=== PATIENT | male | born 1940 | race Caucasian/White ===

== ENCOUNTER 2023-02-04 14:27 | Outpatient (AMB) | payer MEDICARE, SELFPAY ==
[2023-02-04 14:50] VITALS: BP 130/60; PULSE 66; BMI 40.8
--- NOTE | 2023-02-04 14:50 | HO.NEPHOV_ITS ---
HPI HPI Comments History of Present Illness Details I had the privilege of seeing Mr Wong in follow-up of his chronic kidney disease. He is known to have cardiomyopathy. He tries to be compliant with a low-sodium diet. He takes his medications regularly. He is taking torsemide 60 mg in the morning and 60 mg in the evening. He denies any shortness of breath on exertion, proximal nocturnal dyspnea or orthopnea. He has been having back problems and has seen a spine surgeon. He has undergone imaging studies and was planning to have some intervention. He denies any urinary complaints. His blood sugar control is reasonable. He is on Farxiga. He follows up closely with Dr Shukla, his transmission systems operator. He feels improved. [facility] Medical History (Updated 02/04/23 @ 15:30 by Norberto Cueva MD) Essential (primary) hypertension Cyst of kidney, acquired Chronic kidney disease, stage 3b Surgical History (Updated 02/04/23 @ 14:54 by Karen Griffin MA) S/P CABG x 4 S/P cholecystectomy History of appendectomy Social History (Updated 02/04/23 @ 14:54 by Karen Griffin MA) Alcohol intake: never Patient Tobacco Use Status: Never used Tobacco Vital Signs 02/04/23 14:50 Height 5 ft 5 in Weight 245 lb 6 oz BMI 40.8 BP 130/60 Blood Pressure Location Rt brachial Position Sitting Pulse 66 Pulse Source Pulse Oximeter Assessment & Plan Assessment & Plan (1) Essential (primary) hypertension: Code(s): I10 - Essential (primary) hypertension (2) Chronic kidney disease, stage 3b: Code(s): N18.32 - Chronic kidney disease, stage 3b Esperanza Anderson 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 He has history of cardiomyopathy. His volume status is maintained on torsemide. He should lose weight. He should cut back on salt. He should maintain good blood sugar control. He had not been tolerating WANG inhibitor or ARB . He is on Farxiga . He has been having some edema most likely from nifedipine. We shall follow hose his urine studies and blood work. If his edema persist I will consider cutting back on his nifedipine and start him on nitrates. I did not make any other medication changes today . He should avoid nonsteroidal anti-inflammatory medications for his back problem. All his questions were answered. Follow-up was given. Time spent for retrieval of the data, patient encounter and documentation 31 minutes. Orders: Orders Creatinine 02/04/23 I10 - Essential (primary) hypertension, N18.32 - Chronic kid polina disease, stage 3b Electrolytes 02/04/23 I10 - Essential (primary) hypertension, N18.32 - Chronic kidney disease, stage 3b Blood Urea Nitrogen 02/04/23 I10 - Essential (primary) hypertension, N18.32 - Chronic kidney disease, stage 3b Calcium 02/04/23 I10 - Essential (primary) hypertension, N18.32 - Chronic kidney disease, stage 3b Medications: New torsemide 60 mg (3 x 20 mg) PO BID 90 days 540 tabs 5RF NS Coding Level of Care Code Est Pt Level 4 (55521) Diagnoses Essential (primary) hypertension I10 Chronic kidney disease, stage 3b N18.32
== END 2023-02-04 15:35 | disposition home or self-care (01) ==
PROVIDERS: Visit Provider Internal Medicine Nephrology
DX: I12.9 Hypertensive chronic kidney disease with stage 1 through stage 4 chronic kidney disease, or unspecified chronic kidney disease (principal); N18.32 Chronic kidney disease, stage 3b
CPT/HCPCS: 99214

== ENCOUNTER → 2023-02-04 14:27 | Outpatient (BNVA) | payer MEDICARE, SELFPAY | PROVIDERS: Visit Provider Internal Medicine Nephrology | DX: E11.22 Type 2 diabetes mellitus with diabetic chronic kidney disease (principal); I12.9 Hypertensive chronic kidney disease with stage 1 through stage 4 chronic kidney disease, or unspecified chronic kidney disease; N18.32 Chronic kidney disease, stage 3b; Z79.84 Long term (current) use of oral hypoglycemic drugs | CPT/HCPCS: 99212 ==

== ENCOUNTER 2023-04-18 14:35 | Outpatient (AMB) | payer MEDICARE, SELFPAY ==
[2023-04-18 14:43] VITALS: BP 126/60; PULSE 68; O2SAT 94; BMI 40.0
--- NOTE | 2023-04-18 14:43 | HO.NEPHOV_ITS ---
HPI HPI Comments History of Present Illness Details I had the privilege of seeing Mr Wong in follow-up of his chronic kidney disease. He is known to have cardiomyopathy. He recently had a hospitalization with COVID as well as HF exacerbation. He has been put on home O2 to be worn all the time now. He has seen his armored service technician post discharge. As per the patient & , pulmonary MD feels he still has some extra swelling and HF. He tries to be compliant with a low-sodium diet. He takes his medications regularly. He is taking torsemide 60 mg in the morning and 60 mg in the evening. He denies any shortness of breath on exertion, proximal nocturnal dyspnea or orthopnea. He denies any urinary complaints. His blood sugar control is reasonable. He is on Farxiga. He follows up closely with Dr Shukla, his rolling down machine operator. He feels improved [facility] Medical History (Updated 02/04/23 @ 15:30 by Norberto Cueva MD) Essential (primary) hypertension Cyst of kidney, acquired Chronic kidney disease, stage 3b Surgical History S/P CABG x 4 S/P cholecystectomy History of appendectomy Social History Alcohol intake: never Patient Tobacco Use Status: Never used Tobacco Vital Signs 04/18/23 14:43 Height 5 ft 5 in Weight 240 lb 8 oz BMI 40.0 BP 126/60 Blood Pressure Location Rt brachial Position Sitting Pulse 68 Pulse Source Pulse Oximeter Pulse Oximetry (%) 94 Oxygen Delivery Method Nasal Cannula Physical Exam Vital Signs: Last Vital Signs Pulse 68 04/18/23 14:43 BP 126/60 04/18/23 14:43 Pulse Ox 94 04/18/23 14:43 Oxygen Delivery Method Nasal Cannula 04/18/23 14:43 BMI result Body Mass Index 40.0 Const General: comfortable and no acute distress Orientation/consciousness: patient oriented x3 HEENT Head: Yes normocephalic Mouth: Normal oral and palatal mucosa present Eyes EOM: EOMs intact bilaterally Neck Neck: Yes supple Resp Auscultation: crackles and diminished lung sounds Cardio Jugular venous distension: no JVD Rate: regular rate GI Palpation (GI): Soft to palpation Auscultation: normal bowel sounds General: Yes no CVA tenderness Back/Spine/Pelvis Back: no CVA tenderness Skin General skin exam: no rashes or lesions noted Neuro General: patient oriented x3 and moves all extremities Extrem General: Yes pedal edema Assessment & Plan Assessment & Plan (1) Chronic kidney disease, stage 3b: Code(s): N18.32 - Chronic kidney disease, stage 3b (2) Essential (primary) hypertension: Code(s): I10 - Essential (primary) hypertension Plan Justin 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 He has history of cardiomyopathy. His volume status was maintained on 60 mg torsemide but he is currently hypervolemic. I increased his torsemide to 80 mg bid and started him on Metolazone 5 mg daily for 5 days followed bu 5 mg twice a week. He was instructed to cut back on torsemide to 60 mg bid and drop metolazone down to once a week when he gets to his dry weight. He should maintain very low sodium diet . He should maintain good blood sugar control. He had not been tolerating WANG inhibitor or ARB . He is on Farxiga . He had been having some edema from nifedipine. We shall follow hose his urine studies and blood work. If his edema persist I will consider cutting back on his nifedipine and start him on nitrates. I did not make any other medication changes today . He should avoid nonsteroidal anti-inflammatory medications for his back problem. All his and his 's questions were answered. Follow-up given. Orders: Orders Blood Urea Nitrogen 04/18/23 I10 - Essential (primary) hypertension, N18.32 - Chronic kidney disease, stage 3b Creatinine 04/18/23 I10 - Essential (primary) hypertension, N18.32 - Chronic kidney disease, stage 3b Electrolytes 04/18/23 I10 - Essential (primary) hypertension, N18.32 - Chronic kidney disease, stage 3b Medications: New metolazone Take one a day for 5 days followed by twice a week on Friday & 30 tabs 0RF Coding Level of Care Code Est Pt Level 4 (25305) Diagnoses Chronic kidney disease, stage 3b N18.32 Essential (primary) hypertension I10 Results Reviewed Nephrology Results: No Data to Display
== END 2023-04-18 15:31 | disposition home or self-care (01) ==
PROVIDERS: PCP Internal Medicine; Visit Provider Internal Medicine Nephrology
DX: N18.32 Chronic kidney disease, stage 3b (principal); I10 Essential (primary) hypertension
CPT/HCPCS: 99214

== ENCOUNTER → 2023-04-18 14:35 | Outpatient (BNVA) | payer MEDICARE, SELFPAY | PROVIDERS: PCP Internal Medicine; Visit Provider Internal Medicine Nephrology | DX: I12.9 Hypertensive chronic kidney disease with stage 1 through stage 4 chronic kidney disease, or unspecified chronic kidney disease (principal); N18.32 Chronic kidney disease, stage 3b | CPT/HCPCS: 99212 ==

== ENCOUNTER 2023-05-16 14:30 | Outpatient (AMB) | payer MEDICARE, SELFPAY ==
--- NOTE | 2023-05-16 14:36 | HO.NEPHOV ---
HPI HPI Comments History of Present Illness Details I had the privilege of seeing Mr Wong in follow-up of his chronic kidney disease. He is known to have cardiomyopathy. He recently had a hospitalization with ARACELI. His feels that he has been having memory issues. He has been put on home O2 to be worn all the time now. He was given intravenous fluids after holding his diuretics during his hospitalization. His diuretics were restarted at that time. He tries to be compliant with a low-sodium diet. He takes his medications regularly. He denies any worsen shortness of breath on exertion, proximal nocturnal dyspnea or orthopnea. He denies any urinary complaints. His blood sugar control is reasonable. He follows up closely with Dr Shukla, his patient registration manager. [facility] Medical History (Updated 02/04/23 @ 15:30 by Norberto Cueva MD) Essential (primary) hypertension Cyst of kidney, acquired Chronic kidney disease, stage 3b Surgical History S/P CABG x 4 S/P cholecystectomy History of appendectomy Social History Alcohol intake: never Patient Tobacco Use Status: Never used Tobacco Vital Signs 05/16/23 14:41 Height 5 ft 5 in Weight 241 lb 8 oz BMI 40.2 BP 110/60 Blood Pressure Location Rt brachial Position Sitting Pulse 83 Pulse Source Pulse Oximeter Pulse Oximetry (%) 96 Oxygen Delivery Method Nasal Cannula Physical Exam Vital Signs: Last Vital Signs Pulse 83 05/16/23 14:41 BP 110/60 05/16/23 14:41 Pulse Ox 96 05/16/23 14:41 Oxygen Delivery Method Nasal Cannula 05/16/23 14:41 BMI result Body Mass Index 40.2 Const Other: On home O2 General: comfortable and no acute distress Orientation/consciousness: patient oriented x3 HEENT Head: Yes normocephalic Mouth: Normal oral and palatal mucosa present Eyes EOM: EOMs intact bilaterally Neck Neck: Yes supple Resp Auscultation: diminished lung sounds Cardio Jugular venous distension: no JVD Rate: regular rate GI Palpation (GI): Soft to palpation Auscultation: normal bowel sounds General: Yes no CVA tenderness Back/Spine/Pelvis Back: no CVA tenderness Skin General skin exam: no rashes or lesions noted Neuro General: patient oriented x3 and moves all extremities Extrem General: Yes no pedal edema Assessment & Plan Assessment & Plan (1) Chronic kidney disease, stage 3b: Code(s): N18.32 - Chronic kidney disease, stage 3b (2) Essential (primary) hypertension: Code(s): I10 - Essential (primary) hypertension Plan Justin 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 He has history of cardiomyopathy. He recently had ARACELI due to over-diuresis. At that time was given IV fluids after holding diuretics. His diuretics had been restarted which he can continue at the current dose. He should maintain very low sodium diet . He should maintain good blood sugar control. He had not been tolerating WANG inhibitor or ARB . He is on Farxiga . He had been having some edema from nifedipine. If his edema persist I will consider cutting back on his nifedipine and start him on nitrates. I did not make any other medication changes today . He should avoid nonsteroidal anti-inflammatory medications for his back problem. All his and his 's questions were answered. Follow-up given Orders: Orders Blood Urea Nitrogen 05/16/23 N18.32 - Chronic kidney disease, stage 3b Electrolytes 2 Weeks N18.32 - Chronic kidney disease, stage 3b Blood Urea Nitrogen 2 Weeks N18.32 - Chronic kidney disease, stage 3b Blood Urea Nitrogen 1 Month N18.32 - Chronic kidney disease, stage 3b Creatinine 1 Month N18.32 - Chronic kidney disease, stage 3b Electrolytes 05/16/23 N18.32 - Chronic kidney disease, stage 3b Creatinine 24 N18.32 - Chronic kidney disease, stage 3b Creatinine 2 Weeks N18.32 - Chronic kidney disease, stage 3b Electrolytes 1 Month N18.32 - Chronic kidney disease, stage 3b Coding Level of Care Code Est Pt Level 4 (54850) Diagnoses Chronic kidney disease, stage 3b N18.32 Essential (primary) hypertension I10 Results Reviewed Nephrology Results: No Data to Display
[2023-05-16 14:41] VITALS: BP 110/60; PULSE 83; O2SAT 96; BMI 40.2
== END 2023-05-16 15:32 | disposition home or self-care (01) ==
PROVIDERS: PCP Internal Medicine; Visit Provider Internal Medicine Nephrology
DX: N18.32 Chronic kidney disease, stage 3b (principal); I10 Essential (primary) hypertension
CPT/HCPCS: 99214

== ENCOUNTER → 2023-05-16 14:30 | Outpatient (BNVA) | payer MEDICARE, SELFPAY | PROVIDERS: PCP Internal Medicine; Visit Provider Internal Medicine Nephrology | DX: I12.9 Hypertensive chronic kidney disease with stage 1 through stage 4 chronic kidney disease, or unspecified chronic kidney disease (principal); N18.32 Chronic kidney disease, stage 3b | CPT/HCPCS: 99212 ==

== ENCOUNTER 2023-05-30 14:45 | Outpatient (REF) | payer MEDICARE, SELFPAY ==
[2023-05-30 16:05] LABS: Anion Gap 18 (12-20); Blood Urea Nitrogen 46 mg/dL (9-16); Carbon Dioxide 35 mmol/L (22-29); Chloride 95 mmol/L (96-108); Estimated Glomerular Filt Rate 31; Potassium 4.3 mmol/L (3.3-5.1); Sodium 144 mmol/L (135-145)
== END 2023-05-30 14:46 | disposition home or self-care (01) ==
LOC: HO.LAB 14:45
PROVIDERS: PCP Internal Medicine; Visit Provider Internal Medicine Nephrology
DX: N18.32 Chronic kidney disease, stage 3b (principal)
CPT/HCPCS: 36415; 80051; 82565; 84520

== ENCOUNTER 2023-06-13 10:43 | Outpatient (REF) | payer MEDICARE, SELFPAY ==
[2023-06-13 12:54] LABS: Anion Gap 17 (12-20); Blood Urea Nitrogen 63 mg/dL (9-16); Calcium 9.4 mg/dL (8.4-10.2); Carbon Dioxide 34 mmol/L (22-29); Chloride 93 mmol/L (96-108); Estimated Glomerular Filt Rate 27; Potassium 4.1 mmol/L (3.3-5.1); Sodium 140 mmol/L (135-145)
== END 2023-06-13 10:44 | disposition home or self-care (01) ==
LOC: HO.LAB 10:43
PROVIDERS: PCP Internal Medicine; Visit Provider Internal Medicine Nephrology
DX: I12.9 Hypertensive chronic kidney disease with stage 1 through stage 4 chronic kidney disease, or unspecified chronic kidney disease (principal); N18.32 Chronic kidney disease, stage 3b
CPT/HCPCS: 36415; 80051; 82310; 82565; 84520

== ENCOUNTER 2023-06-27 13:24 | Outpatient (AMB) | payer MEDICARE, SELFPAY ==
--- NOTE | 2023-06-27 13:27 | HO.NEPHOV ---
HPI HPI Comments History of Present Illness Details I had the privilege of seeing Mr Marvin in follow-up of his chronic kidney disease. He is known to have cardiomyopathy. He recently had hospitalizations follwoing firing of AICD and dizziness. Some of his medicaitons were put on hold in the hospital. He has been put on home O2 . He has seen a pulmonary team who told him and his that he has pulmonary fibrosis. He recently had his Amiodarone stopped and was initiated on Mexilitine at that time. He felt his AICD firing and dizziness was at the same time as this transition. At that time Mexilitine was discontinued and was re initiated on Amiodarone. He wants a second opinion from a different pulmonary team. He tries to be compliant with a low-sodium diet. He takes his medications regularly. He denies any worsen shortness of breath on exertion, proximal nocturnal dyspnea or orthopnea. He denies any urinary complaints. His blood sugar control is reasonable. He follows up closely with Dr Shukla, his solid waste manager. [facility] Medical History (Updated 06/27/23 @ 13:49 by Norberto Cueva MD) Essential (primary) hypertension Cyst of kidney, acquired Chronic kidney disease, stage 3b Surgical History S/P CABG x 4 S/P cholecystectomy History of appendectomy Social History Alcohol intake: never Patient Tobacco Use Status: Never used Tobacco Vital Signs 06/27/23 13:31 Height 5 ft 5 in Weight 242 lb 2 oz BMI 40.3 BP 120/70 Blood Pressure Location Rt brachial Position Sitting Pulse 67 Pulse Source Pulse Oximeter Pulse Oximetry (%) 99 Oxygen Delivery Method Room Air Physical Exam Vital Signs: Last Vital Signs Pulse 67 06/27/23 13:31 BP 120/70 06/27/23 13:31 Pulse Ox 99 06/27/23 13:31 Oxygen Delivery Method Room Air 06/27/23 13:31 BMI result Body Mass Index 40.3 Const General: comfortable and no acute distress Orientation/consciousness: patient oriented x3 HEENT Head: Yes normocephalic Mouth: Normal oral and palatal mucosa present Eyes EOM: EOMs intact bilaterally Neck Neck: Yes supple Resp Auscultation: clear to auscultation bilaterally Cardio Jugular venous distension: no JVD Rate: regular rate GI Palpation (GI): Soft to palpation Auscultation: normal bowel sounds General: Yes no CVA tenderness Back/Spine/Pelvis Back: no CVA tenderness Skin General skin exam: no rashes or lesions noted Neuro General: patient oriented x3 and moves all extremities Assessment & Plan Assessment & Plan (1) Chronic kidney disease, stage 3b: Code(s): N18.32 - Chronic kidney disease, stage 3b (2) Essential (primary) hypertension: Code(s): I10 - Essential (primary) hypertension (3) Pulmonary fibrosis: Code(s): J84.10 - Pulmonary fibrosis, unspecified Plan Justin 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 He has history of cardiomyopathy. His diuretics had been restarted which he can continue at the current dose for now. His serum creatinine has settled to baseline. He should maintain very low sodium diet . He should maintain good blood sugar control. He had not been tolerating WANG inhibitor or ARB . He is on Farxiga . He had been having some edema from nifedipine. If his edema persist I will consider cutting back on his nifedipine and start him on nitrates. I took the liberty to refer him to Dr Jacinto Cloud, pulmonary physician for a second opinion. I asked him and his Danyell to get all pulmonary records from his current pulmonary team to take it with them when they go to Dr Cloud. I did not make any other medication changes today . He should avoid nonsteroidal anti-inflammatory medications for his back problem. All his and his 's questions were answered. Follow-up given Orders: Orders Electrolytes 06/27/23 I10 - Essential (primary) hypertension, J84.10 - Pulmonary fibrosis, unspecified, N18.32 - Chronic kidney disease, stage 3b Creatinine 06/27/23 I10 - Essential (primary) hypertension, J84.10 - Pulmonary fibrosis, unspecified, N18.32 - Chronic kidney disease, stage 3b Blood Urea Nitrogen 06/27/23 I10 - Essential (primary) hypertension, J84.10 - Pulmonary fibrosis, unspecified, N18.32 - Chronic kidney disease, stage 3b Referrals Pulmonology Referral J84.10 - Pulmonary fibrosis, unspecified Medications: Refilled torsemide 60 mg (3 x 20 mg) PO BID 90 days 540 tabs 5RF NS Coding Level of Care Code Est Pt Level 4 (55479) Diagnoses Chronic kidney disease, stage 3b N18.32 Essential (primary) hypertension I10 Pulmonary fibrosis J84.10 Results Reviewed Nephrology Results: Sodium 140 mmol/L (135-145) 06/13/23 Potassium 4.1 mmol/L (3.3-5.1) 06/13/23 Chloride 93 mmol/L (96-108) L 06/13/23 Carbon Dioxide 34 mmol/L (22-29) H 06/13/23 BUN 63 mg/dL (9-16) H 06/13/23 Creatinine 2.36 mg/dL (0.5-1.4) H 06/13/23 Calcium 9.4 mg/dL (8.4-10.2) 06/13/23
[2023-06-27 13:31] VITALS: BP 120/70; PULSE 67; O2SAT 99; BMI 40.3
== END 2023-06-27 14:05 | disposition home or self-care (01) ==
PROVIDERS: PCP Internal Medicine; Visit Provider Internal Medicine Nephrology
DX: N18.32 Chronic kidney disease, stage 3b (principal); I10 Essential (primary) hypertension; J84.10 Pulmonary fibrosis, unspecified
CPT/HCPCS: 99214

== ENCOUNTER → 2023-06-27 13:24 | Outpatient (BNVA) | payer MEDICARE, SELFPAY | PROVIDERS: PCP Internal Medicine; Visit Provider Internal Medicine Nephrology | DX: I12.9 Hypertensive chronic kidney disease with stage 1 through stage 4 chronic kidney disease, or unspecified chronic kidney disease (principal); N18.32 Chronic kidney disease, stage 3b | CPT/HCPCS: 99212 ==

== ENCOUNTER 2023-07-14 14:05 | Outpatient (REF) | payer MEDICARE, SELFPAY ==
[2023-07-14 15:32] LABS: Anion Gap 16 (12-20); Blood Urea Nitrogen 58 mg/dL (9-16); Calcium 9.7 mg/dL (8.4-10.2); Carbon Dioxide 33 mmol/L (22-29); Chloride 94 mmol/L (96-108); Estimated Glomerular Filt Rate 26; Potassium 4.4 mmol/L (3.3-5.1); Sodium 139 mmol/L (135-145)
== END 2023-07-14 14:06 | disposition home or self-care (01) ==
LOC: HO.LAB 14:05
PROVIDERS: PCP Internal Medicine; Visit Provider Internal Medicine Nephrology
DX: J84.10 Pulmonary fibrosis, unspecified (principal); I12.9 Hypertensive chronic kidney disease with stage 1 through stage 4 chronic kidney disease, or unspecified chronic kidney disease; N18.32 Chronic kidney disease, stage 3b
CPT/HCPCS: 36415; 80051; 82310; 82565; 84520

== ENCOUNTER 2023-07-17 14:19 | Outpatient (AMB) | payer MEDICARE, SELFPAY ==
--- NOTE | 2023-07-17 14:44 | HO.NEPHOV ---
Vital Signs 07/17/23 14:46 Height 5 ft 5 in Weight 242 lb 4 oz BMI 40.3 BP 120/60 Blood Pressure Location Lt brachial Position Sitting Pulse 75 Pulse Source Pulse Oximeter Pulse Oximetry (%) 98 Oxygen Delivery Method Room Air Intake Visit Reasons: 1 Month/ [employer] Investment Banking Associate Required: No Accompanied by: Self / Same As Patient Allergies lisinopril Allergy (Verified 07/17/23 14:49) Unknown metoprolol Allergy (Verified 07/17/23 14:49) Unknown shellfish derived Allergy (Verified 07/17/23 14:49) Swelling oxycodone-acetaminophen Allergy (Uncoded 02/04/23 14:35) Unknown HPI Comments Details: I had the privilege of seeing Mr Wong in follow-up of his chronic kidney disease. He is known to have cardiomyopathy. He recently had hospitalizations follwoing firing of AICD and dizziness. Some of his medicaitons were put on hold in the hospital. He has been put on home O2 . He has seen a pulmonary team who told him and his that he has pulmonary fibrosis. He recently had his Amiodarone stopped and was initiated on Mexilitine at that time. He felt his AICD firing and dizziness was at the same time as this transition. At that time Mexilitine was discontinued and was re initiated on Amiodarone. He is going for a second opinion from a different pulmonary team. He tries to be compliant with a low-sodium diet. He takes his medications regularly. He denies any worsen shortness of breath on exertion, proximal nocturnal dyspnea or orthopnea. He denies any urinary complaints. His blood sugar control is reasonable. He follows up closely with Dr Shukla, his technical account representative. [facility] Medical History (Updated 06/27/23 @ 13:49 by Norberto Cueva MD) Essential (primary) hypertension Cyst of kidney, acquired Chronic kidney disease, stage 3b Surgical History S/P CABG x 4 S/P cholecystectomy History of appendectomy Social History Alcohol intake: never Patient Tobacco Use Status: Never used Tobacco Physical Exam Vital Signs: Last Vital Signs Pulse 75 07/17/23 14:46 BP 120/60 07/17/23 14:46 Pulse Ox 98 07/17/23 14:46 Oxygen Delivery Method Room Air 07/17/23 14:46 BMI result Body Mass Index 40.3 Results Reviewed Nephrology Results: Sodium 139 mmol/L (135-145) 07/14/23 Potassium 4.4 mmol/L (3.3-5.1) 07/14/23 Chloride 94 mmol/L (96-108) L 07/14/23 Carbon Dioxide 33 mmol/L (22-29) H 07/14/23 BUN 58 mg/dL (9-16) H 07/14/23 Creatinine 2.41 mg/dL (0.5-1.4) H 07/14/23 Calcium 9.7 mg/dL (8.4-10.2) 07/14/23 Assessment & Plan Assessment & Plan (1) Pulmonary fibrosis: Code(s): J84.10 - Pulmonary fibrosis, unspecified Category: Medical (2) Essential (primary) hypertension: Code(s): I10 - Essential (primary) hypertension Category: Medical (3) Chronic kidney disease, stage 3b: Code(s): N18.32 - Chronic kidney disease, stage 3b Category: Medical Plan Justin 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 He has history of cardiomyopathy. His diuretics had been restarted which he can continue at the current dose for now. His serum creatinine has settled to baseline. He should maintain very low sodium diet . He should maintain good blood sugar control. He had not been tolerating WANG inhibitor or ARB . He is on Farxiga . We may have to start him on nitrates. He has an appointment with Dr Jacinto Cloud, pulmonary physician for a second opinion. I asked him and his Danyell to get all pulmonary records from his current pulmonary team to take it with them when they go to Dr Cloud. I did not make any other medication changes today . He should avoid nonsteroidal anti-inflammatory medications for his back problem. All his and his 's questions were answered. Follow-up given Orders: Orders Complete Blood Count Auto Diff Today I10 - Essential (primary) hypertension, J84.10 - Pulmonary fibrosis, unspecified, N18.32 - Chronic kidney disease, stage 3b Creatinine Today I10 - Essential (primary) hypertension, J84.10 - Pulmonary fibrosis, unspecified, N18.32 - Chronic kidney disease, stage 3b Blood Urea Nitrogen Today I10 - Essential (primary) hypertension, J84.10 - Pulmonary fibrosis, unspecified, N18.32 - Chronic kidney disease, stage 3b Electrolytes Today I10 - Essential (primary) hypertension, J84.10 - Pulmonary fibrosis, unspecified, N18.32 - Chronic kidney disease, stage 3b
[2023-07-17 14:46] VITALS: BP 120/60; PULSE 75; O2SAT 98; BMI 40.3
== END 2023-07-17 15:16 | disposition home or self-care (01) ==
PROVIDERS: PCP Internal Medicine; Visit Provider Internal Medicine Nephrology
DX: J84.10 Pulmonary fibrosis, unspecified (principal); I10 Essential (primary) hypertension; N18.32 Chronic kidney disease, stage 3b
CPT/HCPCS: 99214

== ENCOUNTER → 2023-07-17 14:19 | Outpatient (BNVA) | payer MEDICARE, SELFPAY | PROVIDERS: PCP Internal Medicine; Visit Provider Internal Medicine Nephrology | DX: I12.9 Hypertensive chronic kidney disease with stage 1 through stage 4 chronic kidney disease, or unspecified chronic kidney disease (principal); N18.32 Chronic kidney disease, stage 3b; J84.10 Pulmonary fibrosis, unspecified | CPT/HCPCS: 99212 ==

== ENCOUNTER 2023-09-11 13:13 | Outpatient (REF) | payer MEDICARE, SELFPAY ==
[2023-09-11 13:39] LABS: MANUAL DIFF FLAG NO
[2023-09-11 14:02] LABS: Basophils Absolute Auto 0.1 X10*3/uL (0.0-0.2); Basophils Percent Auto 0.6 % (0-2); Eosinophils Absolute Auto 0.3 X10*3/uL (0.0-0.4); Eosinophils Percent Auto 2.9 % (0-4); Hematocrit 41.2 % (42.0-52.0); Hemoglobin 13.2 g/dl (14.0-18.0); Imm Gran Abs Auto 0.06 X10*3/uL (0.00-0.03); Imm Gran Pct Auto 0.6 % (0.0-0.4); Lymphocytes Absolute Auto 1.4 X10*3/uL (1.2-4.9); Lymphocytes Percent Auto 14.5 % (20-40); Mean Corpuscular Hemoglobin 28.9 pg (27.0-33.0); Mean Corpuscular Volume 90.2 fL (80.0-98.0); Mean Platelet Volume 10.4 fL (9.4-12.4); Monocytes Absolute Auto 1.1 X10*3/uL (0.1-1.2); Monocytes Percent Auto 11.4 % (2-11); Neutrophils Absolute Auto 6.6 x10*3/uL (2.0-8.3); Platelet Count 195 X10*3/uL (160-400); Red Blood Count 4.57 X10*6/uL (4.60-5.80); Red Cell Distribution Width 14.8 % (11.0-16.0); White Blood Count 9.4 X10*3/uL (4.8-10.8)
[2023-09-11 14:27] LABS: Anion Gap 15 (12-20); Blood Urea Nitrogen 51 mg/dL (9-16); Carbon Dioxide 32 mmol/L (22-29); Chloride 93 mmol/L (96-108); Estimated Glomerular Filt Rate 25; Potassium 4.3 mmol/L (3.3-5.1); Sodium 136 mmol/L (135-145)
== END 2023-09-11 13:14 | disposition home or self-care (01) ==
LOC: HO.LAB 13:13
PROVIDERS: PCP Internal Medicine; Visit Provider Internal Medicine Nephrology
DX: I12.9 Hypertensive chronic kidney disease with stage 1 through stage 4 chronic kidney disease, or unspecified chronic kidney disease (principal); N18.32 Chronic kidney disease, stage 3b; J84.10 Pulmonary fibrosis, unspecified
CPT/HCPCS: 36415; 80051; 82565; 84520; 85025

== ENCOUNTER 2023-09-16 13:26 | Outpatient (AMB) | payer MEDICARE, SELFPAY ==
--- NOTE | 2023-09-16 13:39 | HO.NEPHOV ---
Vital Signs 09/16/23 13:55 Height 5 ft 5 in Weight 232 lb 4 oz BMI 38.6 BP 128/70 Blood Pressure Location Rt brachial Position Sitting Pulse 64 Pulse Source Pulse Oximeter Pulse Oximetry (%) 97 Oxygen Delivery Method Room Air Intake Visit Reasons: CKD/ LVM Sleeve Fixer Required: No Accompanied by: Spouse Allergies lisinopril Allergy (Verified 09/16/23 14:00) Unknown metoprolol Allergy (Verified 09/16/23 14:00) Unknown shellfish derived Allergy (Verified 09/16/23 14:00) Swelling oxycodone-acetaminophen Allergy (Uncoded 02/04/23 14:35) Unknown HPI Comments Details: I had the privilege of seeing Mr Wong in follow-up of his chronic kidney disease. He is known to have cardiomyopathy. He recently had hospitalization following viral illness . He has been put on home O2 . He has seen a pulmonary team who told him and his that he has pulmonary fibrosis. He is on Amiodarone and his yard coordinator is concerned whether he has pulmonary fibrosis from it.He is going for a second opinion from a different pulmonary team. He tries to be compliant with a low-sodium diet. He takes his medications regularly. He denies any worsen shortness of breath on exertion, proximal nocturnal dyspnea or orthopnea. He denies any urinary complaints. His blood sugar control is reasonable. He follows up closely with Dr Shukla, his yard coordinator. He has been having right knee pain. [facility] Medical History (Updated 06/27/23 @ 13:49 by Norberto Cueva MD) Essential (primary) hypertension Cyst of kidney, acquired Chronic kidney disease, stage 3b Surgical History S/P CABG x 4 S/P cholecystectomy History of appendectomy Social History Alcohol intake: never Patient Tobacco Use Status: Never used Tobacco Physical Exam Vital Signs: Last Vital Signs Pulse 64 09/16/23 13:55 BP 128/70 09/16/23 13:55 Pulse Ox 97 09/16/23 13:55 Oxygen Delivery Method Room Air 09/16/23 13:55 BMI result Body Mass Index 38.6 Const General: comfortable and no acute distress Orientation/consciousness: patient oriented x3 HEENT Head: Yes normocephalic Mouth: Normal oral and palatal mucosa present Eyes EOM: EOMs intact bilaterally Neck Neck: Yes supple Resp Auscultation: clear to auscultation bilaterally Cardio Jugular venous distension: no JVD Rate: regular rate GI Palpation (GI): Soft to palpation Auscultation: normal bowel sounds General: Yes no CVA tenderness Back/Spine/Pelvis Back: no CVA tenderness Skin General skin exam: no rashes or lesions noted Neuro General: patient oriented x3 and moves all extremities Results Reviewed Nephrology Results: Hgb 13.2 g/dl (14.0-18.0) L 09/11/23 WBC 9.4 X10*3/uL (4.8-10.8) 09/11/23 Plt Count 195 X10*3/uL (160-400) 09/11/23 Sodium 136 mmol/L (135-145) 09/11/23 Potassium 4.3 mmol/L (3.3-5.1) 09/11/23 Chloride 93 mmol/L (96-108) L 09/11/23 Carbon Dioxide 32 mmol/L (22-29) H 09/11/23 BUN 51 mg/dL (9-16) H 09/11/23 Creatinine 2.46 mg/dL (0.5-1.4) H 09/11/23 Calcium 10.2 mg/dL (8.4-10.2) 09/08/23 Assessment & Plan Assessment & Plan (1) Chronic kidney disease, stage 3b: Code(s): N18.32 - Chronic kidney disease, stage 3b Category: Medical (2) Essential (primary) hypertension: Code(s): I10 - Essential (primary) hypertension Category: Medical Plan Justin 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 He has history of cardiomyopathy. His diuretics had been restarted which he can continue at the current dose for now. His serum creatinine has settled to baseline. He should maintain very low sodium diet . He should maintain good blood sugar control. He had not been tolerating WANG inhibitor or ARB . He is on Farxiga . He has an appointment with Dr Jacinto Cloud, pulmonary physician for a second opinion. I asked him and his Danyell to get all pulmonary records from his current pulmonary team to take it with them when they go to Dr Cloud. I did not make any other medication changes today . He should avoid nonsteroidal anti-inflammatory medications for his back problem. All his and his 's questions were answered. Follow-up given Orders: Orders Uric Acid Today I10 - Essential (primary) hypertension, N18.32 - Chronic kidney disease, stage 3b Creatinine Today I10 - Essential (primary) hypertension, N18.32 - Chronic kidney disease, stage 3b Blood Urea Nitrogen Today I10 - Essential (primary) hypertension, N18.32 - Chronic kidney disease, stage 3b Electrolytes Today I10 - Essential (primary) hypertension, N18.32 - Chronic kidney disease, stage 3b Coding Level of Care Code Est Pt Level 4 (64095) Diagnoses Chronic kidney disease, stage 3b N18.32 Essential (primary) hypertension I10
[2023-09-16 13:55] VITALS: BP 128/70; PULSE 64; O2SAT 97; BMI 38.6
== END 2023-09-16 14:30 | disposition home or self-care (01) ==
PROVIDERS: PCP Internal Medicine; Visit Provider Internal Medicine Nephrology
DX: N18.32 Chronic kidney disease, stage 3b (principal); I10 Essential (primary) hypertension
CPT/HCPCS: 99214

== ENCOUNTER → 2023-09-16 13:26 | Outpatient (BNVA) | payer MEDICARE, SELFPAY | PROVIDERS: PCP Internal Medicine; Visit Provider Internal Medicine Nephrology | DX: I12.9 Hypertensive chronic kidney disease with stage 1 through stage 4 chronic kidney disease, or unspecified chronic kidney disease (principal); N18.32 Chronic kidney disease, stage 3b | CPT/HCPCS: 99212 ==

== ENCOUNTER 2023-10-20 13:09 | Outpatient (AMB) | payer MEDICARE, SELFPAY ==
--- NOTE | 2023-10-20 13:16 | MHC.OFFVIS ---
Vital Signs 10/20/23 13:24 Height 5 ft 6 in Weight 231 lb BMI 37.3 BP 128/60 Blood Pressure Location Lt brachial Position Sitting Pulse 65 Pulse Source Pulse Oximeter Pulse Oximetry (%) 100 Oxygen Delivery Method Room Air Comment 3 Liters Oxygen([facility]) Intake Visit Reasons: pulmonary fibrosis Exercise Equipment Specialist Required: No Allergies lisinopril Allergy (Verified 10/20/23 13:26) Unknown metoprolol Allergy (Verified 10/20/23 13:26) Unknown shellfish derived Allergy (Verified 10/20/23 13:26) Swelling oxycodone-acetaminophen Allergy (Uncoded 10/20/23 13:26) Unknown HPI Comments Details: The patient is here for pulmonary evaluation. The patient is an 83-year-old gentleman presenting with evaluation of pulmonary fibrosis. The patient has multiple comorbidities including heart disease, chronic kidney disease and chronic respiratory failure on oxygen. [facility] He has been requiring 3 L of oxygen. All he has had a hard time with his portable oxygen tank since he is not able to carry. The patient does have difficulties ambulating. He does rely on a cane and a walker and is hard for him to carry the oxygen tanks specially even with the Trelegy in view of his unsteady gait. Back in July he had worsening respiratory symptoms and he did go to [facility] was admitted briefly to the hospital there, the patient had a CT scan of the chest which was personally by me demonstrating some interstitial changes primarily in the periphery of bilateral lungs. In addition to that also had a nodular density measuring 2 cm in size in the right lower lobe suspicious for an infectious process but can not rule out a malignant process. The patient had been positive for human metapneumovirus at that time. Also to note the patient has been on amiodarone for some time. The does report that because of the interstitial lung disease he was weaned off the amiodarone completely but then developed the serious cardiac arrhythmia and decision was to place him back on a small dose of 200 mg daily. Also, during the office visit we were able to remove the oxygen and we did do a 6 minute walk test. We were able to work on his breathing technique to make sure that he is breathing through the nose and during the ambulation the patient was placed on a portable oxygen concentrator where he tolerated 3 L pulse maintaining a pulse ox of 94%. Therefore, I do believe that he will do well on a portable oxygen concentrator specially with his multiple comorbidities and difficulty ambulating and this will improve his portability outside of the home. In addition to that he is going to continue his respiratory therapy. He will get a repeat CT scan of the chest to follow-up with the nodular density to rule out a malignant process. [facility] Medical History (Updated 10/20/23 @ 22:14 by Jacinto Cloud MD) Chronic hypoxemic respiratory failure On amiodarone therapy Pulmonary nodule 1 cm or greater in diameter ILD (interstitial lung disease) Essential (primary) hypertension Cyst of kidney, acquired Chronic kidney disease, stage 3b Surgical History S/P CABG x 4 S/P cholecystectomy History of appendectomy Social History Alcohol intake: never Patient Tobacco Use Status: Never used Tobacco Review of Systems Const Reports fatigue Eyes Reports no additional complaints ENT Reports nasal congestion Card Denies chest pain and Reports dyspnea on exertion Resp Reports cough, Reports dyspnea on exertion and Denies wheezing GI Denies abdominal pain Musc Reports abnormal gait and Reports myalgias Skin/Breast Denies rash Neuro Reports abnormal gait Endo Reports fatigue Aller/Immun Denies wheezing Physical Exam Vital Signs: Last Vital Signs Pulse 65 10/20/23 13:24 BP 128/60 10/20/23 13:24 Pulse Ox 100 10/20/23 13:24 Oxygen Delivery Method Room Air 10/20/23 13:24 BMI result Body Mass Index 37.3 Const General: comfortable HEENT Head: Yes normocephalic Neck Neck: Yes supple Chest Chest palpation & inspection: normal inspection of the chest Resp Effort & Inspection: normal respiratory effort Auscultation: rales and diminished lung sounds Cardio Heart sounds: S1 normal heart sound present and S2 normal heart sound present GI Palpation (GI): Soft to palpation Skin General skin exam: no rashes or lesions noted Extrem General: No cyanosis Office Procedures 6 Minute Walk Time:: 22:34 SPO2 % at rest: 88 Pulse at rest: 80 SPO2 % during excercise: 88 Pulse during excercise: 98 Distance in yards walked: 100 Rach Score: 4 Supplemental Oxygen: The patient placed on RA and desaturated to 88%.placed on 2l/pulse maintaining pox 94%, then ambulated on 3l/pulse maintating pox 94%. 57140 - 6 Minute Walk Assessment & Plan Assessment & Plan (1) ILD (interstitial lung disease): Comment: areas or reticular changes and GGO. No honeycombing. Code(s): J84.9 - Interstitial pulmonary disease, unspecified Category: Medical (2) Pulmonary nodule 1 cm or greater in diameter: Code(s): R91.1 - Solitary pulmonary nodule Category: Medical (3) Pulmonary fibrosis: Code(s): J84.10 - Pulmonary fibrosis, unspecified Category: Medical (4) Chronic kidney disease, stage 3b: Code(s): N18.32 - Chronic kidney disease, stage 3b Category: Medical (5) On amiodarone therapy: Code(s): Z79.899 - Other termite control representative (current) drug therapy Category: Medical (6) Chronic hypoxemic respiratory failure: Code(s): J96.11 - Chronic respiratory failure with hypoxia Category: Medical Plan The ILD appears worse on his recent CT chest, although, superimposed respiratory infection and likely pneumonia. Amiodarone is not a safe medicine from a pulmonary standpoint. If no good alternative would benefit in decreasing the dose. Has a concerning 2cm nodule, likely infection. REC: Decrease Amiodarone if able (100mg) Bloodwork repeat CT chest continue oxygen ([facility]) He did have a 6MWT and he did well on a POC 3L/pulse with activity. He needs a POC for better portability. He already uses a walker/cone and is extremely hard for him to use the oxygen tanks F/U 6 weeks Orders: Orders Angiotensin Converting Enzyme Today J84.9 - Interstitial pulmonary disease, unspecified, R91.1 - Solitary pulmonary nodule Hypersensitive Pneumonitis Prf Today J84.9 - Interstitial pulmonary disease, unspecified, R91.1 - Solitary pulmonary nodule, R91.8 - Other nonspecific abnormal finding of lung field Complete Blood Count Auto Diff Today J84.9 - Interstitial pulmonary disease, unspecified, R91.1 - Solitary pulmonary nodule Erythrocyte Sedimentation Rate Today J84.9 - Interstitial pulmonary disease, unspecified, R91.1 - Solitary pulmonary nodule CT chest wo IV con Today R91.1 - Solitary pulmonary nodule ANCA Vasculitides Today J84.9 - Interstitial pulmonary disease, unspecified T Spot TB Today J84.9 - Interstitial pulmonary disease, unspecified ZO Reflex Titer and Pattern Today J84.9 - Interstitial pulmonary disease, unspecified, R91.1 - Solitary pulmonary nodule Sjogren's Antibodies Today J84.9 - Interstitial pulmonary disease, unspecified Coding Level of Care Code New Pt Level 5 (18350) Diagnoses ILD (interstitial lung disease) J84.9 Pulmonary nodule 1 cm or greater in diameter R91.1 Pulmonary fibrosis J84.10 Chronic kidney disease, stage 3b N18.32 On amiodarone therapy Z79.899 Chronic hypoxemic respiratory failure J96.11 CPT Codes Coding ([id number]) Time Spent (min) 60
[2023-10-20 13:24] VITALS: BP 128/60; PULSE 65; O2SAT 100; BMI 37.3
[2023-10-20 22:34] VITALS: PULSE 80; O2SAT 88
== END 2023-10-20 14:05 | disposition home or self-care (01) ==
PROVIDERS: PCP Internal Medicine; Visit Provider Hospitalist
DX: J84.9 Interstitial pulmonary disease, unspecified (principal); R91.1 Solitary pulmonary nodule; J84.10 Pulmonary fibrosis, unspecified; Z79.899 Other long term (current) drug therapy; J96.11 Chronic respiratory failure with hypoxia
CPT/HCPCS: 94618; 99205

== ENCOUNTER → 2023-10-20 13:09 | Outpatient (BNVA) | payer MEDICARE, SELFPAY | PROVIDERS: PCP Internal Medicine; Visit Provider Hospitalist | DX: J84.9 Interstitial pulmonary disease, unspecified (principal); J84.10 Pulmonary fibrosis, unspecified; J96.11 Chronic respiratory failure with hypoxia; R91.1 Solitary pulmonary nodule; N18.32 Chronic kidney disease, stage 3b; Z79.899 Other long term (current) drug therapy | CPT/HCPCS: 94618; 99202 ==

== ENCOUNTER 2023-10-21 13:20 | Outpatient (REF) | payer MEDICARE, SELFPAY ==
[2023-10-21 13:49] LABS: MANUAL DIFF FLAG NO
[2023-10-21 14:21] LABS: Basophils Percent Auto 0.5 % (0-2); Eosinophils Absolute Auto 0.4 X10*3/uL (0.0-0.4); Eosinophils Percent Auto 5.1 % (0-4); Hemoglobin 12.9 g/dl (14.0-18.0); Imm Gran Abs Auto 0.04 X10*3/uL (0.00-0.03); Imm Gran Pct Auto 0.5 % (0.0-0.4); Lymphocytes Absolute Auto 1.2 X10*3/uL (1.2-4.9); Lymphocytes Percent Auto 16.3 % (20-40); Mean Corpuscular HGB Conc 32.3 g/dl (31.0-36.0); Mean Corpuscular Hemoglobin 29.4 pg (27.0-33.0); Mean Corpuscular Volume 91.1 fL (80.0-98.0); Mean Platelet Volume 10.3 fL (9.4-12.4); Monocytes Absolute Auto 0.8 X10*3/uL (0.1-1.2); Monocytes Percent Auto 11.3 % (2-11); Neutrophils Absolute Auto 4.9 x10*3/uL (2.0-8.3); Neutrophils Percent Auto 66.3 % (45-73); Platelet Count 224 X10*3/uL (160-400); Red Blood Count 4.39 X10*6/uL (4.60-5.80); Red Cell Distribution Width 16.3 % (11.0-16.0); White Blood Count 7.4 X10*3/uL (4.8-10.8)
[2023-10-21 15:05] LABS: Erythrocyte Sedimentation Rate 15 MM/HR (0-15)
[2023-10-23 14:29] LABS: Antibody to SS-A Antigen <1.0 NEG AI (<1.0 NEG); Antibody to SS-B Antigen <1.0 NEG AI (<1.0 NEG); Myeloperoxidase Antibody <1.0 AI; Proteinase 3 PR3 Antibodies <1.0 AI
[2023-10-24 05:54] LABS: TS Negative Control Passed; TS Panel A 1; TS Panel B 0; TS Positive Control Passed; TSpotTB Negative (Negative)
[2023-10-24 20:44] LABS: Angiotensin Converting Enzyme 30 U/L (9-67)
[2023-10-28 14:53] LABS: Anti Nuclear Antibody Screen POSITIVE (NEGATIVE)
[2023-10-30 15:18] LABS: Asperg fumigatus Precip Abs NEGATIVE (NEGATIVE); Micropoly faeni Abs NEGATIVE (NEGATIVE); Pigeon serum Abs NEGATIVE (NEGATIVE); Saccharo pora viridis Abs NEGATIVE (NEGATIVE); Thermo candidus Abs NEGATIVE (NEGATIVE); Thermoa vulgaris #1 NEGATIVE (NEGATIVE)
== END 2023-10-21 13:21 | disposition home or self-care (01) ==
LOC: HO.LAB 13:20
PROVIDERS: PCP Internal Medicine; Visit Provider Hospitalist
DX: R91.1 Solitary pulmonary nodule (principal); J84.9 Interstitial pulmonary disease, unspecified; R91.8 Other nonspecific abnormal finding of lung field
CPT/HCPCS: 36415; 82164; 85025; 85652; 86021; 86038; 86039; 86235; 86331; 86481; 86606; 86609

== ENCOUNTER 2023-11-14 14:02 | Outpatient (REF) | payer MEDICARE, SELFPAY ==
--- NOTE | ~2023-11-14 | CT_ITS ---
EXAMINATION: CT CHEST WITHOUT CONTRAST CLINICAL INFORMATION: Solitary pulmonary nodule. COMPARISON: No prior available. TECHNIQUE: Multidetector volumetric CT imaging of the chest was done. Axial MIP volume rendering provided. Sagittal and coronal reformatted images were obtained. This CT examination was performed using dose optimization techniques as appropriate, variously including the following: *Automated exposure control *Adjustment of mA and/or kV according to patient size (this includes techniques or standardized protocols for targeted exams where dose is matched to indication/reason for exam; i.e. extremities or head) *Use of iterative reconstruction technique DLP: 248 mGy-cm FINDINGS: MANAGER BUSINESS INFORMATION: Left chest wall 3-lead AICD device in place, leads extending into the right atrium, right ventricle, and coronary sinus. Aortic valve replacement present. Median sternotomy noted. -Elevated right hemidiaphragm. -Low lung volumes. LUNGS: -There are low lung volumes. There are moderate subpleural interstitial changes throughout both lungs, without definite gradient to the upper lower lungs. Findings suggest early interstitial lung disease/restrictive lung disease. -There is distortion of the fissures. -No pleural effusions or pleural masses. -No suspicious pulmonary nodules. There are a few scattered calcified granulomata. Degree of underlying lung disease may obscure small nodules. -Minimal bronchiectasis present in the lower lobes. Minimal small airway thickening present. -Mild peribronchovascular interstitial thickening present. -No airspace consolidation. MEDIASTINUM: -Post median sternotomy and CABG. -Aortic valve replacement. -Mild cardiomegaly. -Subendocardial fat deposition in the LV [place], likely secondary to old infarct. -Aorta is moderately to heavily calcified and nonaneurysmal. -Pulmonary artery is somewhat prominent but not enlarged by strict size criteria. Suspect increased pulmonary pressures. -No pericardial effusion. -There are small subcarinal lymph nodes, as well as mediastinal and pretracheal lymph nodes, most likely reactive given appearance. -Esophagus is unremarkable. -Thyroid gland is unremarkable. CORONARY ARTERY CALCIFICATION: Heavy coronary calcifications. CABG. AXILLA/CHEST WALL: No masses or abnormal lymph nodes. Left anterior chest wall pacemaker generator pack. UPPER ABDOMEN: -Cholecystectomy. Probable small type I hiatus hernia. Moderate pancreatic atrophy. Incompletely imaged superior left renal cyst. OSSEOUS STRUCTURES: -No suspicious lytic or blastic bone lesions. -Diffuse fused flowing disc osteophytes throughout the spine, highly suggestive of DISH or ankylosing spondylitis. -Ossification of the interspinous ligament is more suggestive of ankylosing spondylitis. CT/CT chest wo IV con IMPRESSION: 1. Low lung volumes with subpleural interstitial disease, restrictive appearance. Differential includes pulmonary fibrosis, and pulmonary fibrotic lung disease related to underlying collagen vascular disease. 2. No suspicious pulmonary nodules. There are small 2-3 mm nodules scattered in both lungs, some calcified. In a high-risk patient, one year follow-up suggested. 3. Mild bronchiectasis and small airway thickening present, possibly related to chronic bronchitis or related to the underlying pulmonary process. 4. No active lung disease identified. 5. Mild cardiac enlargement. Status post CABG. Enlargement of the main pulmonary artery suggests some degree of pulmonary arterial hypertension. 6. Osseous findings which suggest underlying ankylosing spondylitis or possibly DISH. 7. Additional ancillary findings as discussed in the body of the report. Fleischner guidelines were followed. Electronically signed by: Dieudonne Holman MD 12/12/2023 04:15 PM EDT
== END 2023-11-14 14:03 | disposition home or self-care (01) ==
LOC: HO.CT 14:02
PROVIDERS: Visit Provider Hospitalist
DX: R91.1 Solitary pulmonary nodule (principal)
CPT/HCPCS: 71250

== ENCOUNTER → 2023-11-14 14:09 | Outpatient (BNV) | payer MEDICARE, SELFPAY | PROVIDERS: Visit Provider Radiology Diagnostic Radiology | DX: R91.1 Solitary pulmonary nodule (principal) | CPT/HCPCS: 71250 ==

== ENCOUNTER 2023-12-09 10:59 | Outpatient (AMB) | payer MEDICARE, SELFPAY ==
[2023-12-09 11:09] VITALS: BP 126/70; PULSE 60; O2SAT 95; BMI 38.3
--- NOTE | 2023-12-09 11:09 | MHC.OFFVIS ---
Vital Signs 12/09/23 11:09 Height 5 ft 5 in Weight 230 lb BMI 38.3 BP 126/70 Blood Pressure Location Rt brachial Position Sitting Pulse 60 Pulse Source Pulse Oximeter Pulse Oximetry (%) 95 Oxygen Delivery Method Room Air Comment 3 Liters Oxygen([facility]) Intake Visit Reasons: Pulmonary Fibrosis Allergies lisinopril Allergy (Verified 12/09/23 11:11) Unknown metoprolol Allergy (Verified 12/09/23 11:11) Unknown shellfish derived Allergy (Verified 12/09/23 11:11) Swelling oxycodone-acetaminophen Allergy (Uncoded 12/09/23 11:11) Unknown HPI Comments Details: The patient is an 83-year-old gentleman presenting with evaluation of pulmonary fibrosis. The patient has multiple comorbidities including heart disease, chronic kidney disease and chronic respiratory failure on oxygen. Currently gets his oxygen through [facility]. He has been requiring 3 L of oxygen. All he has had a hard time with his portable oxygen tank since he is not able to carry. The patient does have difficulties ambulating. He does rely on a cane and a walker and is hard for him to carry the oxygen tanks specially even with the Trelegy in view of his unsteady gait. Back in July he had worsening respiratory symptoms and he did go to [facility] was admitted briefly to the hospital there, the patient had a CT scan of the chest which was personally by me demonstrating some interstitial changes primarily in the periphery of bilateral lungs. In addition to that also had a nodular density measuring 2 cm in size in the right lower lobe suspicious for an infectious process but can not rule out a malignant process. The patient had been positive for human metapneumovirus at that time. Also to note the patient has been on amiodarone for some time. The does report that because of the interstitial lung disease he was weaned off the amiodarone completely but then developed the serious cardiac arrhythmia and decision was to place him back on a small dose of 200 mg daily. Also, during the office visit we were able to remove the oxygen and we did do a 6 minute walk test. We were able to work on his breathing technique to make sure that he is breathing through the nose and during the ambulation the patient was placed on a portable oxygen concentrator where he tolerated 3 L pulse maintaining a pulse ox of 94%. Therefore, I do believe that he will do well on a portable oxygen concentrator specially with his multiple comorbidities and difficulty ambulating and this will improve his portability outside of the home. In addition to that he is going to continue his respiratory therapy. He will get a repeat CT scan of the chest to follow-up with the nodular density to rule out a malignant process. 12/09/2023 the patient is here for a pulmonary follow-up visit. The patient overall has been doing well. Continues use the oxygen with good effect. He did get a portable oxygen concentrator to the [employer] however, the battery life is too short. Therefore it is hard for him to use it. He is looking to getting his own device that could have a better battery life. We did have him briefly walk in the office. Although he does well on the pulse he does better on continuous flow. Therefore I did recommend he can use 2 L continuous with activity in 2-3 L pulse at rest. We did look at a CT scan of the chest. It is reassuring that he does have some peripheral based reticular changes consistent with scarring although I do not appreciate any evidence of pneumonitis. His amiodarone was also decreased to 100 mg which is reassuring. At this time the patient will benefit from pulmonary rehabilitation. Will go ahead and request pulmonary function studies and plan to have him involved in pulmonary rehabilitation to improve his respiratory capacity. He is still dealing with some back issues and he may need surgery. From a pulmonary standpoint the patient is high risk for perioperative pulmonary complications. Although he is medically optimized and be able to proceed with anesthesia and surgery if warranted. Although I did emphasize to him that exploding alternative of nonsurgical approaches is to his benefit. [facility] Medical History (Updated 10/20/23 @ 22:14 by Jacinto Cloud MD) Chronic hypoxemic respiratory failure On amiodarone therapy Pulmonary nodule 1 cm or greater in diameter ILD (interstitial lung disease) Essential (primary) hypertension Cyst of kidney, acquired Chronic kidney disease, stage 3b Surgical History S/P CABG x 4 S/P cholecystectomy History of appendectomy Social History Alcohol intake: never Patient Tobacco Use Status: Never used Tobacco Review of Systems Const Reports fatigue Eyes Reports no additional complaints ENT Reports nasal congestion Card Denies chest pain and Reports dyspnea on exertion Resp Reports cough, Reports dyspnea on exertion and Denies wheezing GI Denies abdominal pain Musc Reports abnormal gait and Reports myalgias Skin/Breast Denies rash Neuro Reports abnormal gait Endo Reports fatigue Aller/Immun Denies wheezing Physical Exam Vital Signs: Last Vital Signs Pulse 60 12/09/23 11:09 BP 126/70 12/09/23 11:09 Pulse Ox 95 12/09/23 11:09 Oxygen Delivery Method Room Air 12/09/23 11:09 BMI result Body Mass Index 38.3 Const General: comfortable HEENT Head: Yes normocephalic Neck Neck: Yes supple Chest Chest palpation & inspection: normal inspection of the chest Resp Effort & Inspection: normal respiratory effort Auscultation: rales and diminished lung sounds Cardio Heart sounds: S1 normal heart sound present and S2 normal heart sound present GI Palpation (GI): Soft to palpation Skin General skin exam: no rashes or lesions noted Extrem General: No cyanosis Assessment & Plan Assessment & Plan (1) ILD (interstitial lung disease): Comment: areas or reticular changes and GGO. No honeycombing. Code(s): J84.9 - Interstitial pulmonary disease, unspecified Category: Medical (2) Pulmonary nodule 1 cm or greater in diameter: Code(s): R91.1 - Solitary pulmonary nodule Category: Medical (3) Pulmonary fibrosis: Code(s): J84.10 - Pulmonary fibrosis, unspecified Category: Medical (4) Chronic kidney disease, stage 3b: Code(s): N18.32 - Chronic kidney disease, stage 3b Category: Medical (5) On amiodarone therapy: Code(s): Z79.899 - Other chcf (current) drug therapy Category: Medical (6) Chronic hypoxemic respiratory failure: Code(s): J96.11 - Chronic respiratory failure with hypoxia Category: Medical Plan continue oxygen ([facility]) POC 3L/pulse with activity. Now has a POC for better portability. looking to getting a different POC, recommended one that would allow CF 2l/min diuresis as tolerated PFTs Start pulmonary rehab (prefers [facility]) F/U 4-6 months Orders: Orders PFT pulmonary function test Today J84.10 - Pulmonary fibrosis, unspecified Pulmonary Rehab Today J84.10 - Pulmonary fibrosis, unspecified Coding Level of Care Code Est Pt Level 4 (66209) Complex EM visit Add On G2211 Diagnoses ILD (interstitial lung disease) J84.9 Pulmonary nodule 1 cm or greater in diameter R91.1 Pulmonary fibrosis J84.10 Chronic kidney disease, stage 3b N18.32 On amiodarone therapy Z79.899 Chronic hypoxemic respiratory failure J96.11 Time Spent (min) 20
== END 2023-12-09 11:40 | disposition home or self-care (01) ==
PROVIDERS: PCP Internal Medicine; Visit Provider Hospitalist
DX: J84.9 Interstitial pulmonary disease, unspecified (principal); R91.1 Solitary pulmonary nodule; J84.10 Pulmonary fibrosis, unspecified; N18.32 Chronic kidney disease, stage 3b; Z79.899 Other long term (current) drug therapy; J96.11 Chronic respiratory failure with hypoxia
CPT/HCPCS: 99214; G2211

== ENCOUNTER → 2023-12-09 10:59 | Outpatient (BNVA) | payer MEDICARE, SELFPAY | PROVIDERS: PCP Internal Medicine; Visit Provider Hospitalist | DX: J84.10 Pulmonary fibrosis, unspecified (principal); J84.9 Interstitial pulmonary disease, unspecified; R91.1 Solitary pulmonary nodule; J96.11 Chronic respiratory failure with hypoxia; Z99.81 Dependence on supplemental oxygen; Z79.899 Other long term (current) drug therapy | CPT/HCPCS: 99212 ==

== ENCOUNTER 2023-12-10 11:44 | Outpatient (REF) | payer MEDICARE, SELFPAY ==
[2023-12-10 13:01] LABS: Anion Gap 19 (12-20); Blood Urea Nitrogen 48 mg/dL (9-16); Carbon Dioxide 29 mmol/L (22-29); Chloride 96 mmol/L (96-108); Estimated Glomerular Filt Rate 23; Potassium 4.1 mmol/L (3.3-5.1); Sodium 140 mmol/L (135-145); Uric Acid 11.2 mg/dL (3.4-7.0)
== END 2023-12-10 11:45 | disposition home or self-care (01) ==
LOC: HO.LAB 11:44
PROVIDERS: PCP Internal Medicine; Visit Provider Internal Medicine Nephrology
DX: I10 Essential (primary) hypertension (principal); N18.32 Chronic kidney disease, stage 3b; J84.10 Pulmonary fibrosis, unspecified
CPT/HCPCS: 36415; 80051; 82565; 84520; 84550

== ENCOUNTER 2023-12-11 14:53 | Outpatient (AMB) | payer MEDICARE, SELFPAY ==
--- NOTE | 2023-12-11 14:56 | HO.NEPHOV_ITS ---
Vital Signs 12/11/23 14:57 Height 5 ft 5 in Weight 242 lb BMI 40.3 BP 124/50 L Blood Pressure Location Rt brachial Position Sitting Pulse 63 Pulse Source Pulse Oximeter Pulse Oximetry (%) 95 Oxygen Delivery Method Room Air Intake Visit Reasons: 3mon follow up- Conf Bad Cloth Checker Required: No Accompanied by: Spouse Allergies lisinopril Allergy (Verified 12/11/23 14:59) Unknown metoprolol Allergy (Verified 12/11/23 14:59) Unknown shellfish derived Allergy (Verified 12/11/23 14:59) Swelling oxycodone-acetaminophen Allergy (Uncoded 12/09/23 11:11) Unknown HPI Comments Details: I had the privilege of seeing Mr Wong in follow-up of his chronic kidney disease. He is known to have cardiomyopathy. He has been put on home O2 . He has seen a pulmonary team who told him and his that he has pulmonary fibrosis. He is on Amiodarone and his senior publications specialist is concerned whether he has pulmonary fibrosis from it.He has seen Jacinto Cloud MD for a second opinion from a different pulmonary team. He tries to be compliant with a low- sodium diet. He takes his medications regularly. He denies any worsen shortness of breath on exertion, proximal nocturnal dyspnea or orthopnea. He denies any urinary complaints. His blood sugar control is reasonable. He follows up closely with Dr Shukla, his senior publications specialist. [facility] Medical History (Updated 12/11/23 @ 15:22 by Norberto Cueva MD) Chronic hypoxemic respiratory failure On amiodarone therapy Pulmonary nodule 1 cm or greater in diameter ILD (interstitial lung disease) Essential (primary) hypertension Cyst of kidney, acquired Chronic kidney disease, stage 3b Surgical History S/P CABG x 4 S/P cholecystectomy History of appendectomy Social History Alcohol intake: never Patient Tobacco Use Status: Never used Tobacco Review of Systems Const All systems reviewed & are unremarkable except as noted in HPI and below Physical Exam Const General: comfortable and no acute distress Orientation/consciousness: patient oriented x3 HEENT Head: Yes normocephalic Mouth: Normal oral and palatal mucosa present Eyes EOM: EOMs intact bilaterally Neck Neck: Yes supple Resp Auscultation: clear to auscultation bilaterally Cardio Jugular venous distension: no JVD Rate: regular rate GI Palpation (GI): Soft to palpation Auscultation: normal bowel sounds General: Yes no CVA tenderness Back/Spine/Pelvis Back: no CVA tenderness Skin General skin exam: no rashes or lesions noted Neuro General: patient oriented x3 and moves all extremities Results Reviewed Nephrology Results: Hgb 12.9 g/dl (14.0-18.0) L 10/21/23 WBC 7.4 X10*3/uL (4.8-10.8) 10/21/23 Plt Count 224 X10*3/uL (160-400) 10/21/23 Sodium 140 mmol/L (135-145) 12/10/23 Potassium 4.1 mmol/L (3.3-5.1) 12/10/23 Chloride 96 mmol/L (96-108) 12/10/23 Carbon Dioxide 29 mmol/L (22-29) 12/10/23 BUN 48 mg/dL (9-16) H 12/10/23 Creatinine 2.67 mg/dL (0.5-1.4) H 12/10/23 Calcium 10.2 mg/dL (8.4-10.2) 09/08/23 Assessment & Plan Assessment & Plan (1) Chronic kidney disease, stage 3b: Code(s): N18.32 - Chronic kidney disease, stage 3b Category: Medical (2) Essential (primary) hypertension: Code(s): I10 - Essential (primary) hypertension Category: Medical (3) Hyperuricemia: Code(s): E79.0 - Hyperuricemia without signs of inflammatory arthritis and tophaceous disease Category: Medical Plan Justin 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 He has history of cardiomyopathy. His diuretics can be continued at the current dose for now. His serum creatinine is close to baseline. He should maintain very low sodium diet . He should maintain good blood sugar control. He had not been tolerating WANG inhibitor or ARB . He is on Farxiga . I started her on Allopurinol 100 mg daily. I also referred him to Dr Hassan for his back issues. I did not make any other medication changes today . He should avoid nonsteroidal anti-inflammatory medications . All questions were answered. Follow-up given Orders: Orders Creatinine 3 Months E79.0 - Hyperuricemia without signs of inflammatory arthritis and tophaceous disease, N18.32 - Chronic kidney disease, stage 3b Blood Urea Nitrogen 3 Months E79.0 - Hyperuricemia without signs of inflammatory arthritis and tophaceous disease, N18.32 - Chronic kidney disease, stage 3b Electrolytes 3 Months E79.0 - Hyperuricemia without signs of inflammatory a rthritis and tophaceous disease, N18.32 - Chronic kidney disease, stage 3b Uric Acid 3 Months E79.0 - Hyperuricemia without signs of inflammatory arthritis and tophaceous disease, N18.32 - Chronic kidney disease, stage 3b Medications: New allopurinol 100 mg PO DAILY 90 tabs 3RF Coding Level of Care Code Est Pt Level 4 (83145) Diagnoses Chronic kidney disease, stage 3b N18.32 Essential (primary) hypertension I10 Hyperuricemia E79.0
[2023-12-11 14:57] VITALS: BP 124/50; PULSE 63; O2SAT 95; BMI 40.3
== END 2023-12-11 15:33 | disposition home or self-care (01) ==
PROVIDERS: PCP Internal Medicine; Visit Provider Internal Medicine Nephrology
DX: N18.32 Chronic kidney disease, stage 3b (principal); I10 Essential (primary) hypertension; E79.0 Hyperuricemia without signs of inflammatory arthritis and tophaceous disease
CPT/HCPCS: 99214

== ENCOUNTER → 2023-12-11 14:53 | Outpatient (BNVA) | payer MEDICARE, SELFPAY | PROVIDERS: PCP Internal Medicine; Visit Provider Internal Medicine Nephrology | DX: I12.9 Hypertensive chronic kidney disease with stage 1 through stage 4 chronic kidney disease, or unspecified chronic kidney disease (principal); N18.32 Chronic kidney disease, stage 3b; E79.0 Hyperuricemia without signs of inflammatory arthritis and tophaceous disease | CPT/HCPCS: 99212 ==

== ENCOUNTER 2024-01-09 13:42 | Outpatient (AMB) | payer MEDICARE, SELFPAY ==
--- NOTE | 2024-01-09 14:06 | A.SPINEOV_ITS ---
Intake Visit Reasons: spinal stenosis Intake Note: Mr. Wong is here today c/o back pain, would like a second opinion. Integration Engineer Required: No Allergies lisinopril Allergy (Verified 01/09/24 14:19) Unknown metoprolol Allergy (Verified 01/09/24 14:19) Unknown shellfish derived Allergy (Verified 01/09/24 14:19) Swelling oxycodone-acetaminophen Allergy (Uncoded 12/09/23 11:11) Unknown Assessment & Plan Assessment & Plan (1) Lumbar stenosis with neurogenic claudication: Code(s): M48.062 - Spinal stenosis, lumbar region with neurogenic claudication Category: Medical Plan Dear colleague Thank you for referring Marvin Anderson for 2nd opinion to the office today with a chief complaint of back pain radiating down both legs. HPI: This 83-year-old male is suffering from back pain that radiates down both legs. The symptoms started approximately 5 years ago and have since then progressed. He states that the symptoms are debilitating and that his quality of life is so poor that he would rather not be here anymore if nothing can be done. The pain radiates from his back down to his leg into his calves. He denies weakness. He does have numbness of the feet. The following conservative treatment options such as physical therapy and cortisone injections were done without success. PMH: Diabetes, congestive heart failure, lung disease(3 L O2), kidney disease. He had a bypass surgery in 2020, pacemaker, cholecystectomy. Medications: Medications are dictated in [employer] Allergies: Percocet, lisinopril and shellfish Social history: . Retired Physical Exam: Pleasant obese male. No shortness of breath while sitting on 3 L O2. He is able to reproduce the neurogenic claudication symptoms after short walk. No dyspnea after walking. Radiological Studies: [facility] shows [id number]-iqcmytvi stenosis L3-4 and mlllrcly-td-[id number] stenosis at L4-5. Impression/Plan: This 83-year-old male suffering from intractable neurogenic claudication having a significant effect on his quality of life. I offered him a L4-5 decompression with the understanding that we need clearance from the electrical cad designer and filling and stapling machine operator. I am sure he is a high-risk surgical patient but we are both willing to take the risk as his quality of life is poor and the surgery itself can be done relatively quickly in day surgery. The patient will return to my clinic if clearance was obtained. Thank you for allowing me to participate in your patients care. total time spent was 50 minutes in counseling ,coordination of plan, personal review of imaging, surgical decision making and subsequent plan Rolando Hassan MD, PhD Spine Fellowship Trained Neurosurgeon Director, [facility] Coding Level of Care Code New Pt Level 4 (70481) Diagnoses Lumbar stenosis with neurogenic claudication M48.062
== END 2024-01-09 15:26 | disposition home or self-care (01) ==
PROVIDERS: PCP Internal Medicine; Referring Provider Internal Medicine Nephrology; Visit Provider Neurological Surgery
DX: M48.062 Spinal stenosis, lumbar region with neurogenic claudication (principal)
CPT/HCPCS: 99204

== ENCOUNTER → 2024-01-09 13:42 | Outpatient (BNVA) | payer MEDICARE, SELFPAY | PROVIDERS: PCP Internal Medicine; Visit Provider Neurological Surgery | DX: M48.062 Spinal stenosis, lumbar region with neurogenic claudication (principal) | CPT/HCPCS: 99202 ==

== ENCOUNTER 2024-03-09 13:30 | Outpatient (RCR) | payer MEDICARE, SELFPAY | END 2024-03-12 07:20 | disposition home or self-care (01) | LOC: HO.PR 13:30 | PROVIDERS: PCP Internal Medicine; Visit Provider Hospitalist | DX: J84.10 Pulmonary fibrosis, unspecified (principal) | CPT/HCPCS: 94618; 99212; G0237; G0239 ==

== ENCOUNTER 2024-03-11 14:45 | Outpatient (AMB) | payer MEDICARE, SELFPAY ==
[2024-03-11 14:48] VITALS: BP 130/64; PULSE 71; O2SAT 94; BMI 40.7
--- NOTE | 2024-03-11 14:48 | MHC.OFFVIS ---
Vital Signs 03/11/24 14:48 Height 5 ft 5 in Weight 244 lb 11.41 oz BMI 40.7 BP 130/64 Blood Pressure Location Rt brachial Position Sitting Pulse 71 Pulse Source Pulse Oximeter Pulse Oximetry (%) 94 Oxygen Delivery Method Nasal Cannula Oxygen Flow Rate 3 Intake Visit Reasons: Clearance/Back Surgery Allergies lisinopril Allergy (Verified 03/11/24 14:53) Unknown metoprolol Allergy (Verified 03/11/24 14:53) Unknown shellfish derived Allergy (Verified 03/11/24 14:53) Swelling oxycodone-acetaminophen Allergy (Uncoded 03/11/24 14:53) Unknown HPI Comments Details: The patient is an 83-year-old gentleman presenting with evaluation of pulmonary fibrosis. The patient has multiple comorbidities including heart disease, chronic kidney disease and chronic respiratory failure on oxygen. Currently gets his oxygen through [facility]. He has been requiring 3 L of oxygen. All he has had a hard time with his portable oxygen tank since he is not able to carry. The patient does have difficulties ambulating. He does rely on a cane and a walker and is hard for him to carry the oxygen tanks specially even with the Trelegy in view of his unsteady gait. Back in July he had worsening respiratory symptoms and he did go to [facility] was admitted briefly to the hospital there, the patient had a CT scan of the chest which was personally by me demonstrating some interstitial changes primarily in the periphery of bilateral lungs. In addition to that also had a nodular density measuring 2 cm in size in the right lower lobe suspicious for an infectious process but can not rule out a malignant process. The patient had been positive for human metapneumovirus at that time. Also to note the patient has been on amiodarone for some time. The does report that because of the interstitial lung disease he was weaned off the amiodarone completely but then developed the serious cardiac arrhythmia and decision was to place him back on a small dose of 200 mg daily. Also, during the office visit we were able to remove the oxygen and we did do a 6 minute walk test. We were able to work on his breathing technique to make sure that he is breathing through the nose and during the ambulation the patient was placed on a portable oxygen concentrator where he tolerated 3 L pulse maintaining a pulse ox of 94%. Therefore, I do believe that he will do well on a portable oxygen concentrator specially with his multiple comorbidities and difficulty ambulating and this will improve his portability outside of the home. In addition to that he is going to continue his respiratory therapy. He will get a repeat CT scan of the chest to follow-up with the nodular density to rule out a malignant process. 12/09/2023 the patient is here for a pulmonary follow-up visit. The patient overall has been doing well. Continues use the oxygen with good effect. He did get a portable oxygen concentrator to the [employer] however, the battery life is too short. Therefore it is hard for him to use it. He is looking to getting his own device that could have a better battery life. We did have him briefly walk in the office. Although he does well on the pulse he does better on continuous flow. Therefore I did recommend he can use 2 L continuous with activity in 2-3 L pulse at rest. We did look at a CT scan of the chest. It is reassuring that he does have some peripheral based reticular changes consistent with scarring although I do not appreciate any evidence of pneumonitis. His amiodarone was also decreased to 100 mg which is reassuring. At this time the patient will benefit from pulmonary rehabilitation. Will go ahead and request pulmonary function studies and plan to have him involved in pulmonary rehabilitation to improve his respiratory capacity. He is still dealing with some back issues and he may need surgery. From a pulmonary standpoint the patient is high risk for perioperative pulmonary complications. Although he is medically optimized and be able to proceed with anesthesia and surgery if warranted. Although I did emphasize to him that exploding alternative of nonsurgical approaches is to his benefit. 03/11/2024 the patient is here for pulmonary follow-up visit. Overall the patient is doing well. He is having issues with the his back at now looking to have a minimally invasive back surgery. He did meet with the iron surgeon and also get clearance from Cardiology. From a pulmonary standpoint the patient is doing very well. He continues to participate in pulmonary rehabilitation. He has been exercising regularly. The last session he exercise were total of 24 minutes which is very reassuring. In addition to that we did turn off the oxygen and his oxygen pulse ox on room air sitting was about 96%. Therefore, already demonstrating significant improvement of his overall respiratory capacity. Unfortunately, his amiodarone had to be increased to 200 mg because of cardiac stability issues. Seems to be doing well on that dose. Will continue to monitoring closely. From a pulmonary aspect the patient does have some increased risk for perioperative pulmonary complications which include atelectasis, hypoxia, pneumonia and prolonged mechanical ventilation. Although from a respiratory studies he is medically optimized and he is actually doing better and also made great strides in pulmonary rehabilitation. Therefore he may able to proceed with surgery at this time. The patient will return in 6 months and will plan to do PFTs and a chest x-ray done. If he has any issues prior to that he will call for an earlier assessment. [facility] Medical History (Updated 03/11/24 @ 16:24 by Jacinto Cloud MD) Chronic hypoxemic respiratory failure On amiodarone therapy Pulmonary nodule 1 cm or greater in diameter ILD (interstitial lung disease) Essential (primary) hypertension Cyst of kidney, acquired Chronic kidney disease, stage 3b Surgical History S/P CABG x 4 S/P cholecystectomy History of appendectomy Social History Alcohol intake: never Patient Tobacco Use Status: Never used Tobacco Review of Systems Const Denies fever(s) and Reports weight loss Eyes Reports no additional complaints ENT Reports nasal congestion Card Denies chest pain and Reports dyspnea on exertion Resp Reports cough, Reports dyspnea on exertion and Denies wheezing GI Denies abdominal pain Musc Reports abnormal gait and Reports myalgias Skin/Breast Denies rash Neuro Reports abnormal gait Aller/Immun Denies wheezing Physical Exam Vital Signs: Last Vital Signs Pulse 71 03/11/24 14:48 BP 130/64 03/11/24 14:48 Pulse Ox 94 03/11/24 14:48 Oxygen Delivery Method Nasal Cannula 03/11/24 14:48 Oxygen Flow Rate 3 03/11/24 14:48 BMI result Body Mass Index 40.7 Const General: comfortable HEENT Head: Yes normocephalic Neck Neck: Yes supple Chest Chest palpation & inspection: normal inspection of the chest Resp Effort & Inspection: normal respiratory effort Auscultation: diminished lung sounds Cardio Heart sounds: S1 normal heart sound present and S2 normal heart sound present GI Palpation (GI): Soft to palpation Skin General skin exam: no rashes or lesions noted Extrem General: No cyanosis Assessment & Plan Assessment & Plan (1) ILD (interstitial lung disease): Comment: areas or reticular changes and GGO. No honeycombing. Code(s): J84.9 - Interstitial pulmonary disease, unspecified Category: Medical (2) Pulmonary fibrosis: Code(s): J84.10 - Pulmonary fibrosis, unspecified Category: Medical (3) Chronic kidney disease, stage 3b: Code(s): N18.32 - Chronic kidney disease, stage 3b Category: Medical (4) On amiodarone therapy: Code(s): Z79.899 - Other terminal makeup operator (current) drug therapy Category: Medical (5) Chronic hypoxemic respiratory failure: Code(s): J96.11 - Chronic respiratory failure with hypoxia Category: Medical (6) Pre-op chest exam: Code(s): Z01.811 - Encounter for preprocedural respiratory examination Category: Medical Plan The patient is doing well from a respiratory status. Pulmonary rehabilitation has been helpful. The patient would like to move forward with his spine surgery. He does have increased risk for perioperative pulmonary complications which includes hypoxia, atelectasis, pneumonia and prolonged mechanical ventilation. At this point the patient is medically optimized from a pulmonary standpoint and is actually showing improvement. Therefore may be able to proceed with anesthesia and surgery at this time. continue oxygen ([facility]) POC 2-3L/pulse with activity and 2L/min with sleep. RA while resting. diuresis as tolerated PFTs/CXR in 6 months F/U 6 months Orders: Orders PFT pulmonary function test 5 Months J84.9 - Interstitial pulmonary disease, unspecified XR chest 2V 5 Months J84.9 - Interstitial pulmonary disease, unspecified Coding Level of Care Code Est Pt Level 4 (18647) Complex EM visit Add On G2211 Diagnoses ILD (interstitial lung disease) J84.9 Pulmonary fibrosis J84.10 Chronic kidney disease, stage 3b N18.32 On amiodarone therapy Z79.899 Chronic hypoxemic respiratory failure J96.11 Pre-op chest exam Z01.811 Time Spent (min) 17
== END 2024-03-11 15:06 | disposition home or self-care (01) ==
PROVIDERS: PCP Internal Medicine; Visit Provider Hospitalist
DX: J84.9 Interstitial pulmonary disease, unspecified (principal); J84.10 Pulmonary fibrosis, unspecified; N18.32 Chronic kidney disease, stage 3b; Z79.899 Other long term (current) drug therapy; J96.11 Chronic respiratory failure with hypoxia; Z01.811 Encounter for preprocedural respiratory examination
CPT/HCPCS: 99214; G2211

== ENCOUNTER → 2024-03-11 14:45 | Outpatient (BNVA) | payer MEDICARE, SELFPAY | PROVIDERS: PCP Internal Medicine; Visit Provider Hospitalist | DX: Z01.811 Encounter for preprocedural respiratory examination (principal); J84.9 Interstitial pulmonary disease, unspecified; J84.10 Pulmonary fibrosis, unspecified; J96.11 Chronic respiratory failure with hypoxia; N18.32 Chronic kidney disease, stage 3b; Z79.899 Other long term (current) drug therapy | CPT/HCPCS: 99212 ==

== ENCOUNTER 2024-03-16 14:21 | Outpatient (AMB) | payer MEDICARE, SELFPAY ==
--- NOTE | 2024-03-16 14:31 | HO.NEPHOV ---
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 He is known to have cardiomyopathy. He has been put on home O2 . He has seen a pulmonary team who told him and his that he has pulmonary fibrosis. 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 He tries to be compliant with a low-sodium diet. He takes his medications regularly. He denies any worsen shortness of breath on exertion, proximal nocturnal dyspnea or orthopnea. He denies any urinary complaints. His blood sugar control is reasonable. He follows up closely with Dr Shukla, his fish processing supervisor. FOR[facility]LY [facility] Medical History (Updated 03/11/24 @ 16:24 by Jacinto Cloud MD) Chronic hypoxemic respiratory failure On amiodarone therapy Pulmonary nodule 1 cm or greater in diameter ILD (interstitial lung disease) Essential (primary) hypertension Cyst of kidney, acquired Chronic kidney disease, stage 3b Surgical History S/P CABG x 4 S/P cholecystectomy History of appendectomy Social History Alcohol intake: never Patient Tobacco Use Status: Never used Tobacco Review of Systems Const All systems reviewed & are unremarkable except as noted in HPI and below Physical Exam Const General: comfortable and no acute distress Orientation/consciousness: patient oriented x3 HEENT Head: Yes normocephalic Mouth: Normal oral and palatal mucosa present Eyes EOM: EOMs intact bilaterally Neck Neck: Yes supple Resp Auscultation: clear to auscultation bilaterally Cardio Jugular venous distension: no JVD Rate: regular rate GI Palpation (GI): Soft to palpation Auscultation: normal bowel sounds General: Yes no CVA tenderness Back/Spine/Pelvis Back: no CVA tenderness Skin General skin exam: no rashes or lesions noted Neuro General: patient oriented x3 and moves all extremities Extrem General: Yes no pedal edema Results Reviewed Nephrology Results: Sodium 140 mmol/L (135-145) 12/10/23 Potassium 4.1 mmol/L (3.3-5.1) 12/10/23 Chloride 96 mmol/L (96-108) 12/10/23 Carbon Dioxide 29 mmol/L (22-29) 12/10/23 BUN 48 mg/dL (9-16) H 12/10/23 Creatinine 2.67 mg/dL (0.5-1.4) H 12/10/23 Assessment & Plan Assessment & Plan (1) Chronic kidney disease, stage 3b: Code(s): N18.32 - Chronic kidney disease, stage 3b Category: Medical (2) Essential (primary) hypertension: Code(s): I10 - Essential (primary) hypertension Category: Medical (3) Hyperuricemia: Code(s): E79.0 - Hyperuricemia without signs of inflammatory arthritis and tophaceous disease Category: Medical Plan Justin 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 He has history of cardiomyopathy. His diuretics can be continued at the current dose for now. His serum creatinine had been close to baseline. He should maintain very low sodium diet . He should maintain good blood sugar control. He had not been tolerating WANG inhibitor or ARB . He is on Farxiga . He can continue Allopurinol 100 mg daily. I did not make any other medication changes today . He should avoid nonsteroidal anti-inflammatory medications . All questions were answered. Follow-up given Orders: Orders Blood Urea Nitrogen Today E79.0 - Hyperuricemia without signs of inflammatory arthritis and tophaceous disease, I10 - Essential (primary) hypertension, N18.32 - Chronic kidney disease, stage 3b Calcium Today E79.0 - Hyperuricemia without signs of inflammatory arthritis and tophaceous disease, I10 - Essential (primary) hypertension, N18.32 - Chronic kidney disease, stage 3b Creatinine 3 Months E79.0 - Hyperuricemia without signs of inflammatory arthritis and tophaceous disease, I10 - Essential (primary) hypertension, N18.32 - Chronic kidney disease, stage 3b Blood Urea Nitrogen 3 Months E79.0 - Hyperuricemia without signs of inflammatory arthritis and tophaceous disease, I10 - Essential (primary) hypertension, N18.32 - Chronic kidney disease, stage 3b Creatinine Today E79.0 - Hyperuricemia without signs of inflammatory arthritis and tophaceous disease, I10 - Essential (primary) hypertension, N18.32 - Chronic kidney disease, stage 3b Electrolytes Today E79.0 - Hyperuricemia without signs of inflammatory arthritis and tophaceous disease, I10 - Essential (primary) hypertension, N18.32 - Chronic kidney disease, stage 3b Uric Acid 3 Months E79.0 - Hyperuricemia without signs of inflammatory arthritis and tophaceous disease, I10 - Essential (primary) hypertension, N18.32 - Chronic kidney disease, stage 3b Electrolytes 3 Months E79.0 - Hyperuricemia without signs of inflammatory arthritis and tophaceous disease, I10 - Essential (primary) hypertension, N18.32 - Chronic kidney disease, stage 3b Coding Level of Care Code Est Pt Level 4 (20086) Diagnoses Chronic kidney disease, stage 3b N18.32 Essential (primary) hypertension I10 Hyperuricemia E79.0
[2024-03-16 14:34] VITALS: BP 110/60; PULSE 73; O2SAT 94; BMI 40.7
== END 2024-03-16 15:09 | disposition home or self-care (01) ==
PROVIDERS: PCP Internal Medicine; Visit Provider Internal Medicine Nephrology
DX: N18.32 Chronic kidney disease, stage 3b (principal); I10 Essential (primary) hypertension; E79.0 Hyperuricemia without signs of inflammatory arthritis and tophaceous disease
CPT/HCPCS: 99214

== ENCOUNTER → 2024-03-16 14:21 | Outpatient (BNVA) | payer MEDICARE, SELFPAY | PROVIDERS: PCP Internal Medicine; Visit Provider Internal Medicine Nephrology | DX: I12.9 Hypertensive chronic kidney disease with stage 1 through stage 4 chronic kidney disease, or unspecified chronic kidney disease (principal); N18.32 Chronic kidney disease, stage 3b; E79.0 Hyperuricemia without signs of inflammatory arthritis and tophaceous disease | CPT/HCPCS: 99212 ==

== ENCOUNTER 2024-03-17 14:25 | Outpatient (REF) | payer MEDICARE, SELFPAY ==
[2024-03-17 15:13] LABS: Anion Gap 16 (12-20); Blood Urea Nitrogen 48 mg/dL (9-16); Calcium 9.8 mg/dL (8.4-10.2); Carbon Dioxide 34 mmol/L (22-29); Chloride 95 mmol/L (96-108); Estimated Glomerular Filt Rate 22; Potassium 4.8 mmol/L (3.3-5.1); Sodium 140 mmol/L (135-145); Uric Acid 7.8 mg/dL (3.4-7.0)
== END 2024-03-17 14:26 | disposition home or self-care (01) ==
LOC: HO.LAB 14:25
PROVIDERS: PCP Internal Medicine; Visit Provider Internal Medicine Nephrology
DX: E79.0 Hyperuricemia without signs of inflammatory arthritis and tophaceous disease (principal); N18.32 Chronic kidney disease, stage 3b; J84.10 Pulmonary fibrosis, unspecified; I10 Essential (primary) hypertension
CPT/HCPCS: 36415; 80051; 82310; 82565; 84520; 84550

== ENCOUNTER 2024-04-09 14:22 | Outpatient (AMB) | payer MEDICARE, SELFPAY ==
--- NOTE | 2024-04-09 15:17 | HO.SPINEOV ---
Intake Visit Reasons: discuss sx after clearances obtained Intake Note: Mr. Wong is here today to Discuss surgery. 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 We discussed the procedure expected postoperative outcome. We spent 15 minutes in his consult. Rolando Hassan MD, PhD Spine Fellowship Trained Neurosurgeon Director, [facility] Coding Level of Care Code Est Pt Level 2 (52296) Diagnoses Lumbar stenosis with neurogenic claudication M48.062
== END 2024-04-09 16:11 | disposition home or self-care (01) ==
PROVIDERS: PCP Internal Medicine; Visit Provider Neurological Surgery
DX: M48.062 Spinal stenosis, lumbar region with neurogenic claudication (principal)
CPT/HCPCS: 99212

== ENCOUNTER → 2024-04-09 14:22 | Outpatient (BNVA) | payer MEDICARE, SELFPAY | PROVIDERS: PCP Internal Medicine; Visit Provider Neurological Surgery | DX: M48.062 Spinal stenosis, lumbar region with neurogenic claudication (principal) | CPT/HCPCS: 99212 ==

== ENCOUNTER → 2024-05-12 13:59 | Outpatient (BNV) | payer MEDICARE, SELFPAY | PROVIDERS: PCP Internal Medicine; Visit Provider Internal Medicine Cardiovascular Disease | DX: I49.8 Other specified cardiac arrhythmias (principal) | CPT/HCPCS: 93010 ==

== ENCOUNTER 2024-05-27 11:48 | Day surgery (SDC) | payer MEDICARE, SELFPAY ==
--- NOTE | 2024-05-12 | ECG_ITS ---
Test Reason : preop Blood Pressure : */* mmHG Vent. Rate : 59 BPM Atrial Rate : 59 BPM P-R Int : 230 ms QRS Dur : 150 ms QT Int : 480 ms P-R-T Axes : 40 -84 4 degrees QTcB Int : 475 ms Atrial-sensed ventricular-paced rhythm with prolonged AV conduction with occasional atrial-paced complexes and with occasional Premature ventricular complexes Abnormal ECG No previous ECGs available Referred By: Lynda Angel Electronically Signed By: TERESO PERSON MD
[2024-05-12 13:02] VITALS: BMI 40.4
[2024-05-12 13:07] VITALS: BP 118/58; PULSE 52; RESP 20; O2SAT 97
--- NOTE | 2024-05-12 13:19 | HO.ANESPROP2 ---
Documented by User: Lynda Angel NP 05/26/24 10:16 HPI - Anesthesia Eval Consult details Narrative: 84yo M for L4-5 Lumbar Decompression, 05/27/24 Cardiac cleared. Follows Cardiology for ischemic heart disease (first DE at age 35)... s/p CABG x 4 and AVR in 2020; ischemic CMP with EF 30-35% s/p ICD implanted 2008, hx VT with defib, CARON, htn/hld. Last office visit 11/2023 and at [facility], pt reports no cardiovascular changes since visit Pulmo optimized. Follows [facility] pulmo ILD, pulmo fibrosis, chronic hypoxic resp failure. Eval'd 02/2024. From a pulmonary standpoint the patient is doing very well. He continues to participate in pulmonary rehabilitation. He has been exercising regularly. The last session he exercise were total of 24 minutes which is very reassuring. In addition to that we did turn off the oxygen and his oxygen pulse ox on room air sitting was about 96%. Therefore, already demonstrating significant improvement of his overall respiratory capacity. Follows [facility] Renal for CKD St 3 from diabetic htn renal disease. ? Dental extractions - pt to have done after surgery No recent illness No CP. Breathing at baseline requiring continuous O2 @ 2L. Activity very limited to comorbids DM: A1C improved from 9.1 to 8.4 Pt on plavix/asa - per cardiology letter, ok to hold plavix but minimize asa hold time. Per surgical team workload, ok to continue asa 81mg Case reviewed with Dr Shaw. Anesthesia Pre-Procedure Meds Is the patient on any of the following meds?: SGLT2 Inhib PMFSH Active Problems Active Problems: All Active Problems Pre-op chest exam (Acute) Lumbar stenosis with neurogenic claudication (Acute) Back pain (Acute) Spinal stenosis (Acute) Hyperuricemia (Acute) Pulmonary fibrosis (Acute) Chronic hypoxemic respiratory failure (Acute) On amiodarone therapy (Acute) Pulmonary nodule 1 cm or greater in diameter (Acute) ILD (interstitial lung disease) (Acute) Essential (primary) hypertension (Acute) Chronic kidney disease, stage 3b (Acute) Past Medical History Medical History Arthritis Type 2 diabetes mellitus CARON (obstructive sleep apnea) Elevated cholesterol HTN (hypertension) Ventricular tachycardia Ischemic cardiomyopathy Ischemic heart disease Chronic hypoxemic respiratory failure On amiodarone therapy Pulmonary nodule 1 cm or greater in diameter ILD (interstitial lung disease) Essential (primary) hypertension Cyst of kidney, acquired Chronic kidney disease, stage 3b Family History Family history of problems with anesthesia: No Surgical History Surgical History Hx of cardiac catheterization H/O colonoscopy History of automatic internal cardiac defibrillator (AICD) Hx of aortic valve replacement S/P CABG x 4 S/P cholecystectomy History of appendectomy History of Problems with Anesthesia: No Social History Social History Are you a primary career resource specialist to a significant other at home: No Do you presently have visiting nurse or other home services: No Alcohol intake: never Patient Tobacco Use Status: Never used Tobacco Use of substances other than those prescribed or required for medical reasons: No Have you been hit, kicked, punched, or otherwise hurt by someone within the past year? If so, by whom?: No Spiritual Healthcare Practices: none Yazdanism Healthcare Practices: Czech Sikhism Cultural Healthcare Practices: none Are you DNR?: No Advance Directives: No (states is primary contact) Advance Directives Information Provided: Yes (as above noted) Advance Directives on File: No Recently lost weight without trying: No Eating poorly because of decreased appetite: No Nutrition Risks: Surgical patient >75years Poor oral hygiene: No (has 4 broken teeth) Meds Allergies Allergy/AdvReac Type Severity Reaction Status Date / Time adhesive tape Allergy Intermediate blisters Verified 05/27/24 12:41 lisinopril Allergy Intermediate Angioedema Verified 05/27/24 12:41 oxycodone Allergy Intermediate syncope Verified 05/27/24 12:41 shellfish derived Allergy Intermediate Swelling Verified 05/27/24 12:41 Home Medications ?Medication ?Instructions ?Recorded ?Confirmed ?Last Taken ?Type aspirin 81 mg tablet,delayed 81 mg PO QAM 02/04/23 05/27/24 05/19/24 History release atorvastatin 20 mg tablet 20 mg PO BEDTIME 02/04/23 05/27/24 Unknown History carvedilol 3.125 mg tablet 6.25 mg PO BID 02/04/23 05/27/24 05/27/24 10:00 History clopidogrel 75 mg tablet 75 mg PO QAM 02/04/23 05/27/24 05/19/24 History dapagliflozin propanediol 10 mg 10 mg PO QAM 02/04/23 05/27/24 05/23/24 History tablet (Farxiga) insulin glargine 100 unit/mL (3 80 unit subcut BEDTIME 02/04/23 05/27/24 Unknown History mL) subcutaneous pen (Lantus Solostar U-100 Insulin) levothyroxine 100 mcg tablet 100 mcg PO QAM 02/04/23 05/27/24 05/27/24 10:00 History nitroglycerin 0.4 mg sublingual 0.4 mg sublingual Q5M PRN Chest 02/04/23 05/27/24 Unknown History tablet Pain pantoprazole 40 mg tablet,delayed 40 mg PO QAM 02/04/23 05/27/24 05/27/24 10:00 History release sennosides 8.6 mg tablet (senna) 8.6 mg PO QAM 02/04/23 05/27/24 Unknown History tramadol 50 mg tablet 50 mg PO Q8H PRN Pain 02/04/23 05/27/24 Unknown History tamsulosin 0.4 mg capsule 0.4 mg PO BEDTIME 05/16/23 05/27/24 Unknown History isosorbide mononitrate 30 mg 30 mg PO QAM 06/27/23 05/27/24 Unknown History tablet,extended release 24 hr cholecalciferol (vitamin D3) 50 50 mcg PO QPM 09/16/23 05/27/24 Unknown History mcg (2,000 unit) capsule Oxygen Home Use 10/20/23 05/27/24 Unknown History amiodarone 200 mg tablet 200 mg PO QAM 03/16/24 05/27/24 05/27/24 10:00 History allopurinol 100 mg tablet 100 mg PO QAM 05/12/24 05/27/24 05/27/24 10:00 History insulin aspart U-100 100 unit/mL 2.5 unit subcut TID 05/12/24 05/27/24 Unknown History (3 mL) subcutaneous pen (Novolog FlexPen U-100 Insulin aspart) pregabalin 100 mg capsule 100 mg PO BID 05/12/24 05/27/24 05/27/24 10:00 History torsemide 20 mg tablet 40 mg PO BID 05/12/24 05/27/24 05/27/24 10:00 History Exam Height,Weight and Vital Signs: Height 5 ft 5 in Weight 110.223 kg Last Vital Signs Pulse 52 05/12/24 13:07 Resp 20 05/12/24 13:07 BP 118/58 L 05/12/24 13:07 Pulse Ox 97 05/12/24 13:07 O2 Del Method Nasal Cannula 05/12/24 13:07 O2 Flow Rate 2 05/12/24 13:07 Pertinent Lab Results Pertinent Lab Results: Lab Results 05/12/24 Range/Units 13:59 WBC 7.4 (4.8-10.8) X10*3/uL RBC 5.07 (4.60-5.80) X10*6/uL Hgb 14.4 (14.0-18.0) g/dl Hct 44.6 (42.0-52.0) % MCV 88.0 (80.0-98.0) fL MCH 28.4 (27.0-33.0) pg MCHC 32.3 (31.0-36.0) g/dl RDW 16.3 H (11.0-16.0) % Plt Count 171 (160-400) X10*3/uL MPV 10.6 (9.4-12.4) fL Absolute Nucleated RBC 0.000 (0.0-0.012) X10*3/uL Nucleated RBC % (auto) 0.0 (0.0-0.2) /100WBC Sodium 142 (135-145) mmol/L Potassium 4.3 (3.3-5.1) mmol/L Chloride 103 (96-108) mmol/L Carbon Dioxide 31 H (22-29) mmol/L Anion Gap 12 (12-20) BUN 65 H (9-16) mg/dL Creatinine 2.56 H (0.5-1.4) mg/dL Estim Creat Clear Calc 25.4 Estimated GFR 24 Random Glucose 125 H (60-115) mg/dL Estimat Average Glucose 194 mg/dL Hemoglobin A1c % 8.4 H (<6.0) % Calcium 9.4 (8.4-10.2) mg/dL B-Natriuretic Peptide 332 H (<100) pg/mL Narrative Narrative: EKG 05/2023 Vent. Rate : 59 BPM Atrial Rate : 59 BPM P-R Int : 230 ms QRS Dur : 150 ms QT Int : 480 ms P-R-T Axes : 40 -84 4 degrees QTcB Int : 475 ms Atrial-sensed ventricular-paced rhythm with prolonged AV conduction with occasional atrial-paced complexes and with occasional Premature ventricular complexes Abnormal ECG No previous ECGs available ICD Interrogation 05/04/2024 NSVT x 1, 0 episodes/shocks AP 13% [employer] 39% ECHO 2023 Summary The left ventricle appears moderately dilated. It is poorly visualized. Systolic function, ejection fraction and wall motion could not be accurately evaluated. Diastolic function could not be determined. The left atrium is poorly visualized. The right ventricle is poorly visualized. The right atrium is poorly visualized. Airway Mallampati Class: II TM Dist: >3cm Neck ROM: Full Loose/Missing/Broken Teeth: Yes (Missing throughout, broken throughout, none loose per patient report) Heart: RRR Lungs: fine crackles in bases Assessment and Plan Assessment Anesthesia Assessment: Anesthesia Plan Discussed and PAT Visit Final Anesthetic Review Family History of Problems with Anesthesia: No History of Problems with Anesthesia: No Documented by User: Cande Harvey MD 05/27/24 15:23 HPI - Anesthesia Eval Anesthesia Pre-Procedure Meds Is the patient on any of the following meds?: SGLT2 Inhib (Last dose if dapagliflozin 05/23/24) If yes to any meds - educate patient: Pt education - increased risk of aspiration and/or euvolemic DKA PMFSH Active Problems Active Problems: All Active Problems Pre-op chest exam (Acute) Lumbar stenosis with neurogenic claudication (Acute) Back pain (Acute) Spinal stenosis (Acute) Hyperuricemia (Acute) Pulmonary fibrosis (Acute) Chronic hypoxemic respiratory failure (Acute) On amiodarone therapy (Acute) Pulmonary nodule 1 cm or greater in diameter (Acute) ILD (interstitial lung disease) (Acute) Essential (primary) hypertension (Acute) Chronic kidney disease, stage 3b (Acute) Ischemic heart disease. First DE aged 37. Angioplasty x3 over last 50 years befire CABG x 4 wuth AVR 2020. EF 30-35%. Pacer/AICD 2008 CARON. On 2L O2 24hrs Last dose plavix 05/19/24 Pacer/ Defibrillator 100% paced Past Medical History Medical History Arthritis Type 2 diabetes mellitus CARON (obstructive sleep apnea) Elevated cholesterol HTN (hypertension) Ventricular tachycardia Ischemic cardiomyopathy Ischemic heart disease Chronic hypoxemic respiratory failure On amiodarone therapy Pulmonary nodule 1 cm or greater in diameter ILD (interstitial lung disease) Essential (primary) hypertension Cyst of kidney, acquired Chronic kidney disease, stage 3b Family History Family history of problems with anesthesia: No Surgical History Surgical History Hx of cardiac catheterization H/O colonoscopy History of automatic internal cardiac defibrillator (AICD) Hx of aortic valve replacement S/P CABG x 4 S/P cholecystectomy History of appendectomy History of Problems with Anesthesia: No Social History Social History Are you a primary career resource specialist to a significant other at home: No Do you presently have visiting nurse or other home services: No Alcohol intake: never Patient Tobacco Use Status: Never used Tobacco Use of substances other than those prescribed or required for medical reasons: No Have you been hit, kicked, punched, or otherwise hurt by someone within the past year? If so, by whom?: No Spiritual Healthcare Practices: none Yazdanism Healthcare Practices: Czech Sikhism Cultural Healthcare Practices: none Are you DNR?: No Advance Directives: No (states is primary contact) Advance Directives Information Provided: Yes (as above noted) Advance Directives on File: No Recently lost weight without trying: No Eating poorly because of decreased appetite: No Nutrition Risks: Surgical patient >75years Poor oral hygiene: No (has 4 broken teeth) Meds Allergies Allergy/AdvReac Type Severity Reaction Status Date / Time adhesive tape Allergy Intermediate blisters Verified 05/27/24 12:41 lisinopril Allergy Intermediate Angioedema Verified 05/27/24 12:41 oxycodone Allergy Intermediate syncope Verified 05/27/24 12:41 shellfish derived Allergy Intermediate Swelling Verified 05/27/24 12:41 Home Medications ?Medication ?Instructions ?Recorded ?Confirmed ?Last Taken ?Type aspirin 81 mg tablet,delayed 81 mg PO QAM 02/04/23 05/27/24 05/19/24 History release atorvastatin 20 mg tablet 20 mg PO BEDTIME 02/04/23 05/27/24 Unknown History carvedilol 3.125 mg tablet 6.25 mg PO BID 02/04/23 05/27/24 05/27/24 10:00 History clopidogrel 75 mg tablet 75 mg PO QAM 02/04/23 05/27/24 05/19/24 History dapagliflozin propanediol 10 mg 10 mg PO QAM 02/04/23 05/27/24 05/23/24 History tablet (Farxiga) insulin glargine 100 unit/mL (3 80 unit subcut BEDTIME 02/04/23 05/27/24 Unknown History mL) subcutaneous pen (Lantus Solostar U-100 Insulin) levothyroxine 100 mcg tablet 100 mcg PO QAM 02/04/23 05/27/24 05/27/24 10:00 History nitroglycerin 0.4 mg sublingual 0.4 mg sublingual Q5M PRN Chest 02/04/23 05/27/24 Unknown History tablet Pain pantoprazole 40 mg tablet,delayed 40 mg PO QAM 02/04/23 05/27/24 05/27/24 10:00 History release sennosides 8.6 mg tablet (senna) 8.6 mg PO QAM 02/04/23 05/27/24 Unknown History tramadol 50 mg tablet 50 mg PO Q8H PRN Pain 02/04/23 05/27/24 Unknown History tamsulosin 0.4 mg capsule 0.4 mg PO BEDTIME 05/16/23 05/27/24 Unknown History isosorbide mononitrate 30 mg 30 mg PO QAM 06/27/23 05/27/24 Unknown History tablet,extended release 24 hr cholecalciferol (vitamin D3) 50 50 mcg PO QPM 09/16/23 05/27/24 Unknown History mcg (2,000 unit) capsule Oxygen Home Use 10/20/23 05/27/24 Unknown History amiodarone 200 mg tablet 200 mg PO QAM 03/16/24 05/27/24 05/27/24 10:00 History allopurinol 100 mg tablet 100 mg PO QAM 05/12/24 05/27/24 05/27/24 10:00 History insulin aspart U-100 100 unit/mL 2.5 unit subcut TID 05/12/24 05/27/24 Unknown History (3 mL) subcutaneous pen (Novolog FlexPen U-100 Insulin aspart) pregabalin 100 mg capsule 100 mg PO BID 05/12/24 05/27/24 05/27/24 10:00 History torsemide 20 mg tablet 40 mg PO BID 05/12/24 05/27/24 05/27/24 10:00 History Exam Airway Mallampati Class: III TM Dist: >3cm Neck ROM: Limited Partial: Lower Loose/Missing/Broken Teeth: Yes (Many missing, many broken. Denies loose teeth) Heart: RRR+ murmur Lungs: CTAB. Diminished Assessment and Plan Assessment Anesthesia Assessment: Anesthesia Plan Discussed, PAT Visit and Chart Reviewed Final Anesthetic Review Family History of Problems with Anesthesia: No History of Problems with Anesthesia: No NPO: Yes ASA Class: IV Final Preanesthetic Review: No Changes in Pt Med Stat, Meds/Allgs Chart Reviewed, Consent Obtained/Reviewed and Anes Risks/Benef Reviewed Patient Risk: High Procedure Risk: Low Assessment/Block/Sedation in SS: Assess/Block/Sedation-SS Anesthetic Plan Anesthetic Plan: GA Disposition: Standard PACU
[2024-05-12 14:20] LABS: Hematocrit 44.6 % (42.0-52.0); Hemoglobin 14.4 g/dl (14.0-18.0); Mean Corpuscular HGB Conc 32.3 g/dl (31.0-36.0); Mean Corpuscular Hemoglobin 28.4 pg (27.0-33.0); Mean Platelet Volume 10.6 fL (9.4-12.4); Platelet Count 171 X10*3/uL (160-400); Red Blood Count 5.07 X10*6/uL (4.60-5.80); Red Cell Distribution Width 16.3 % (11.0-16.0); White Blood Count 7.4 X10*3/uL (4.8-10.8)
[2024-05-12 14:37] LABS: Estimated Average Glucose 194 mg/dL; Hemoglobin A1C 256.5534 umol/L; Hemoglobin A1c % 8.4 % (<6.0); Total Hemoglobin (HGBA1C) 3734.0017 umol/L
[2024-05-12 14:53] LABS: B Type Natriuretic Peptide 332 pg/mL (<100)
[2024-05-12 15:00] LABS: Anion Gap 12 (12-20); Blood Urea Nitrogen 65 mg/dL (9-16); Calcium 9.4 mg/dL (8.4-10.2); Carbon Dioxide 31 mmol/L (22-29); Chloride 103 mmol/L (96-108); Creatinine Clr Calc Pharmacy 25.4; Estimated Glomerular Filt Rate 24; Glucose Random 125 mg/dL (60-115); Potassium 4.3 mmol/L (3.3-5.1); Sodium 142 mmol/L (135-145)
[2024-05-27] VITALS (9 sets, daily range): BP systolic 132–155; BP diastolic 36–86; PULSE 51–58; RESP 16–18; TEMP 36.1–36.2; O2SAT 94–100
--- NOTE | ~2024-05-27 | FL_ITS ---
EXAMINATION: FL GUIDANCE ONLY HISTORY: L4-5 DECOMPRESSION COMPARISON: None available. TECHNIQUE: Fluoroscopy time: 4.1 seconds. Cumulative Dose: 2.2197 mGy. DAP: 0.9655 mGym2 Images: 1. FINDINGS: A single fluoroscopic spot film of lumbar spine in the lateral projection demonstrates a probe directed toward the L4 vertebral body from a posterior approach. FL/FL guidance in OR IMPRESSION: Fluoroscopy during procedure. Please see procedure report for additional information. Electronically signed by: Luis Ralph MD 05/27/2024 03:25 PM TAI
--- NOTE | 2024-05-27 13:20 | P.HPSUR_ITS ---
Pre-Procedural Eval Section A - 24 Hr Update-Section A only Date of Service: 05/27/24 Section B - Complete if H&P > 30 days Chief Complaint: Spinal stenosis, lumbar region with neurogenic cla Allergies: Allergies Allergy/AdvReac Type Severity Reaction Status Date / Time adhesive tape Allergy Intermediate blisters Verified 05/27/24 12:41 lisinopril Allergy Intermediate Angioedema Verified 05/27/24 12:41 oxycodone Allergy Intermediate syncope Verified 05/27/24 12:41 shellfish derived Allergy Intermediate Swelling Verified 05/27/24 12:41 Review of Systems Sugical H&P ROS: Negative: Constitution, Cardiovascular, Respiratory, Neurological, Psychiatric, Hem-Onc, Allergic/Immunologic, Gastrointestinal, Genitourinary, Musculoskeletal, Integumentary, Endocrine and Eyes/Ears /Nose/Throat Exam Surgical H&P Exam: Not Evaluated: HEENT, Not Evaluated: Heart, Not Evaluated: Lungs, Not Evaluated: Extremities, Not Evaluated: Abdomen, Not Evaluated: Skin and Not Evaluated: Neurological Exam Comment: Patient is awake, alert, in no acute distress. Proposed surgical incision site is clean, dry, intact. Plan Diagnosis/Plan: Unchanged I have reviewed the history and physical and performed a pertinent physical examination on my patient. No changes have occurred unless specified. plan remains unchanged. L4-5 Lumbar decompression. Time Spent With Patient Time: Total time managing care of this patient today __7__ minutes.
[2024-05-27 13:50] LABS: Glucose, Whole Blood 227 mg/dL (60-115)
[2024-05-27] MEDS: methocarbamoL 750 MG TABLET PO (13:53)
[2024-05-27] MEDS: Gabapentin 300 MG CAPSULE PO (13:54)
[2024-05-27] MEDS: Lactated Ringers 1,000 ML 50 ML IVCONT (13:56)
[2024-05-27] MEDS: ceFAZolin Sodium/Dextrose,Iso 2 GM/50 ML PIGGYBACK IV (14:36)
[2024-05-27] MEDS: Acetaminophen 1,000 MG/100 ML PIGGYBACK 400 MG IV (14:49)
--- NOTE | 2024-05-27 16:08 | P.OP_ITS ---
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 I have explained the nature, purpose and benefits of the operation. I have discussed the risks and benefit of the operation including possible complications or adverse events with patient/family. Alternative(s) were discussed with the patient with their relative benefits and risks as well as the consequences of not accepting the operation were included in obtaining consent. Surgeon: KODY RUFF MD, PHD Procedure Assisted By: Vicente Oneil Description of Procedure This 84-year-old male suffering from back pain and neurogenic claudication symptoms. CT scan shows L4-5 [id number] spinal stenosis. He was offered a decompression to treat his neurogenic symptoms. He is aware that the back pain may not respond to a decompression.. The patient was offered a decompression. The procedure complications were explained. The patient was consented. The patient was brought to the operating room and endotracheally intubated. The patient was turned in prone position on the Tyler frame. Prep and drape was done followed by timeout. The Physician acute care certified nursing assistant provided access. A mid lumbar incision was made followed by release of the paravertebral muscle on the left side to expose the L4-5 lamina and facet joints. An intraoperative x-ray was obtained to confirm the correct level. The microscope was brought in. I took over the procedure. The high-speed drill was used to do a left L4-5 laminotomy until flavum ligament was reached. A #2 Kerrison was used to expand the laminotomy near flush to the pedicles and to include a partial facetectomy. The flavum ligament was opened and resected with a #3 Kerrison to decompress the underlying thecal sac. The flavum ligament was removed to decompress the lateral recess and the exiting L5 nerve root. The spinous processes was accordingly under cuts and the patient was turned contralaterally. This severe was able to resect more flavum ligament and decompress the contralateral lateral recess and nerve root. A long nerve hook could be easily passed along the medial side of the pedicles as a sign of adequate decompression. The microscope was removed. Hemostasis was done. The physician acute care certified nursing assistant close the Incision in 2 layers. Steri-Strips were used to approximate incision. An OpSite with Tegaderm was used to cover the incision. All sponge needle counts were correct. Patient was extubated and transported in stable is to recovery room. Anesthesia: General Estimated Blood Loss (ml): 30 mL Complications: None Duration of Surgery: 1 hour and 10 minutes Minutes Postoperative Plan: Discharge to home
--- NOTE | 2024-05-27 16:08 | PM.DS ---
DS: Providers Provider Date of Service: 05/27/24 Date of discharge: 05/27/24 Primary care physician: Nicolás Jeffries III, MD DS: Summary Time Attestation Discharge Coordination Time (in mins): 12 Quality: Safe Use of Opioids Does Pt have an Active Cancer Diagnosis on the Problem List?: No Quality: Stroke Does the patient have a stroke diagnosis?: No Physical Exam Vital Signs: Vital Signs: Last Vital Signs Temp 97.0 F 05/27/24 13:57 Pulse 51 05/27/24 13:57 Resp 16 05/27/24 13:57 BP 137/55 L 05/27/24 13:57 Pulse Ox 100 05/27/24 13:57 O2 Del Method Nasal Cannula 05/27/24 13:57 O2 Flow Rate 2 05/27/24 13:57 BMI result Body Mass Index 40.4 DS: Data Data Completed and Pending Labs on day of discharge: Laboratory Results - last 24 hr 05/27/24 13:46 POC Glucose 227 H Discharge Plan Discharge Patient Disposition: Home, Self-Care Referrals: Nicolás Jeffries III, MD [Primary Care Provider] - 1 Week Discharge Medications: New oxycodone 5 mg tablet 5 mg PO Q8H PRN (Reason: severe pain (scale score 7-10)) Qty: 21 0RF Rx Instructions: Partial Fill upon patient request. Continued insulin aspart U-100 [Novolog FlexPen U-100 Insulin] 100 unit/mL (3 mL) Insulin Pen 2.5 unit SUBCUT TID pregabalin 100 mg Capsule 100 mg PO BID torsemide 20 mg tablet 40 mg PO BID allopurinol 100 mg tablet 100 mg PO QAM atorvastatin 20 mg tablet 20 mg PO BEDTIME carvedilol 3.125 mg tablet 6.25 mg PO BID Rx Instructions: must administer with a meal/food insulin glargine [Lantus Solostar U-100 Insulin] 100 unit/mL (3 mL) insulin pen 80 unit subcut BEDTIME levothyroxine 100 mcg tablet 100 mcg PO QAM nitroglycerin 0.4 mg tablet, sublingual 0.4 mg sublingual Q5M PRN (Reason: Chest Pain) Rx Instructions: do not exceed 3 doses per episode sennosides [senna] 8.6 mg tablet 8.6 mg PO QAM Farxiga 10 mg tablet 10 mg PO QAM pantoprazole 40 mg tablet,delayed release (DR/EC) 40 mg PO QAM amiodarone 200 mg tablet 200 mg PO QAM tamsulosin 0.4 mg capsule 0.4 mg PO BEDTIME isosorbide mononitrate 30 mg tablet extended release 24 hr 30 mg PO QAM (DME) Oxygen Home Use Kit See Rx Instructions .ROUTE Rx Instructions: As directed cholecalciferol (vitamin D3) 50 mcg (2,000 unit) capsule 50 mcg PO QPM Held aspirin 81 mg tablet,delayed release (DR/EC) 81 mg PO QAM Hold Instructions: Resume on 05/31/24. clopidogrel 75 mg tablet 75 mg PO QAM Hold Instructions: Resume on 06/03/24. tramadol 50 mg tablet 50 mg PO Q8H PRN (Reason: Pain) Hold Instructions: Resume on 06/03/24. When postoperative Rx is finished Discharge Orders: Discharge Order (Routine); Ordered 05/27/24 Ordered By: Vicente Cooper Diet: Advance to usual diet Activity on Discharge: As tolerated Activity Restrictions/Additional Instructions: After your spinal surgery we ask you to observe the following restrictions/guidelines: Activity: It is normal to feel some discomfort as you increase your activity, but that will improve with time. We ask you avoid heavy lifting or acitivities that cause pain. As a general rule, 8lbs is a safe limit for lifting right after surgery. Walk as much as you feel comfortable but not to exhaustion. You will feel extra tired the first few days after surgery. Stay well hydrated. It is OK to walk up and down stairs You may return to driving when you are off narcotics (such as vicodin, oxycodone, dilaudid, etc), and you are back to normal functional capacity. If you have any concerns please check with office before driving. Return to work is specific to each patient and each surgery, so please speak with your doctor/PA at first follow up. Please bring paperwork such as FMLA at that time if you need it filled out. Medications: Please hold your Plavix until 06/03/24 as discussed before surgery, unless the prescribing provider has recommended to restart it sooner. Please hold your Aspirin for 3 days after surgery We recommend you take 1,000mg Tylenol every 8 hours for the first few weeks after surgery, if you do not have any liver issues and can tolerate this medication. Do not exceed 4,000mg daily. We will give you a short supply of narcotics after surgery (usually one weeks worth). If you need more please call the office but do not use more than prescribed. You will need to give our office 48 hours notice if you need narcotics refilled and we do not fill narcotics on weekends or evenings. If you are on a narcotic, it is a good idea to take a stool softener such as colace or senna to avoid constipation If you take blood thinner such as aspirin, Plavix, Coumadin, Effient, Eliquis etc for conditions such as Afib, DVT, Pulmonary embolus, coronary disease, stents etc please speak with your surgeon about specific details as to when you can resume these medications. You can resume NSAIDs on post op day 1 (eg: Motrin, Naproxen, etc). Follow up: Please call the office, , after surgery to arrange a 3 week follow up for wound check. Wound Care: You may remove your dressing on the first day after surgery. ?You may ?leave open to air. Please do not remove the steri strips underneath. they will fall off on their own in one week. IT IS NORMAL FOR THE WOUND TO OOZE OR BE BLOODY FOR A FEW DAYS AFTER SURGERY. ?IF THIS HAPPENS JUST PLACE NEW DRESSING OVER IT TO AVOID STAINING CLOTHES. You may shower on post op day # 1 We ask that you do not let the water soak the wound. If it does get wet, just towel dry lightly. Please do not scrub your incision or place any type of chemical/ointment on the wound. No tub baths, pools or jacuzzis for one month. If you have any leaking or redness from your wound, or fevers, please call the office. Print Language: Other
[2024-05-27] MEDS: ondansetron HCL 4 MG/2 ML VIAL IVPUSH (17:22)
== END 2024-05-27 17:56 | disposition home or self-care (01) ==
PROVIDERS: Nurse Practitioner; PCP Internal Medicine; Visit Provider Neurological Surgery
PROC: (CPT 63047; principal; 2024-05-27 13:00)
DX: M48.062 Spinal stenosis, lumbar region with neurogenic claudication (principal); E11.22 Type 2 diabetes mellitus with diabetic chronic kidney disease; I12.9 Hypertensive chronic kidney disease with stage 1 through stage 4 chronic kidney disease, or unspecified chronic kidney disease; N18.32 Chronic kidney disease, stage 3b; J96.11 Chronic respiratory failure with hypoxia; I25.5 Ischemic cardiomyopathy; G47.33 Obstructive sleep apnea (adult) (pediatric); Z79.4 Long term (current) use of insulin; Z79.82 Long term (current) use of aspirin; Z99.81 Dependence on supplemental oxygen; Z79.899 Other long term (current) drug therapy; Z88.5 Allergy status to narcotic agent; Z88.8 Allergy status to other drugs, medicaments and biological substances; L23.1 Allergic contact dermatitis due to adhesives
CPT/HCPCS: 63047; 36415; 80048; 82947; 83036; 83880; 85027; 93005; C1763; J0131; J0690; J1100; J2003; J2405; J2704; J3010

== ENCOUNTER → 2024-05-27 11:48 | Outpatient (BNV) | payer MEDICARE, SELFPAY | PROVIDERS: PCP Internal Medicine; Visit Provider Neurological Surgery | DX: M48.062 Spinal stenosis, lumbar region with neurogenic claudication (principal) | CPT/HCPCS: 63047; 99499 ==

== ENCOUNTER 2024-06-10 12:09 | Outpatient (REF) | payer MEDICARE, SELFPAY ==
[2024-06-10 13:19] LABS: Anion Gap 15 (12-20); Blood Urea Nitrogen 51 mg/dL (9-16); Carbon Dioxide 33 mmol/L (22-29); Chloride 100 mmol/L (96-108); Estimated Glomerular Filt Rate 25; Potassium 4.8 mmol/L (3.3-5.1); Sodium 143 mmol/L (135-145); Uric Acid 7.4 mg/dL (3.4-7.0)
--- OUTSIDE RECORDS SUMMARY | 2024-06-10 15:36 | XMS_ITS | Encounter Summary ---
Author Organization [facility] Address [address] [place] [address] Care Team Providers Care Shot Blaster Name Role Phone Nicolás Jeffries MD Primary Care Provider [phone] Reason for Visit * Reason Comments Blood Sugar Problem Encounter Details Date Type Department Care Team (Latest Contact Info) Description 05/10/2024 3:45 PM EST Office Visit Endocrinology - [facility] [address] [place] [address] Aung Pinto MD [address] [place] [phone] DM (diabetes mellitus), type 2 with neurological complications (CMS/HCC) (Primary Dx) Social History Tobacco Use Types Packs/Day Years Used Date Smoking Tobacco: Never Smokeless Tobacco: Never Tobacco Cessation:Counseling Given: Not Answered Alcohol Use Standard Drinks/Week Comments No 0 (1 standard drink = 0.6 oz pur e alcohol) Sex and Gender Information Value Date Recorded Sex Assigned at Not on file Legal Sex Male 3:35 AM EST Gender Identity Not on file Sexual Orientation Not on file documented as of this encounter Last Filed Vital Signs Vital Sign Reading Time Taken Comments Blood Pressure 133/57 05/10/2024 3:57 PM EST Pulse 70 05/10/2024 3:57 PM EST Temperature 36 ??C (96.8 ??F) 05/10/2024 3:57 PM EST Respiratory Rate - - Oxygen Saturation 95% 05/10/2024 3:57 PM EST Inhaled Oxygen Concentration - - Weight 109 kg (240 lb) 05/10/2024 3:57 PM EST Height 165.1 cm (5' 5 ) 05/10/2024 3:57 PM EST Body Mass Index 39.94 05/10/2024 3:57 PM EST documented in this encounter Progress Notes * Aung Pinto MD - 05/10/2024 3:45 PM EST Stick to one dose of insulin Lantus Take pre meal insulin BEFORE meals. * Aung Pinto MD - 05/10/2024 3:45 PM EST CHIEF COMPLAINT: Blood Sugar Problem IDENTIFIER: Justin Wong is a 84 y.o. old male. HPI: 83 years old M, following for DM type 2. Diagnosed since around 10-12 years. he had covid and PNA, was admitted to hospital and then to rehab now back to home. Currently on Lantus 68-75 units daily, seems he is changing doses. On CGM, He was started on insulin lispro pre meal, Taking upto 25 units AC. Many times takes pre meal insulin after meals. CGM data shows [address], In range 8 % high 43% very high 29%. These numbers are better then before He is on oxygen. ROS: As noted in HPI PAST MEDICAL HISTORY: Patient Active Problem List Diagnosis Date Noted Chronic systolic congestive heart failure ([facility] 09/15/2023 Hypoxemia 04/17/2023 Acute kidney injury superimposed on chronic kidney disease ([facility]) 10/18/2021 Chest pain 10/18/2021 Left upper arm pain 10/18/2021 Coronary artery disease involving red lake coronary artery of red lake heart without angina pectoris 08/17/2021 CHF (congestive heart failure) ([facility]) 06/10/2021 Dyspnea on exertion 05/14/2021 Coronary atherosclerosis of artery bypass graft 01/17/2021 Nocturnal hypoxemia 07/19/2020 Obstructive sleep apnea 07/19/2020 Acute sialoadenitis 11/29/2019 Cholecystitis 11/01/2019 Anxiety 05/22/2017 Aortic stenosis 04/22/2016 Peripheral neuropathy 03/20/2016 PVD (peripheral vascular disease) ([facility]) 03/20/2016 Onychomycosis 03/16/2015 DM (diabetes mellitus), type 2 with peripheral vascular complications ([facility]) 09/08/2014 Ischemic cardiomyopathy 12/16/2013 DM (diabetes mellitus), type 2 with neurological complications ([facility]) 06/10/2012 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) 06/10/2012 Benign prostatic hyperplasia 01/28/2012 DM (diabetes mellitus), type 2 with renal complications ([facility]) 12/23/2011 Stage 3 chronic kidney disease ([facility]) 12/03/2011 VT (ventricular tachycardia) ([facility]) 11/14/2011 Obesity (BMI 30.0-34.9) 02/06/2011 Vitiligo 02/06/2011 Back pain 06/26/2010 Hypothyroid 06/26/2010 Carotid disease, bilateral ([facility]) 05/25/2010 Proteinuria 09/08/2008 Essential hypertension 06/01/2008 GERD (gastroesophageal reflux disease) 06/01/2008 Hypercholesteremia 06/01/2008 Past Surgical History: Procedure Laterality Date APPENDECTOMY PROCEDURE: TN APPENDECTOMY CHOLECYSTECTOMY 12/09/2019 PROCEDURE: LAPAROSCOPIC CHOLECYSTECT COLONOSCOPY August, Slitzky PROCEDURE: HISTORICAL COLONOSCOPY; COMMENT: hemorrhoids ESOPHAGOGASTRODUODENOSCOPY 06/26/2009 PROCEDURE: TN EGD TRANSORAL BIOPSY SINGLE/MULTIPLE; COMMENT: Esophagus normal, antral gastritis-biopsy:reactive gastropathy with mild chronic inflammation and vascular congestion (HPylori-), normal esophagus HERNIA REPAIR PROCEDURE: REPAIR UMBILICAL HERNIA OTHER SURGICAL HISTORY PROCEDURE: TN UNLISTED PROCEDURE CARDIAC SURGERY; COMMENT: ICD placement SOCIAL HISTORY: Social History Tobacco Use Smoking status: Never Smokeless tobacco: Never Substance Use Topics Alcohol use: No FAMILY HISTORY: Family History Problem Relation Name Age of Onset Other (Other: good health) Mother during her lifetime Other (Other: good health) Father during his lifetime Family Status Relation Name Status Mother ?? Father lung disease Brother Alive No partnership data on file MEDICATIONS DISCONTINUED/REORDERED: There are no discontinued medications. ACTIVE MEDICATIONS: Outpatient Medications Marked as Taking for the 05/10/24 encounter (Office Visit) with Aung Pinto MD Medication Sig Dispense Refill acetaminophen (TYLENOL ORAL) Take 1,000 mg by mouth as needed. allopurinoL (ZYLOPRIM) 100 mg tablet Take 1 Tablet by mouth daily. amiodarone (PACERONE) 200 mg tablet Take 1 tablet (200 mg total) by mouth 1 (one) time each day. aspirin 81 mg EC tablet Take 1 tablet by mouth daily. atorvastatin (LIPITOR) 20 mg tablet Take 1 Tablet by mouth daily. blood-glucose meter,continuous (FreeStyle Quintin 3 [place]) misc 1 Device by Does not apply route SeeAdmin Instructions. blood-glucose sensor (FREESTYLE QUINTIN 3 SENSOR MISC) 1 Applicator by Does not apply route every 14 days. carvediloL (COREG) 6.25 mg tablet TAKE 1 TABLET BY MOUTH TWICE DAILY WITH MEALS 180 tablet 2 cholecalciferol (VITAMIN D-3) 50 mcg (2,000 unit) tablet Take by mouth. clopidogreL (PLAVIX) 75 mg tablet Take 1 tablet by mouth once daily 90 tablet 0 clotrimazole (LOTRIMIN) 1 % cream Apply daily once to affected areas for 2 weeks- both feet and between the toes dapagliflozin propanediol (Farxiga) 10 mg tablet Take 10 mg by mouth daily. diclofenac (VOLTAREN) 1 % topical gel Apply 1 g topically 4 times daily as needed (pain). guaiFENesin (MUCINEX) 600 mg 12 hr tablet Take 2 Tablets by mouth 2 times daily. hydrocortisone 2.5 % ointment Use as directed insulin aspart (NovoLOG Flexpen U-100 Insulin) 100 unit/mL (3 mL) injection pen Take as directed bysliding scale three times a day before meals up to 90 units a day 75 mL 3 insulin glargine (Lantus Solostar U-100 Insulin) 100 unit/mL (3 mL) injection pen Inject 80 Units into the skin daily. Dispense 15 devices with 1 refillInject 80 Units into the skin daily. Dispense 15 devices with 1 refill 75 mL 1 isosorbide mononitrate (IMDUR) 30 mg 24 hr tablet Take 1 Tablet by mouth daily. levothyroxine (SYNTHROID, LEVOTHROID) 100 mcg tablet Take 1 Tablet by mouth daily. and 2 tablets onS and Friday's mupirocin (BACTROBAN) 2 % ointment Apply to affected area TID UpCounselTouch Ultra Test test strip USE 1 STRIP TO CHECK GLUCOSE THREE TIMES DAILY pantoprazole (PROTONIX) 40 mg EC tablet Take 1 tablet by mouth once daily 90 tablet 0 pen needle, diabetic 32 gauge x 5/32 needle USE 1 PEN NEEDLE ONCE DAILY polyethylene glycol (MIRALAX) 17 gram packet Take 17 g by mouth daily. predniSONE (DELTASONE) 50 mg tablet Take 1 Tablet by mouth daily. pregabalin (LYRICA) 100 mg capsule Take 1 Capsule by mouth 2 times daily. sennosides 8.6 mg capsule Take 1 capsule by mouth daily. silver sulfADIAZINE (SSD) 1 % cream APPLY CREAM TO THE PERIANAL SKIN A THIN FILM TWICE DAILY tamsulosin (FLOMAX) 0.4 mg 24 hr capsule Take 1 Capsule by mouth daily for 360 days. Take 30 mins after same meal every day. torsemide (DEMADEX) 20 mg tablet 40 mg in the AM, 20 mg in the afternoon traMADoL (ULTRAM) 50 mg tablet Take 1 Tablet by mouth every 8 hours as needed for Pain. ALLERGIES: Allergies Allergen Reactions Lisinopril angioedema Meclizine Nausea And Vomiting Oxycodone-Acetaminophen Weakness Passes out Shellfish Derived PHYSICAL EXAM: Visit Vitals BP 133/57 Pulse 70 Temp 36 ??C (96.8 ??F) (Temporal) Ht 1.651 m (65 ) Wt 109 kg (240 lb) SpO2 95% BMI 39.94 kg/m?? Smoking Status Never BSA 2.14 m?? APPEARANCE: Alert and in no acute distress EYES: EOMI. No resp distress NEURO: Awake, alert LABS: Lab Results Component Value Date HGBA1C 9.1 (H) 04/26/2024 CHOL 152 12/12/2023 LDL 54 12/12/2023 HDL 49 12/12/2023 TRIG 248 (A) 12/12/2023 IMPRESSION: 1. DM (diabetes mellitus), type 2 with neurological complications ([facility]) PLAN: Have discussed in detail, On CGM, there is variation with numbers, after last visit plan was to start on GLP1A, however cost an issues and he never started. asked not to take pre meal insulin after meals. Can go to 30 units before meals depedning on the size of meals. Stick to one dose of insulin Lantus. Plan to follow closely and adjust All questions answered. Medication and lab orders: No orders of the defined types were placed in this encounter. Other orders: None Aung Pinto MD on 05/10/2024 at 4:19 PM EST documented in this encounter Plan of Treatment Upcoming Encounters Date Type Department Care Team (Late st Contact Info) Description 07/02/2024 4:00 PM EDT Office Visit Adult Medicine South - [place] [address] [place] [address] Nicolás Jeffries MD [address] [place] [phone] 10/12/2024 4:30 PM EDT Ancillary Procedure [facility] - [facility] [address] [facility] [address] [place] [address] 01/10/2025 2:15 PM EDT Office Visit Endocrinology - [address] [phone] Aung Pinto MD [address] [place] [address] documented as of this encounter Visit Diagnoses Diagnosis DM (diabetes mellitus), type 2 with neurological complications (CMS/HCC)- Primary Type II or unspecified type diabetes mellitus with neurological manifestations, not stated as uncontrolled Encounter for adjustment or management of cardiac device documented in this encounter Discontinued Medications Medication Sig Discontinue Reason Start Date End Da te semaglutide (Ozempic) 0.25 mg or 0.5 mg (2 mg/3 mL) injection penIndications:DM (diabetes mellitus), type 2 with neurological complications (CMS/HCC) Inject 0.25 mg under the skin every 7 (seven) days. 04/29/2024 05/10/2024 documented as of this encounter Care Teams Shot Blaster Relationship Specialty Start Date End Date Nicolás Jeffries MD [address] [place] [phone] PCP - General Internal Medicine 02/11/24 documented as of this encounter
--- OUTSIDE RECORDS SUMMARY | 2024-06-10 15:36 | XMS_ITS | Encounter Summary ---
Author Organization [facility] Address [address] [place] [address] Care Team Providers Care Sign Hanger Name Role Phone Nicolás Jeffries MD Primary Care Provider [phone] Encounter Details Date Type Department Care Team (Late st Contact Info) Description 06/04/2024 Telephone [facility] - [facility] [address] [facility] [address] [place] [phone] Rikki Ley MD [address] [place] [address] Social History Tobacco Use Types Packs/Day Years Used Date Smoking Tobacco: Never Smokeless Tobacco: Never Alcohol Use Standard Drinks/Week Comments No 0 (1 standard drink = 0.6 oz pur e alcohol) Sex and Gender Information Value Date Recorded Sex Assigned at Not on file Legal Sex Male 3:35 AM EST Gender Identity Not on file Sexual Orientation Not on file documented as of this encounter Progress Notes * Ivis Yo RN - 06/04/2024 2:33 PM EST I spoke to Danyell and informed her of the below message from [facility]. She voiced understanding. * Mat Brown NP - 06/04/2024 2:30 PM EST 60mg bid for three days then reduce back to 40mg bid * Ivis Yo RN - 06/04/2024 1:19 PM EST I spoke to Justin. He underwent back surgery on 05/27/24. A few days ago, he had BLE edema that has since resolved. Pt denies shortness of breath and weight gain. His baseline weight is 235-236 lbs and his weight today measured 232 lbs. Since his back surgery, he feels fatigued on exertion. He denies recent illness. Regarding his diet, he does not add salt to anything and eats oven roasted chicken, veggies, and salad. Pt ate lasagna the other day. Pt takes Torsemide 40 mg BID - increased by his Optical [employer] Silverer about a month ago per pt. He is pending a follow up visit with Nephrology in a couple weeks. He mentioned he is urinating frequently. His Danyell questioned if he should increase his Torsemide dose? * Nallely Candelaria - 06/04/2024 11:48 AM EST Patient is returning your call. Is aware of a call back. * Ivis Yo RN - 06/04/2024 11:19 AM EST I left a message on machine for call back. * Ciara Almonte MA - 06/04/2024 11:05 AM EST Heart failure diagnostics available in this device are suggestive of volume overload. Please phone patient to assess for symptoms of heart failure exacerbation: Weight gain, orthopnea, PND, increasedexertional dyspnea, recent clinical events, dietary indiscretion. Please convey this information to the primary cardiology team or go to as appropriate. Thank you documented in this encounter Plan of Treatment Upcoming Encounters Date Type Department Care Team (Late st Contact Info) Description 07/02/2024 4:00 PM EDT Office Visit Adult Medicine South - [address] [phone] Nicolás Jeffries MD [address] [place] [address] 10/12/2024 4:30 PM EDT Ancillary Procedure [facility] - [facility] [address] [facility] [address] [place] [address] 01/10/2025 2:15 PM EDT Office Visit Endocrinology - [address] [phone] Aung Pinto MD [address] [place] [phone] documented as of this encounter Visit Diagnoses Not on filedocumented in this encounter Care Teams Sign Hanger Relationship Specialty Start Date End Date Nicolás Jeffries MD [address] [place] [address] PCP - General Internal Medicine 02/11/24 documented as of this encounter
--- OUTSIDE RECORDS SUMMARY | 2024-06-10 15:36 | XMS_ITS | Encounter Summary ---
Author Organization [facility] Address [address] [place] [address] Care Team Providers Care Grand Scribe Name Role Phone Nicolás Jeffries MD Primary Care Provider [phone] Reason for Referral * Imaging (Routine) - Closed Specialty Diagnoses / Procedures Referred By Contac t Referred To Contact Radiology Diagnoses Nipple pain Procedures MG Mammo Digital Diagnostic w Spencer bilDanita Pritchett NP [address] [place] [address] Phone: tel: fax: [address] Phone: tel: Referral ID Status Reason Start Date Expiration Date Visits Re quested Visits Authorized [id number] Closed 04/26/2024 04/26/2025 1 1 Reason for Visit * Imaging (Routine) - Closed Specialty Diagnoses / Procedures Referred By Contac t Referred To Contact Radiology Diagnoses Nipple pain Procedures MG Mammo Digital Diagnostic w Spencer Danita Ogden NP [address] [place] [address] Phone: tel: fax: [address] Phone: tel: Referral ID Status Reason Start Date Expiration Date Visits Re quested Visits Authorized [id number] Closed 04/26/2024 04/26/2025 1 1 Encounter Details Date Type Department Care Team (Latest Contact Info) Description 05/18/2024 1:04 PM EST - 05/18/2024 11:59 PM EST Hospital Encounter Radiology Department - [address] [phone] Nipple pain Discharge Disposition: Home or Self Care Social History Tobacco Use Types Packs/Day Years [...] on file documented as of this encounter Medications at Time of Discharge acetaminophen (TYLENOL ORAL) Take 1,000 mg by mouth as needed. allopurinoL (ZYLOPRIM) 100 mg tablet Take 1 Tablet by mouth daily. amiodarone (PACERONE) 200 mg tablet Take 1 tablet (200 mg total) by mouth 1 (one) time each day. 03/02/2024 aspirin 81 mg EC tablet Take 1 tablet by mouth daily. 02/26/2021 atorvastatin (LIPITOR) 20 mg tablet Take 1 Tablet by mouth daily. 12/31/2023 blood-glucose meter,continuous (FreeStyle Quintin 3 [place]) [facility] Device by Does not apply route See Admin Instructions. 09/29/2023 blood-glucose sensor (FREESTYLE QUINTIN 3 SENSOR MISC) 1 Applicator by Does not apply route every 14 days. 09/29/2023 carvediloL (COREG) 6.25 mg tablet TAKE 1 TABLET BY MOUTH TWICE DAILY WITH MEALS 180 tablet 2 03/09/2024 cholecalciferol (VITAMIN D-3) 50 mcg (2,000 unit) tablet Take by mouth. clopidogreL (PLAVIX) 75 mg tablet Take 1 tablet by mouth once daily 90 tablet 03/31/2024 clotrimazole (LOTRIMIN) 1 % cream Apply daily once to affected areas for 2 weeks- both feet and between the toes 09/12/2023 dapagliflozin propanediol (Farxiga) 10 mg tablet Take 10 mg by mouth daily. 10/08/2023 diclofenac (VOLTAREN) 1 % topical gel Apply 1 g topically 4 times daily as needed (pain). 10/21/2023 guaiFENesin (MUCINEX) 600 mg 12 hr tablet Take 2 Tablets by mouth 2 times daily. hydrocortisone 2.5 % ointment Use as directed 11/28/2023 insulin aspart (NovoLOG Flexpen U-100 Insulin) 100 unit/mL (3 mL) injection penIndications:DM (diabetes mellitus), type 2 with neurological complications (CMS/HCC) Take as directed by sliding scale three times a day before meals up to 90 units a day 75 mL 3 04/19/2024 insulin glargine (Lantus Solostar U-100 Insulin) 100 unit/mL (3 mL) injection penIndications:DM (diabetes mellitus), type 2 with neurological complications (CMS/HCC) Inject 80 Units into the skin daily. Dispense 15 devices with 1 refillInject 80 Units into the skin daily. Dispense 15 devices with 1 refill 75 mL 1 04/19/2024 isosorbide mononitrate (IMDUR) 30 mg 24 hr tablet Take 1 Tablet by mouth daily. 07/24/2023 levothyroxine (SYNTHROID, LEVOTHROID) 100 mcg tablet Take 1 Tablet by mouth daily. and 2 tablets on Friday and Friday's 12/12/2023 mupirocin (BACTROBAN) 2 % ointment Apply to affected area TID 06/26/2022 OneTouch Ultra Test test strip USE 1 STRIP TO CHECK GLUCOSE THREE TIMES DAILY 10/23/2023 pantoprazole (PROTONIX) 40 mg EC tablet Take 1 tablet by mouth once daily 90 tablet 03/31/2024 pen needle, diabetic 32 gauge x /32 needle USE 1 PEN NEEDLE ONCE DAILY 12/15/2023 polyethylene glycol (MIRALAX) 17 gram packet Take 17 g by mouth daily. predniSONE (DELTASONE) 50 mg tablet Take 1 Tablet by mouth daily. pregabalin (LYRICA) 100 mg capsule Take 1 Capsule by mouth 2 times daily. 01/08/2024 sennosides 8.6 mg capsule Take 1 capsule by mouth daily. silver sulfADIAZINE (SSD) 1 % cream APPLY CREAM TO THE PERIANAL SKIN A THIN FILM TWICE DAILY 02/21/2023 tamsulosin (FLOMAX) 0.4 mg 24 hr capsule Take 1 Capsule by mouth daily for 360 days. Take 30 mins after same meal every day. 09/12/2023 09/07/19 25 torsemide (DEMADEX) 20 mg tablet 40 mg in the AM, 20 mg in the afternoon 05/30/2023 traMADoL (ULTRAM) 50 mg tablet Take 1 Tablet by mouth every 8 hours as needed for Pain. 05/26/2023 documented as of this encounter Discharge Disposition Disposition Code Departure Means Destination Home or Self Care documented in this encounter Plan of Treatment Upcoming Encounters Date Type Department Care Team (Late st Contact Info) Description 07/02/2024 4:00 PM EDT Office Visit Adult Medicine [address] [phone] Nicolás Jeffries MD [address] [place] [address] 10/12/2024 4:30 PM EDT Ancillary Procedure [facility] - [facility] [address] [phone] 01/10/2025 2:15 PM EDT Office Visit Endocrinology [address] [phone] Aung Pinto MD [address] [place] [phone] documented as of this encounter Procedures Procedure Name Priority Date/Time Associated Diagnosis Comments MG MAMMO DIGITAL DIAGNOSTIC W SPENCER BILAT Routine 05/18/2024 1:40 PM EST Nipple pain documented in this encounter Results * MG Mammo Digital Diagnostic w Spencer bilat (05/18/2024 1:40 PM EST) Anatomical Region Laterality Modality Breast Bilateral Mammography 05/18/2024 2:02 PM EST Impressions 05/18/2024 2:13 PM EST No mammographic or sonographic abnormality to explain nipple symptoms. ??Further management of symptoms should be clinically based. BREAST DENSITY: A - The breasts are almost entirely fatty. BI-RADS CATEGORY: 1 - NEGATIVE RECOMMENDATION: Clinical management of bilateral breasts is recommended. MAMMO LOCATION: [facility], [address] [place] [address], [phone], . -------- FINAL REPORT -------- Dictated By: Jojo Alfaro Dictated Date: 05/18/2024 14:02 ET Assigned Physician: Jojo Alfaro Reviewed and Electronically Signed By: Jojo Alfaro Signed Date: 05/18/2024 14:13 ET Workstation ID: [id number] Transcribed By: Self Edit Transcribed Date: 05/18/2024 14:02 ET Narrative 05/18/2024 2:13 PM EST EXAM: MG MAMMO DIGITAL DIAGNOSTIC W SPENCER BILAT, US BREAST LIMITED BILAT HISTORY: Bilateral painful, firm, and red nipples. COMPARISON: NONE TECHNIQUE: Bilateral mediolateral oblique and craniocaudal views ??were obtained digitally with 3-D mammogram (digital breast tomosynthesis). Computer-aided detection was utilized in evaluation of this exam (CAD). FINDINGS: Normal appearance of the male breasts on mammography. ??No suspicious mass. Sonography performed in the bilateral retroareolar regions. ??No solid or cystic lesion. ??No findings of gynecomastia. Procedure Note Jojo Alfaro MD - 05/18/2024 EXAM: MG MAMMO DIGITAL DIAGNOSTIC W SPENCER BILAT, US BREAST LIMITED BILAT HISTORY: Bilateral painful, firm, and red nipples. COMPARISON: NONE TECHNIQUE: Bilateral mediolateral oblique and craniocaudal views wereobtained digitally with 3-D mammogram (digital breast tomosynthesis).Computer-aided detection was utilized in evaluation of this exam (CAD). FINDINGS: Normal appearance of the male breasts on mammography. No suspiciousmass. Sonography performed in the bilateral retroareolar regions. No solid orcystic lesion. No findings of gynecomastia. IMPRESSION: No mammographic or sonographic abnormality to explain nipple symptoms.Further management of symptoms should be clinically based. BREAST DENSITY: A - The breasts are almost entirely fatty. BI-RADS CATEGORY: 1 - NEGATIVE RECOMMENDATION: Clinical management of bilateral breasts is recommended. MAMMO LOCATION: [facility], [address] [place] [address], [phone], . -------- FINAL REPORT -------- Dictated By: Jojo Alfaro Dictated Date: 05/18/2024 14:02 ET Assigned Physician: Jojo Alfaro Reviewed and Electronically Signed By: Jojo Alfaro Signed Date: 05/18/2024 14:13 ET Workstation ID: [id number] Transcribed By: Self Edit Transcribed Date: 05/18/2024 14:02 ET us Danita Velásquez WORK CHECKER IMG BI PROCEDURES Final Resu lt documented in this encounter Visit Diagnoses Diagnosis Nipple pain Other sign and symptom in breast Encounter for adjustment or management of cardiac device documented in this encounter Care Teams Grand Scribe Relationship Specialty Start Date End Date Nicolás Jeffries MD [address] [place] [phone] PCP - General Internal Medicine 02/11/24 documented as of this encounter
--- OUTSIDE RECORDS SUMMARY | 2024-06-10 15:36 | XMS_ITS | Encounter Summary ---
Author Organization [facility] Address [address] [place] [address] Care Team Providers Care Weight Guesser Name Role Phone Nicolás Jeffries MD Primary Care Provider Reason for Visit * Reason Onset Date Comments Pre-operative Clearance 05/12/2024 Encounter Details Date Type Department Care Team (Late st Contact Info) Description 05/12/2024 Telephone [facility] [address] [phone] Rikki Shukla MD [address] [place] [address],[address] [address] Pre-operative Clearance Social History Tobacco Use Types Packs/Day Years [...] as of this encounter Progress Notes * Karen Zambrano MA - 05/24/2024 2:24 PM EST Updated note faxed to Dr. Hassan. Confirmation Received . * Mat Brown NP - 05/24/2024 1:13 PM EST Note updated * Bharati Cerrato - 05/12/2024 2:17 PM EST Cassia from Dr. Hassan states they received the clearance letter form Yelena Garza in March. They are now looking to see if patient can stop his Aspirin [address] Hassan. The surgery I 05/27/24. Please fax letter to [phone] documented in this encounter Plan of Treatment Upcoming Encounters Date Type Department Care Team (Late st Contact Info) Description 07/02/2024 4:00 PM EDT Office Visit Adult Medicine [address] [phone] Nicolás Jeffries MD [address] [place] [address] 10/12/2024 4:30 PM EDT Ancillary Procedure [facility] - [facility] [address] [facility] [address] [place] [phone] 01/10/2025 2:15 PM EDT Office Visit Endocrinology [address] [phone] Aung Pinto MD [address] [place] [phone] documented as of this encounter Visit Diagnoses Not on filedocumented in this encounter Care Teams Weight Guesser Relationship Specialty Start Date End Date Nicolás Jeffries MD [address] [place] [phone] PCP - General Internal Medicine 02/11/24 documented as of this encounter
--- OUTSIDE RECORDS SUMMARY | 2024-06-10 15:36 | XMS_ITS | Patient Health Record ---
Author Organization [facility] Address [address] [facility] [address] [place] [address] Care Team Providers Care Case Advocate Name Role Phone Sugey Stratton Primary Care Provider KARI Merino Unavailable [phone] Allergies Allergen (clinical drug ingredient) Drug/Non Drug Allergy documented on EMR Reaction Allergy Type Onset Date Status metoprolol Lopressor Unknown Drug Allergy Active acetaminophen / oxycodone Percocet Unknown Drug Allergy Active Reason For Referral No Information Medications Medication SIG (Take, Route, Frequency, Duration) Notes Start Date End Date Status Coreg 6.25 MG 1 tablet with food Orally Twice a day Active GlycoLax 17 GM/SCOOP as directed Orally Active Metoprolol Succinate ER 100 MG 1 tablet Orally Once a day Not-Taking traMADol HCl 50 MG 1 tablet as needed Orally Once a day PRN Active Lisinopril 2.5 MG 1 tablet Orally Once a day Not-Taking Tylenol 1,000MG PRN Active Ciclopirox 0.77 % 1 application Externally apply topically 2 grams to each foot bid as directed Not-Taking Torsemide 20 MG as directed Orally Active Metoprolol Succinate ER 50 MG 1 tablet Orally Once a day Not-Taking Nitroglycerin 0.4 MG as directed Sublingual Active Simethicone 180 MG 1 capsule after meals and at bedtime as needed Orally 3 times daily Not-Taking glipiZIDE 10 MG 1 tablet 30 minutes before breakfast Orally twice a day Active Magnesium Oxide 400 MG 1 tablet as needed Orally bid Not-Taking Lyrica 100 MG 1 capsule Orally Twice a day Active Clotrimazole-Betameth asone 1-0.05 % 1 application Externally Twice a day Not-Taking Protonix 40 MG 1 tablet Orally Once a day Active Fluorouracil 5 % 1 application Externally Twice a day Not-Taking Colace 100 MG 1 capsule as needed Orally twice a day Active Plavix 75 MG 1 tablet Orally Once a day Active Furosemide 40 MG 1 tablet Orally prn take 1.5 tablets by mouth daily. total of 60mg Not-Taking Flonase Allergy Relief 50 MCG/ACT 2 sprays in each nostril Nasally Once a day prn Not-Taking Tamsulosin HCl 0.4 MG 1 capsule Orally Once a day Active NIFEdipine ER 90 MG 1 tablet on an empty stomach Orally Once a day Active Mupirocin 2 % 1 application Externally Twice a day Active Levothyroxine Sodium 100 MCG 1 tablet in the morning on an empty stomach Orally Once a day Active Aspirin 81 MG 1 tablet Orally Once a day Active hydrALAZINE HCl 50 MG 1 tablet with food Orally Three times a day Active Amiodarone HCl 200 MG 1 tablet Orally Once a day Active Senna 8.6 MG 1 capsule Orally Once a day Active Ipratropium [place] 0.03 % 2 sprays in each nostril Nasally Twice a day Active Ketoconazole 2 % 1 application Externally Once a day Not-Taking Albuterol Sulfate HFA 108 (90 Base) MCG/ACT 1 puff as needed Inhalation every 4 hrs Active Lantus SoloStar 100 UNIT/ML as directed Subcutaneous 80 units daily Active Nystatin 229445 UNIT/GM 1 application Externally Twice a day Active Lipitor 20 MG 1 tablet Orally Once a day Active Lidocaine-Prilocaine 2.5-2.5 % as directed Externally apply 2 grams to each foot once daily at night prn pain for 90 days Active Vitamin D 50 MCG (2000 UT) 1 tablet Orally Once a day Active Loratadine 10 MG 1 tablet Orally Once a day Not-Taking Lidocaine-Prilocaine 2.5-2.5 % 1 gm to each foot Externally once a day nightly PRN pain for 90 days 12/21/2020 Not-Taking Ferrous Sulfate 325 (65 Fe) MG 1 tablet Orally Once a day Active ZyrTEC Allergy 10 MG 1 tablet Orally Once a day Not-Taking Xanax 0.25 MG 1 tablet Orally Twice a day prn for anxiety Not-Taking Ciclopirox Olamine 0.77 % 1 application (1 gm to each foot) Externally Twice a day for 90 days Active Farxiga 10 MG 1 tablet Orally Once a day Active Calcium Carbonate-Vitamin D 500-400 MG-UNIT 1 tablet Orally daily Not-Taking Problems Problem Type SNOMED Code ICD Code Onset Dates Problem Status W/U Status Risk Notes Problem 24619275 Type 2 diabetes mellitus with diabetic polyneuropathy (E11.42) Active confirmed Problem 27102022 Type 2 diabetes mellitus with other circulatory complications (E11.59) Active confirmed Problem 244786071 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) Active confirmed Problem 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) Active confirmed Vital Signs Heart Rate 71 /min 03/10/2024 Temperature 96.1 degrees Fahrenheit 03/10/2024 Respiratory Rate 20 /min 03/10/2024 Blood pressure diastolic 60 mm Hg 11/05/2023 Height 5ft 6in in 03/10/2024 Blood pressure systolic 122 mm Hg 11/05/2023 Weight 244.6 lbs 03/10/2024 BMI 39.48 kg/m2 03/10/2024 Procedures Procedure Date Ordered Date Performed Result Body Sit e DRAIN/INJECT, INTERMEDIATE JOINT/BURSA 12/31/2023 N/A Encounters Encounter Location Date Provider Diagnosis [facility] [address] [phone] 06/11/2023 KARI RYAN Type 2 diabetes mellitus with other circulatory complications E11.59 ; Type 2 diabetes mellitus with diabetic polyneuropathy E11.42 ; Pain in left toe(s) M79.675 ; Onychomycosis B35.1 ; Xerosis of skin L85.3 and Pain in right toe(s) M79.674 [facility] [address] [address] 11/05/2023 KARI RYAN Type 2 diabetes mellitus with other circulatory complications E11.59 ; Type 2 diabetes mellitus with diabetic polyneuropathy E11.42 ; Pain in left toe(s) M79.675 ; Onychomycosis B35.1 ; Xerosis of skin L85.3 and Pain in right toe(s) M79.674 [facility] [address] [address] 12/31/2023 KARI RYAN Type 2 diabetes mellitus with other circulatory complications E11.59 ; 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 M10.372 and Left foot pain M79.672 [facility] [address] [address] 03/10/2024 KARI RYAN Type 2 diabetes mellitus with other circulatory complications E11.59 ; Type 2 diabetes mellitus with diabetic polyneuropathy E11.42 ; Pain in left toe(s) M79.675 ; Onychomycosis B35.1 ; Xerosis of skin L85.3 and Pain in right toe(s) M79.674 [facility] [address] [address] 09/10/2023 KARI RYAN [facility] [address] 11/27/2023 KARI RYAN [facility] [address] [address] 12/31/2023 KARI RYAN Assessments Encounter Date Diagnosis (ICD Code) Assessment Notes Treatment Notes Treatment Clinical Notes Section Notes 06/11/2023 Type 2 diabetes mellitus with other circulatory complications (ICD-10 - E11.59) 11/05/2023 Type 2 diabetes mellitus with other circulatory complications (ICD-10 - E11.59) 12/31/2023 Type 2 diabetes mellitus with other circulatory complications (ICD-10 - E11.59) 03/10/2024 Type 2 diabetes mellitus with other circulatory complications (ICD-10 - E11.59) 11/05/2023 Type 2 diabetes mellitus with diabetic polyneuropathy (ICD-10 - E11.42) Discussed with patient regarding proper glucose control, exercise, and diet. Explained to patient proper shoe gear, and importance of daily foot checks.I reviewed neuropathy and why it occurs in diabetics. I educated the patient on proper blood sugar control and the importance of an HgBA1c of less than 7.0%. I reviewed the signs and symptoms of neuropathy with the patient. I explained the sharp pain of the right foot is a nerve related pain, he has no evidence of a musculoskeletal issue on examination. No changes on his neurological exam this visit. Continue EMLA cream to apply 1 gm to each foot nightly PRN pain x 90 days. He is waiting to receive his new diabetic shoes and inserts. 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 It usually affects one joint at a time (often the big toe joint). There are times when symptoms get worse, known as flares, and times when there are no symptoms, known as remission. Repeated bouts of gout can lead to gouty arthritis, a worsening form of arthritis. There is no cure for gout, but can effectively treat and manage the condition with medication and self-management strategies. Gout flares start suddenly and can last days or weeks. These flares are followed by long periods of remission without symptoms before another flare begins. Gout usually occurs in only one joint at a time. It is often found in the big toe. Along with the big toe, joints that are commonly affected are the lesser toe joints, the ankle, and the knee. Symptoms in the affected joint may include: Pain, usually intense; Swelling, Redness, Heat. Gout is caused by a condition known as hyperuricemia, where there is too much uric acid in the body. The body makes uric acid when it breaks down purines, which are found in your body and the foods you eat. When there is too much uric acid in the body, uric acid crystals can build up in joints, fluids, and tissues within the body. Hyperuricemia is a relatively common finding in people treated with a loop or thiazide diuretic and may, over a period of time, contribute to new-onset gout or, more promptly, recurrence of established gout. Diuretics reduce urate excretion by both directly and indirectly increasing urate reabsorption and decreasing urate secretion; the effect is dose dependent. If diuretic-induced gout occurs, it is usually treated with a urate-lowering drug such as allopurinol. We discussed treatment options for acute gout. This is his first gout attack, and does not require a terminal makeup operator medication yet. We discussed if the flare ups continue to happen, he may need to be placed on terminal makeup operator medication. We discussed that due to his kidney disease I would not recommend colchicine or NSAIDs. He is also a diabetic and a prednisone taper will increase his blood sugar. We discussed a steroid injection into the joints. I explained this will also increase the blood sugar, but temporarily for about 4 days. Consent was reviewed and signed by the patient for a steroid injection into the left foot subtalar joint. Pt agreed. 3cc total steroid injection was given into the left foot. Pt tolerated well. Post-Injection instructions were given to the patient. Pt instructed to ice/elevate the foot tonight. 03/10/2024 Type 2 diabetes mellitus with diabetic polyneuropathy (ICD-10 - E11.42) Discussed with patient regarding proper glucose control, exercise, and diet. Explained to patient proper shoe gear, and importance of daily foot checks.I reviewed neuropathy and why it occurs in diabetics. I educated the patient on proper blood sugar control and the importance of an HgBA1c of less than 7.0%. I reviewed the signs and symptoms of neuropathy with the patient. I explained the sharp pain of the right foot is a nerve related pain, he has no evidence of a musculoskeletal issue on examination. No changes on his neurological exam this visit. Continue EMLA cream to apply 1 gm to each foot nightly PRN pain x 90 days. He is waiting to receive his new diabetic shoes and inserts. 06/11/2023 Type 2 diabetes mellitus with diabetic polyneuropathy (ICD-10 - E11.42) Discussed with patient regarding proper glucose control, exercise, and diet. Explained to patient proper shoe gear, and importance of daily foot checks.I reviewed neuropathy and why it occurs in diabetics. I educated the patient on proper blood sugar control and the importance of an HgBA1c of less than 7.0%. I reviewed the signs and symptoms of neuropathy with the patient. I explained the sharp pain of the right foot is a nerve related pain, he has no evidence of a musculoskeletal issue on examination. No changes on his neurological exam this visit. Continue EMLA cream to apply 1 gm to each foot nightly PRN pain x 90 days. He is waiting to receive his new diabetic shoes and inserts. 06/11/2023 Pain in left toe(s) (ICD-10 - M79.675) No new acute gout attack since his last visit. 11/05/2023 Pain in left toe(s) (ICD-10 - M79.675) No new acute gout attack since his last visit. 03/10/2024 Pain in left toe(s) (ICD-10 - M79.675) No new acute gout attack since his last visit. 03/10/2024 Onychomycosis (ICD-10 - B35.1) I reviewed with the patient various treatment methods for toenail fungus including topical, oral, laser, and removal of the infected toenails. Continue Ciclopirox to apply to each affected toenail daily. Aseptic trimming of toenails x 10 with nail feeder, pt tolerated well. All bleeding controlled with pressure and silver nitrate. Bacitracin and a band-aid applied to the right hallux. He can remove tomorrow. Discussed with the patient that routine nail care services are only covered by insurance every 60 days. Pt understands that if they would like to return prior to this time frame, they may have to pay out of pocket. 11/05/2023 Onychomycosis (ICD-10 - B35.1) I reviewed with the patient various treatment methods for toenail fungus including topical, oral, laser, and removal of the infected toenails. Continue Ciclopirox to apply to each affected toenail daily. Aseptic trimming of toenails x 10 with nail feeder, pt tolerated well. All bleeding controlled with pressure and silver nitrate. Bacitracin and a band-aid applied to the right hallux. He can remove tomorrow. Discussed with the patient that routine nail care services are only covered by insurance every 60 days. Pt understands that if they would like to return prior to this time frame, they may have to pay out of pocket. 06/11/2023 Onychomycosis (ICD-10 - B35.1) I reviewed with the patient various treatment methods for toenail fungus including topical, oral, laser, and removal of the infected toenails. Continue Ciclopirox to apply to each affected toenail daily. Aseptic trimming of toenails x 10 with nail feeder, pt tolerated well. All bleeding controlled with pressure and silver nitrate. Bacitracin and a band-aid applied to the right hallux. He can remove tomorrow. Discussed with the patient that routine nail care services are only covered by insurance every 60 days. Pt understands that if they would like to return prior to this time frame, they may have to pay out of pocket. 06/11/2023 Xerosis of skin (ICD-10 - L85.3) He applies cream to his feet every day. 11/05/2023 Xerosis of skin (ICD-10 - L85.3) He applies cream to his feet every day. 03/10/2024 Xerosis of skin (ICD-10 - L85.3) He applies cream to his feet every day. 03/10/2024 Pain in right toe(s) (ICD-10 - M79.674) 11/05/2023 Pain in right toe(s) (ICD-10 - M79.674) 06/11/2023 Pain in right toe(s) (ICD-10 - M79.674) Plan Of Treatment Pending Test Test Name Order Date X ray : Foot, left 3v 04/20/2021 DRAIN/INJECT, SMALL JOINT/BURSA 04/20/19 22 DRAIN/INJECT, INTERMEDIATE JOINT/BURSA 1 Trim dystrophic toenails any number 05/2020 Next Appt Details Provider Name:KARI RYAN, 06/16/2024 11:30:00 AM, [address], [address], Insurance Providers Payer Name Payer Address Payer Phone Subscriber Number Group Number Insured Name Patient Relationship to Insured Coverage Start Date Coverage End Date Medicare of [place] [address] [place] [phone] [id number] Richard Wong Self - patient is the insured [employer] [facility] [address] [place] [address] [phone] [id number] 1 Richard Wnog Self - patient is the insured Medications Administered Medication Instructions Date of Administration Dosage Notes Dexamethasone 04/20/2021 0.5 mL dexAMETHasone Sod Phosphate PF 12/31/2023 0.5 m L Kenalog 04/20/2021 0.5 mL Kenalog 12/31/2023 0.5 mL Medical (General) History Medical History History ICD Code aortic stenosis carotid disease diabetes mellitus 2 with peripheral vasc ular disease hypertension ischemic cardiomyopathy non-sustained ventricular tachycardia old [place] PVD diabetes mellitus 2 with peripheral neur opathy diabetes mellitus 2 with renal manifesta tions hypercholesterolemia hypothyroid obesity cholecystitis GERD CKD stage III BPH onychomycosis back pain vitiligo COVID vaccinated X 4 (Pfizer) + COVID 05/2023 Surgical History Surgery Date(Month/Year) pacemaker EGD biopsy cardiac cath colonoscopy appendectomy umbilical hernia repair Hospitalization History Reason Date(Month/Year) COVID pneumonia 05/2023 SOB 05/2023 open heart surgery 01/12/2021
--- OUTSIDE RECORDS SUMMARY | 2024-06-10 15:36 | XMS_ITS ---
Author Organization [facility] Address [address] [address] Care Team Providers Care Overnight Stocker Name Role Phone Sugey Stratton Primary Care Provider Dahlia DAHLIA Dick Unavailable [phone] REASON FOR VISIT 3 month f/u Encounters Encounter Location Date Provider Diagnosis [facility] [address] [address] 06/09/2024 DAHLIA RYAN Plan Of Treatment Next Appt Details Provider Name:DAHLIA RYAN, 06/16/2024 11:30:00 AM, [address] [address], [place], [address], Progress Notes * Richard WONGDOB:1940 (84 yo M)Acc No.[id number]:06/09/2024 Progress Note Patient:?Richard WONG Provider:?Dahlia Ryan DPM :1940???Age:84 Y???Sex:Male Ned e:06/09/2024 Address:[address] [place], [place] [id number] Pcp:Sugey Stratton Subjective: * Chief Complaints: * ???1. 3 month f/u. * Medical History:? Objective: * Vitals:? Assessment: Plan: * Treatment: * Billing Information: * Visit Code:? * Procedure Codes:? * Electronic signature of ILIA RYAN D.P.M on 06/10/2024 at 03:36 PM EDT Sign off status: Pending * Provider:?Dahlia Ryan DPM Date:? 06/09/2024 Generated for Osvaldo boone/Davian/Mireille on:?06/10/2024 03:36 PM EDT
--- OUTSIDE RECORDS SUMMARY | 2024-06-10 15:36 | XMS_ITS | Encounter Summary ---
Author Organization [facility] Address [address] [place] [address] Care Team Providers Care Security Tester Name Role Phone Nicolás Jeffries MD Primary Care Provider [phone] Reason for Visit * Reason Onset Date Comments Medical Records 05/11/2024 Encounter Details Date Type Department Care Team (Late st Contact Info) Description 05/11/2024 Telephone [facility] Cardiology [facility] [address] [facility] [address] [place] [address] Nicolás Jeffries MD [address] [place] [address] Medical Records Social History Tobacco Use Types Packs/Day Years [...] as of this encounter Progress Notes * Babita Cleveland - 05/31/2024 3:52 PM EST Faxed 01/27/2024 Office Note, 12/15/2023 Office Note, 05/05/2024 Remote Device Check, 04/07/2024 Device Check, 02/2025 Device Check, 10/13/2023 Device Check, E[facility] and [facility] [phone] on 05/11/2024. documented in this encounter Plan of Treatment Upcoming Encounters Date Type Department Care Team (Late st Contact Info) Description 07/02/2024 4:00 PM EDT Office Visit [facility] [place] - [address] [phone] Nicolás Jeffries MD [address] [place] [address] 10/12/2024 4:30 PM EDT Ancillary Procedure [facility] [address] [facility] [address] [place] [phone] 01/10/2025 2:15 PM EDT Office Visit [address] [phone] Aung Pinto MD [address] [place] [phone] documented as of this encounter Visit Diagnoses Not on filedocumented in this encounter Care Teams Security Tester Relationship Specialty Start Date End Date Nicolás Jeffries MD [address] [place] [address] PCP - General Internal Medicine 02/11/24 documented as of this encounter
--- OUTSIDE RECORDS SUMMARY | 2024-06-10 15:36 | XMS_ITS | Encounter Summary ---
Author Organization [facility] Address [address] [place] [address] Care Team Providers Care Food Production Supervisor Name Role Phone Nicolás Jeffries MD Primary Care Provider [phone] Reason for Visit * Reason Onset Date Comments Hospital Follow-up 06/02/2024 Encounter Details Date Type Department Care Team (Late st Contact Info) Description 06/02/2024 Telephone Adult Medicine [facility] [address] [place] [address] [phone] [facility] Peral[facility] Follow-up Social History Tobacco Use Types Packs/Day Years [...] as of this encounter Progress Notes * Cintia Salguero RN - 06/04/2024 9:07 AM EST Called Danyell and informed her Dr. Jeffries agreed with changing pt's appointment on 07/02/24 at 4:00 pm to a hospital follow up. * Nicolás Jeffries MD - 06/03/2024 5:39 PM EST Yes please change the appointment scheduled for 07/02/2024 to a hospital follow up * Cintia Salguero RN - 06/02/2024 12:26 PM EST Pt has a follow up appointment with the surgeon in 3 weeks. Pt has an appointment in the office on 07/02/24 at 4:00 pm. They would like to keep that as a hospital follow up appointment. She was advised to call the office if pt develops any new or worsening symptoms prior to appointment. * Saida Peralta MA - 06/02/2024 11:49 AM EST Hospital/ER follow up appointment needed Hospital patient was treated at: [facility] Was this only an ER visit or was the patient admitted to the hospital? Admitted to the hospital/kept overnight Date of visit if ER visit only: If patient was admitted what was the date of discharge? 05/27/24 Reason/diagnosis for visit or stay: back surgery When was the patient told to follow up? Within 1 week Was visit or stay related to an injury? If yes, what was the date of injury (DOI)? No If yes, was the injury due to: Not 3rd republican related documented in this encounter Plan of Treatment Upcoming Encounters Date Type Department Care Team (Late st Contact Info) Description 07/02/2024 4:00 PM EDT Office Visit Adult Medicine [address] [phone] Nicolás Jeffries MD [address] [place] [phone] 10/12/2024 4:30 PM EDT Ancillary Procedure [facility] [address] [facility] [address] [place] [address] 01/10/2025 2:15 PM EDT Office Visit Endocrinology [address] [phone] Aung Pnito MD [address] [place] [phone] documented as of this encounter Visit Diagnoses Not on filedocumented in this encounter Care Teams Food Production Supervisor Relationship Specialty Start Date End Date Nicolás Jeffries MD [address] [place] [phone] PCP - General Internal Medicine 02/11/24 documented as of this encounter
--- OUTSIDE RECORDS SUMMARY | 2024-06-10 15:36 | XMS_ITS | Clinical Summary ---
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 Sanket Setting PAV Delay 225 CV DEVICE CHECK Sanket Setting NICOLE Delay 200 CV DEVICE CHECK Therapy Statistic Recent Shocks Delivered 0 CV DEVICE CHECK Therapy Statistic Recent Shocks Aborted 0 CV DEVICE CHECK Therapy Statistic Recent ATP Delivered 0 CV DEVICE CHECK Shock Measured Impedance 62 CV DEVICE CHECK Zone Setting Type Category VT CV DEVICE CHECK Rate 135 CV DEVICE CHECK Zone Setting Status On CV DEVICE CHECK Zone ID 1 CV DEVICE CHECK Zone Setting Type Category VT CV DEVICE CHECK Rate 145 CV DEVICE CHECK Therapies 3 x Burst+Scan,36.0J, 40.0J,40.0J x 2 CV DEVICE CHECK Zone Setting Status On CV DEVICE CHECK Zone ID 2 CV DEVICE CHECK Zone Setting Type Category VF CV DEVICE CHECK Rate 200 CV DEVICE CHECK Therapies 36.0J,40.0J,40.0J x 4 CV DEVICE CHECK Zone Setting Status On CV DEVICE CHECK Zone ID 3 CV DEVICE CHECK Date of Service 2024-07-23 CV DEVICE CHECK Anatomical Region Laterality Modality Device Interroga tion 06/04/2024 2:00 AM EST Impressions 06/08/2024 11:51 AM EDT Normal Remote: No Events * Normal Device Function * Alerts or events: None * Battery: Battery is at 69%, 6.17 yrs * Sensing, impedance and thresholds reviewed * Programmed parameters reviewed * Presenting rhythm reviewed * Heart Rate Histograms reviewed * No significant changes noted Heart Failure Diagnostic: Elevated Sent to Triage * Heart failure diagnostics assessed through the device * Status: Elevated Narrative Procedure Note Ines Lopez PA - 06/08/2024 IMPRESSION: Normal Remote: No Events * Normal Device Function * Alerts or events: None * Battery: Battery is at 69%, 6.17 yrs * Sensing, impedance and thresholds reviewed * Programmed parameters reviewed * Presenting rhythm reviewed * Heart Rate Histograms reviewed * No significant changes noted Heart Failure Diagnostic: Elevated Sent to Triage * Heart failure diagnostics assessed through the device * Status: Elevated us Ines SANTO CV IMPLANTABLE CARDIAC DEVICE DE OCEDURES Final Result * US Breast Limited bilat (05/18/2024 1:50 PM EST) Anatomical Region Laterality Modality Breast Bilateral Ultrasound 05/18/2024 2:02 PM EST Impressions 05/18/2024 2:13 PM EST No mammographic or sonographic abnormality to explain nipple symptoms. ??Further management of symptoms should be clinically based. BREAST DENSITY: A - The breasts are almost entirely fatty. BI-RADS CATEGORY: 1 - NEGATIVE RECOMMENDATION: Clinical management of bilateral breasts is recommended. MAMMO LOCATION: [facility], [address] [place] [address], [id number], . -------- FINAL REPORT -------- Dictated By: Jojo Alfaro Dictated Date: 05/18/2024 14:02 ET Assigned Physician: Jojo Alfaro Reviewed and Electronically Signed By: Jojo Alfaro Signed Date: 05/18/2024 14:13 ET Workstation ID: [id number] Transcribed By: Self Edit Transcribed Date: 05/18/2024 [...] of bilateral breasts is recommended. MAMMO LOCATION: [facility], [address] [place] [address], [id number], . -------- FINAL REPORT -------- Dictated By: Jojo Alfaro Dictated Date: 05/18/2024 14:02 ET Assigned Physician: Jojo Alfaro Reviewed and Electronically Signed By: Jojo Alfaro Signed Date: 05/18/2024 14:13 ET Workstation ID: [id number] Transcribed By: Self Edit Transcribed Date: 05/18/2024 14:02 ET us Danita Velásquez PLATE SHOP HELPER IMG US PROCEDURES Final Resu lt * MG Mammo Digital Diagnostic w Spencer [...] of bilateral breasts is recommended. MAMMO LOCATION: [facility], [address] [place] [address], [id number], . -------- FINAL REPORT -------- Dictated By: Jojo Alfaro Dictated Date: 05/18/2024 14:02 ET Assigned Physician: Jojo Alfaro Reviewed and Electronically Signed By: Jojo Alfaro Signed Date: 05/18/2024 14:13 ET Workstation ID: [id number] Transcribed By: Self Edit Transcribed Date: 05/18/2024 [...] of bilateral breasts is recommended. MAMMO LOCATION: [facility], [address] [place] [address], [address], . -------- FINAL REPORT -------- Dictated By: Jojo Alfaro Dictated Date: 05/18/2024 14:02 ET Assigned Physician: Jojo Alfaro Reviewed and Electronically Signed By: Jojo Alfaro Signed Date: 05/18/2024 14:13 ET Workstation ID: [id number] Transcribed By: Self Edit Transcribed Date: 05/18/2024 14:02 ET us Danita Velásquez NP IMG BI PROCEDURES Final Resu lt * (ABNORMAL) Hemoglobin A1c (04/26/2024 1:59 PM EST) Hemoglobin A1C 9.1(H) <6.5 % LAB CHEMISTRY METHOD 04/26/2024 9:17 PM EST [facility] Mean Bld Glu Estim. 214 mg/dL LAB CHEMISTRY METHOD 04/26/2024 9:17 PM EST [facility] Blood Venous blood specimen / Unknown Venipuncture / Unknown 04/26/2024 1:59 PM EST 04/26/2024 1:59 PM EST us Danita Velásquez NP LAB BLOOD ORDERABLES Final R esult [facility] [address] [place] [address], [place] [phone] * Vitamin B12 (04/26/2024 1:59 PM EST) [facility] Vitamin B-12 466 250 - 900 pcg/mL LAB CHEMISTRY METHOD 04/26/2024 5:40 PM [facility] Blood Venous blood specimen / Unknown Venipuncture / Unknown 04/26/2024 1:59 PM EST 04/26/2024 1:59 PM EST us Danita Velásquez PLATE SHOP HELPER LAB BLOOD ORDERABLES Final R esult [facility] [address] [place] [address], [place] [phone] * (ABNORMAL) Basic metabolic panel (04/26/2024 1:59 PM EST) [facility] Sodium 137 133 - 145 mmol/L LAB CHEMISTRY METHOD 04/26/2024 5:11 PM [facility] Potassium 4.5 3.5 - 5.5 mmol/L LAB CHEMISTRY METHOD 04/26/2024 5:11 PM [facility] Chloride 96 96 - 110 mmol/L LAB CHEMISTRY METHOD 04/26/2024 5:11 PM [facility] CO2 32 21 - 32 mmol/L LAB CHEMISTRY METHOD 04/26/2024 5:11 PM [facility] Anion Gap 9 3 - 11 LAB CHEMISTRY METHOD 04/26/2024 5:11 PM [facility] Glucose 292(H) 70 - 100 mg/dL LAB CHEMISTRY METHOD 04/26/2024 5:11 PM [facility] BUN 53(H) 5 - 25 mg/dL LAB CHEMISTRY METHOD 04/26/2024 5:11 PM [facility] Creatinine 2.70(H) 0.70 - 1.30 mg/dL LAB CHEMISTRY METHOD 04/26/2024 5:11 PM EST [facility] eGFR 23(L) >=60 mL/min/1. 73m2 LAB CHEMISTRY METHOD 04/26/2024 5:11 PM EST [facility] Comment:Calculation based on the??Chronic Kidney Disease Epidemiology Collaboration (CKD-EPI) equation refit??without adjustment for race. BUN/Creatinine Ratio 19.6 LAB CHEMISTRY METHOD 04/26/2024 5:11 PM EST [facility] Calcium 9.6 8.5 - 10.5 mg/dL LAB CHEMISTRY METHOD 04/26/2024 5:11 PM EST [facility] Blood Venous blood specimen / Unknown Venipuncture / Unknown 04/26/2024 1:59 PM EST 04/26/2024 1:59 PM EST Danita Velásquez NP LAB BLOOD ORDERABLES Final R esult [facility] [address] [place] [address], [place] [phone] * External clinical lab (03/17/2024) Provider Onbase LAB BLOOD ORDERABLES Final Re sult * Depression Screening (12/12/2023) [facility] Depression Screening abstracted Historical Provider HEALTH MAINTENANCE Final Result * (ABNORMAL) Lipid panel (12/12/2023) [facility] LDL/HDL Ratio 3 0 - 4 Triglycerides 248(A) 0 - 150 mg/dL Cholesterol 152 0 - 200 mg/dL HDL 49 >=40 mg/dL LDL Cholesterol 54 0 - 100 mg/dL Blood Venous blood specimen / Unknown Historical Provider LAB BLOOD ORDERABLES Maya l Result * Diabetes Foot Exam (11/05/2023) [facility] Diabetes: Annual Foot Exam abstracted Historical Provider HEALTH MAINTENANCE Final Result * Diabetes Eye Exam (10/31/2023) Diabetes: Annual Retina Eye Exam abstracted Result [facility] Provider HEALTH MAINTENANCE Final Result * Falls Risk Assessment (10/21/2023) Falls Risk Assessment abstracted Result [facility] Provider HEALTH MAINTENANCE Final Result * Urine Albumin Creatinine Ratio (04/07/2023) Urine Albumin Creatinine Ratio abstracted Result [facility] Provider HEALTH MAINTENANCE Final Result from Last 3 Months or Most Recently Relevant to Health Maintenance Insurance MEDICARE [facility] Care Teams Chef'S Assistant Relationship Specialty Start Date End Date Nicolás Jeffries MD [address] [place] [address] PCP - General Internal Medicine 02/11/24
--- OUTSIDE RECORDS SUMMARY | 2024-06-10 15:37 | XMS_ITS | Encounter Summary ---
Author Organization [facility] Address [address] [place] [address] Care Team Providers Care Inspector Missile Name Role Phone Nicolás Jeffries MD Primary Care Provider [phone] Reason for Visit * Reason Onset Date Comments advice on medications 05/21/2024 Encounter Details Date Type Department Care Team (Late Contact Info) Description 05/21/2024 Telephone [facility] [place] [address] [place] [address] Aung Pinto MD [address] [place] [address] advice on medications Social History Tobacco Use Types Packs/Day Years [...] as of this encounter Progress Notes * Carrie Barrera - 05/21/2024 10:49 AM EST Patient is having back surgery this , and was told to ask all his doctors if he is to stop any of his medications. Patient is asking Dr Pinto to advise on his meds please. documented in this encounter Plan of Treatment Upcoming Encounters Date Type Department Care Team (Late st Contact Info) Description 07/02/2024 4:00 PM EDT Office Visit [facility] [place] [address] [place] [address] Nicolás Jeffries MD [address] [place] [address] 10/12/2024 4:30 PM EDT Ancillary Procedure [facility] - [facility] [address] [facility] [address] [place] [address] 01/10/2025 2:15 PM EDT Office Visit Endocrinology - [address] [phone] Aung Pinto MD [address] [place] [phone] documented as of this encounter Visit Diagnoses Not on filedocumented in this encounter Care Teams Inspector Missile Relationship Specialty Start Date End Date Nicolás Jeffries MD [address] [place] [address] PCP - General Internal Medicine 02/11/24 documented as of this encounter
--- OUTSIDE RECORDS SUMMARY | 2024-06-10 15:37 | XMS_ITS ---
Author Organization [facility] Address [address] [address] Care Team Providers Care Jar Filler Name Role Phone Sugey Stratton Primary Care Provider Dahlia DAHLIA Dick Unavailable [phone] REASON FOR VISIT 3 month f/u Encounters Encounter Location Date Provider Diagnosis [facility] [address] [address] 02/25/2024 DAHLIA RYAN Plan Of Treatment Next Appt Details Provider Name:DAHLIA RYAN, 06/16/2024 11:30:00 AM, [address] [address], [place], [address], Progress Notes * Richard WONGDOB:1940 (84 yo M)Acc No.[id number]:02/25/2024 Progress Note Patient:?Richard WONG Provider:?Dahlia Ryan DPM :1940???Age:83 Y???Sex:Male Ned e:02/25/2024 Address:[address] [place], [place] [id number] Pcp:Sugey Stratton Subjective: * Chief Complaints: * ???1. 3 month f/u. * Medical History:? Objective: * Vitals:? Assessment: Plan: * Treatment: * Billing Information: * Visit Code:? * Procedure Codes:? * Electronic signature of ILIA RYAN D.P.M on 06/10/2024 at 03:37 PM EDT Sign off status: Pending * Provider:?Dahlia Ryan DPM Date:? 02/25/2024 Generated for Osvaldo boone/Davian/Mireille on:?06/10/2024 03:37 PM EDT
--- OUTSIDE RECORDS SUMMARY | 2024-06-10 15:37 | XMS_ITS | Encounter Summary ---
Author Organization [facility] Address [address] [place] [address] Care Team Providers Care Coal Chute Worker Name Role Phone Nicolás Jeffries MD Primary Care Provider [phone] Encounter Details Date Type Department Care Team (Late Contact Info) Description 06/08/2024 11:55 AM EDT Ancillary Procedure [facility] - [facility] [address] [facility] [address] [place] [phone] Arrived Social History Tobacco Use Types Packs/Day Years [...] on file documented as of this encounter Plan of Treatment Upcoming Encounters Date Type Department Care Team (Late Contact Info) Description 07/02/2024 4:00 PM EDT Office Visit Adult Medicine [address] [phone] Nicolás Jeffries MD [address] [place] [address] 10/12/2024 4:30 PM EDT Ancillary Procedure [facility] - [facility] [address] [facility] [address] [place] [phone] 01/10/2025 2:15 PM EDT Office Visit Endocrinology - [place] [address] [place] [address] Aung Pinto MD [address] [place] [address] documented as of this encounter Procedures Procedure Name Priority Date/Time Associated Diagnosis Comments CARDIAC DEVICE CHECK- REMOTE- MURJ Routine 06/08/2024 11:53 AM EDT documented in this encounter Results * Cardiac device check - Remote- MURJ (06/08/2024 11:53 AM EDT) Date Time Interrogation Session [id number] CV DEVICE CHECK Type Interrogation Session Remote Scheduled CV DEVICE CHECK Implantable Pulse Generator Director Client [facility] CV DEVICE CHECK Implantable Pulse Generator Type ICD CV DEVICE CHECK Implantable Pulse Generator Model [id number] John(JAILENE) CV DEVICE CHECK Implantable Pulse Generator Serial Number [id number] CV DEVICE CHECK Implantable Pulse Generator Implant Date [id number] CV DEVICE CHECK Battery Remaining Percentage 69.00 CV DEVICE CHECK Battery Remaining Longevity 74.0 CV DEVICE CHECK Battery Voltage 2.980 CV D EVICE CHECK Battery MASTER FISHER Trigger 2.620 CV DEVICE CHECK Battery Status Middle of Service CV DEVICE CHECK Capacitor Charge Time 8.800 CV DEVICE CHECK Sanket Statistic RA Percent Paced 13.00 CV DEVICE CHECK Sanket Statistic RV Percent Paced 44.00 CV DEVICE CHECK Atrial Tachy Statistic AT/AF [place] Percent 0.00 CV DEVICE CHECK Lead Channel [...] us Ines SANTO CV IMPLANTABLE CARDIAC DEVICE TX OCEDURES Final Result documented in this encounter Visit Diagnoses Not on filedocumented in this encounter Care Teams Coal Chute Worker Relationship Specialty Start Date End Date Nicolás Jeffries MD [address] [place] [address] PCP - General Internal Medicine 02/11/24 documented as of this encounter
--- OUTSIDE RECORDS SUMMARY | 2024-06-10 15:37 | XMS_ITS | Clinical Summary ---
Author Organization [facility] Address [address] [place] [address] [place] [address] Phone Care Team Providers Care Sheltered Workshop Executive Director Name Role Phone Nicolás Jeffries MD Primary Care Provider [phone] Allergies Active Allergy Reactions Criticality Noted Date Comments Lisinopril 08/21/2020 Metoprolol Other (see comments) 07/12/2020 Oxycodone-Acetaminophen Other (see comments) Shellfish-Derived Products Shrimp Extract Swelling 08/15/2021 Medications atorvastatin (LIPITOR) 20 MG tablet Take 20 mg by mouth 1 (one) time each day Active glipiZIDE (GLUCOTROL) 10 MG tablet Take 1 tablet by mouth in the morning and 1 tablet in the evening. Active NIFEdipine CC (ADALAT CC) 90 MG 24 hr tablet Take 1 tablet by mouth 1 (one) time each day Active clopidogrel (PLAVIX) 75 MG tablet Take 75 mg by mouth 1 (one) time each day Active aspirin (ST BENY) 81 MG EC tablet Take 81 mg by mouth 1 (one) time each day Active pregabalin (LYRICA) 100 MG capsule Take 100 mg by mouth in the morning and 100 mg in the evening. 05/13/2021 Active levothyroxine (SYNTHROID, LEVOTHROID) 100 MCG tablet Take 100 mcg by mouth 1 (one) time each day Active hydrALAZINE 50 MG tablet Take 50 mg by mouth in the morning and 50 mg in the evening and 50 mg before bedtime. Active Dapagliflozin Propanediol (Farxiga) 10 MG tablet Take 1 tablet by mouth 1 (one) time each day Active ipratropium (ATROVENT) 0.03 % nasal spray 12/06/2021 Activ e Lantus SoloStar 100 UNIT/ML injection INJECT 80 UNITS UNDER THE SKIN DAILY 11/27/2021 Active amiodarone (PACERONE) 200 MG tablet Take 200 mg by mouth 1 (one) time each day 03/29/2022 Active albuterol HFA (PROVENTIL HFA;VENTOLIN HFA) 108 (90 Base) MCG/ACT inhaler 03/12/2022 Active senna (SENOKOT) 8.6 MG tablet Take 1 tablet by mouth 1 (one) time each day Active nitroglycerin (NITROSTAT) 0.[address] 0.4 mg under the tongue every 5 (five) minutes if needed for chest pain Active carvedilol (COREG) 3.125 MG tablet Take 3.125 mg by mouth in the morning and 3.125 mg in the evening. Take with meals. Active torsemide (Demadex) 20 MG tablet Take 6 tablets (120 mg total) by mouth 1 (one) time each day Take 3 tablets AM and 2 tablets PM 450 tablet 5 10/24/2022 Active Active Problems Problem Noted Date Diagnosed Date Stage 3b chronic kidney disease 09/25/2022 Proteinuria 07/24/2021 Chronic kidney disease 07/11/2021 Hypertension 03/07/2021 Benign hypertensive renal disease 07/12/2020 Stage 3a chronic kidney disease 07/12/2020 Cyst of kidney 07/12/2020 Resolved Problems Problem Noted Date Diagnosed Date Resolved Date Nonspecific (abnormal) findi ngs on radiological and other examination of skull and head 07/25/2021 10/26/2021 Overview (12/30/2023): Replacing diagnoses that were inactivated after the 12/30/23 Regulatory Import Anterior epistaxis 07/24/2021 Aortic valve stenosis 07/24/20212021 Congestive heart failure 07/24/2021 Gastroesophageal reflux disease 07/24/2021 10/26/2021 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 10/26/2021 Posterior rhinorrhea 07/24/2021 022 Vitiligo 07/24/2021 10/26/2021 Hypothyroidism 07/11/2021 10/26/2021 Obstructive sleep apnea syndrome 07/11/2021 10/26/2021 Type 2 diabetes mellitus 07/11/2021 Appendectomy 05/16/2021 07/11/2021 Obese class II 05/16/2021 07/11/2021 History of angioplasty 05/16/202107/11 Coronary arteriosclerosis 05/16/2021 Immunizations Name Administration Dates Next Due Influenza Whole 01/25/2008 Pneumococcal Polysaccharide 05/01/2012 Family History Relation Status Comments Father Mother Social History Tobacco Use Types Packs/Day Years Used Date Smoking Tobacco: Never Smokeless Tobacco: Never Tobacco Cessation:Counseling Given: Not Answered Alcohol Use Standard Drinks/Week Comments No 0 (1 standard drink = 0.6 oz pur e alcohol) Sex and Gender Information Value Date Recorded Sex Assigned at Not on file Legal Sex Male 5:08 PM EST Gender Identity Not on file Sexual Orientation Not on file Last Filed Vital Signs Vital Sign Reading Time Taken Comments Blood Pressure 126/70 10/24/2022 2:01 PM EDT Pulse 62 10/24/2022 2:01 PM EDT Temperature - - Respiratory Rate - - Oxygen Saturation 95% 06/05/2022 3:13 PM EST Inhaled Oxygen Concentration - - Weight 111 kg (243 lb 12.8 oz) 10/24/2022 2:01 P M EDT Height 167.6 cm (5' 6 ) 06/05/2022 3:13 PM EST Body Mass Index 39.35 06/05/2022 3:13 PM EST Plan of Treatment Health Maintenance Due Date Last Done Comments Influenza Vaccine (#1) 2023 2, 01/06/2021, 12/28/2020, Additional history exists Diabetes: Ophthalmology Exam 04/28/2024 Diabetes: Pedal Pulse Checked 04/28/2024 Diabetes: Sensory Foot Exam 04/28/2024 Diabetes: Visual Foot Exam 04/28/2024 Diabetes: Hemoglobin A1C 07/25/2024 04/26/2024 Pneumococcal Vaccine: 65+ Years Completed 04/02/2016, 05/01/2012, 03/03/2009 Hepatitis B Vaccine Aged Out No longe r eligible based on patient's age to complete this topic Insurance [facility] MEDICARE MEDICARE [facility] Care Teams Sheltered Workshop Executive Director Relationship Specialty Start Date End Date Nicolás Jeffries MD PCP - General Internal Medicine 05/16/21
--- OUTSIDE RECORDS SUMMARY | 2024-06-10 15:37 | XMS_ITS | Encounter Summary ---
Author Organization [facility] Address [address] [place] [address] Care Team Providers Care End Polisher Name Role Phone Nicolás Jeffries MD Primary Care Provider [phone] Reason for Visit * Reason Onset Date Comments OV NOTES 05/28/2024 Encounter Details Date Type Department Care Team (Late st Contact Info) Description 05/28/2024 Telephone Endocrinology - [place] [address] [place], [place] [phone] Aung Pinto MD [address] [place] [address] OV NOTES Social History Tobacco Use Types Packs/Day Years [...] as of this encounter Progress Notes * Desiree Cadena RN - 05/28/2024 1:29 PM EST Notes faxed today * Mohini Longoria - 05/28/2024 11:39 AM EST Joyce from Dr. Warner office, [facility], is asking if we would be able to sendpatients last OV notes from appointment with Dr. Pinto in May, to [phone]. Patient followsDr. Warner for diabetic foot exams documented in this encounter Plan of Treatment Upcoming Encounters Date Type Department Care Team (Late st Contact Info) Description 07/02/2024 4:00 PM EDT Office Visit [facility] - [address] [phone] Nicolás Jeffries MD [address] [place] [address] 10/12/2024 4:30 PM EDT Ancillary Procedure [facility] - [facility] [address] [facility] [address] [place] [address] 01/10/2025 2:15 PM EDT Office Visit Endocrinology - [address] [phone] Aung Pinto MD [address] [place] [address] documented as of this encounter Visit Diagnoses Not on filedocumented in this encounter Care Teams End Polisher Relationship Specialty Start Date End Date Nicolás Jeffries MD [address] [place] [address] PCP - General Internal Medicine 02/11/24 documented as of this encounter
--- OUTSIDE RECORDS SUMMARY | 2024-06-10 15:37 | XMS_ITS | Encounter Summary ---
Author Organization [facility] Address [address] [place] [address] Care Team Providers Care Recenterer Name Role Phone Nicolás Jeffries MD Primary Care Provider [phone] Reason for Visit * Reason Comments Diabetes Mellitus 6 week f/u Encounter Details Date Type Department Care Team (Latest Contact Info) Description 06/07/2024 2:15 PM EDT Office Visit Endocrinology - [address] [place] [address] Aung Pinto MD [address] [place] [address] DM (diabetes mellitus), type 2 with neurological [...] ??F) 06/07/2024 2:02 PM EDT Respiratory Rate - - Oxygen Saturation - - Inhaled Oxygen Concentration - - Weight 110 kg (243 lb 6.4 oz) 06/07/2024 2:02 PM EDT Height 165.1 cm (5' 5 ) 06/07/2024 2:02 PM EDT Body Mass Index 40.5 06/07/2024 2:02 PM EDT documented in this encounter Progress Notes * Aung Pinto MD - 06/07/2024 2:15 PM EDT Continue to take short acting insulin before meals. * Aung Pinto MD - 06/07/2024 2:15 PM EDT CHIEF COMPLAINT: Diabetes Mellitus (6 week f/u) IDENTIFIER: Justin Wong is a 84 y.o. old male. HPI: 84 years old M, following for DM type 2. Diagnosed since around 10-12 years. he had covid and PNA, was admitted to hospital and then to rehab now back to home. Currently on Lantus 65-80 units daily, seems he is changing doses. On CGM, He was started on insulin lispro pre meal, Taking upto 25 units AC. Many times takes pre meal insulin after meals but now getting much better. CGM data shows [address], In range 41 % high 39 % very high 20 %. These numbers are better then before, in the last week [address]. He states that he is getting better with remembering to take pre meal insulin before meals. He is on oxygen. ROS: As noted in HPI PAST MEDICAL HISTORY: Patient Active Problem List Diagnosis Date Noted Chronic systolic congestive heart failure ([facility]) 09/15/2023 Hypoxemia 04/17/2023 Acute kidney injury superimposed on chronic kidney disease ([facility]) 10/18/2021 Chest pain 10/18/2021 Left upper arm pain 10/18/2021 Coronary artery disease involving robinson coronary artery of robinson heart without angina pectoris 08/17/2021 CHF (congestive heart failure) (CMS/HCC) 06/10/2021 Dyspnea on exertion 05/14/2021 Coronary atherosclerosis of artery bypass graft 01/17/2021 Nocturnal hypoxemia 07/19/2020 Obstructive sleep apnea 07/19/2020 Acute sialoadenitis 11/29/2019 Cholecystitis 11/01/2019 Anxiety 05/22/2017 Aortic stenosis 04/22/2016 Peripheral neuropathy 03/20/2016 PVD (peripheral vascular disease) ([facility]) 03/20/2016 Onychomycosis 03/16/2015 DM (diabetes mellitus), type 2 with peripheral vascular complications ([facility]) 09/08/2014 Ischemic cardiomyopathy 12/16/2013 DM (diabetes mellitus), type 2 with neurological complications ([facility]) 06/10/2012 Old HI (myocardial infarction) 06/10/2012 Benign prostatic hyperplasia 01/28/2012 DM (diabetes mellitus), type 2 with renal complications ([facility]) 12/23/2011 Stage 3 chronic kidney disease ([facility]) 12/03/2011 VT (ventricular tachycardia) ([facility]) 11/14/2011 Obesity (BMI 30.0-34.9) 02/06/2011 Vitiligo 02/06/2011 Back pain 06/26/2010 Hypothyroid 06/26/2010 Carotid disease, bilateral ([facility]) 05/25/2010 Proteinuria 09/08/2008 Essential hypertension 06/01/2008 GERD (gastroesophageal reflux disease) 06/01/2008 Hypercholesteremia 06/01/2008 Past Surgical History: Procedure Laterality Date APPENDECTOMY PROCEDURE: TX APPENDECTOMY CHOLECYSTECTOMY 12/09/2019 PROCEDURE: LAPAROSCOPIC CHOLECYSTECT COLONOSCOPY August, [place] PROCEDURE: HISTORICAL COLONOSCOPY; COMMENT: hemorrhoids ESOPHAGOGASTRODUODENOSCOPY 06/26/2009 PROCEDURE: TX EGD TRANSORAL BIOPSY SINGLE/MULTIPLE; COMMENT: Esophagus normal, antral gastritis-biopsy:reactive gastropathy with mild chronic inflammation and vascular congestion (HPylori-), normal esophagus HERNIA REPAIR PROCEDURE: REPAIR UMBILICAL HERNIA OTHER SURGICAL HISTORY PROCEDURE: TX UNLISTED PROCEDURE CARDIAC SURGERY; COMMENT: ICD placement [...] Outpatient Medications Marked as Taking for the 06/07/24 encounter (Office Visit) with Aung Pinto MD Medication Sig Dispense Refill acetaminophen (TYLENOL ORAL) Take 1,000 mg by mouth as needed. blood-glucose meter,continuous (FreeStyle Quintin 3 [place]) misc 1 Device by Does not apply route SeeAdmin Instructions. blood-glucose sensor (FREESTYLE QUINTIN 3 SENSOR MISC) 1 Applicator by Does not apply route every 14 days. insulin aspart (NovoLOG Flexpen U-100 Insulin) 100 [...] devices with 1 refill 75 mL 1 levothyroxine (SYNTHROID, LEVOTHROID) 100 mcg tablet Take 1 Tablet by mouth daily. and 2 tablets onS and Friday's ALLERGIES: Allergies Allergen Reactions Lisinopril angioedema Meclizine Nausea And Vomiting Oxycodone-Acetaminophen Weakness Passes out Shellfish Derived PHYSICAL EXAM: Visit Vitals BP 111/51 (BP Location: Left arm, Patient Position: Sitting, BP Cuff Size: Large adult) Pulse 67 Temp 36.1 ??C (97 ??F) (Temporal) Ht 1.651 m (65 ) Wt 110 kg (243 lb 6.4 oz) BMI 40.50 kg/m?? Smoking Status Never BSA 2.15 m?? APPEARANCE: Alert and in no acute distress EYES: EOMI. No resp distress NEURO: Awake, alert LABS: Lab Results Component Value Date HGBA1C 9.1 (H) 04/26/2024 CHOL 152 12/12/2023 LDL 54 12/12/2023 HDL 49 12/12/2023 TRIG 248 (A) 12/12/2023 IMPRESSION: 1. DM (diabetes mellitus), type 2 with neurological complications ([facility]) PLAN: Have discussed in detail, On CGM, there is variation with numbers, we did attempt to start on GLP1A, however cost an issues and he never started. Getting better then before as he remembers taking premeal insulin before meals. Variation related to miss match. Asked again to Stick to one dose of insulin Lantus. All questions answered. Medication and lab orders: No orders of the defined types were placed in this encounter. Other orders: None Aung Pinto MD on 06/07/2024 at 2:22 PM EDT documented in this encounter Plan of Treatment Upcoming Encounters Date Type Department Care Team (Late st Contact Info) Description 07/02/2024 4:00 PM EDT Office Visit Adult Medicine [place] - [place] [address] [place] [address] Nicolás Jeffries MD [address] [place] [address] 10/12/2024 4:30 PM EDT Ancillary Procedure [facility] [address] [facility] [address] [place] [address] 01/10/2025 2:15 PM EDT Office Visit Endocrinology - [address] [phone] Aung Pinto MD [address] [place] [phone] documented as of this encounter Visit Diagnoses Diagnosis DM (diabetes mellitus), type 2 with neurological complications (CMS/HCC)- Primary Type II or unspecified type diabetes mellitus with neurological manifestations, not stated as uncontrolled Encounter for adjustment or management of cardiac device documented in this encounter Care Teams Recenterer Relationship Specialty Start Date End Date Nicolás Jeffries MD [address] [place] [phone] PCP - General Internal Medicine 02/11/24 documented as of this encounter
--- OUTSIDE RECORDS SUMMARY | 2024-06-10 15:37 | XMS_ITS | Encounter Summary ---
Author Organization [facility] Address [address] [place] [address] Care Team Providers Care Document Review Attorney Name Role Phone Nicolás Jeffries MD Primary Care Provider [phone] Reason for Referral * Imaging (Routine) - Closed Specialty Diagnoses / Procedures Referred By Contac t Referred To Contact Radiology Diagnoses Nipple pain Procedures US Breast Limited bilat US Breast Complete bilat Screening Danita Velásquez NP [address] [place] [address] Phone: tel: fax: [address] Phone: tel: Referral ID Status Reason Start Date Expiration Date Visits Re quested Visits Authorized [id number] Closed 04/26/2024 04/26/2025 1 1 Reason for Visit * Imaging (Routine) - Closed Specialty Diagnoses / Procedures Referred By Contac t Referred To Contact Radiology Diagnoses Nipple pain Procedures US Breast Limited bilat US Breast Complete bilat Screening Danita Velásquez NP [address] [place] [address] Phone: tel: fax: [address] Phone: tel: Referral ID Status Reason Start Date Expiration Date Visits Re quested Visits Authorized [id number] Closed 04/26/2024 04/26/2025 1 1 Encounter Details Date Type Department Care Team (Latest Contact Info) Description 05/18/2024 1:04 PM EST - 05/18/2024 11:59 PM EST Hospital Encounter Radiology Department - [address] [address] Nipple pain Discharge Disposition: Home or Self [...] daily. 12/31/2023 blood-glucose meter,continuous (FreeStyle Quintin 3 [place]) misc 1 Device by Does not apply [...] ointment Apply to affected area TID 06/26/2022 Farmoluch Ultra Test test strip USE 1 STRIP TO CHECK GLUCOSE THREE TIMES DAILY 10/23/2023 pantoprazole (PROTONIX) 40 mg EC tablet Take 1 tablet by mouth once daily 90 tablet 03/31/2024 pen needle, diabetic 32 gauge x 5/32 [...] after same meal every day. 09/12/2023 09/07/19 torsemide (DEMADEX) 20 mg tablet 40 mg [...] 4:00 PM EDT Office Visit Adult Medicine [address] [phone] Nicolás Jeffries MD [address] [place] [address] 10/12/2024 4:30 PM EDT Ancillary Procedure [facility] - [facility] [address] [address] 01/10/2025 2:15 PM EDT Office Visit Endocrinology [address] [phone] Aung Pinto MD [address] [place] [phone] documented as of this encounter Procedures Procedure Name Priority Date/Time Associated Diagnosis Comments US BREAST LIMITED BILAT Routine 05/18/2024 1:50 PM EST Nipple pain documented in this encounter Results * US Breast Limited bilat (05/18/2024 1:50 [...] of bilateral breasts is recommended. MAMMO LOCATION: [facility], [address] [place] [address], [address], . -------- FINAL REPORT -------- Dictated By: Jojo Alfaro Dictated Date: 05/18/2024 14:02 ET Assigned Physician: Jojo Alfaro Reviewed and Electronically Signed By: Jojo Alfaro Signed Date: 05/18/2024 14:13 ET Workstation ID: [id number] Transcribed By: Self Edit Transcribed Date: 05/18/2024 14:02 ET Narrative 05/18/2024 2:13 PM EST EXAM: MG MAMMO DIGITAL DIAGNOSTIC W JESSICA BILAT, US BREAST LIMITED BILAT HISTORY: Bilateral [...] 05/18/2024 EXAM: MG MAMMO DIGITAL DIAGNOSTIC W JESSICA BILAT, US BREAST LIMITED BILAT HISTORY: Bilateral [...] of bilateral breasts is recommended. MAMMO LOCATION: [facility], [address] [place] [address], [phone], . -------- FINAL REPORT -------- Dictated By: Jojo Alfaro Dictated Date: 05/18/2024 14:02 ET Assigned Physician: Jojo Alfaro Reviewed and Electronically Signed By: Jojo Alfaro Signed Date: 05/18/2024 14:13 ET Workstation ID: [id number] Transcribed By: Self Edit Transcribed Date: 05/18/2024 14:02 ET us Danita Velásquez SALAD BAR CLERK IMG US PROCEDURES Final Resu lt documented in this encounter Visit Diagnoses Diagnosis Nipple pain Other sign and symptom in breast Encounter for adjustment or management of cardiac device documented in this encounter Care Teams Document Review Attorney Relationship Specialty Start Date End Date Nicolás Jeffries MD [address] [place] [address] PCP - General Internal Medicine 02/11/24 documented as of this encounter
--- OUTSIDE RECORDS SUMMARY | 2024-06-10 15:37 | XMS_ITS | Encounter Summary ---
Author Organization [facility] Address [address] [place] [address] Care Team Providers Care Strain Technician Name Role Phone Nicolás Jeffries MD Primary Care Provider [phone] Reason for Visit * Reason Onset Date Comments Results 05/18/2024 US of breast Encounter Details Date Type Department Care Team (Late st Contact Info) Description 05/18/2024 Telephone Adult Medicine [facility] [address] [place], [place] [phone] Danita Velásquez NP [address] [place], [place] Results (US of breast ) Social History Tobacco Use Types Packs/Day Years [...] as of this encounter Progress Notes * Danita Velásquez NP - 05/18/2024 6:41 PM EST Discussed results with patient. Patient reports that he is no longer having any pain in the nipplesor redness. He did report the nipple discomfort is intermittent. Patient has an appointment to follow-up with care team in 2 months He also has appointment to follow-up with endocrinology in next month. Patient may discuss with endocrinology as this may be hormone related. documented in this encounter Plan of Treatment Upcoming Encounters Date Type Department Care Team (Late st Contact Info) Description 07/02/2024 4:00 PM EDT Office Visit Adult Medicine South - [address] [phone] Nicolás Jeffries MD [address] [place] [address] 10/12/2024 4:30 PM EDT Ancillary Procedure [facility] - [facility] [address] [facility] [address] [place] [phone] 01/10/2025 2:15 PM EDT Office Visit Endocrinology - [address] [phone] Aung Pinto MD [address] [place] [phone] documented as of this encounter Visit Diagnoses Not on filedocumented in this encounter Care Teams Strain Technician Relationship Specialty Start Date End Date Nicolás Jeffries MD [address] [place] [address] PCP - General Internal Medicine 02/11/24 documented as of this encounter
== END 2024-06-10 12:10 | disposition home or self-care (01) ==
LOC: HO.LAB 12:09
PROVIDERS: PCP Internal Medicine; Visit Provider Internal Medicine Nephrology
DX: I12.9 Hypertensive chronic kidney disease with stage 1 through stage 4 chronic kidney disease, or unspecified chronic kidney disease (principal); N18.32 Chronic kidney disease, stage 3b; E79.0 Hyperuricemia without signs of inflammatory arthritis and tophaceous disease
CPT/HCPCS: 36415; 80051; 82565; 84520; 84550

== ENCOUNTER 2024-06-15 14:26 | Outpatient (AMB) | payer MEDICARE, SELFPAY ==
--- NOTE | 2024-06-15 14:38 | HO.NEPHOV ---
Vital Signs 06/15/24 14:42 Weight 233 lb BP 140/62 H Blood Pressure Location Rt brachial Position Sitting Pulse 65 Pulse Source Pulse Oximeter Pulse Oximetry (%) 96 Oxygen Delivery Method Room Air Intake Visit Reasons: 3 mo follow up-[employer] Software Manager Required: No Allergies adhesive tape Allergy (Intermediate, Verified 06/15/24 14:41) blisters lisinopril Allergy (Intermediate, Verified 06/15/24 14:41) Angioedema oxycodone Allergy (Intermediate, Verified 06/15/24 14:41) syncope shellfish derived Allergy (Intermediate, Verified 06/15/24 14:41) Swelling Do you need a note to return to daycare/school/sports/work: No HPI Comments Details: I had the privilege of seeing Mr Wong in follow-up of his chronic kidney disease. He is known to have cardiomyopathy. He has been put on home O2 . He has seen a pulmonary team who told him and his that he has pulmonary fibrosis. He is on Amiodarone and his property disposal officer is concerned whether he has pulmonary fibrosis from it.He has seen Jacinto Cloud MD for a second opinion. He tries to be compliant with a low-sodium diet. He takes his medications regularly. He denies any worsen shortness of breath on exertion, proximal nocturnal dyspnea or orthopnea. He denies any urinary complaints. His blood sugar control is reasonable. He follows up closely with Dr Shukla, his property disposal officer. [facility] Medical History Arthritis Type 2 diabetes mellitus CARON (obstructive sleep apnea) Elevated cholesterol HTN (hypertension) Ventricular tachycardia Ischemic cardiomyopathy Ischemic heart disease Chronic hypoxemic respiratory failure On amiodarone therapy Pulmonary nodule 1 cm or greater in diameter ILD (interstitial lung disease) Essential (primary) hypertension Cyst of kidney, acquired Chronic kidney disease, stage 3b Surgical History Hx of cardiac catheterization H/O colonoscopy History of automatic internal cardiac defibrillator (AICD) Hx of aortic valve replacement S/P CABG x 4 S/P cholecystectomy History of appendectomy Social History Are you a primary manager managed care to a significant other at home: No Do you presently have visiting nurse or other home services: No Alcohol intake: never Patient Tobacco Use Status: Never used Tobacco Review of Systems Const All systems reviewed & are unremarkable except as noted in HPI and below Physical Exam Vital Signs: Last Vital Signs Pulse 65 06/15/24 14:42 BP 140/62 H 06/15/24 14:42 Pulse Ox 96 06/15/24 14:42 Oxygen Delivery Method Room Air 06/15/24 14:42 Const General: comfortable and no acute distress Orientation/consciousness: patient oriented x3 HEENT Head: Yes normocephalic Mouth: Normal oral and palatal mucosa present Eyes EOM: EOMs intact bilaterally Neck Neck: Yes supple Resp Auscultation: clear to auscultation bilaterally Cardio Jugular venous distension: no JVD Rate: regular rate GI Palpation (GI): Soft to palpation Auscultation: normal bowel sounds General: Yes no CVA tenderness Back/Spine/Pelvis Back: no CVA tenderness Skin General skin exam: no rashes or lesions noted Neuro General: patient oriented x3 and moves all extremities Extrem General: Yes no pedal edema Results Reviewed Nephrology Results: Hgb 14.4 g/dl (14.0-18.0) 05/12/24 WBC 7.4 X10*3/uL (4.8-10.8) 05/12/24 Plt Count 171 X10*3/uL (160-400) 05/12/24 Sodium 143 mmol/L (135-145) 06/10/24 Potassium 4.8 mmol/L (3.3-5.1) 06/10/24 Chloride 100 mmol/L (96-108) 06/10/24 Carbon Dioxide 33 mmol/L (22-29) H 06/10/24 BUN 51 mg/dL (9-16) H 06/10/24 Creatinine 2.50 mg/dL (0.5-1.4) H 06/10/24 Calcium 9.4 mg/dL (8.4-10.2) 05/12/24 Assessment & Plan Assessment & Plan (1) Hyperuricemia: Code(s): E79.0 - Hyperuricemia without signs of inflammatory arthritis and tophaceous disease Category: Medical (2) Essential (primary) hypertension: Code(s): I10 - Essential (primary) hypertension Category: Medical (3) Chronic kidney disease, stage 3b: Code(s): N18.32 - Chronic kidney disease, stage 3b Category: Medical Plan Justin 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 He has history of cardiomyopathy. His diuretics can be continued at the current dose for now. His serum creatinine had been close to baseline. He should maintain very low sodium diet . He should maintain good blood sugar control. He had not been tolerating WANG inhibitor or ARB . He is on Farxiga . He can continue Allopurinol 100 mg daily. I did not make any other medication changes today . He should avoid nonsteroidal anti-inflammatory medications . All questions were answered. Follow-up given Orders: Orders Creatinine 3 Months E79.0 - Hyperuricemia without signs of inflammatory arthritis and tophaceous disease, I10 - Essential (primary) hypertension, N18.32 - Chronic kidney disease, stage 3b Electrolytes 3 Months E79.0 - Hyperuricemia without signs of inflammatory arthritis and tophaceous disease, I10 - Essential (primary) hypertension, N18.32 - Chronic kidney disease, stage 3b Vitamin D 25-OH Total 3 Months E79.0 - Hyperuricemia without signs of inflammatory arthritis and tophaceous disease, I10 - Essential (primary) hypertension, N18.32 - Chronic kidney disease, stage 3b Blood Urea Nitrogen 3 Months E79.0 - Hyperuricemia without signs of inflammatory arthritis and tophaceous disease, I10 - Essential (primary) hypertension, N18.32 - Chronic kidney disease, stage 3b Uric Acid 3 Months E79.0 - Hyperuricemia without signs of inflammatory arthritis and tophaceous disease, I10 - Essential (primary) hypertension, N18.32 - Chronic kidney disease, stage 3b Complete Blood Count Auto Diff 3 Months E79.0 - Hyperuricemia without signs of inflammatory arthritis and tophaceous disease, I10 - Essential (primary) hypertension, N18.32 - Chronic kidney disease, stage 3b Ferritin 3 Months E79.0 - Hyperuricemia without signs of inflammatory arthritis and tophaceous disease, I10 - Essential (primary) hypertension, N18.32 - Chronic kidney disease, stage 3b IRON PROFILE 3 Months E79.0 - Hyperuricemia without signs of inflammatory arthritis and tophaceous disease, I10 - Essential (primary) hypertension, N18.32 - Chronic kidney disease, stage 3b Parathyroid Hormone Intact 3 Months E79.0 - Hyperuricemia without signs of inflammatory arthritis and tophaceous disease, I10 - Essential (primary) hypertension, N18.32 - Chronic kidney disease, stage 3b Coding Level of Care Code Est Pt Level 4 (47195) Diagnoses Hyperuricemia E79.0 Essential (primary) hypertension I10 Chronic kidney disease, stage 3b N18.32
[2024-06-15 14:42] VITALS: BP 140/62; PULSE 65; O2SAT 96
--- OUTSIDE RECORDS SUMMARY | 2024-06-15 17:12 | XMS_ITS | Encounter Summary ---
Author Organization [facility] Address [address] [place] [address] Care Team Providers Care Family Nurse Name Role Phone Nicolás Jeffries MD Primary Care Provider [phone] Reason for Visit * Reason Onset Date Comments Hospital Follow-up 06/02/2024 Encounter Details Date Type Department Care Team (Late st Contact Info) Description 06/02/2024 Telephone Adult Medicine [facility] [place] [place] [address] [place] [phone] [address] [place] Hospital Follow-up Social History Tobacco Use Types [...] appointment needed Hospital patient was treated at: [facility] Was this only an ER visit or [...] was the injury due to: Not 3rd democrat related documented in this encounter Plan of Treatment Upcoming Encounters Date Type Department Care Team (Late st Contact Info) Description 07/02/2024 4:00 PM EDT Office Visit Adult Medicine [address] [phone] Nicolás Jeffries MD [address] [place] [address] 08/09/2024 2:00 PM EDT Office Visit [facility]iology [facility] 2 [facility] [address] [place] [address] Rikki Shukla MD [address] [place] [address],[address] [place] [address] 10/12/2024 4:30 PM EDT Ancillary Procedure [facility] - [facility] [address] [facility] [address] [place] [phone] 01/10/2025 2:15 PM EDT Office Visit Endocrinology - [address] [address] Aung Pinto MD [address] [place] [phone] documented as of this encounter Visit Diagnoses Not on filedocumented in this encounter Care Teams Family Nurse Relationship Specialty Start Date End Date Nicolás Jeffries MD [address] [place] [address] PCP - General Internal Medicine 02/11/24 documented as of this encounter
--- OUTSIDE RECORDS SUMMARY | 2024-06-15 17:12 | XMS_ITS ---
Author Organization [facility] Address [address] [address] Care Team Providers Care Director Loan Name Role Phone Sugey Stratton Primary Care Provider Dahlia DAHLIA Dick Unavailable [phone] REASON FOR VISIT 3 month f/u Encounters Encounter Location Date Provider Diagnosis [facility] [address] [address] 06/09/2024 DAHLIA RYAN Plan Of Treatment Next Appt Details Provider Name:DAHLIA RYAN, 06/16/2024 11:30:00 AM, [address] [address], [place], [address], Progress Notes * Richadr WONGDOB:1940 (84 yo M)Acc No.[id number]:06/09/2024 Progress Note Patient:?Richard WONG Provider:?Dahlia Ryan DPM :1940???Age:84 Y???Sex:Male Ned e:06/09/2024 Address:[address] [place], [place] [phone] Pcp:Sugey Stratton Subjective: * Chief Complaints: * ???1. 3 month f/u. * Medical History:? Objective: * Vitals:? Assessment: Plan: * Treatment: * Billing Information: * Visit Code:? * Procedure Codes:? * Electronic signature of ILIA RYAN D.P.M on 06/15/2024 at 05:12 PM EDT Sign off status: Pending * Provider:?Dahlia Ryan DPM Date:? 06/09/2024 Generated for Osvaldo boone/Davian/Mireille on:?06/15/2024 05:12 PM EDT
--- OUTSIDE RECORDS SUMMARY | 2024-06-15 17:12 | XMS_ITS | Encounter Summary ---
Author Organization [facility] Address [address] [place] [address] Care Team Providers Care Manager Rehab Name Role Phone Nicolás Jeffries MD Primary Care Provider [phone] Reason for Visit * Reason Onset Date Comments Pre-operative Clearance 05/12/2024 Encounter Details Date Type Department Care Team (Late st Contact Info) Description 05/12/2024 Telephone [facility] Cardiology [address] [phone] Rikki Shukla MD [address] [place] [address],[address] [address] Pre-operative Clearance Social History Tobacco Use Types [...] surgery I 05/27/24. Please fax letter to [phone] documented in this encounter Plan of Treatment Upcoming Encounters Date Type Department Care Team (Late st Contact Info) Description 07/02/2024 4:00 PM EDT Office Visit Adult Medicine [address] [phone] Nicolás Jeffries MD [address] [place] [address] 08/09/2024 2:00 PM EDT Office Visit [facility] Cardiology [address] [place] [address] Rikki Shukla MD [address] [place] [address],[facility] [address] [place] [address] 10/12/2024 4:30 PM EDT Ancillary Procedure [facility] Cardiology [facility] [address] [facility] [address] [place] [address] 01/10/2025 2:15 PM EDT Office Visit Endocrinology [address] [phone] Aung Pinto MD 5 [place] [address] documented as of this encounter Visit Diagnoses Not on filedocumented in this encounter Care Teams Manager Rehab Relationship Specialty Start Date End Date Nicolás Jeffries MD 4 [place] [address] PCP - General Internal Medicine 02/11/24 documented as of this encounter
--- OUTSIDE RECORDS SUMMARY | 2024-06-15 17:12 | XMS_ITS | Encounter Summary ---
Author Organization [facility] Address [address] [place] [address] Care Team Providers Care Traveling Construction Superintendent Name Role Phone Nicolás Jeffries MD Primary Care Provider [phone] Encounter Details Date Type Department Care Team (Late st Contact Info) Description 06/04/2024 Telephone [facility] - [facility] [address] [facility] [address] [place] [phone] Rikki Ley MD [address] [place] [address] Social History Tobacco Use Types Packs/Day Years [...] informed her of the below message from [facility]. She voiced understanding. * Mat Brown NP [...] 40 mg BID - increased by his Finisher Card Tender about a month ago per pt. He [...] EDT Office Visit [facility] [place] [address] [place] [address] Nicolás Jeffries MD 4 [place], [place] 08/09/2024 2:00 PM EDT Office Visit [facility] - [address] [place] [address] Rikki Shukla MD [address] [place] [address],[facility] [address] [place] [address] 10/12/2024 4:30 PM EDT Ancillary Procedure [facility] [address] [place] [address] 01/10/2025 2:15 PM EDT Office Visit Endocrinology - [address] [phone] Aung Pinto MD [address] [place] [phone] documented as of this encounter Visit Diagnoses Not on filedocumented in this encounter Care Teams Traveling Construction Superintendent Relationship Specialty Start Date End Date Nicolás Jeffries MD [address] [place] [address] PCP - General Internal Medicine 02/11/24 documented as of this encounter
--- OUTSIDE RECORDS SUMMARY | 2024-06-15 17:12 | XMS_ITS | Encounter Summary ---
Author Organization [facility] Address [address] [place] [address] Care Team Providers Care Marketing Traffic Coordinator Name Role Phone Nicolás Jeffries MD Primary Care Provider Reason for Referral * Imaging (Routine) - Closed Specialty Diagnoses / Procedures Referred By Contac t Referred To Contact Radiology Diagnoses Nipple pain Procedures MG Mammo Digital Diagnostic w Spencer bilDanita Pritchett NP [address] [place] [address] Phone: tel: fax: [address] Phone: tel: Referral ID Status Reason Start Date Expiration Date Visits Re quested Visits Authorized [id number] Closed 04/26/2024 04/26/2025 1 1 Reason for Visit * Imaging (Routine) - Closed Specialty Diagnoses / Procedures Referred By Contac t Referred To Contact Radiology Diagnoses Nipple pain Procedures MG Mammo Digital Diagnostic w Spencer Danita Ogden NP [address] [place] [address] Phone: tel: fax: [address] Phone: tel: Referral ID Status Reason Start Date Expiration Date Visits Re quested Visits Authorized [id number] Closed 04/26/2024 04/26/2025 1 1 Encounter Details Date Type Department Care Team (Latest Contact Info) Description 05/18/2024 1:04 PM EST - 05/18/2024 11:59 PM EST Hospital Encounter Radiology Department - [address] [address] Nipple pain Discharge Disposition: Home or Self [...] daily. 12/31/2023 blood-glucose meter,continuous (FreeStyle Quintin 3 [place]) [facility] Device by Does not apply [...] 4:00 PM EDT Office Visit Adult Medicine [address] [phone] Nicolás Jeffries MD [address] [place] [address] 08/09/2024 2:00 PM EDT Office Visit [facility] Cardiology [address] [place] [address] Rikki Shukla MD [address] [place] [address],[facility] [address] [place] [address] 10/12/2024 4:30 PM EDT Ancillary Procedure [facility] Cardiology [facility] [address] [facility] [address] [place] [address] 01/10/2025 2:15 PM EDT Office Visit Endocrinology [address] [phone] Aung Pinto MD [address] [place] [phone] documented as of this encounter Procedures Procedure [...] of bilateral breasts is recommended. MAMMO LOCATION: [facility], [address] [place] [address], [address], . -------- FINAL REPORT -------- Dictated By: Jojo Alfaro Dictated Date: 05/18/2024 14:02 ET Assigned Physician: Jojo Alfaro Reviewed and Electronically Signed By: Jojo Alfaro Signed Date: 05/18/2024 14:13 ET Workstation ID: [id number] Transcribed By: Self Edit Transcribed Date: 05/18/2024 [...] of bilateral breasts is recommended. MAMMO LOCATION: [facility], [address] [place] [address], [address], . -------- FINAL REPORT -------- Dictated By: Jojo Alfaro Dictated Date: 05/18/2024 14:02 ET Assigned Physician: Jojo Alfaro Reviewed and Electronically Signed By: Jojo Alfaro Signed Date: 05/18/2024 14:13 ET Workstation ID: [id number] Transcribed By: Self Edit Transcribed Date: 05/18/2024 14:02 ET us Danita Velásquez CLAM DIGGER IMG BI PROCEDURES Final Resu lt documented in this encounter Visit Diagnoses Diagnosis Nipple pain Other sign and symptom in breast Encounter for adjustment or management of cardiac device documented in this encounter Care Teams Marketing Traffic Coordinator Relationship Specialty Start Date End Date Nicolás Jeffries MD [address] [place] [address] PCP - General Internal Medicine 02/11/24 documented as of this encounter
--- OUTSIDE RECORDS SUMMARY | 2024-06-15 17:12 | XMS_ITS | Encounter Summary ---
Author Organization [facility] Address [address] [place] [address] Care Team Providers Care International Sales Manager Name Role Phone Nicolás Jeffries MD Primary Care Provider [phone] Reason for Visit * Reason Onset Date Comments Medical Records 05/11/2024 Encounter Details Date Type Department Care Team (Late st Contact Info) Description 05/11/2024 Telephone [facility] Cardiology [facility] [address] [facility] [address] [place] [address] Nicolás Jeffries MD [address] [place] [address] Medical Records Social History Tobacco Use Types [...] Check[facility] at [phone] on 05/11/2024. documented in this encounter Plan of Treatment Upcoming Encounters Date Type Department Care Team (Late st Contact Info) Description 07/02/2024 4:00 PM EDT Office Visit Adult [facility] South [address] [address] Nicolás Jeffries MD [address] [place] [address] 08/09/2024 2:00 PM EDT Office Visit [facility] Cardiology [facility] - [address] [place] [address] Rikki Shukla MD [address] [place] [address] DRIVE,[address] [place] [address] 10/12/2024 4:30 PM EDT Ancillary Procedure [facility] Cardiology [facility] [address] [place] [address] 01/10/2025 2:15 PM EDT Office Visit [address] [phone] Aung Pinto MD [address] [place] [address] documented as of this encounter Visit Diagnoses Not on filedocumented in this encounter Care Teams International Sales Manager Relationship Specialty Start Date End Date Nicolás Jeffries MD [address] [place] [address] PCP - General Internal Medicine 02/11/24 documented as of this encounter
--- OUTSIDE RECORDS SUMMARY | 2024-06-15 17:13 | XMS_ITS | Encounter Summary ---
Author Organization [facility] Address [address] [place] [address] Care Team Providers Care Coagulating Operator Name Role Phone Nicolás Jeffries MD Primary Care Provider [phone] Reason for Visit * Reason Onset Date Comments Results 05/18/2024 US of breast Encounter Details Date Type Department Care Team (Late st Contact Info) Description 05/18/2024 Telephone Adult Medicine [facility] [address] [place], [place] [phone] Danita Velásquez NP [address] [place], [place] Results (US of breast ) Social [...] PM EDT Office Visit [facility] South [address] [address] Nicolás Jeffries MD [address] [place] [address] 08/09/2024 2:00 PM EDT Office Visit [facility] Cardiology [facility] - [address] [place] [address] Rikki Shukla MD [address] [facility] [address] [place] [address] 10/12/2024 4:30 PM EDT Ancillary Procedure [facility] Cardiology [facility] [address] [place] [address] 01/10/2025 2:15 PM EDT Office Visit Endocrinology [address] [phone] Aung Pinto MD [address] [place] [address] documented as of this encounter Visit Diagnoses Not on filedocumented in this encounter Care Teams Coagulating Operator Relationship Specialty Start Date End Date Nicolás Jeffries MD [address] [place] [address] PCP - General Internal Medicine 02/11/24 documented as of this encounter
--- OUTSIDE RECORDS SUMMARY | 2024-06-15 17:13 | XMS_ITS ---
Author Organization [facility] Address [address] [address] Care Team Providers Care Wood Processing Worker Name Role Phone Sugey Stratton Primary Care Provider Dahlia DAHLIA Dick Unavailable [phone] REASON FOR VISIT 3 month f/u Encounters Encounter Location Date Provider Diagnosis [facility] [address] [address] 02/25/2024 DAHLIA RYAN Plan Of Treatment Next Appt Details Provider Name:DAHLIA RYAN, 06/16/2024 11:30:00 AM, [address] [address], [place], [address], Progress Notes * Richard WONGDOB:1940 (84 yo M)Acc No.[id number]:02/25/2024 Progress Note Patient:?Richard WONG Provider:?Dahlia Ryan DPM :1940???Age:83 Y???Sex:Male Ned e:02/25/2024 Address:[address] [place], [place] [address] Pcp:Sugey Stratton Subjective: * Chief Complaints: * ???1. 3 month f/u. * Medical History:? Objective: * Vitals:? Assessment: Plan: * Treatment: * Billing Information: * Visit Code:? * Procedure Codes:? * Electronic signature of ILIA RYAN D.P.M on 06/15/2024 at 05:12 PM EDT Sign off status: Pending * Provider:?Dahlia Ryan DPM Date:? 02/25/2024 Generated for Osvaldo boone/Davian/Mireille on:?06/15/2024 05:12 PM EDT
--- OUTSIDE RECORDS SUMMARY | 2024-06-15 17:13 | XMS_ITS | Patient Health Record ---
Author Organization [facility] Address [address] [facility] [address] [place] [address] Care Team Providers Care Support Technician Name Role Phone Sugey Stratton Primary Care Provider KARI Merino Unavailable [phone] Allergies Allergen (clinical drug ingredient) Drug/Non Drug [...] capsule Orally Once a day Active Ipratropium [place] 0.03 % 2 sprays in each nostril Nasally Twice a day Active Ketoconazole 2 % 1 application Externally Once a day Not-Taking Albuterol Sulfate HFA 108 (90 Base) MCG/ACT 1 puff as needed Inhalation every 4 hrs Active Lantus SoloStar 100 UNIT/ML as directed Subcutaneous 80 units daily Active Nystatin 924156 UNIT/GM 1 application Externally Twice a day [...] Problem Status W/U Status Risk Notes Problem [id number] Type 2 diabetes mellitus with diabetic polyneuropathy (E11.42) Active confirmed Problem 56716426 Type 2 diabetes mellitus with other circulatory complications (E11.59) Active confirmed Problem [id number] long 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 care 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 of insulin (Z79.4) Active confirmed Problem 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 to renal impairment involving [...] N/A Encounters Encounter Location Date Provider Diagnosis [facility] [address] [address] 11/05/2023 KARI RYAN Type 2 diabetes mellitus with other circulatory complications E11.59 ; Type 2 diabetes mellitus with diabetic polyneuropathy E11.42 ; Pain in left toe(s) M79.675 ; Onychomycosis B35.1 ; Xerosis of skin L85.3 and Pain in right toe(s) M79.674 [facility] [address] [address] 12/31/2023 KARI RYAN Type 2 diabetes mellitus with other circulatory complications E11.59 ; 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 M10.372 and Left foot pain M79.672 [facility] [address] [address] 03/10/2024 KARI RYAN Type 2 diabetes mellitus with other circulatory complications E11.59 ; Type 2 diabetes mellitus with diabetic polyneuropathy E11.42 ; Pain in left toe(s) M79.675 ; Onychomycosis B35.1 ; Xerosis of skin L85.3 and Pain in right toe(s) M79.674 [facility] [address] 09/10/2023 KARIARIAN RYAN [facility] [address] [address] 11/27/2023 KARI RYAN [facility] [address] 12/31/2023 KARI RYAN Assessments Encounter Date Diagnosis (ICD Code) Assessment Notes Treatment Notes Treatment Clinical Notes Section Notes 11/05/2023 Type 2 diabetes mellitus with other [...] gout attack, and does not require a retirement medication yet. We discussed if the flare ups continue to happen, he may need to be placed on retirement medication. We discussed that due to his [...] receive his new diabetic shoes and inserts. 11/05/2023 Pain in left toe(s) (ICD-10 - [...] Aseptic trimming of toenails x 10 with clearance cutter, pt tolerated well. All bleeding controlled with [...] Aseptic trimming of toenails x 10 with clearance cutter, pt tolerated well. All bleeding controlled with [...] have to pay out of pocket. 11/05/2023 Xerosis of skin (ICD-10 - L85.3) [...] Name:KARI RYAN, 06/16/2024 11:30:00 AM, [address], [address], Insurance Providers Payer Name Payer Address Payer Phone Subscriber Number Group Number Insured Name Patient Relationship to Insured Coverage Start Date Coverage End Date [employer] of [place] [address] [place] [phone] [id number] Richard Wong Self - patient is the insured [employer] [facility] [address] [place] [phone] [id number] 1 Richard Wong Self - patient is the insured Medications Administered Medication Instructions Date of Administration Dosage Notes Dexamethasone 04/20/2021 0.5 mL dexAMETHasone Sod Phosphate PF 12/31/2023 0.5 m L Kenalog 04/20/2021 0.5 mL Kenalog 12/31/2023 0.5 mL Medical (General) History Medical History History ICD Code aortic stenosis carotid disease diabetes mellitus 2 with peripheral vasc ular disease hypertension ischemic cardiomyopathy non-sustained ventricular tachycardia old OR PVD diabetes mellitus 2 with peripheral neur [...]
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
--- OUTSIDE RECORDS SUMMARY | 2024-06-15 17:13 | XMS_ITS | Encounter Summary ---
Author Organization [facility] Address [address] [place] [address] Care Team Providers Care Pile Trimmer Name Role Phone Nicolás Jeffries MD Primary Care Provider [phone] Reason for Visit * Reason Onset Date Comments advice on medications 05/21/2024 Encounter Details Date Type Department Care Team (Late Contact Info) Description 05/21/2024 Telephone [facility] [place] [address] [place] [address] Aung Pinto MD [address] [place] [address] advice on medications Social History [...] EDT Office Visit Adult Medicine South - [address] [phone] Nicolás Jeffries MD [address] [place] [address] 08/09/2024 2:00 PM EDT Office Visit [facility] Cardiology [facility] - [address] [place] [address] Rikki Shukla MD [address] [place] [address] [address] [place] [address] 10/12/2024 4:30 PM EDT Ancillary Procedure [facility] - [address] [place] [address] 01/10/2025 2:15 PM EDT Office Visit Endocrinology - [address] [address] Aung Pinto MD [address] [place] [phone] documented as of this encounter Visit Diagnoses Not on filedocumented in this encounter Care Teams Pile Trimmer Relationship Specialty Start Date End Date Nicolás Jeffries MD [address] [place] [address] PCP - General Internal Medicine 02/11/24 documented as of this encounter
--- OUTSIDE RECORDS SUMMARY | 2024-06-15 17:13 | XMS_ITS | Encounter Summary ---
Author Organization [facility] Address [address] [place] [address] Care Team Providers Care System Safety Manager Name Role Phone Nicolás Jeffries MD Primary Care Provider [phone] Encounter Details Date Type Department Care Team (Late st Contact Info) Description 06/08/2024 11:55 AM EDT Ancillary Procedure [facility] Cardiology [facility] - [facility] [address] [facility] [address] [place] [address] Social History Tobacco Use Types Packs/Day Years [...] 4:00 PM EDT Office Visit Adult Medicine [address] [phone] Nicolás Jeffries MD [address] [place] [address] 08/09/2024 2:00 PM EDT Office Visit [facility] Cardiology [address] [place] [phone] Rikki Shukla MD [address] [place] [address],[address] [address] 10/12/2024 4:30 PM EDT Ancillary Procedure [facility] - [address] [place] [address] 01/10/2025 2:15 PM EDT Office Visit Endocrinology - [place] [address] [place] [address] Aung Pinto MD [address] [place] [address] documented as of this encounter Procedures Procedure Name Priority Date/Time Associated Diagnosis Comments CARDIAC DEVICE CHECK- REMOTE- MURJ Routine 06/08/2024 11:53 AM EDT documented in this encounter Results * Cardiac device check - Remote- MURJ (06/08/2024 11:53 AM EDT) Date Time Interrogation Session [id number] CV DEVICE CHECK Type Interrogation Session Remote Scheduled CV DEVICE CHECK Implantable Pulse Generator Engraver Rubber [employer].[place]aud CV DEVICE CHECK Implantable Pulse Generator Type ICD CV DEVICE CHECK Implantable Pulse Generator Model [id number] John(JAILENE) CV DEVICE CHECK Implantable Pulse Generator Serial Number [id number] CV DEVICE CHECK Implantable Pulse Generator Implant Date 20210720 CV DEVICE CHECK Battery Remaining Percentage 69.00 CV DEVICE CHECK Battery Remaining Longevity 74.0 CV DEVICE CHECK Battery Voltage 2.980 CV D EVICE CHECK Battery PLATINUMSMITH Trigger 2.620 CV DEVICE CHECK Battery Status Middle of Service CV DEVICE CHECK Capacitor Charge Time 8.800 CV DEVICE CHECK Sanket Statistic RA Percent Paced 13.00 CV DEVICE CHECK Sanket Statistic RV Percent Paced 44.00 CV DEVICE CHECK Atrial Tachy Statistic AT/AF [place] Percent 0.00 CV DEVICE CHECK Lead Channel [...] us Ines SANTO CV IMPLANTABLE CARDIAC DEVICE RI OCEDURES Final Result documented in this encounter Visit Diagnoses Not on filedocumented in this encounter Care Teams System Safety Manager Relationship Specialty Start Date End Date Nicolás Jeffries MD [address] [place] [address] PCP - General Internal Medicine 02/11/24 documented as of this encounter
--- OUTSIDE RECORDS SUMMARY | 2024-06-15 17:13 | XMS_ITS | Encounter Summary ---
Author Organization [facility] Address [address] [place] [address] Care Team Providers Care Rope Silica Machine Operator Name Role Phone Nicolás Jeffries MD Primary Care Provider [phone] Reason for Visit * Reason Onset Date Comments OV NOTES 05/28/2024 Encounter Details Date Type Department Care Team (Late st Contact Info) Description 05/28/2024 Telephone [facility] [place] [address] [place], [place] [phone] Aung Pinto MD [address] [place] [address] OV NOTES Social History Tobacco [...] AM EST Joyce from Dr. Warner office, [facility], is asking if we would be able to sendpatients last OV notes from appointment with Dr. Pinto in May, to [phone]. Patient followsDr. Warner for diabetic foot exams documented in this encounter Plan of Treatment Upcoming Encounters Date Type Department Care Team (Late st Contact Info) Description 07/02/2024 4:00 PM EDT Office Visit Adult Medicine South - [address] [phone] Nicolás Jeffries MD [address] [place] [address] 08/09/2024 2:00 PM EDT Office Visit [facility] - [address] [place] [address] Rikki Shukla MD [address] [place] [address],[address] [address] 10/12/2024 4:30 PM EDT Ancillary Procedure [facility] [address] [place] [address] 01/10/2025 2:15 PM EDT Office Visit Endocrinology - [address] [phone] Aung Pinto MD [address] [place] [phone] documented as of this encounter Visit Diagnoses Not on filedocumented in this encounter Care Teams Rope Silica Machine Operator Relationship Specialty Start Date End Date Nicolás Jeffries MD [address] [place] [address] PCP - General Internal Medicine 02/11/24 documented as of this encounter
--- OUTSIDE RECORDS SUMMARY | 2024-06-15 17:13 | XMS_ITS | Clinical Summary ---
Author Organization [facility] Address [address] [place] [address] Phone Care Team Providers Care Art Historian Name Role Phone Nicolás Jeffries MD Primary Care Provider [phone] Allergies Active Allergy Reactions Criticality Noted Date [...] patient's age to complete this topic Insurance [facility] MEDICARE MEDICARE [facility] Care Teams Art Historian Relationship Specialty Start Date End Date Nicolás Jeffries MD PCP - General Internal Medicine 05/16/21
--- OUTSIDE RECORDS SUMMARY | 2024-06-15 17:13 | XMS_ITS | Data Portability ---
Author Organization [place] - [facility], [facility] Address [address] [place] [address] Care Team Providers Care Wing Mailer Machine Operator Name Role Phone CATY GARCIA Primary Care Provider LAUREN PADILLA OTHER ALMA CUEVA Pattern Molder [phone] Assessment Encounter Date Assessment Date Assessment LastModified by Organization Details LastModified Time 07/01/2021 07/01/2021 81 year old male new to with a history of CAD/CABG x 4 and AVR 12/2020, vfib/cardiac arrest with ICD placement, IDDM, HTN, CHF, HLD, hypothyroid with recent hospitalization for acute on chronic CHF, discharged 06/01/21 with an increase in lasix to 40mg in the AM, 40mg in the PM per but according to discharge summary on PVIX was supposed to be 80mg in AM, 40mg PM. Since discharge has been having progressively worsening shortness of breath especially with exertion/walking around the house. Also having worsening cough while using multiple pillows for which pt attributes to a constant PND. Pt stopped taking the Zyrtec. Can feel the PND; just finished (3 days ago) prescription from dentist because he thought he had a ? sinus infection. Continues to have the PND. No headache, some irritation in throat. No chest pain or racing heart. No abd pain/N/V/D; maybe some increase in LL edema. Is weighing self daily with no 2lb in a day/5 lb week weight gain. Did follow up with Dr Padilla and Dr Cueva s/p hospitalization. Escalated to ED for evaluation due to increased exertional dyspnea, sinus tachycardia rate 107-[address] elevation; no overt signs of acute on chronic CHF; report written out and verbally given to lyn tejada Not available 07/01/2021 21:56:25 Plan of Treatment Reminders Order Date Submit Date Provider Last Modified By Organization Details Last Modified Time Details Appointments None record ed. Lab None record ed. Referral None record ed. Procedures None record ed. Surgeries None record ed. Imaging None record ed. Medication Orders None record ed. Patient TargetsNo targets recorded. Patient InstructionsNo instructions recorded. Reason for Referral None Reported. Results Created Date Observation Date Name Description Value Unit Range Abnormal Flag Note LastModifiedBy Organization Detail LastModifiedTime 07/02/19 22 elect irving diogr am No observ ation record ed. terrell Not Available 07/01 21:52:16 Result Notes None recorded. Procedures Surgical History Date Name Laterality Status Provider Name and Address Organization Details Recorded Time 022 ECG Interpretation - DH completed Ciara Ward NP [address] [place], [address], [place] [facility] 07/01/2021 21:21:29 coronary artery bypass grafts x 4 completed Ciara Ward NP [address] [place], [address], [place] [facility] 07/01/2021 20:07:31 Cholecystectomy completed Ciara Ward NP [address] [place], [address], [place] [facility] 07/01/2021 20:09:21 Appendectomy completed Ciara Ward NP [address], [place], [address], [place] [facility] 07/01/2021 20:09:34 implantation of internal cardiac defibrillator completed Ciara Ward NP [address] [place], [address], [place] [facility] 07/01/2021 20:16:48 Imaging Results Imaging Date Name Status LastModified by Organization Details LastModified Time 07/01/2021 electrocardiogram completed terrell Informa tion not available 07/01/2021 21:52:16 Procedure Notes None recorded. Medical Equipment None Reported. Allergies Allergen ID Allergen Name Allergen Category Reaction Reaction Severity Criticality Documentation Date Start Date Code Code System Note Provider Name and Address Organization Details Recorded Time 754758 acetamino phen / oxycodone medicatio n Not available Not available Not available 07/01/2021 44919 3 RxNorm Ciara Ward , FAMILY SUPPORT COORDINATOR [address], [place], [address], [place] [facility] 2 19:56:39 245211 lisinopri l medicatio n Not available Not available Not available 07/01/2021 78095 RxNorm Ciara Ward , FAMILY SUPPORT COORDINATOR [address], [place], [address], [place] [facility] 2 19:56:49 [id number] shellfish derived food,medi cation Not available Not available Not available 07/01/2021 71854 UNK Ciara Ward , FAMILY SUPPORT COORDINATOR [address], [place], [address], [place] [facility] 2 19:56:58 Medications Name Sig Start Date Stop Date Status Note LastModified by Organization Details LastModified Time amoxicillin 500 mg capsule TAKE FOUR CAPSULES BY MOUTH 30-60 MINUTES PRIOR TO DENTAL PROCEDURE S 07/01 completed Not Available Not Available Not Available furosemide 40 mg tablet TAKE 2 TABLETS BY MOUTH IN THE MORNING AND 1 IN THE AFTERNOON active Not Available Not Available No t Available atorvastati n 80 mg tablet active Not Available Not Available Not Available tizanidine 2 mg tablet 07/01 completed Not Available Not Available Not Available cetirizine 10 mg tablet TAKE 1 TABLET BY MOUTH EVERY DAY active Not Available Not Available No t Available metoprolol succinate ER 50 mg tablet,exte nded release 24 hr 07/01 completed Not Available Not Available Not Available glipizide 10 mg tablet active Not Available Not Available Not Available prednisone 20 mg tablet TAKE 2 TABLETS (40MG) BY MOUTH DAILY 07/01 completed Not Available Not Available Not Available Synthroid 100 mcg tablet active Not Available Not Available Not Available gabapentin 400 mg capsule TAKE ONE CAPSULE BY MOUTH THREE TIMES A DAY 07/01 completed Not Available Not Available Not Available nifedipine ER 30 mg tablet,exte nded release TAKE ONE TABLET BY MOUTH ONCE DAILY active Not Available Not Available No t Available clopidogrel 75 mg tablet TAKE ONE TABLET BY MOUTH DAILY. active Not Available Not Available No t Available fexofenadin e 180 mg tablet TAKE 1 TABLET BY MOUTH ONCE DAILY 07/01 completed Not Available Not Available Not Available tramadol 50 mg tablet TAKE 1 TABLET BY MOUTH EVERY 8 HOURS NEEDED FOR PAIN 07/01 completed Not Available Not Available Not Available carvedilol 3.125 mg tablet TAKE 1 TABLET BY MOUTH 2 TIMES DAILY (WITH MEALS) active Not Available Not Available No t Available lidocaine-p rilocaine 2.5 %-2.5 % topical cream active Not Available Not Available Not Available amoxicillin 875 mg tablet TAKE ONE TABLET BY MOUTH TWICE A DAY UNTIL FINISHED 07/01 completed Not Available Not Available Not Available hydromorpho ne 2 mg tablet TAKE ONE TABLET BY MOUTH EVERY 12 HOURS NEEDED FOR PAIN. 07/01 completed Not Available Not Available Not Available OneTouch Ultra Test strips USE 1 STRIP DIRECTED TO CHECK BLOOD GLUCOSE TWICE DAILY active Not Available Not Available No t Available pantoprazol e 40 mg tablet,jalyn yed release TAKE ONE TABLET BY MOUTH ONCE DAILY active Not Available Not Available No t Available clotrimazol e-betametha sone 1 %-0.05 % topical cream active Not Available Not Available Not Available Mag 64 64 mg tablet,jalyn yed release 07/01 completed Not Available Not Available Not Available losartan 25 mg tablet TAKE ONE TABLET BY MOUTH ONCE DAILY active Not Available Not Available No t Available nitroglycer in 0.4 mg sublingual tablet active Not Available Not Available Not Available gabapentin 300 mg capsule TAKE ONE CAPSULE BY MOUTH THREE TIMES A DAY 07/01 completed Not Available Not Available Not Available hydralazine 50 mg tablet TAKE ONE TABLET BY MOUTH THREE TIMES A DAY active Not Available Not Available No t Available furosemide 20 mg tablet 07/01 completed Not Available Not Available Not Available gabapentin 100 mg capsule TAKE THREE CAPSULES BY MOUTH AT BEDTIME 07/01 completed Not Available Not Available Not Available nifedipine ER 60 mg tablet,exte nded release TAKE ONE TABLET BY MOUTH ONCE DAILY active Not Available Not Available No t Available fluticasone propionate 50 mcg/actuati on nasal spray,suspe nsion INHALE 2 SPRAYS EACH NOSTRIL DAILY active Not Available Not Available No t Available ciclopirox 0.77 % topical cream APPLY 1 GRAM TO EACH FOOT TWO TIMES A DAY 07/01 completed Not Available Not Available Not Available Allergy Relief (loratadine ) 10 mg tablet TAKE ONE TABLET BY MOUTH EVERY DAY 07/01 completed Not Available Not Available Not Available pregabalin 100 mg capsule TAKE ONE CAPSULE BY MOUTH TWICE A DAY active Not Available Not Available No t Available Baby Aspirin active Not Available Not Available Not Available Lantus Solostar U-100 Insulin 100 unit/mL (3 mL) subcutaneou s pen INJECT 75 UNITS UNDER THE SKIN DAILY active Not Available Not Available No t Available Vitals Date Recorded Oxygen saturation Oxygen saturation in Arterial blood by Pulse oximetry Heart rate Respiratory rate Body temperature Systolic blood pressure Diastolic blood pressure Provider Name and Address Organization Details Last Updated DateTime 96 % 96 % 110 /min 22 /min 98.3 [degF] 140 mm[Hg] 70 mm[Hg] Not Available [facility] 20:01:45 Social History Question Answer Notes LastModified by Organizat ion Details LastModified Time Tobacco Smoking Status Never Smoker Ciara Ward NP [address] [facility] [place], [address], [place] [facility] 07/01/2021 20:06:11 Do You Have An Advance Directive? Yes [employer] Information not available 07/01/2021 What Is Your Level Of Alcohol Consumption? None [employer] Information not available 07/01/2021 What Is Your Code Status? Full Code [employer] Information not available 07/01/2021 Within The Past 12 Months, Has It Happened That The Food You Bought Just Didn't Last And You Didn't Have Money To Get More. No [employer] Information not available 07/01/2021 Within The Past 12 Months, Have You Worried That Your Food Would Run Out Before You Got Money To Buy More. No [employer] Information not available 07/01/2021 Fall Risk: Do You Feel Unsteady When Standing Or Walking? No Information not available 07/01/2021 Excessive Alcohol Or Drug Use No [employer] Information not available 07/01/2021 Does This Patient Have A PCP? Yes Information not available 07/01/2021 Has The Patient Seen Their PCP In The Past 6 Months? Yes [employer] Information not available 07/01/2021 We Know From Many Of Our Patients That Covering All Of Their Costs Can Be Difficult At Times. This Can Cause Stress And Impact Health. In The Past Year, Have You Been Unable To Get Any Of The Following When It Was Really Needed? No [facility] Information not available 07/01/2021 What Is Your Housing Situation Today? I Have Housing [facility] Information not available 07/01/2021 Do You Use Any Illicit Or Recreational Drugs? No [facility] Information not available 07/01/2021 Do You Or Have You Ever Used Any Other Forms Of Tobacco Or Nicotine? No [facility] Information not available 07/01/2021 Sex: Unknown Functional Status None recorded. Mental Status None recorded. Family History Relationship Description Onset Age of this Age Resolved Age Notes LastModified by Organization Details LastModified Time Father No current problems or disability elliwell Not available 05/2021 20:05:29 Mother No current problems or disability elliwell Not available 05/2021 20:05:30 Medical History Condition Response Diabetes Y Coronary Artery Disease Y CHF Y Parkinson's Disease N Cancer N Stroke N Dementia N Hypothyroidism Y COPD N Asthma N Depression N High Cholesterol Y Rheumatoid Arthritis N Pulmonary Embolism N Hypertension Y A-fib N Osteoporosis N Kidney Disease Y Past Encounters Encounter ID Performer Location Encounter Start Date Encounter Closed Date Diagnosis/Indication Diagnosis SNOMED-CT Code Diagnosis ICD10 Code Diagnosis Note [id number] Ciara Ward NP [facility] [address] [facility] [place] [address] 07/01/2021 19:54:42 08/01/2021 14:31:47 Health Concerns Section Related Observation LastModified by Organization Detai ls LastModified Time None Recorded Concern Status LastModified by Organization Details LastModified Time None Recorded Advance Directives Directive Y: Payers Encounter Date Sequence Insurance Name Policy Number Policy Reid Covered Member ID Reid Member ID Guarantor Name 07/01/2021 1 [place] [employer] Justin Wong [id number] Justin Wong 07/01/2021 2 [place] [id number] Justin Wong [id number] Justin Wong Notes Date Note Type Note Provider Name and Address Organization Details Recorded Time 07/01/2021 text/html 81 year old male new to with a history of CAD/CABG x 4 and AVR 12/2020, vfib/cardiac arrest with ICD placement, IDDM, HTN, CHF, HLD, hypothyroid with recent hospitalization for acute on chronic CHF, discharged 06/01/21 with an increase in lasix to 40mg in the AM, 40mg in the PM per but according to discharge summary on PVIX was supposed to be 80mg in AM, 40mg PM. Since discharge has been having progressively worsening shortness of breath especially with exertion/walking around the house. Also having worsening cough while using multiple pillows for which pt attributes to a constant PND. Pt stopped taking the Zyrtec. Can feel the PND; just finished (3 days ago) prescription from dentist because he thought he had a ? sinus infection. Continues to have the PND. No headache, some irritation in throat. No chest pain or racing heart. No abd pain/N/V/D; maybe some increase in LL edema. Is weighing self daily with no 2lb in a day/5 lb week weight gain. Did follow up with Dr Padilla and Dr Cueva s/p hospitalization. Ciara Ward NP [address] [place] [address], [address], [place] [facility] 07/01/2021 21:56:35
--- OUTSIDE RECORDS SUMMARY | 2024-06-15 17:13 | XMS_ITS | Encounter Summary ---
Author Organization [facility] Address [address] [place] [address] Care Team Providers Care Laundry Aide Name Role Phone Nicolás Jeffries MD Primary Care Provider [phone] Reason for Referral * Imaging (Routine) - Closed Specialty Diagnoses / Procedures Referred By Contac t Referred To Contact Radiology Diagnoses Nipple pain Procedures US Breast Limited bilat US Breast Complete bilat Screening Danita Velásquez NP [address] [place] [address] Phone: tel: fax: [address] Phone: tel: Referral ID Status Reason Start Date Expiration Date Visits Re quested Visits Authorized [id number] Closed 04/26/2024 04/26/2025 1 1 Reason for Visit * Imaging (Routine) - Closed Specialty Diagnoses / Procedures Referred By Contac t Referred To Contact Radiology Diagnoses Nipple pain Procedures US Breast Limited bilat US Breast Complete bilat Screening Danita Velásquez NP [address] [place] [address] Phone: tel: fax: [address] Phone: tel: Referral ID Status Reason Start Date Expiration Date Visits Re quested Visits Authorized [id number] Closed 04/26/2024 04/26/2025 1 1 Encounter Details Date Type Department Care Team (Latest Contact Info) Description 05/18/2024 1:04 PM EST - 05/18/2024 11:59 PM EST Hospital Encounter Radiology Department - [address] [address] Nipple pain Discharge Disposition: Home or Self [...] daily. 12/31/2023 blood-glucose meter,continuous (FreeStyle Quintin 3 [place]) misc 1 Device by Does not apply [...] ointment Apply to affected area TID 06/26/2022 [employer] Ultra Test test strip USE 1 STRIP [...] PM EDT Office Visit Adult Medicine [address] [address] Nicolás Jeffries MD [address] [place] [address] 08/09/2024 2:00 PM EDT Office Visit [facility] Cardiology [address] [place] [address] Rikki Shukla MD [address] [place] [address],[facility] [address] [place] [address] 10/12/2024 4:30 PM EDT Ancillary Procedure [facility] [address] [facility] [address] [place] [address] 01/10/2025 2:15 PM EDT Office Visit Endocrinology [address] [address] Aung Pinto MD [address] [place] [phone] documented as of this encounter Procedures Procedure [...] of bilateral breasts is recommended. MAMMO LOCATION: [facility], [address] [place] [address], [address], . -------- FINAL REPORT -------- Dictated By: Jojo Alfaro Dictated Date: 05/18/2024 14:02 ET Assigned Physician: Jojo Alfaro Reviewed and Electronically Signed By: Jojo Alfaro Signed Date: 05/18/2024 14:13 ET Workstation ID: [id number] Transcribed By: Self Edit Transcribed Date: 05/18/2024 [...] of bilateral breasts is recommended. MAMMO LOCATION: [facility], [address] [place] [address], [address], . -------- FINAL REPORT -------- Dictated By: Jojo Alfaro Dictated Date: 05/18/2024 14:02 ET Assigned Physician: Jojo Alfaro Reviewed and Electronically Signed By: Jojo Alfaro Signed Date: 05/18/2024 14:13 ET Workstation ID: [id number] Transcribed By: Self Edit Transcribed Date: 05/18/2024 14:02 ET us Danita Velásquez [address] WORKER IMG US PROCEDURES Final Resu lt documented in this encounter Visit Diagnoses Diagnosis Nipple pain Other sign and symptom in breast Encounter for adjustment or management of cardiac device documented in this encounter Care Teams Laundry Aide Relationship Specialty Start Date End Date Nicolás Jeffries MD [address] [place] [id number] PCP - General Internal Medicine 02/11/24 documented as of this encounter
--- OUTSIDE RECORDS SUMMARY | 2024-06-15 17:13 | XMS_ITS | Encounter Summary ---
Author Organization [facility] Address [address] [place] [address] Care Team Providers Care Emergency Response Officer Name Role Phone Nicolás Jeffries MD Primary Care Provider [phone] Reason for Visit * Reason Comments Diabetes Mellitus 6 week f/u Encounter Details Date Type Department Care Team (Latest Contact Info) Description 06/07/2024 2:15 PM EDT Office Visit Endocrinology - [place] [address] [place] [address] Aung Pinto MD [address] [place] [address] DM (diabetes mellitus), type 2 [...] Date Noted Chronic systolic congestive heart failure ([facility]) 09/15/2023 Hypoxemia 04/17/2023 Acute kidney injury superimposed on chronic kidney disease ([facility]) 10/18/2021 Chest pain 10/18/2021 Left upper arm pain 10/18/2021 Coronary artery disease involving [place] coronary artery of [place] heart without angina pectoris 08/17/2021 CHF (congestive heart failure) (CMS/HCC) 06/10/2021 Dyspnea on exertion 05/14/2021 Coronary atherosclerosis of artery bypass graft 01/17/2021 Nocturnal hypoxemia 07/19/2020 Obstructive sleep apnea 07/19/2020 Acute sialoadenitis 11/29/2019 Cholecystitis 11/01/2019 Anxiety 05/22/2017 Aortic stenosis 04/22/2016 Peripheral neuropathy 03/20/2016 PVD (peripheral vascular disease) ([facility]) 03/20/2016 Onychomycosis 03/16/2015 DM (diabetes mellitus), type 2 with peripheral vascular complications ([facility]) 09/08/2014 Ischemic cardiomyopathy 12/16/2013 DM (diabetes mellitus), type 2 with neurological complications ([facility]) 06/10/2012 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) 06/10/2012 Benign prostatic hyperplasia 01/28/2012 DM (diabetes mellitus), type 2 with renal complications ([facility]) 12/23/2011 Stage 3 chronic kidney disease ([facility]) 12/03/2011 VT (ventricular tachycardia) ([facility]) 11/14/2011 Obesity (BMI 30.0-34.9) 02/06/2011 Vitiligo 02/06/2011 Back pain 06/26/2010 Hypothyroid 06/26/2010 Carotid disease, bilateral ([facility]) 05/25/2010 Proteinuria 09/08/2008 Essential hypertension 06/01/2008 GERD (gastroesophageal reflux disease) 06/01/2008 Hypercholesteremia 06/01/2008 Past Surgical History: Procedure Laterality Date APPENDECTOMY PROCEDURE: AR APPENDECTOMY CHOLECYSTECTOMY 12/09/2019 PROCEDURE: LAPAROSCOPIC CHOLECYSTECT COLONOSCOPY August, [place] PROCEDURE: HISTORICAL COLONOSCOPY; COMMENT: hemorrhoids ESOPHAGOGASTRODUODENOSCOPY 06/26/2009 PROCEDURE: AR EGD TRANSORAL BIOPSY SINGLE/MULTIPLE; COMMENT: Esophagus normal, antral gastritis-biopsy:reactive gastropathy with mild chronic inflammation and vascular congestion (HPylori-), normal esophagus HERNIA REPAIR PROCEDURE: REPAIR UMBILICAL HERNIA OTHER SURGICAL HISTORY PROCEDURE: AR UNLISTED PROCEDURE CARDIAC SURGERY; COMMENT: ICD placement [...] as needed. blood-glucose meter,continuous (FreeStyle Quintin 3 [place]) misc 1 Device by Does not apply [...] (diabetes mellitus), type 2 with neurological complications ([facility]) PLAN: Have discussed in detail, On CGM, [...] EDT Office Visit [facility] - [address] [phone] Nicolás Jeffries MD [address] [place] [phone] 08/09/2024 2:00 PM EDT Office Visit [facility] Cardiology [facility] - [address] [place] [phone] Rikki Shukla MD [address] [place] [address],[address] [place] [address] 10/12/2024 4:30 PM EDT Ancillary Procedure [facility] Cardiology [facility] [address] [place] [address] 01/10/2025 2:15 PM EDT Office Visit Endocrinology - [address] [phone] Aung Pinto MD [address] [place] [phone] documented as of this encounter Visit Diagnoses Diagnosis DM (diabetes mellitus), type 2 with neurological complications (CMS/HCC)- Primary Type II or unspecified type diabetes mellitus with neurological manifestations, not stated as uncontrolled Encounter for adjustment or management of cardiac device documented in this encounter Care Teams Emergency Response Officer Relationship Specialty Start Date End Date Nicolás Jeffries MD [address] [place] [phone] PCP - General Internal Medicine 02/11/24 documented as of this encounter
== END 2024-06-15 15:01 | disposition home or self-care (01) ==
LOC: HO.HKAS 14:27
PROVIDERS: PCP Internal Medicine; Visit Provider Internal Medicine Nephrology
DX: E79.0 Hyperuricemia without signs of inflammatory arthritis and tophaceous disease (principal); I10 Essential (primary) hypertension; N18.32 Chronic kidney disease, stage 3b
CPT/HCPCS: 99214

== ENCOUNTER → 2024-06-15 14:26 | Outpatient (BNVA) | payer MEDICARE, SELFPAY | PROVIDERS: PCP Internal Medicine; Visit Provider Internal Medicine Nephrology | DX: I12.9 Hypertensive chronic kidney disease with stage 1 through stage 4 chronic kidney disease, or unspecified chronic kidney disease (principal); N18.32 Chronic kidney disease, stage 3b; E79.0 Hyperuricemia without signs of inflammatory arthritis and tophaceous disease | CPT/HCPCS: 99212 ==

== ENCOUNTER 2024-06-17 14:14 | Outpatient (AMB) | payer MEDICARE, SELFPAY ==
--- NOTE | 2024-06-17 14:20 | A.SPINEOV_ITS ---
Intake Visit Reasons: 1st post op Intake Note: Mr. Wong is here today for his 1st post op. Learning And Development Analyst Required: No Allergies adhesive tape Allergy (Intermediate, Verified 06/15/24 14:41) blisters lisinopril Allergy (Intermediate, Verified 06/15/24 14:41) Angioedema oxycodone Allergy (Intermediate, Verified 06/15/24 14:41) syncope shellfish derived Allergy (Intermediate, Verified 06/15/24 14:41) Swelling Assessment & Plan Assessment & Plan (1) Lumbar stenosis with neurogenic claudication: Code(s): M48.062 - Spinal stenosis, lumbar region with neurogenic claudication Category: Medical Plan Mr Wong is 3 weeks out from his L4-5 decompression. Unfortunately he has not seen any relief from the symptoms that he describes as his preoperative ?weakness? in his legs that make them feel like they want to give out from underneath him. He also has a heavy component of back pain. He does not have any shooting pains down the legs, but tells me that he did not have that before surgery. His wound is healed up beautifully. He is able to stand up on his own and walk down the hallways. He uses oxygen and carries a tank. I explained to him that the nerves may just be slow to healing and it may take some more time, or that it might be something else altogether. We would have to wait and see what reveals itself in time. I gave him a referral to PT at his request as he would like to try to do some strengthening. I will have him see Dr. Hassan for final postoperative visit in 6 weeks. Greg Hassan MD, PhD [facility] Orders: Orders PT Evaluation and Treatment Today M48.062 - Spinal stenosis, lumbar region with neurogenic claudication Coding Level of Care Code Global (30662) Diagnoses Lumbar stenosis with neurogenic claudication M48.062
--- OUTSIDE RECORDS SUMMARY | 2024-06-17 16:54 | XMS_ITS | Encounter Summary ---
Author Organization [facility] Address [address] [place] [address] Care Team Providers Care Hydroelectric Operator Name Role Phone Nicolás Jeffries MD Primary Care Provider [phone] Reason for Referral * Imaging (Routine) - Closed Specialty Diagnoses / Procedures Referred By Contac t Referred To Contact Radiology Diagnoses Nipple pain Procedures MG Mammo Digital Diagnostic w [place] bilDanita Pritchett NP [address] [place] [address] Phone: tel: fax: [address] Phone: tel: Referral ID Status Reason Start Date Expiration Date Visits Re quested Visits Authorized [id number] Closed 04/26/2024 04/26/2025 1 1 Reason for Visit * Imaging (Routine) - Closed Specialty Diagnoses / Procedures Referred By Contac t Referred To Contact Radiology Diagnoses Nipple pain Procedures MG Mammo Digital Diagnostic w [place] Danita Ogden NP [address] [place] [address] Phone: tel: fax: [address] Phone: tel: Referral ID Status Reason Start Date Expiration Date Visits Re quested Visits Authorized [id number] Closed 04/26/2024 04/26/2025 1 1 Encounter Details Date Type Department Care Team (Latest Contact Info) Description 05/18/2024 1:04 PM EST - 05/18/2024 11:59 PM EST Hospital Encounter Radiology Department - [address] [address] Nipple pain Discharge Disposition: Home or Self [...] daily. 12/31/2023 blood-glucose meter,continuous ([employer] Quintin 3 [facility]ter[facility] by Does not apply [...] 4:00 PM EDT Office Visit Adult Medicine [address] [phone] Nicolás Jeffries MD [address] [place] [address] 08/09/2024 2:00 PM EDT Office Visit [facility] Cardiology [address] [place] [address] Rikki Shukla MD [address] [place] [address],[facility] [address] [place] [address] 10/12/2024 4:30 PM EDT Ancillary Procedure [facility] Cardiology [facility] [address] [facility] [address] [place] [address] 01/10/2025 2:15 PM EDT Office Visit Endocrinology [address] [phone] Aung Pinto MD [address] [place] [phone] documented as of this encounter Procedures Procedure [...] of bilateral breasts is recommended. MAMMO LOCATION: [facility], [address] [place] [address], [id number], . -------- FINAL REPORT -------- Dictated By: Jojo Alfaro Dictated Date: 05/18/2024 14:02 ET Assigned Physician: Jojo Alfaro Reviewed and Electronically Signed By: Jojo Alfaro Signed Date: 05/18/2024 14:13 ET Workstation ID: [id number] Transcribed By: Self Edit Transcribed Date: 05/18/2024 [...] of bilateral breasts is recommended. MAMMO LOCATION: [facility], [address] [place] [address], [address], . -------- FINAL REPORT -------- Dictated By: Jojo Alfaro Dictated Date: 05/18/2024 14:02 ET Assigned Physician: Jojo Alfaro Reviewed and Electronically Signed By: Jojo Alfaro Signed Date: 05/18/2024 14:13 ET Workstation ID: [id number] Transcribed By: Self Edit Transcribed Date: 05/18/2024 14:02 ET us Danita Velásquez TRANSCRIPTION SPECIALIST IMG BI PROCEDURES Final Resu lt documented in this encounter Visit Diagnoses Diagnosis Nipple pain Other sign and symptom in breast Encounter for adjustment or management of cardiac device documented in this encounter Care Teams Hydroelectric Operator Relationship Specialty Start Date End Date Nicolás Jeffries MD [address] [place] [address] PCP - General Internal Medicine 02/11/24 documented as of this encounter
--- OUTSIDE RECORDS SUMMARY | 2024-06-17 16:54 | XMS_ITS ---
Author Organization [facility] Address [address] [address] Care Team Providers Care Binder Cutter Hand Name Role Phone Sugey Stratton Primary Care Provider Dahlia DAHLIA Dick Unavailable [phone] REASON FOR VISIT 3 month f/u Encounters Encounter Location Date Provider Diagnosis [facility] [address] [address] 06/09/2024 DAHLIA RYAN Plan Of Treatment Next Appt Details Provider Name:DAHLIA RYAN, 09/22/2024 01:30:00 PM, [address] [address], [place], [address], Progress Notes * Richard WONGDOB:1940 (84 yo M)Acc No.[id number]:06/09/2024 Progress Note Patient:?Richard WONG Provider:?Dahlia Ryan DPM :1940???Age:84 Y???Sex:Male Ned e:06/09/2024 Address:[address] [place], [place] [phone] Pcp:Sugey Stratton Subjective: * Chief Complaints: * ???1. 3 month f/u. * Medical History:? Objective: * Vitals:? Assessment: Plan: * Treatment: * Billing Information: * Visit Code:? * Procedure Codes:? * Electronic signature of ILIA RYAN D.P.M on 06/17/2024 at 04:54 PM EDT Sign off status: Pending * Provider:?Dahlia Ryan DPM Date:? 06/09/2024 Generated for Osvaldo boone/Davian/Mireille on:?06/17/2024 04:54 PM EDT
--- OUTSIDE RECORDS SUMMARY | 2024-06-17 16:54 | XMS_ITS | Encounter Summary ---
Author Organization [facility] Address [address] [place] [address] Care Team Providers Care Public Service Representative Name Role Phone Nicolás Jeffries MD Primary Care Provider [phone] Reason for Visit * Reason Onset Date Comments Medical Records 05/11/2024 Encounter Details Date Type Department Care Team (Late st Contact Info) Description 05/11/2024 Telephone [facility] Cardiology [address] [facility] [address] [facility] [address] [place] [address] Nicolás Jeffries MD [address] [place] [address] Medical Records Social History Tobacco Use Types [...] Check, [phone] on 05/11/2024. documented in this encounter Plan of Treatment Upcoming Encounters Date Type Department Care Team (Late st Contact Info) Description 07/02/2024 4:00 PM EDT Office Visit Adult Medicine [place] [address] [address] Nicolás Jeffries MD [address] [place] [address] 08/09/2024 2:00 PM EDT Office Visit [facility] Cardiology [facility] - [address] [place] [address] Rikki Shukla MD [address] [place] [address] [address] [place] [address] 10/12/2024 4:30 PM EDT Ancillary Procedure [facility] Cardiology [facility] [address] [place] [address] 01/10/2025 2:15 PM EDT Office Visit [address] [phone] Aung Pinto MD [address] [place] [address] documented as of this encounter Visit Diagnoses Not on filedocumented in this encounter Care Teams Public Service Representative Relationship Specialty Start Date End Date Nicolás Jeffries MD [address] [place] [address] PCP - General Internal Medicine 02/11/24 documented as of this encounter
--- OUTSIDE RECORDS SUMMARY | 2024-06-17 16:54 | XMS_ITS ---
Author Organization [facility] Address [address] [place] [address] Care Team Providers Care Faucets Assembler Name Role Phone Sugey Stratton Primary Care Provider DAHLIA Merino Unavailable [phone] Allergies Allergen (clinical drug ingredient) Drug/Non Drug Allergy documented on EMR Reaction Allergy Type Onset Date Status metoprolol Lopressor Unknown Drug Allergy Active acetaminophen / oxycodone Percocet Unknown Drug Allergy Active REASON FOR VISIT 3 month f/u Medications Medication SIG (Take, Route, Frequency, Duration) Notes Start Date End Date Status Lidocaine-Prilocaine 2.5-2.5 % as directed Externally apply 2 grams to each foot once daily at night prn pain for 90 days Active Loratadine 10 MG 1 tablet Orally Once a day Not-Taking Lidocaine-Prilocaine 2.5-2.5 % 1 gm to each foot Externally once a day nightly PRN pain for 90 days 12/21/2020 Not-Taking Ciclopirox Olamine 0.77 % 1 application (1 gm to each foot) Externally Twice a day for 90 days Active Calcium Carbonate-Vitamin D 500-400 MG-UNIT 1 tablet Orally daily Not-Taking Simethicone 180 MG 1 capsule after meals and at bedtime as needed Orally 3 times daily Not-Taking Magnesium Oxide 400 MG 1 tablet as needed Orally bid Not-Taking Clotrimazole-Betameth asone 1-0.05 % 1 application Externally Twice a day Not-Taking Fluorouracil 5 % 1 application Externally Twice a day Not-Taking Xanax 0.25 MG 1 tablet Orally Twice a day prn for anxiety Not-Taking Metoprolol Succinate ER 100 MG 1 tablet Orally Once a day Not-Taking Lisinopril 2.5 MG 1 tablet Orally Once a day Not-Taking Ciclopirox 0.77 % 1 application Externally apply topically 2 grams to each foot bid as directed Not-Taking Metoprolol Succinate ER 50 MG 1 tablet Orally Once a day Not-Taking Flonase Allergy Relief 50 MCG/ACT 2 sprays in each nostril Nasally Once a day prn Not-Taking Senna 8.6 MG 1 capsule Orally Once a day Active Ketoconazole 2 % 1 application Externally Once a day Not-Taking Lipitor 20 MG 1 tablet Orally Once a day Active ZyrTEC Allergy 10 MG 1 tablet Orally Once a day Not-Taking Furosemide 40 MG 1 tablet Orally prn take 1.5 tablets by mouth daily. total of 60mg Not-Taking NIFEdipine ER 90 MG 1 tablet on an empty stomach Orally Once a day Active Levothyroxine Sodium 100 MCG 1 tablet in the morning on an empty stomach Orally Once a day Active Aspirin 81 MG 1 tablet Orally Once a day Active hydrALAZINE HCl 50 MG 1 tablet with food Orally Three times a day Active Lantus SoloStar 100 UNIT/ML as directed Subcutaneous 80 units daily Active Nitroglycerin 0.4 MG as directed Sublingual Active glipiZIDE 10 MG 1 tablet 30 minutes before breakfast Orally twice a day Active Colace 100 MG 1 capsule as needed Orally twice a day Active Plavix 75 MG 1 tablet Orally Once a day Active Coreg 6.25 MG 1 tablet with food Orally Twice a day Active GlycoLax 17 GM/SCOOP as directed Orally Active traMADol HCl 50 MG 1 tablet as needed Orally Once a day PRN Active Torsemide 20 MG as directed Orally Active Lyrica 100 MG 1 capsule Orally Twice a day Active Protonix 40 MG 1 tablet Orally Once a day Active Tylenol 1,000MG PRN Active Ipratropium [place] 0.03 % 2 sprays in each nostril Nasally Twice a day Active Vitamin D 50 MCG (2000 UT) 1 tablet Orally Once a day Active Ferrous Sulfate 325 (65 Fe) MG 1 tablet Orally Once a day Active Farxiga 10 MG 1 tablet Orally Once a day Active Tamsulosin HCl 0.4 MG 1 capsule Orally Once a day Active Mupirocin 2 % 1 application Externally Twice a day Active Amiodarone HCl 200 MG 1 tablet Orally Once a day Active Albuterol Sulfate HFA 108 (90 Base) MCG/ACT 1 puff as needed Inhalation every 4 hrs Active Nystatin 985612 UNIT/GM 1 application Externally Twice a day Active Vital Signs Temperature 96.1 degrees Fahrenheit 03/10/20 Heart Rate 71 /min 03/10/2024 Respiratory Rate 20 /min 03/10/2024 Height 5ft 6in in 03/10/2024 Weight 244.6 lbs 03/10/2024 BMI 39.48 kg/m2 03/10/2024 Encounters Encounter Location Date Provider Diagnosis [facility] [address] [place] [address] 03/10/2024 DAHLIA RYAN Type 2 diabetes mellitus with other circulatory complications E11.59 ; Type 2 diabetes mellitus with diabetic polyneuropathy E11.42 ; Pain in left toe(s) M79.675 ; Onychomycosis B35.1 ; Xerosis of skin L85.3 and Pain in right toe(s) M79.674 Assessments Encounter Date Diagnosis (ICD Code) Assessment Notes Treatment Notes Treatment Clinical Notes Section Notes 03/10/2024 Type 2 diabetes mellitus with other circulatory complications (ICD-10 - E11.59) 03/10/2024 Type 2 diabetes mellitus with diabetic [...] receive his new diabetic shoes and inserts. 03/10/2024 Pain in left toe(s) (ICD-10 - M79.675) No new acute gout attack since his last visit. 03/10/2024 Onychomycosis (ICD-10 - B35.1) I reviewed with the patient various treatment methods for toenail fungus including topical, oral, laser, and removal of the infected toenails. Continue Ciclopirox to apply to each affected toenail daily. Aseptic trimming of toenails x 10 with crystal cutter, pt tolerated well. All bleeding controlled [...] may have to pay out of pocket. 03/10/2024 Xerosis of skin (ICD-10 - L85.3) He applies cream to his feet every day. 03/10/2024 Pain in right toe(s) (ICD-10 - M79.674) Plan Of Treatment Medication Medication Name Sig Start Date Stop Date Notes Lidocaine-Prilocaine 2.5-2.5 % as directed Externally apply 2 grams to each foot once daily at night prn pain for 90 days Ciclopirox Olamine 0.77 % 1 application (1 gm to each foot) Externally Twice a day for 90 days Next Appt Details Follow Up: 3 Months, Reason: Provider Name:DAHLIA RYAN, 09/22/2024 01:30:00 PM, [address] [address], [place], [address], Progress Notes * ALEXPEGRichardDOB:1940 (83 yo M)Acc No.[id number]:03/10/2024 Progress Note Patient:Richard BARAJAS Provider:?Dahlia Ryan DPM :1940???Age:83 Y???Sex:Male Ned e:03/10/2024 Address:[address] [place], [place] [phone] Pcp:Sugey Stratton Subjective: * Chief Complaints: * ???3 month f/u * HPI: ???Constitutional:? This 83 y/o male returns to my office for a follow-up to toenail fungus, dry skin, and for a diabetic foot evaluation. He is currently going through medical clearance for back surgery. He denies any gout attacks since his last visit. He does complain of thick, long, painful toenails this visit. He is asking for a refill on his prescriptions. He has no other foot complaints. His last visit with his PCP Mervin for diabetes management was 02/22/24. His last hgba1c was 7.9. Allergies and medical history reviewed. * ROS:?GENERAL: Pt denies nausea, fever, vomiting, chills, or shortness of breath. Pt in NAD. ALLERGY: patient denies any new allergy HEME/ONC: patient denies any bleeding or clotting disorders CARDIOLOGY: pt denies chest pain, palpitations LUNGS: pt denies shortness of breath ABDOMEN: patient denies any bloating, abdominal pain, or swelling MUSCULOSKELETAL: See HPI,patient has arm pain and leg pain from cardiac surgery. SKIN: see HPI, otherwise no lesions, rash or itching NEURO: No persistent headache PSYCH: patient denies any current anxiety or depression The remainder of the review of systems is noncontributory. * Medical History:? * Surgical History:?pacemaker EGD biopsy cardiac cath colonoscopy appendectomy umbilical hernia repair * Hospitalization/Major Diagno stic Procedure:?open heart surgery 01/12/2021OB OVID pneumonia 05/2023 * Family History:? no positive family history reported. * Social History:?Tobacco: never smoker Alcohol: no. * Medications:?TakingCiclopiro x Olamine 0.77 % Cream 1 application (1 gm to each foot) Externally Twice a day Lidocaine-Prilocaine 2.5-2.5 % Cream as directed Externally apply 2 grams to each foot once daily at night prn pain Tamsulosin HCl 0.4 MG Capsule 1 capsule Orally Once a day Mupirocin 2 % Ointment 1 application Externally Twice a day Albuterol Sulfate HFA 108 (90 Base) MCG/ACT Aerosol Solution 1 puff as needed Inhalation every 4 hrs Nystatin 252713 UNIT/GM Ointment 1 application Externally Twice a day Amiodarone HCl 200 MG Tablet 1 tablet Orally Once a day Ipratropium [place] 0.03 % Solution 2 sprays in each nostril Nasally Twice a day Ferrous Sulfate 325 (65 Fe) MG Tablet 1 tablet Orally Once a day Farxiga 10 MG Tablet 1 tablet Orally Once a day Vitamin D 50 MCG (2000 UT) Tablet 1 tablet Orally Once a day Tylenol , Notes to Pharmacist: 1,000MG PRNTorsemide 20 MG Tablet as directed Orally GlycoLax 17 GM/SCOOP Powder as directed Orally traMADol HCl 50 MG Tablet 1 tablet as needed Orally Once a day , Notes to Pharmacist: PRNLyrica 100 MG Capsule 1 capsule Orally Twice a day Protonix 40 MG Tablet Delayed Release 1 tablet Orally Once a day Nitroglycerin 0.4 MG Tablet Sublingual as directed Sublingual glipiZIDE 10 MG Tablet 1 tablet 30 minutes before breakfast Orally twice a day Colace 100 MG Capsule 1 capsule as needed Orally twice a day Plavix 75 MG Tablet 1 tablet Orally Once a day Coreg 6.25 MG Tablet 1 tablet with food Orally Twice a day Aspirin 81 MG Tablet Delayed Release 1 tablet Orally Once a day hydrALAZINE HCl 50 MG Tablet 1 tablet with food Orally Three times a day NIFEdipine ER 90 MG Tablet Extended Release 24 Hour 1 tablet on an empty stomach Orally Once a day Levothyroxine Sodium 100 MCG Tablet 1 tablet in the morning on an empty stomach Orally Once a day Lantus SoloStar 100 UNIT/ML Solution Pen-injector as directed Subcutaneous , Notes to Pharmacist: 80 units dailyLipitor 20 MG Tablet 1 tablet Orally Once a day Senna 8.6 MG Capsule 1 capsule Orally Once a day Taking Ciclopirox Olamine 0.77 % Cream 1 application (1 gm to each foot) Externally Twice a day Taking Lidocaine-Prilocaine 2.5-2.5 % Cream as directed Externally apply 2 grams to each foot once daily at night prn pain Taking Tamsulosin HCl 0.4 MG Capsule 1 capsule Orally Once a day Taking Mupirocin 2 % Ointment 1 application Externally Twice a day Taking Albuterol Sulfate HFA 108 (90 Base) MCG/ACT Aerosol Solution 1 puff as needed Inhalation every 4 hrs Taking Nystatin 654026 UNIT/GM Ointment 1 application Externally Twice a day Taking Amiodarone HCl 200 MG Tablet 1 tablet Orally Once a day Taking Ipratropium [place] 0.03 % Solution 2 sprays in each nostril Nasally Twice a day Taking Ferrous Sulfate 325 (65 Fe) MG Tablet 1 tablet Orally Once a day Taking Farxiga 10 MG Tablet 1 tablet Orally Once a day Taking Vitamin D 50 MCG (2000 UT) Tablet 1 tablet Orally Once a day Taking Tylenol , Notes to Pharmacist: 1,000MG PRNTaking Torsemide 20 MG Tablet as directed Orally Taking GlycoLax 17 GM/SCOOP Powder as directed Orally Taking traMADol HCl 50 MG Tablet 1 tablet as needed Orally Once a day , Notes to Pharmacist: PRNTaking Lyrica 100 MG Capsule 1 capsule Orally Twice a day Taking Protonix 40 MG Tablet Delayed Release 1 tablet Orally Once a day Taking Nitroglycerin 0.4 MG Tablet Sublingual as directed Sublingual Taking glipiZIDE 10 MG Tablet 1 tablet 30 minutes before breakfast Orally twice a day Taking Colace 100 MG Capsule 1 capsule as needed Orally twice a day Taking Plavix 75 MG Tablet 1 tablet Orally Once a day Taking Coreg 6.25 MG Tablet 1 tablet with food Orally Twice a day Taking Aspirin 81 MG Tablet Delayed Release 1 tablet Orally Once a day Taking hydrALAZINE HCl 50 MG Tablet 1 tablet with food Orally Three times a day Taking NIFEdipine ER 90 MG Tablet Extended Release 24 Hour 1 tablet on an empty stomach Orally Once a day Taking Levothyroxine Sodium 100 MCG Tablet 1 tablet in the morning on an empty stomach Orally Once a day Taking Lantus SoloStar 100 UNIT/ML Solution Pen-injector as directed Subcutaneous , Notes to Pharmacist: 80 units dailyTaking Lipitor 20 MG Tablet 1 tablet Orally Once a day Taking Senna 8.6 MG Capsule 1 capsule Orally Once a day Not- TakingKetoconazole 2 % Cream 1 application Externally Once a day ZyrTEC Allergy 10 MG Tablet 1 tablet Orally Once a day Furosemide 40 MG Tablet 1 tablet Orally prn , Notes to Pharmacist: take 1.5 tablets by mouth daily. total of 60mgFlonase Allergy Relief 50 MCG/ACT Suspension 2 sprays in each nostril Nasally Once a day prn Ciclopirox 0.77 % Gel 1 application Externally apply topically 2 grams to each foot bid as directed Metoprolol Succinate ER 50 MG Tablet Extended Release 24 Hour 1 tablet Orally Once a day Metoprolol Succinate ER 100 MG Tablet Extended Release 24 Hour 1 tablet Orally Once a day Lisinopril 2.5 MG Tablet 1 tablet Orally Once a day Clotrimazole-Betamethasone 1-0.05 % Cream 1 application Externally Twice a day Fluorouracil 5 % Cream 1 application Externally Twice a day Simethicone 180 MG Capsule 1 capsule after meals and at bedtime as needed Orally 3 times daily Magnesium Oxide 400 MG Tablet 1 tablet as needed Orally bid Xanax 0.25 MG Tablet 1 tablet Orally Twice a day prn for anxiety Calcium Carbonate-Vitamin D 500-400 MG-UNIT Tablet 1 tablet Orally daily Loratadine 10 MG Tablet 1 tablet Orally Once a day Lidocaine-Prilocaine 2.5-2.5 % Cream 1 gm to each foot Externally once a day nightly PRN pain Medication List reviewed and reconciled with the patientNot-Taking Ketoconazole 2 % Cream 1 application Externally Once a day Not-Taking ZyrTEC Allergy 10 MG Tablet 1 tablet Orally Once a day Not-Taking Furosemide 40 MG Tablet 1 tablet Orally prn , Notes to Pharmacist: take 1.5 tablets by mouth daily. total of 60mgNot-Taking Flonase Allergy Relief 50 MCG/ACT Suspension 2 sprays in each nostril Nasally Once a day prn Not-Taking Ciclopirox 0.77 % Gel 1 application Externally apply topically 2 grams to each foot bid as directed Not-Taking Metoprolol Succinate ER 50 MG Tablet Extended Release 24 Hour 1 tablet Orally Once a day Not-Taking Metoprolol Succinate ER 100 MG Tablet Extended Release 24 Hour 1 tablet Orally Once a day Not-Taking Lisinopril 2.5 MG Tablet 1 tablet Orally Once a day Not-Taking Clotrimazole-Betamethasone 1-0.05 % Cream 1 application Externally Twice a day Not-Taking Fluorouracil 5 % Cream 1 application Externally Twice a day Not- Taking Simethicone 180 MG Capsule 1 capsule after meals and at bedtime as needed Orally 3 times daily Not-Taking Magnesium Oxide 400 MG Tablet 1 tablet as needed Orally bid Not-Taking Xanax 0.25 MG Tablet 1 tablet Orally Twice a day prn for anxiety Not-Taking Calcium Carbonate-Vitamin D 500-400 MG-UNIT Tablet 1 tablet Orally daily Not-Taking Loratadine 10 MG Tablet 1 tablet Orally Once a day Not-Taking Lidocaine-Prilocaine 2.5-2.5 % Cream 1 gm to each foot Externally once a day nightly PRN pain Medication List reviewed and reconciled with the patient * Allergies:?LopressorPercocet no[Allergies Verified] Objective: * Vitals:?Wt: 244.6 lbs, Ht: 5 ft 6in, BMI: 39.48 Index, HR: 71 /min, Temp: 96.1 F, RR: 20 /min, Ht-cm: 167.64, Wt-k.95 kg. * Examination: ???General Examination: ???GENERAL: Patient appears well nourished, with NAD. ?VASCULAR: Dorsalis pedis pulses are 1/4 bilaterally and Posterior tibial pulses are 0/4 bilaterally, biphasic on doppler. Capillary filling time within normal limits the digits. No pallor on elevation or rubor on dependency. No hair growth. Varicosities of the legs with trace edema. Denies rest pain or claudication pain. Each foot temperature is within normal limits. ?NEUROLOGICAL: Sharp/dull sensation intact bilaterally, protective sensation intact 10/10 with 5.07 [place] bilaterally, vibratory sensation with tuning fork diminished to the tibial tuberosity bilaterally, position sense diminished bilaterally to the tibial tuberosity. ?ORTHOPEDIC: Good muscle strength 4+/5 of all flexors and extensors. Dorsi flexion of ankle ,0 degrees, plantar flexion WNL. No muscle atrophy. Edema, erythema, and pain on palpation and ROM of the left subtalar joint + warm to the touch. ?DERMATOLOGICAL: Diffuse dry skin plantarly. 4mm thickened yellowed elongated dystrophic toenails of all ten toes with subungual debris and tenderness on palpation. No masses, openings, or skin lesions noted. Normal skin temperature, normal skin turgor. ?BIOMECHANICS: STJ ROM limited, MTJ ROM limited, 1st MPJ ROM limited. On weight bearing, hallux limitus bilaterally, pes planus bilaterally. ?SHOES: loafers. Assessment: * Assessment: 1.?Type 2 diabetes mellitus with other circulatory complications - E11.59 (Primary)?2.?Type 2 diabetes mellitus with diabetic polyneuropathy - E11.42?3.?Pain in left toe(s) - M79.675?4.?Onychomycosis - B35.1?5.?Xerosis of skin - L85.3?6.?Pain in right toe(s) - M79.674? Plan: * Treatment: 2.?Type 2 diabetes mellitus with diabetic polyneuropathy? Clinical Notes: Discussed with patient regarding proper glucose control, [...] receive his new diabetic shoes and inserts. ?? 3.?Pain in left toe(s)? Clinical Notes: No new acute gout attack since his last visit. ?? 4.?Onychomycosis? Refill Ciclopirox Olamine Cream, 0.77 %, 1 application (1 gm to each foot), Externally, Twice a day, 90 days, 360, Refills 7.?? Clinical Notes: I reviewed with the patient various treatment methods for toenail fungus including topical, oral, laser, and removal of the infected toenails. Continue Ciclopirox to apply to each affected toenail daily. Aseptic trimming of toenails x 10 with crystal cutter, pt tolerated well. All bleeding controlled with pressure and silver nitrate. Bacitracin and a band-aid applied to the right hallux. He can remove tomorrow. Discussed with the patient that routine nail care services are only covered by insurance every 60 days. Pt understands that if they would like to return prior to this time frame, they may have to pay out of pocket.?? 5.?Xerosis of skin? Clinical Notes: He applies cream to his feet every day. ?? * Procedure Codes:?89732 DEBRI DE NAIL, 6 OR MORE, Modifiers: q9 * Follow Up:?3 Months * Billing Information: * Visit Code:? 08461 Office Visit, Est Pt., Level 3. Modifiers: 25 * Procedure Codes:? 43265 DEBRIDE NAIL, 6 OR MORE. Modifiers: q9 * Sign off status: Completed true * Provider:Gale Ryan DPM Date:? 03/10/2024 Generated for Osvaldo boone/Davian/Mireille on:?06/17/2024 04:53 PM EDT History and Physical Notes * HPI (History of Present Illness) Category Sub-Category Detail Notes Category Not es Constitutional This 83 y/o m rick returns to my office for a follow-up to toenail fungus, dry skin, and for a diabetic foot evaluation. He is currently going through medical clearance for back surgery. He denies any gout attacks since his last visit. He does complain of thick, long, painful toenails this visit. He is asking for a refill on his prescriptions. He has no other foot complaints. His last visit with his PCP Mervin for diabetes management was 02/22/24. His last hgba1c was 7.9. Allergies and medical history reviewed. Examination Category Sub-Category Detail Notes Category Not es General Examination GENERAL: Patient appears well nourished, with NAD. VASCULAR: Dorsalis pedis pulses are 1/4 bilaterally and Posterior tibial pulses are 0/4 bilaterally, biphasic on doppler. Capillary filling time within normal limits the digits. No pallor on elevation or rubor on dependency. No hair growth. Varicosities of the legs with trace edema. Denies rest pain or claudication pain. Each foot temperature is within normal limits. NEUROLOGICAL: Sharp/dull sensation intact bilaterally, protective sensation intact 10/10 with 5.07 [place] bilaterally, vibratory sensation with tuning fork diminished to the tibial tuberosity bilaterally, position sense diminished bilaterally to the tibial tuberosity. ORTHOPEDIC: Good muscle strength 4+/5 of all flexors and extensors. Dorsi flexion of ankle ,0 degrees, plantar flexion WNL. No muscle atrophy. Edema, erythema, and pain on palpation and ROM of the left subtalar joint + warm to the touch. DERMATOLOGICAL: Diffuse dry skin plantarly. 4mm thickened yellowed elongated dystrophic toenails of all ten toes with subungual debris and tenderness on palpation. No masses, openings, or skin lesions noted. Normal skin temperature, normal skin turgor. BIOMECHANICS: STJ ROM limited, MTJ ROM limited, 1st MPJ ROM limited. On weight bearing, hallux limitus bilaterally, pes planus bilaterally. SHOES: loafers
--- OUTSIDE RECORDS SUMMARY | 2024-06-17 16:54 | XMS_ITS | Encounter Summary ---
Author Organization [facility] Address [address] [place] [address] Care Team Providers Care Retail Store Clerk Name Role Phone Nicolás Jeffries MD Primary Care Provider [phone] Reason for Visit * Reason Onset Date Comments advice on medications 05/21/2024 Encounter Details Date Type Department Care Team (Late Contact Info) Description 05/21/2024 Telephone [facility] [address] [place] [address] Aung Pinto MD [address] [place] [address] advice on medications Social History [...] EDT [facility] [address] [address] Nicolás Jeffries MD [address] [place] [address] 08/09/2024 2:00 PM EDT Office Visit [facility] - [address] [place] [address] Rikki Shukla MD [address] [place] [address] [address] [place] [address] 10/12/2024 4:30 PM EDT Ancillary Procedure [facility] [address] [place] [address] 01/10/2025 2:15 PM EDT Office Visit Endocrinology - [address] [address] Aung Pinto MD [address] [place] [phone] documented as of this encounter Visit Diagnoses Not on filedocumented in this encounter Care Teams Retail Store Clerk Relationship Specialty Start Date End Date Nicolás Jeffries MD [address] [place] [address] PCP - General Internal Medicine 02/11/24 documented as of this encounter
--- OUTSIDE RECORDS SUMMARY | 2024-06-17 16:54 | XMS_ITS | Encounter Summary ---
Author Organization [facility] Address [address] [place] [address] Care Team Providers Care Roller Print Tender Name Role Phone Nicolás Jeffries MD Primary Care Provider [phone] Reason for Visit * Reason Onset Date Comments OV NOTES 05/28/2024 Encounter Details Date Type Department Care Team (Late st Contact Info) Description 05/28/2024 Telephone Endocrinology - [place] [address] [place], [place] [phone] Aung Pinto MD [address] [place] [address] OV NOTES Social History Tobacco [...] AM EST Joyce from Dr. Warner office, [facility], is asking if we would be able to sendpatients last OV notes from appointment with Dr. Pinto in May, to [phone]. Patient followsDr. Warner for diabetic foot exams documented in this encounter Plan of Treatment Upcoming Encounters Date Type Department Care Team (Late st Contact Info) Description 07/02/2024 4:00 PM EDT [facility] - [address] [phone] Nicolás Jeffries MD [address] [place] [address] 08/09/2024 2:00 PM EDT Office Visit [facility] Cardiology [facility] - [address] [place] [address] Rikki Shukla MD [address] [place] [address],[address] [address] 10/12/2024 4:30 PM EDT Ancillary Procedure [facility] Cardiology [facility] [address] [place] [address] 01/10/2025 2:15 PM EDT Office Visit Endocrinology - [address] [phone] Aung Pinto MD [address] [place] [phone] documented as of this encounter Visit Diagnoses Not on filedocumented in this encounter Care Teams Roller Print Tender Relationship Specialty Start Date End Date Nicolás Jeffries MD [address] [place] [address] PCP - General Internal Medicine 02/11/24 documented as of this encounter
--- OUTSIDE RECORDS SUMMARY | 2024-06-17 16:54 | XMS_ITS | Encounter Summary ---
Author Organization [facility] Address [address] [place] [address] Care Team Providers Care Hand Sander Name Role Phone Nicolás Jeffries MD Primary Care Provider [phone] Reason for Visit * Reason Onset Date Comments Results 05/18/2024 US of breast Encounter Details Date Type Department Care Team (Late st Contact Info) Description 05/18/2024 Telephone Adult Medicine [facility] [address] [place], [place] [phone] Danita Velásquez NP [address] [place], [place] Results (US of breast ) Social [...] PM EDT Office Visit Adult Medicine [place] [address] [phone] Nicolás Jeffries MD [address] [place] [address] 08/09/2024 2:00 PM EDT Office Visit [facility] Cardiology [facility] - [address] [place] [address] Rikki Shukla MD [address] [place] [address] 10/12/2024 4:30 PM EDT Ancillary Procedure [facility] Cardiology [facility] - [address] [place] [address] 01/10/2025 2:15 PM EDT Office Visit Endocrinology [address] [phone] Aung Pinto MD [address] [place] [address] documented as of this encounter Visit Diagnoses Not on filedocumented in this encounter Care Teams Hand Sander Relationship Specialty Start Date End Date Nicolás Jeffries MD [address] [place] [address] PCP - General Internal Medicine 02/11/24 documented as of this encounter
--- OUTSIDE RECORDS SUMMARY | 2024-06-17 16:54 | XMS_ITS | Encounter Summary ---
Author Organization [facility] Address [address] [place] [address] Care Team Providers Care Medical Library Assistant Name Role Phone Nicolás Jeffries MD Primary Care Provider Reason for Referral * Imaging (Routine) - Closed Specialty Diagnoses / Procedures Referred By Contac t Referred To Contact Radiology Diagnoses Nipple pain Procedures US Breast Limited bilat US Breast Complete bilat Screening Danita Velásquez NP [address] [place] [address] Phone: tel: fax: [address] Phone: tel: Referral ID Status Reason Start Date Expiration Date Visits Re quested Visits Authorized [id number] Closed 04/26/2024 04/26/2025 1 1 Reason for Visit * Imaging (Routine) - Closed Specialty Diagnoses / Procedures Referred By Contac t Referred To Contact Radiology Diagnoses Nipple pain Procedures US Breast Limited bilat US Breast Complete bilat Screening Danita Velásquez NP [address] [place] [address] Phone: tel: fax: [address] Phone: tel: Referral ID Status Reason Start Date Expiration Date Visits Re quested Visits Authorized [id number] Closed 04/26/2024 04/26/2025 1 1 Encounter Details Date Type Department Care Team (Latest Contact Info) Description 05/18/2024 1:04 PM EST - 05/18/2024 11:59 PM EST Hospital Encounter Radiology Department - [address] [phone] Nipple pain Discharge Disposition: Home or Self [...] daily. 12/31/2023 blood-glucose meter,continuous (FreeStyle Quintin 3 [employer]) misc 1 Device by Does not apply [...] ointment Apply to affected area TID 06/26/2022 NMRKTuch Ultra Test test strip USE 1 STRIP [...] 4:00 PM EDT Office Visit Adult Medicine [address] [phone] Nicolás Jeffries MD [address] [place] [address] 08/09/2024 2:00 PM EDT Office Visit [facility]iology [address] [place] [address] Rikki Shukla MD [address] [place] [address],[facility] [address] [place] [address] 10/12/2024 4:30 PM EDT Ancillary Procedure [facility] [address] [facility] [address] [place] [address] 01/10/2025 2:15 PM EDT Office Visit Endocrinology [address] [phone] Aung Pinto MD [address] [place] [phone] documented as of this encounter Procedures Procedure [...] of bilateral breasts is recommended. MAMMO LOCATION: [facility], [address] [place] [address], [address], . -------- FINAL REPORT -------- Dictated By: Jojo Alfaro Dictated Date: 05/18/2024 14:02 ET Assigned Physician: Jojo Alfaro Reviewed and Electronically Signed By: Jojo Alfaro Signed Date: 05/18/2024 14:13 ET Workstation ID: [id number] Transcribed By: Self Edit Transcribed Date: 05/18/2024 [...] of bilateral breasts is recommended. MAMMO LOCATION: [facility], [address] [place] [address], [address], . -------- FINAL REPORT -------- Dictated By: Jojo Alfaro Dictated Date: 05/18/2024 14:02 ET Assigned Physician: Jojo Alfaro Reviewed and Electronically Signed By: Jojo Alfaro Signed Date: 05/18/2024 14:13 ET Workstation ID: [id number] Transcribed By: Self Edit Transcribed Date: 05/18/2024 14:02 ET us Danita Velásquez BROMINATION EQUIPMENT OPERATOR IMG US PROCEDURES Final Resu lt documented in this encounter Visit Diagnoses Diagnosis Nipple pain Other sign and symptom in breast Encounter for adjustment or management of cardiac device documented in this encounter Care Teams Medical Library Assistant Relationship Specialty Start Date End Date Nicolás Jeffries MD [address] [place] [address] PCP - General Internal Medicine 02/11/24 documented as of this encounter
--- OUTSIDE RECORDS SUMMARY | 2024-06-17 16:54 | XMS_ITS | Encounter Summary ---
Author Organization [facility] Address [address] [place] [address] Care Team Providers Care Diesel Technician Mechanic Name Role Phone Nicolás Jeffries MD Primary Care Provider [phone] Reason for Visit * Reason Onset Date Comments Pre-operative Clearance 05/12/2024 Encounter Details Date Type Department Care Team (Late st Contact Info) Description 05/12/2024 Telephone [facility] [address] [phone] Rikki Shukla MD [address] [place] [address],[address] [address] Pre-operative Clearance Social History Tobacco Use Types [...] surgery I 05/27/24. Please fax letter to [phone] documented in this encounter Plan of Treatment Upcoming Encounters Date Type Department Care Team (Late st Contact Info) Description 07/02/2024 4:00 PM EDT Office Visit Adult Medicine [address] [phone] Nicolás Jeffries MD [address] [place] [address] 08/09/2024 2:00 PM EDT Office Visit [facility] [address] [place] [address] Rikki Shukla MD [address] [place] [address],[facility] [address] [place] [address] 10/12/2024 4:30 PM EDT Ancillary Procedure [facility] [address] [facility] [address] [place] [address] 01/10/2025 2:15 PM EDT Office Visit Endocrinology [address] [phone] Aung Pinto MD [address] [place] [address] documented as of this encounter Visit Diagnoses Not on filedocumented in this encounter Care Teams Diesel Technician Mechanic Relationship Specialty Start Date End Date Nicolás Jeffries MD [address] [place] [address] PCP - General Internal Medicine 02/11/24 documented as of this encounter
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
--- OUTSIDE RECORDS SUMMARY | 2024-06-17 16:54 | XMS_ITS | Encounter Summary ---
Author Organization [facility] Address [address] [place] [address] Care Team Providers Care Installment Agent Name Role Phone Nicolás Jeffries MD Primary Care Provider [phone] Encounter Details Date Type Department Care Team (Late st Contact Info) Description 06/04/2024 Telephone [facility] - [facility] [address] [facility] [address] [place] [phone] Rikki Ley MD [address] [place] [address] Social History Tobacco Use Types Packs/Day Years [...] 06/04/2024 2:33 PM EST I spoke to Daneyll and informed her of the below message [place] [facility] [place] She voiced understanding. * Mat Brown [...] 40 mg BID - increased by his Air Traffic Supervisor about a month ago per pt. He [...] EDT Office Visit [facility] [place] [address] [place] [address] Nicolás Jeffries MD [address] [place], [place] 08/09/2024 2:00 PM EDT Office Visit [facility] - [address] [place] [address] Rikki Shukla MD [address] [place] [address],[facility] [address] [place] [address] 10/12/2024 4:30 PM EDT Ancillary Procedure [facility] - [address] [place] [address] 01/10/2025 2:15 PM EDT Office Visit Endocrinology - [address] [phone] uAng Pinto MD [address] [place] [phone] documented as of this encounter Visit Diagnoses Not on filedocumented in this encounter Care Teams Installment Agent Relationship Specialty Start Date End Date Nicolás Jeffries MD [address] [place] [address] PCP - General Internal Medicine 02/11/24 documented as of this encounter
--- OUTSIDE RECORDS SUMMARY | 2024-06-17 16:54 | XMS_ITS | Encounter Summary ---
Author Organization [facility] Address [address] [place] [address] Care Team Providers Care Certified Vehicle Fire Investigator Name Role Phone Nicolás Jeffries MD Primary Care Provider [phone] Reason for Visit * Reason Onset Date Comments Hospital Follow-up 06/02/2024 Encounter Details Date Type Department Care Team (Late st Contact Info) Description 06/02/2024 Telephone Adult Medicine [facility] [address] [place] [phone] Saida Peralta [place] Hospital Follow-up Social History Tobacco Use Types [...] needed Hospital patient was treated at: [facility] Was this only an ER [...] was the injury due to: Not 3rd alliance party related documented in this encounter Plan of Treatment Upcoming Encounters Date Type Department Care Team (Late st Contact Info) Description 07/02/2024 4:00 PM EDT Office Visit Adult Medicine [address] [phone] Nicolás Jeffries MD [address] [place] [address] 08/09/2024 2:00 PM EDT Office Visit [facility] Card[facility] [address] [facility] [address] [place] [address] Rikki Shukla MD [address] [place] [address],[address] [place] [address] 10/12/2024 4:30 PM EDT Ancillary Procedure [facility] - [facility] [address] [facility] [address] [place] [phone] 01/10/2025 2:15 PM EDT Office Visit Endocrinology - [address] [address] Aung Pinto MD [address] [place] [phone] documented as of this encounter Visit Diagnoses Not on filedocumented in this encounter Care Teams Certified Vehicle Fire Investigator Relationship Specialty Start Date End Date Nicolás Jeffries MD [address] [place] [address] PCP - General Internal Medicine 02/11/24 documented as of this encounter
--- OUTSIDE RECORDS SUMMARY | 2024-06-17 16:55 | XMS_ITS | Encounter Summary ---
Author Organization [facility] Address [address] [place] [address] Care Team Providers Care Molder Apprentice Name Role Phone Nicolás Jeffries MD Primary Care Provider [phone] Encounter Details Date Type Department Care Team (Late st Contact Info) Description 06/08/2024 11:55 AM EDT Ancillary Procedure [facility] [address] [facility] [address] [place] [phone] Social History Tobacco Use Types Packs/Day Years [...] 4:00 PM EDT Office Visit Adult Medicine [address] [phone] Nicolás Jeffries MD [address] [place] [address] 08/09/2024 2:00 PM EDT Office Visit [facility] Cardiology [address] [place] [phone] Rikki Shukla MD [address] [place] [address],[address] [address] 10/12/2024 4:30 PM EDT Ancillary Procedure [facility] - [address] [place] [address] 01/10/2025 2:15 PM EDT Office Visit Endocrinology - [place] [address] [place] [address] Aung Pinto MD [address] [place] [address] documented as of this encounter Procedures Procedure Name Priority Date/Time Associated Diagnosis Comments CARDIAC DEVICE CHECK- REMOTE- MURJ Routine 06/08/2024 11:53 AM EDT documented in this encounter Results * Cardiac device check - Remote- MURJ (06/08/2024 11:53 AM EDT) Date Time Interrogation Session [id number] CV DEVICE CHECK Type Interrogation Session Remote Scheduled CV DEVICE CHECK Implantable Pulse Generator Health 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 And Treatment Teacher [employer] CV DEVICE CHECK Implantable Pulse Generator Type ICD CV DEVICE CHECK Implantable Pulse Generator Model [id number] John(JAILENE) CV DEVICE CHECK Implantable Pulse Generator Serial Number [id number] CV DEVICE CHECK Implantable Pulse Generator Implant Date 20210720 CV DEVICE CHECK Battery Remaining Percentage 69.00 CV DEVICE CHECK Battery Remaining Longevity 74.0 CV DEVICE CHECK Battery Voltage 2.980 CV D EVICE CHECK Battery SUPERVISOR FINAL Trigger 2.620 CV DEVICE CHECK Battery Status Middle of Service CV DEVICE CHECK Capacitor Charge Time 8.800 CV DEVICE CHECK Sanket Statistic RA Percent Paced 13.00 CV DEVICE CHECK Sanket Statistic RV Percent Paced 44.00 CV DEVICE CHECK Atrial Tachy Statistic AT/AF [place] Percent 0.00 CV DEVICE CHECK Lead Channel [...] us Ines SANTO CV IMPLANTABLE CARDIAC DEVICE OR OCEDURES Final Result documented in this encounter Visit Diagnoses Not on filedocumented in this encounter Care Teams Molder Apprentice Relationship Specialty Start Date End Date Nicolás Jeffries MD [address] [place] [phone] PCP - General Internal Medicine 02/11/24 documented as of this encounter
--- OUTSIDE RECORDS SUMMARY | 2024-06-17 16:55 | XMS_ITS | Encounter Summary ---
Author Organization [facility] Address [address] [place] [address] Care Team Providers Care Kiln Worker Name Role Phone Nicolás Jeffries MD Primary Care Provider [phone] Reason for Visit * Reason Comments Diabetes Mellitus 6 week f/u Encounter Details Date Type Department Care Team (Latest Contact Info) Description 06/07/2024 2:15 PM EDT Office Visit Endocrinology - [place] [address] [place] [address] Aung Pinto MD [address] [place] [address] DM (diabetes mellitus), type 2 [...] Date Noted Chronic systolic congestive heart failure ([facility]) 09/15/2023 Hypoxemia 04/17/2023 Acute kidney injury superimposed on chronic kidney disease ([facility]) 10/18/2021 Chest pain 10/18/2021 Left upper arm pain 10/18/2021 Coronary artery disease involving [place] coronary artery of [place] heart without angina pectoris 08/17/2021 CHF (congestive heart failure) (CMS/HCC) 06/10/2021 Dyspnea on exertion 05/14/2021 Coronary atherosclerosis of artery bypass graft 01/17/2021 Nocturnal hypoxemia 07/19/2020 Obstructive sleep apnea 07/19/2020 Acute sialoadenitis 11/29/2019 Cholecystitis 11/01/2019 Anxiety 05/22/2017 Aortic stenosis 04/22/2016 Peripheral neuropathy 03/20/2016 PVD (peripheral vascular disease) ([facility]) 03/20/2016 Onychomycosis 03/16/2015 DM (diabetes mellitus), type 2 with peripheral vascular complications ([facility]) 09/08/2014 Ischemic cardiomyopathy 12/16/2013 DM (diabetes mellitus), type 2 with neurological complications ([facility]) 06/10/2012 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) 06/10/2012 Benign prostatic hyperplasia 01/28/2012 DM (diabetes mellitus), type 2 with renal complications ([facility]) 12/23/2011 Stage 3 chronic kidney disease ([facility]) 12/03/2011 VT (ventricular tachycardia) ([facility]) 11/14/2011 Obesity (BMI 30.0-34.9) 02/06/2011 Vitiligo 02/06/2011 Back pain 06/26/2010 Hypothyroid 06/26/2010 Carotid disease, bilateral ([facility]) 05/25/2010 Proteinuria 09/08/2008 Essential hypertension 06/01/2008 GERD (gastroesophageal reflux disease) 06/01/2008 Hypercholesteremia 06/01/2008 Past Surgical History: Procedure Laterality Date APPENDECTOMY PROCEDURE: [place] APPENDECTOMY CHOLECYSTECTOMY 12/09/2019 PROCEDURE: LAPAROSCOPIC CHOLECYSTECT COLONOSCOPY August, [place] PROCEDURE: HISTORICAL COLONOSCOPY; COMMENT: hemorrhoids ESOPHAGOGASTRODUODENOSCOPY 06/26/2009 PROCEDURE: [facility] EGD TRANSORAL BIOPSY SINGLE/MULTIPLE; COMMENT: Esophagus normal, antral gastritis-biopsy:reactive gastropathy with mild chronic inflammation and vascular congestion (HPylori-), normal esophagus HERNIA REPAIR PROCEDURE: REPAIR UMBILICAL HERNIA OTHER SURGICAL HISTORY PROCEDURE: [place] UNLISTED PROCEDURE CARDIAC SURGERY; COMMENT: ICD placement [...] as needed. blood-glucose meter,continuous ([employer] [place] [address] [place]) misc 1 Device by Does not apply [...] (diabetes mellitus), type 2 with neurological complications ([facility]) PLAN: Have discussed in detail, On CGM, [...] EDT Office Visit [facility] - [address] [phone] Nicolás Jeffries MD [address] [place] [address] [phone] 08/09/2024 2:00 PM EDT Office Visit [facility] Cardiology [facility] - [address] [place] [phone] Rikki Shukla MD [address] [place] [address],[address] [place] [address] 10/12/2024 4:30 PM EDT Ancillary Procedure [facility] Cardiology [facility] - [address] [place] [address] 01/10/2025 2:15 PM EDT Office Visit Endocrinology - [address] [phone] Aung Pinto MD [address] [place] [phone] documented as of this encounter Visit Diagnoses Diagnosis DM (diabetes mellitus), type 2 with neurological complications (CMS/HCC)- Primary Type II or unspecified type diabetes mellitus with neurological manifestations, not stated as uncontrolled Encounter for adjustment or management of cardiac device documented in this encounter Care Teams Kiln Worker Relationship Specialty Start Date End Date Nicolás Jeffries MD [address] [place] [address] [phone] PCP - General Internal Medicine 02/11/24 documented as of this encounter
--- OUTSIDE RECORDS SUMMARY | 2024-06-17 16:55 | XMS_ITS | Clinical Summary ---
Author Organization [facility] Address [address] [address] [place] [address] Phone Care Team Providers Care Handle Lathe Operator Name Role Phone Nicolás Jeffries MD Primary Care Provider [phone] Allergies Active Allergy Reactions Criticality Noted Date [...] patient's age to complete this topic Insurance [facility] MEDICARE MEDICARE [facility] Care Teams Handle Lathe Operator Relationship Specialty Start Date End Date Nicolás Jeffries MD PCP - General Internal Medicine 05/16/21
--- OUTSIDE RECORDS SUMMARY | 2024-06-17 16:55 | XMS_ITS ---
Author Organization [facility] Address [address] [place] [address] Care Team Providers Care Professional Application Designer Name Role Phone Sugey Stratton Primary Care Provider DAHLIA Merino Unavailable [phone] Allergies Allergen (clinical drug ingredient) Drug/Non Drug Allergy documented on EMR Reaction Allergy Type Onset Date Status metoprolol Lopressor Unknown Drug Allergy Active acetaminophen / oxycodone Percocet Unknown Drug Allergy Active REASON FOR VISIT 3 month f/u Medications Medication SIG (Take, Route, Frequency, Duration) Notes Start Date End Date Status Ciclopirox 0.77 % 1 application Externally apply topically 2 grams to each foot bid as directed Not-Taking Metoprolol Succinate ER 100 MG 1 tablet Orally Once a day Not-Taking Metoprolol Succinate ER 50 MG 1 tablet Orally Once a day Not-Taking Clotrimazole-Betameth asone 1-0.05 % 1 application Externally Twice a day Not-Taking Lisinopril 2.5 MG 1 tablet Orally Once a day Not-Taking Flonase Allergy Relief 50 MCG/ACT 2 sprays in each nostril Nasally Once a day prn Not-Taking Ketoconazole 2 % 1 application Externally Once a day Not-Taking Furosemide 40 MG 1 tablet Orally prn take 1.5 tablets by mouth daily. total of 60mg Not-Taking ZyrTEC Allergy 10 MG 1 tablet Orally Once a day Not-Taking Senna 8.6 MG 1 capsule Orally Once a day Active NIFEdipine ER 90 MG 1 tablet on an empty stomach Orally Once a day Not-Taking hydrALAZINE HCl 50 MG 1 tablet with food Orally Three times a day Not-Taking Lantus SoloStar 100 UNIT/ML as directed Subcutaneous 80 units daily Active Levothyroxine Sodium 100 MCG 1 tablet in the morning on an empty stomach Orally Once a day Active Lipitor 20 MG 1 tablet Orally Once a day Active Plavix 75 MG 1 tablet Orally Once a day Active Aspirin 81 MG 1 tablet Orally Once a day Active Coreg 6.25 MG 1 tablet with food Orally Twice a day Active Colace 100 MG 1 capsule as needed Orally twice a day Not-Taking glipiZIDE 10 MG 1 tablet 30 minutes before breakfast Orally twice a day Not-Taking GlycoLax 17 GM/SCOOP as directed Orally Not-Taking Lyrica 100 MG 1 capsule Orally Twice a day Active traMADol HCl 50 MG 1 tablet as needed Orally Once a day PRN Active Nitroglycerin 0.4 MG as directed Sublingual Not-Taking Protonix 40 MG 1 tablet Orally Once a day Active Torsemide 20 MG as directed Orally 40MG in the A M and 20MG PM Active Tylenol 1,000MG PRN Active Vitamin D 50 MCG (2000 UT) 1 tablet Orally Once a day Active Farxiga 10 MG 1 tablet Orally Once a day Active Ferrous Sulfate 325 (65 Fe) MG 1 tablet Orally Once a day Not-Taking Albuterol Sulfate HFA 108 (90 Base) MCG/ACT 1 puff as needed Inhalation every 4 hrs Not-Taking Mupirocin 2 % 1 application Externally Twice a day Active Amiodarone HCl 200 MG 1 tablet Orally Once a day Active Nystatin 880135 UNIT/GM 1 application Externally Twice a day Not-Taking Ipratropium [place] 0.03 % 2 sprays in each nostril Nasally Twice a day Not-Taking Tamsulosin HCl 0.4 MG 1 capsule Orally Once a day Active Allopurinol 100 MG 1 tablet Orally Once a day Active Mucinex 600 MG 1 tablet as needed Orally every 12 hrs Active Clotrimazole 1 % 1 application Externally Twice a day Active Diclofenac Sodium 1 % as directed Externally Active Hydrocortisone 2.5 % 1 application Externally Once a day Active MiraLax 17 GM/SCOOP 1 scoop mixed with 8 ounces of fluid Orally Once a day Active predniSONE 50 MG 1 tablet with food or milk Orally Once a day Active Insulin Aspart 100 UNIT/ML as directed Subcutaneous Active Isosorbide Mononitrate ER 30 MG 1 tablet in the morning Orally Once a day Active Lidocaine-Prilocaine 2.5-2.5 % 1 gm to each foot Externally once a day nightly PRN pain for 90 days 12/21/2020 Not-Taking Loratadine 10 MG 1 tablet Orally Once a day Not-Taking Lidocaine-Prilocaine 2.5-2.5 % as directed Externally apply 2 grams to each foot once daily at night prn pain for 90 days Active Ciclopirox Olamine 0.77 % 1 application (1 gm to each foot) Externally Twice a day for 90 days Active Silver sulfADIAZINE 1 % 1 application Externally Once a day Active Magnesium Oxide 400 MG 1 tablet as needed Orally bid Not-Taking Simethicone 180 MG 1 capsule after meals and at bedtime as needed Orally 3 times daily Not-Taking Calcium Carbonate-Vitamin D 500-400 MG-UNIT 1 tablet Orally daily Not-Taking Xanax 0.25 MG 1 tablet Orally Twice a day prn for anxiety Not-Taking Fluorouracil 5 % 1 application Externally Twice a day Not-Taking Vital Signs Temperature 96.2 degrees Fahrenheit 06/17/19 Heart Rate 81 /min 06/16/2024 Respiratory Rate 20 /min 06/16/2024 Height 5ft 6in in 06/16/2024 Weight 233 lbs 06/16/2024 BMI 37.6 kg/m2 06/16/2024 Encounters Encounter Location Date Provider Diagnosis [facility] [address] [place] [address] 06/16/2024 DAHLIA RYAN Type 2 diabetes mellitus with other circulatory complications E11.59 ; Type 2 diabetes mellitus with diabetic polyneuropathy E11.42 ; Pain in left toe(s) M79.675 ; Onychomycosis B35.1 ; Xerosis of skin L85.3 and Pain in right toe(s) M79.674 Assessments Encounter Date Diagnosis (ICD Code) Assessment Notes Treatment Notes Treatment Clinical Notes Section Notes 06/16/2024 Type 2 diabetes mellitus with other circulatory complications (ICD-10 - E11.59) 06/16/2024 Type 2 diabetes mellitus with diabetic polyneuropathy [...] nightly PRN pain x 90 days. He received the diabetic shoes and inserts and states they are comfortable. 06/16/2024 Pain in left toe(s) (ICD-10 - M79.675) No new acute gout attack since his last visit. 06/16/2024 Onychomycosis (ICD-10 - B35.1) I reviewed with the patient various treatment methods for toenail fungus including topical, oral, laser, and removal of the infected toenails. Continue Ciclopirox to apply to each affected toenail daily. Aseptic debridement of toenails x 10 with woodwind reeds cutter, pt tolerated well. All bleeding controlled [...] may have to pay out of pocket. 06/16/2024 Xerosis of skin (ICD-10 - L85.3) He applies cream to his feet every day. 06/16/2024 Pain in right toe(s) (ICD-10 - M79.674) [...] Name:DAHLIA RYAN, 09/22/2024 01:30:00 PM, [address] [address], [place], [address], Progress Notes * Shirley WONG:1940 (84 yo M)Acc No.[id number]:06/16/2024 Progress Note Patient:?Richard WONG Provider:?Dahlia Ryan DPM :1940???Age:84 Y???Sex:Male Ned e:06/16/2024 Address:[address] [id number] Pcp:Sugey Stratton Subjective: * Chief Complaints: * ???3 month f/u * HPI: ???Constitutional:?This 84 y/o male returns to my office for a follow-up to toenail fungus, dry skin, and for a diabetic foot evaluation. He had back surgery about 4 weeks ago. He states the back is still painful, but he sees a little improvement. He notes stiffness in his toes. He denies any gout attacks since his last visit. He does complain of thick, long, painful toenails this visit. He received his diabetic shoes and diabetic socks about 1 month ago. He states they feel comfortable. He has no other foot complaints. His last visit with his PCP Mervin for diabetes management was 05/10/2024. His last hgba1c was 7.9. Allergies and [...] Hospitalization/Major Diagno stic Procedure:?open heart surgery 01/12/2021OB 4COVID pneumonia 05/2023 * Family History:? no positive family history reported. * Social History:?Tobacco: never smoker Alcohol: no. * Medications:?TakingSilver bergeron lfADIAZINE 1 % Cream 1 application Externally Once a day predniSONE 50 MG Tablet 1 tablet with food or milk Orally Once a day MiraLax 17 GM/SCOOP Powder 1 scoop mixed with 8 ounces of fluid Orally Once a day Isosorbide Mononitrate ER 30 MG Tablet Extended Release 24 Hour 1 tablet in the morning Orally Once a day Insulin Aspart 100 UNIT/ML Solution Pen-injector as directed Subcutaneous Hydrocortisone 2.5 % Ointment 1 application Externally Once a day Mucinex 600 MG Tablet Extended Release 12 Hour 1 tablet as needed Orally every 12 hrs Diclofenac Sodium 1 % Gel as directed Externally Clotrimazole 1 % Cream 1 application Externally Twice a day Allopurinol 100 MG Tablet 1 tablet Orally Once a day Tamsulosin HCl 0.4 MG Capsule 1 capsule [...] PRNTorsemide 20 MG Tablet as directed Orally , Notes to Pharmacist: 40MG in the AM and 20MG PMtraMADol HCl 50 MG Tablet 1 tablet as needed Orally Once a day , Notes to Pharmacist: PRNLyrica 100 MG Capsule 1 capsule Orally Twice a day Protonix 40 MG Tablet Delayed Release 1 tablet Orally Once a day Plavix 75 MG Tablet 1 tablet Orally Once a day Coreg 6.25 MG Tablet 1 tablet with food Orally Twice a day Aspirin 81 MG Tablet Delayed Release 1 tablet Orally Once a day Levothyroxine Sodium 100 MCG Tablet 1 tablet in the morning on an empty stomach Orally Once a day Lantus SoloStar 100 UNIT/ML Solution Pen-injector as directed Subcutaneous , Notes to Pharmacist: 80 units dailyLipitor 20 MG Tablet 1 tablet Orally Once a day Senna 8.6 MG Capsule 1 capsule Orally Once a day Taking Silver sulfADIAZINE 1 % Cream 1 application Externally Once a day Taking predniSONE 50 MG Tablet 1 tablet with food or milk Orally Once a day Taking MiraLax 17 GM/SCOOP Powder 1 scoop mixed with 8 ounces of fluid Orally Once a day Taking Isosorbide Mononitrate ER 30 MG Tablet Extended Release 24 Hour 1 tablet in the morning Orally Once a day Taking Insulin Aspart 100 UNIT/ML Solution Pen-injector as directed Subcutaneous Taking Hydrocortisone 2.5 % Ointment 1 application Externally Once a day Taking Mucinex 600 MG Tablet Extended Release 12 Hour 1 tablet as needed Orally every 12 hrs Taking Diclofenac Sodium 1 % Gel as directed Externally Taking Clotrimazole 1 % Cream 1 application Externally Twice a day Taking Allopurinol 100 MG Tablet 1 tablet Orally Once a day Taking Tamsulosin HCl 0.4 MG Capsule 1 [...] Torsemide 20 MG Tablet as directed Orally , Notes to Pharmacist: 40MG in the AM and 20MG PMTaking traMADol HCl 50 MG Tablet 1 tablet as needed Orally Once a day , Notes to Pharmacist: PRNTaking Lyrica 100 MG Capsule 1 capsule Orally Twice a day Taking Protonix 40 MG Tablet Delayed Release 1 tablet Orally Once a day Taking Plavix 75 MG Tablet 1 tablet Orally Once a day Taking Coreg 6.25 MG Tablet 1 tablet with food Orally Twice a day Taking Aspirin 81 MG Tablet Delayed Release 1 tablet Orally Once a day Taking Levothyroxine Sodium 100 MCG Tablet 1 tablet in the morning on an empty stomach Orally Once a day Taking Lantus SoloStar 100 UNIT/ML Solution Pen-injector as directed Subcutaneous , Notes to Pharmacist: 80 units dailyTaking Lipitor 20 MG Tablet 1 tablet Orally Once a day Taking Senna 8.6 MG Capsule 1 capsule Orally Once a day Not-TakingAlbuterol Sulfate HFA 108 (90 Base) MCG/ACT Aerosol Solution 1 puff as needed Inhalation every 4 hrs Nystatin 310585 UNIT/GM Ointment 1 application Externally Twice a day Ipratropium [place] 0.03 % Solution 2 sprays in each nostril Nasally Twice a day Ferrous Sulfate 325 (65 Fe) MG Tablet 1 tablet Orally Once a day GlycoLax 17 GM/SCOOP Powder as directed Orally Nitroglycerin 0.4 MG Tablet Sublingual as directed Sublingual glipiZIDE 10 MG Tablet 1 tablet 30 minutes before breakfast Orally twice a day Colace 100 MG Capsule 1 capsule as needed Orally twice a day hydrALAZINE HCl 50 MG Tablet 1 tablet with food Orally Three times a day NIFEdipine ER 90 MG Tablet Extended Release 24 Hour 1 tablet on an empty stomach Orally Once a day Ciclopirox Olamine 0.77 % Cream 1 application (1 gm to each foot) Externally Twice a day Lidocaine- Prilocaine 2.5-2.5 % Cream as directed Externally apply 2 grams to each foot once daily at night prn pain Ketoconazole 2 % Cream 1 application Externally [...] List reviewed and reconciled with the patientNot-Taking Albuterol Sulfate HFA 108 (90 Base) MCG/ACT Aerosol Solution 1 puff as needed Inhalation every 4 hrs Not-Taking Nystatin 115690 UNIT/GM Ointment 1 application Externally Twice a day Not-Taking Ipratropium [place] 0.03 % Solution 2 sprays in each nostril Nasally Twice a day Not-Taking Ferrous Sulfate 325 (65 Fe) MG Tablet 1 tablet Orally Once a day Not-Taking GlycoLax 17 GM/SCOOP Powder as directed Orally Not-Taking Nitroglycerin 0.4 MG Tablet Sublingual as directed Sublingual Not-Taking glipiZIDE 10 MG Tablet 1 tablet 30 minutes before breakfast Orally twice a day Not-Taking Colace 100 MG Capsule 1 capsule as needed Orally twice a day Not-Taking hydrALAZINE HCl 50 MG Tablet 1 tablet with food Orally Three times a day Not-Taking NIFEdipine ER 90 MG Tablet Extended Release 24 Hour 1 tablet on an empty stomach Orally Once a day Not-Taking Ciclopirox Olamine 0.77 % Cream 1 application (1 gm to each foot) Externally Twice a day Not-Taking Lidocaine-Prilocaine 2.5-2.5 % Cream as directed Externally apply 2 grams to each foot once daily at night prn pain Not-Taking Ketoconazole 2 % Cream 1 application Externally [...] * Allergies:?LopressorPercocet no[Allergies Verified] Objective: * Vitals:?Wt: 233 lbs, Ht: 5ft 6in, BMI: 37.6 Index, HR: 81 /min, Temp: 96.2 F, RR: 20 /min, Ht-cm: 167.64, Wt-k.69 kg. * Examination: ???General Examination: ???GENERAL: Patient appears well nourished, with NAD. VASCULAR: Dorsalis pedis pulses are 1/4 bilaterally and Posterior tibial pulses are 0/4 bilaterally, biphasic on Doppler. Capillary filling time within normal limits the digits. No pallor on elevation or rubor on dependency. No hair growth. Varicosities of the legs with trace edema. Denies rest pain or claudication pain. Each foot temperature is within normal limits. NEUROLOGICAL: Sharp/dull sensation intact bilaterally, protective sensation intact 10/10 with 5.07 Imogene Tyree bilaterally, vibratory sensation with tuning fork diminished to the tibial tuberosity bilaterally, position sense diminished bilaterally to the tibial tuberosity. ORTHOPEDIC: Good muscle strength 4+/5 of all flexors and extensors. Dorsi flexion of ankle,0 degrees, plantar flexion WNL. No muscle atrophy. Edema, erythema, and pain on palpation and ROM of the left subtalar joint + warm to the touch. DERMATOLOGICAL: Scab dorsal left foot. Diffuse dry skin plantarly. 4mm thickened yellowed elongated dystrophic toenails of all ten toes with subungual debris and tenderness on palpation. No masses, openings, or skin lesions noted. Normal skin temperature, normal skin turgor. BIOMECHANICS: STJ ROM limited, MTJ ROM limited, 1st MPJ ROM limited. On weight-bearing, hallux limitus bilaterally, pes planus bilaterally. SHOES: diabetic shoes. Assessment: * Assessment: 1.?Type 2 diabetes mellitus with other circulatory complications - E11.59 (Primary)???2.?Type 2 diabetes mellitus with diabetic polyneuropathy - E11.42???3.?Pain in left toe(s) - M79.675???4.?Onychomycosis - B35.1???5. Xerosis of skin - L85.3???6.?Pain in right toe(s) - M79.674??? Plan: * Treatment: 2.?Type 2 diabetes mellitus [...] nightly PRN pain x 90 days. He received the diabetic shoes and inserts and states they are comfortable. ?? 3.?Pain in left toe(s)? Clinical Notes: [...] apply to each affected toenail daily. Aseptic debridement of toenails x 10 with woodwind reeds cutter, pt tolerated well. All bleeding controlled [...] his feet every day. ?? * Procedure Codes:?77996 DEBRI DE NAIL, 6 OR MORE, Modifiers: q9 * Follow Up:?3 Months * Billing Information: * Visit Code:? 48380 Office Visit, Est Pt., Level 3. Modifiers: 25 * Procedure Codes:? 17717 DEBRIDE NAIL, 6 OR MORE. Modifiers: q9 * Sign off status: Completed true * Provider:?Dahlia Ryan DPM Date:? 06/16/2024 Generated for Osvaldo boone/Davian/Fernandoitting on:?06/17/2024 04:54 PM EDT History and Physical Notes * HPI (History of Present Illness) Category Sub-Category Detail Notes Category Not es Constitutional This 84 y/o m rick returns to my office for a follow-up to toenail fungus, dry skin, and for a diabetic foot evaluation. He had back surgery about 4 weeks ago. He states the back is still painful, but he sees a little improvement. He notes stiffness in his toes. He denies any gout attacks since his last visit. He does complain of thick, long, painful toenails this visit. He received his diabetic shoes and diabetic socks about 1 month ago. He states they feel comfortable. He has no other foot complaints. His last visit with his PCP Mervin for diabetes management was 05/10/2024. His last hgba1c was 7.9. Allergies and medical history reviewed. Examination Category Sub-Category Detail Notes Category Not es General Examination GENERAL: Patient appears well nourished, with NAD. VASCULAR: Dorsalis pedis pulses are 1/4 bilaterally and Posterior tibial pulses are 0/4 bilaterally, biphasic on Doppler. Capillary filling time within normal limits the digits. No pallor on elevation or rubor on dependency. No hair growth. Varicosities of the legs with trace edema. Denies rest pain or claudication pain. Each foot temperature is within normal limits. NEUROLOGICAL: Sharp/dull sensation intact bilaterally, protective sensation intact 10/10 with 5.07 Imogene Tyree bilaterally, vibratory sensation with tuning fork diminished to the tibial tuberosity bilaterally, position sense diminished bilaterally to the tibial tuberosity. ORTHOPEDIC: Good muscle strength 4+/5 of all flexors and extensors. Dorsi flexion of ankle,0 degrees, plantar flexion WNL. No muscle atrophy. Edema, erythema, and pain on palpation and ROM of the left subtalar joint + warm to the touch. DERMATOLOGICAL: Scab dorsal left foot. Diffuse dry skin plantarly. 4mm thickened yellowed elongated dystrophic toenails of all ten toes with subungual debris and tenderness on palpation. No masses, openings, or skin lesions noted. Normal skin temperature, normal skin turgor. BIOMECHANICS: STJ ROM limited, MTJ ROM limited, 1st MPJ ROM limited. On weight-bearing, hallux limitus bilaterally, pes planus bilaterally. SHOES: diabetic shoes
== END 2024-06-17 14:54 | disposition home or self-care (01) ==
LOC: HO.HNS 14:15
PROVIDERS: PCP Internal Medicine; Visit Provider Physician Assistant
DX: M48.062 Spinal stenosis, lumbar region with neurogenic claudication (principal)
CPT/HCPCS: 99024

== ENCOUNTER → 2024-06-17 14:14 | Outpatient (BNVA) | payer MEDICARE, SELFPAY | PROVIDERS: PCP Internal Medicine; Visit Provider Physician Assistant | DX: M48.062 Spinal stenosis, lumbar region with neurogenic claudication (principal) | CPT/HCPCS: 99212 ==

== ENCOUNTER 2024-08-06 15:03 | Outpatient (AMB) | payer MEDICARE, SELFPAY ==
--- NOTE | 2024-08-06 15:06 | HO.SPINEOV ---
Intake Visit Reasons: 2nd post op Intake Note: Mr. Wong is here today for his 2nd post op Institutional Research Director Required: No Allergies adhesive tape Allergy (Intermediate, Verified 08/06/24 15:07) blisters lisinopril Allergy (Intermediate, Verified 08/06/24 15:07) Angioedema oxycodone Allergy (Intermediate, Verified 08/06/24 15:07) syncope shellfish derived Allergy (Intermediate, Verified 08/06/24 15:07) Swelling Assessment & Plan Assessment & Plan (1) Lumbar stenosis with neurogenic claudication: Code(s): M48.062 - Spinal stenosis, lumbar region with neurogenic claudication Category: Medical Plan Dear colleague, On 08/06/2024 I saw for 2nd postoperative visit Richard Wong. He underwent an L4-5 lumbar decompression on 05/27/2024 for neurogenic claudication symptoms. Unfortunately, the surgery did not provide any relief despite obtaining a good decompression during surgery. He still has the bilateral hip pains and tightness of his legs. I did not recommend any further workup as the surgery did not provide any relief. Unfortunately, he did not respond to the decompression. Thank you for allowing take care of your patient. Rolando Hassan MD, PhD Spine Fellowship Trained Neurosurgeon Director, [facility] Coding Level of Care Code Global (23135) Diagnoses Lumbar stenosis with neurogenic claudication M48.062
--- OUTSIDE RECORDS SUMMARY | 2024-08-06 15:08 | XMS_ITS ---
Author Organization [facility] Address [address] [address] Care Team Providers Care Teleprinter Installer Name Role Phone Sugey Stratton Primary Care Provider Dahlia KARI Dick [phone] REASON FOR VISIT reschedule appointment Encounters Encounter Location Date Provider Diagnosis [facility] [address] [address] 08/02/2024 KARI RYAN Plan Of Treatment No Information Progress Notes * ALEXLoyd RUVALCABAaidenDOB:1940 (84 yo M)Acc No.[id number]:08/02/2024 Patient:?Richard WONG :1940???Age:84 Y???Sex:Male Address:[address] [place] [address] * true * Date:? Generated for Linoi paolo/Davian/eTransmitting on:?08/06/2024 03:08 PM EDT
--- OUTSIDE RECORDS SUMMARY | 2024-08-06 15:08 | XMS_ITS | Clinical Summary ---
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 [facility] Anion Gap 9 3 - 11 LAB CHEMISTRY METHOD 04/26/2024 5:11 PM [facility] Glucose 292(H) 70 - 100 mg/dL LAB CHEMISTRY METHOD 04/26/2024 5:11 PM EST [facility] BUN 53(H) 5 - 25 mg/dL LAB CHEMISTRY METHOD 04/26/2024 5:11 PM [facility] Creatinine 2.70(H) 0.70 - 1.30 mg/dL LAB CHEMISTRY METHOD 04/26/2024 5:11 PM [facility] eGFR 23(L) >=60 mL/min/1. 73m2 LAB CHEMISTRY METHOD 04/26/2024 5:11 PM EST [facility] Comment:Calculation based on the??Chronic Kidney Disease Epidemiology Collaboration (CKD-EPI) equation refit??without adjustment for race. BUN/Creatinine Ratio 19.6 LAB CHEMISTRY METHOD 04/26/2024 5:11 PM [facility] Calcium 9.6 8.5 - 10.5 mg/dL LAB CHEMISTRY METHOD 04/26/2024 5:11 PM [facility] Blood Venous blood specimen / Unknown Venipuncture / Unknown 04/26/2024 1:59 PM EST 04/26/2024 1:59 PM EST Danita Velásquez NP LAB BLOOD ORDERABLES Final R esult [facility] [address] [place] [address], * Depression Screening (12/12/2023) Pathologist [facility] Depression Screening abstracted Historical Provider MD HEALTH MAINTENANCE Final Result * (ABNORMAL) Lipid panel (12/12/2023) LDL/HDL Ratio 3 0 - 4 Triglycerides 248(A) 0 - 150 mg/dL Cholesterol 152 0 - 200 mg/dL HDL 49 >=40 mg/dL LDL Cholesterol 54 0 - 100 mg/dL Blood Venous blood specimen / Unknown Result [facility] Historical Provider LAB BLOOD ORDERABLES Maya l Result * Diabetes Foot Exam (11/05/2023) Pathologist [facility] Diabetes: Annual Foot Exam abstracted Result [facility] Provider HEALTH MAINTENANCE Final Result * Diabetes Eye Exam (10/31/2023) Pathologist [facility] Diabetes: Annual Retina Eye Exam abstracted Result [facility] Provider HEALTH MAINTENANCE Final Result * Falls Risk Assessment (10/21/2023) Pathologist [facility] Falls Risk Assessment abstracted [facility] Provider HEALTH MAINTENANCE Final Result * Urine Albumin Creatinine Ratio (04/07/2023) Pathologist [facility] Urine Albumin Creatinine Ratio abstracted Result [facility] Provider HEALTH MAINTENANCE Final Result from Last 3 Months or Most Recently Relevant to Health Maintenance Insurance MEDICARE [facility] Care Teams Mmi Teacher Relationship Specialty Start Date End Date Nicolás Jeffries MD [address] [place] [address] PCP - General Internal Medicine 02/11/24
--- OUTSIDE RECORDS SUMMARY | 2024-08-06 15:08 | XMS_ITS | Patient Health Record ---
Author Organization [facility] Address [address] [facility] [address] [place] [address] Care Team Providers Care Ship Yard Electrical Person Name Role Phone Sugey Stratton Primary Care Provider KARI Merino Unavailable [phone] Allergies Allergen (clinical drug ingredient) Drug/Non Drug [...] to each foot bid as directed Not-Taking Flonase Allergy Relief 50 MCG/ACT 2 sprays in each nostril Nasally Once a day prn Not-Taking Metoprolol Succinate ER 100 MG 1 tablet Orally Once a day Not-Taking Metoprolol Succinate ER 50 MG 1 tablet Orally Once a day Not-Taking Mucinex 600 MG 1 tablet as needed Orally every 12 hrs Active Ketoconazole 2 % 1 application Externally Once a day Not-Taking Hydrocortisone 2.5 % 1 application Externally Once a day Active Furosemide 40 MG 1 tablet Orally prn take 1.5 tablets by mouth daily. total of 60mg Not-Taking Diclofenac Sodium 1 % as directed Externally Active ZyrTEC Allergy 10 MG 1 tablet Orally Once a day Not-Taking MiraLax 17 GM/SCOOP 1 scoop mixed with 8 ounces of fluid Orally Once a day Active predniSONE 50 MG 1 tablet with food or milk Orally Once a day Active Insulin Aspart 100 UNIT/ML as directed Subcutaneous Active Isosorbide Mononitrate ER 30 MG 1 tablet in the morning Orally Once a day Active Silver sulfADIAZINE 1 % 1 application Externally Once a day Active Clotrimazole-Betameth asone 1-0.05 % 1 application Externally Twice a day Not-Taking Lisinopril 2.5 MG 1 tablet Orally Once a day Not-Taking Tamsulosin HCl 0.4 MG 1 capsule Orally Once a day Active Lidocaine-Prilocaine 2.5-2.5 % 1 gm to each foot Externally once a day nightly PRN pain for 90 days 12/21/2020 Not-Taking Allopurinol 100 MG 1 tablet Orally Once a day Active Loratadine 10 MG 1 tablet Orally Once a day Not-Taking Lidocaine-Prilocaine 2.5-2.5 % as directed Externally apply 2 grams to each foot once daily at night prn pain for 90 days Active Albuterol Sulfate HFA 108 (90 Base) MCG/ACT 1 puff as needed Inhalation every 4 hrs Not-Taking Ciclopirox Olamine 0.77 % 1 application (1 gm to each foot) Externally Twice a day for 90 days Active Mupirocin 2 % 1 application Externally Twice a day Active Magnesium Oxide 400 MG 1 tablet as needed Orally bid Not-Taking Simethicone 180 MG 1 capsule after meals and at bedtime as needed Orally 3 times daily Not-Taking Clotrimazole 1 % 1 application Externally Twice a day Active Calcium Carbonate-Vitamin D 500-400 MG-UNIT 1 tablet Orally daily Not-Taking Xanax 0.25 MG 1 tablet Orally Twice a day prn for anxiety Not-Taking Fluorouracil 5 % 1 application Externally Twice a day Not-Taking Farxiga 10 MG 1 tablet Orally Once a day Active Amiodarone HCl 200 MG 1 tablet Orally Once a day Active Nystatin 814813 UNIT/GM 1 application Externally Twice a day Not-Taking Ferrous Sulfate 325 (65 Fe) MG 1 tablet Orally Once a day Not-Taking Ipratropium [place] 0.03 % 2 sprays in each nostril Nasally Twice a day Not-Taking GlycoLax 17 GM/SCOOP as directed Orally Not-Taking Torsemide 20 MG as directed Orally 40MG in the A M and 20MG PM Active Lyrica 100 MG 1 capsule Orally Twice a day Active traMADol HCl 50 MG 1 tablet as needed Orally Once a day PRN Active Tylenol 1,000MG PRN Active Vitamin D 50 MCG (2000 UT) 1 tablet Orally Once a day Active Nitroglycerin 0.4 MG as directed Sublingual Not-Taking Protonix 40 MG 1 tablet Orally Once a day Active Colace 100 MG 1 capsule as needed Orally twice a day Not-Taking glipiZIDE 10 MG 1 tablet 30 minutes before breakfast Orally twice a day Not-Taking NIFEdipine ER 90 MG 1 tablet on an empty stomach Orally Once a day Not-Taking hydrALAZINE HCl 50 MG 1 tablet with food Orally Three times a day Not-Taking Lantus SoloStar 100 UNIT/ML as directed Subcutaneous 80 units daily Active Levothyroxine Sodium 100 MCG 1 tablet in the morning on an empty stomach Orally Once a day Active Plavix 75 MG 1 tablet Orally Once a day Active Aspirin 81 MG 1 tablet Orally Once a day Active Coreg 6.25 MG 1 tablet with food Orally Twice a day Active Senna 8.6 MG 1 capsule Orally Once a day Active Lipitor 20 MG 1 tablet Orally Once a day Active Problems Problem Type SNOMED Code ICD Code Onset Dates Problem Status W/U Status Risk Notes Problem 88107824 Type 2 diabetes mellitus with diabetic polyneuropathy (E11.42) Active confirmed Problem 69467675 Type 2 diabetes mellitus with other circulatory complications (E11.59) Active confirmed Problem 081147587 termite helper (curre nt) use of insulin (Z79.4) Active confirmed Problem 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) Active confirmed Vital Signs Heart Rate 81 /min 06/16/2024 Temperature 96.2 degrees Fahrenheit 06/16/2024 Respiratory Rate 20 /min 06/16/2024 Blood pressure diastolic 60 mm Hg 11/05/2023 Height 5ft 6in in 06/16/2024 Blood pressure systolic 122 mm Hg 11/05/2023 Weight 233 lbs 06/16/2024 BMI 37.6 kg/m2 06/16/2024 Procedures Procedure Date Ordered Date Performed Result Body Sit e DRAIN/INJECT, INTERMEDIATE JOINT/BURSA 12/31/2023 N/A Encounters Encounter Location Date Provider Diagnosis [facility] [address] [facility] [address] [place] [address] 11/05/2023 KARI RYAN Type 2 diabetes mellitus with other circulatory complications E11.59 ; Type 2 diabetes mellitus with diabetic polyneuropathy E11.42 ; Pain in left toe(s) M79.675 ; Onychomycosis B35.1 ; Xerosis of skin L85.3 and Pain in right toe(s) M79.674 [facility] [address] 12/31/2023 KARI RYAN Type 2 diabetes mellitus with other circulatory complications E11.59 ; 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 M10.372 and Left foot pain M79.672 [facility] [address] 03/10/2024 KARI RYAN Type 2 diabetes mellitus with other circulatory complications E11.59 ; Type 2 diabetes mellitus with diabetic polyneuropathy E11.42 ; Pain in left toe(s) M79.675 ; Onychomycosis B35.1 ; Xerosis of skin L85.3 and Pain in right toe(s) M79.674 [facility] [address] 06/16/2024 KARI RYAN Type 2 diabetes mellitus with other circulatory complications E11.59 ; Type 2 diabetes mellitus with diabetic polyneuropathy E11.42 ; Pain in left toe(s) M79.675 ; Onychomycosis B35.1 ; Xerosis of skin L85.3 and Pain in right toe(s) M79.674 [facility] [address] 09/10/2023 KARI RYAN [facility] [address] 11/27/2023 KARI RYAN [facility] [address] 12/31/2023 KARI RYAN [facility] [address] 08/02/2024 KARI RYAN Assessments Encounter Date Diagnosis (ICD Code) Assessment Notes Treatment Notes Treatment Clinical Notes Section Notes 11/05/2023 Type 2 diabetes mellitus with other circulatory complications (ICD-10 - E11.59) 12/31/2023 Type 2 diabetes mellitus with other circulatory complications (ICD-10 - E11.59) 03/10/2024 Type 2 diabetes mellitus with other circulatory complications (ICD-10 - E11.59) 06/16/2024 Type 2 diabetes mellitus with other [...] receive his new diabetic shoes and inserts. 06/16/2024 Type 2 diabetes mellitus with diabetic [...] and inserts and states they are comfortable. 12/31/2023 Left foot pain (ICD-10 - M79.672) [...] gout attack, and does not require a termite helper medication yet. We discussed if the flare ups continue to happen, he may need to be placed on fpc medication. We discussed that due to his [...] gout attack since his last visit. 06/16/2024 Pain in left toe(s) (ICD-10 - M79.675) No new acute gout attack since his last visit. 06/16/2024 Onychomycosis (ICD-10 - B35.1) I reviewed with the patient various treatment methods for toenail fungus including topical, oral, laser, and removal of the infected toenails. Continue Ciclopirox to apply to each affected toenail daily. Aseptic debridement of toenails x 10 with nailhead operator, pt tolerated well. All bleeding controlled with [...] have to pay out of pocket. 03/10/2024 Onychomycosis (ICD-10 - B35.1) I reviewed with the patient various treatment methods for toenail fungus including topical, oral, laser, and removal of the infected toenails. Continue Ciclopirox to apply to each affected toenail daily. Aseptic trimming of toenails x 10 with nailhead operator, pt tolerated well. All bleeding controlled with [...] Aseptic trimming of toenails x 10 with nailhead operator, pt tolerated well. All bleeding controlled with [...] cream to his feet every day. 06/16/2024 Xerosis of skin (ICD-10 - L85.3) He applies cream to his feet every day. 03/10/2024 Pain in right toe(s) (ICD-10 - M79.674) 06/16/2024 Pain in right toe(s) (ICD-10 - M79.674) 11/05/2023 Pain in right toe(s) (ICD-10 - M79.674) Plan Of Treatment Pending Test Test Name Order Date X ray : Foot, left 3v 04/20/2021 DRAIN/INJECT, SMALL JOINT/BURSA 04/20/19 22 DRAIN/INJECT, INTERMEDIATE JOINT/BURSA 1 Trim dystrophic toenails any number 05/2020 Insurance Providers Payer Name Payer Address Payer Phone Subscriber Number Group Number Insured Name Patient Relationship to Insured Coverage Start Date Coverage End Date Medicare of [place] [address] [place] [id number] Richard Wong Self - patient is the insured [employer] [address] [place] [address] [phone] [id number] Poulis, Richard Self - patient is the insured Medications Administered Medication Instructions Date of Administration Dosage Notes Dexamethasone 04/20/2021 0.5 mL dexAMETHasone Sod Phosphate PF 12/31/2023 0.5 m L Kenalog 04/20/2021 0.5 mL Kenalog 12/31/2023 0.5 mL Medical (General) History Medical History History ICD Code aortic stenosis carotid disease diabetes mellitus 2 with peripheral vasc ular disease hypertension ischemic cardiomyopathy non-sustained ventricular tachycardia old [place] PVD diabetes mellitus 2 with peripheral neur [...]
--- OUTSIDE RECORDS SUMMARY | 2024-08-06 15:08 | XMS_ITS ---
Author Organization [facility] Address [address] [address] Care Team Providers Care Rubber Stamp Maker Name Role Phone Sugey Stratton Primary Care Provider Dahlia DAHLIA Dick Unavailable [phone] REASON FOR VISIT 3 month f/u Encounters Encounter Location Date Provider Diagnosis [facility] [address] [address] 06/09/2024 DAHLIA RYAN Plan Of Treatment No Information Progress Notes * Richard WONGDOB:1940 (84 yo M)Acc No.[id number]:06/09/2024 Progress Note Patient:?Richard WONG Provider:?Dahlia Ryan DPM :1940???Age:84 Y???Sex:Male Ned e:06/09/2024 Address:[address] [place], [place] [phone] Pcp:Sugey Stratton Subjective: * Chief Complaints: * ???1. 3 month f/u. * Medical History:? Objective: * Vitals:? Assessment: Plan: * Treatment: * Billing Information: * Visit Code:? * Procedure Codes:? * Electronic signature of ILIA RYAN D.P.M on 08/06/2024 at 03:08 PM EDT Sign off status: Pending * Provider:?Dahlia Ryan DPM Date:? 06/09/2024 Generated for Printi ng/Faxing/eTransmitting on:?08/06/2024 03:08 PM EDT
--- OUTSIDE RECORDS SUMMARY | 2024-08-06 15:08 | XMS_ITS | Encounter Summary ---
Author Organization [facility] Address [address] [place] [address] Care Team Providers Care Reversal Print Inspector Name Role Phone Nicolás Jeffries MD Primary Care Provider [phone] Reason for Referral * Consultation (Routine) - Authorized Specialty Diagnoses / Procedures [facility]erred To Contact Physical Therapy Diagnoses Spinal stenosis of lumbar region, unspecified whether neurogenic claudication present Weakness of both lower extremities Nioclás Jeffries MD [address] [place] [address] Phone: tel: fax: Valdo Kohler, PT [address] [place] [address] Phone: tel: fax: Referral ID Status Reason Start Date Expiration Date Visits Requested Visits Authorized [id number] Authorized Specialty Services Required 07/29/2024 07/29/2025 1 1 Encounter Details Date Type Department Care Team (Late st Contact Info) Description 07/29/2024 Telephone Adult Medicine [address] [phone] Cintia Salguero, CHRIS Social History Tobacco Use Types Packs/Day Years [...] Record ed Within the last 3 months, ho w many times did you visit the emergency [...] as of this encounter Progress Notes * Nicolás Jeffries MD - 07/29/2024 6:36 PM EDT Referral placed * Cintia Salguero RN - 07/29/2024 12:17 PM EDT Per Haritha Kline; Pt is inquiring if Dr Jeffries will order outpatient therapy for him or does he need to wait til his hospital f/u? He had been going prior to his CHF exac. And is feeling well and eager to get back to it. documented in this encounter Plan of Treatment Upcoming Encounters Date Type Department Care Team (Late st Contact Info) Description 08/09/2024 2:00 PM EDT Office Visit [facility] Cardiology [facility] [address] [facility] [address] [place] [address] Rikki Shukla MD [address] [place] [address] [address] [place] [address] 08/19/2024 1:30 PM EDT Office Visit Adult Medicine [address] [phone] Nicolás Jeffries MD [address] [place] [address] 09/30/2024 2:30 PM EDT Office Visit Adult Medicine [address] [phone] Nicolás Jeffries MD [address] [place] [address] 10/12/2024 3:00 PM EDT Ancillary Procedure [facility] [address] [facility] [address] [place] [address] 01/10/2025 2:15 PM EDT Office Visit Endocrinology - [address] [phone] Aung Pinto MD [address] [place] [address] Scheduled Referrals Name Type Priority Associated Diagnoses Orde r Schedule Ambulatory referral to Physical Therapy and Athletic Training Outpatient Referral Routine Spinal stenosis of lumbar region, unspecified whether neurogenic claudication present Weakness of both lower extremities 1 Occurrences starting 07/29/2024 until 07/29/2025 documented as of this encounter Visit Diagnoses Diagnosis Spinal stenosis of lumbar region, unspecified whether neurogenic claudication present- Primary Weakness of both lower extremities Encounter for adjustment or management of cardiac device documented in this encounter Care Teams Reversal Print Inspector Relationship Specialty Start Date End Date Nicolás Jeffries MD [address] [place] [address] PCP - General Internal Medicine 02/11/24 documented as of this encounter
--- OUTSIDE RECORDS SUMMARY | 2024-08-06 15:09 | XMS_ITS ---
Author Organization [facility] [address] [place] [address] Address [address] [place] [address] Phone Care Team Providers Care Director Of Federal Sales Name Role Phone Nicolás Jeffries MD Primary Care Provider [phone] Transitional Care Management Status:Ongoing (Active) Start date:07/25/2024 Enrollment date:07/25/2024 Enrollment reason:Identified using hospital discharge data Case Team Name Relationship Phone Ju Florez LPN Care Manager(Responsible Staff) Continued Care and Services Coordination
--- OUTSIDE RECORDS SUMMARY | 2024-08-06 15:09 | XMS_ITS ---
Author Organization [facility] Address [address] [facility] [address] [place] [address] Care Team Providers Care Pizza Baker Name Role Phone Sugey Stratton Primary Care Provider DAHLIA Merino Unavailable [phone] Allergies Allergen (clinical drug ingredient) Drug/Non Drug [...] tablet Orally Once a day Active Nystatin 861143 UNIT/GM 1 application Externally Twice a day Not-Taking Ipratropium [place] 0.03 % 2 sprays in each nostril [...] 06/16/2024 Encounters Encounter Location Date Provider Diagnosis [facility] [address] [facility] [address] [place] [address] 06/16/2024 DAHLIA RYAN Type 2 diabetes mellitus [...] Aseptic debridement of toenails x 10 with box toe cutter, pt tolerated well. All bleeding controlled [...] Appt Details Follow Up: 3 Months, Reason: Progress Notes * Richard WONGDOB:1940 (84 yo M)Acc No.[id number]:06/16/2024 Progress Note Patient:Richard BARAJAS Provider:?Dahlia Ryan DPM :1940???Age:84 Y???Sex:Male Ned e:06/16/2024 Address:[address] [place] [address] [id number] Pcp:Sugey Stratton Subjective: * Chief Complaints: * [...] Once a day Vitamin D 50 MCG (1999 [place]) Tablet 1 tablet Orally Once a [...] as needed Inhalation every 4 hrs Nystatin 825896 UNIT/GM Ointment 1 application Externally Twice a day Ipratropium [place] 0.03 % Solution 2 sprays in each [...] needed Inhalation every 4 hrs Not-Taking Nystatin 917104 UNIT/GM Ointment 1 application Externally Twice a day Not-Taking Ipratropium [place] 0.03 % Solution 2 sprays in each [...] bilaterally, protective sensation intact 10/10 with 5.07 [place] bilaterally, vibratory sensation with tuning fork [...] Aseptic debridement of toenails x 10 with box toe cutter, pt tolerated well. All bleeding controlled [...] his feet every day. ?? * Procedure Codes:?28802 DEBRI DE NAIL, 6 OR MORE, Modifiers: q9 * Follow Up:?3 Months * Billing Information: * Visit Code:? 31989 Office Visit, Est Pt., Level 3. Modifiers: 25 * Procedure Codes:? 41651 DEBRIDE NAIL, 6 OR MORE. Modifiers: q9 * Sign off status: Completed true * Provider:?Dahlia Ryan DPM Date:? 06/16/2024 Generated for Osvaldo boone/Davian/eTransmitting on:?08/06/2024 03:08 PM EDT History and Physical Notes * [...] bilaterally, protective sensation intact 10/10 with 5.07 [place] bilaterally, vibratory sensation with tuning fork [...]
--- OUTSIDE RECORDS SUMMARY | 2024-08-06 15:09 | XMS_ITS | Clinical Summary ---
Author Organization [facility] Address [address] [place] [address] Phone Care Team Providers Care Truck Service Manager Name Role Phone Nicolás Jeffries MD Primary Care Provider [phone] Allergies Active Allergy Reactions Criticality Noted Date [...] of angioplasty 05/16/202107/11 Coronary arteriosclerosis 05/16/2021 Immunizations Immunization Administration Dates Next Due Influenza Whole 01/25/2008 [...] Health Maintenance Due Date Last Done Comments Diabetes: Ophthalmology Exam 04/28/2024 Diabetes: Pedal Pulse Checked 04/28/2024 Diabetes: Sensory Foot Exam 04/28/2024 Diabetes: Visual Foot Exam 04/28/2024 Diabetes: Hemoglobin A1C 07/25/2024 04/26/2024 Influenza Vaccine (Season Ended) 2024 01/19/2022, 01/06/2021, 12/28/2020, Additional history exists Pneumococcal Vaccine: 50+ Years Completed 04/02/2016, 05/01/2012, 03/03/2009 Pneumococcal Vaccine: Peds (0 to 5 Years) and At-Risk Patients (6 to 49 Years) Discontinued 04/02/2016, 05/01/2012, 03/03/2009 Hepatitis B Vaccine Aged Out No longe r eligible based on patient's age to complete this topic Insurance [facility] Medicare Medicare [facility] Care Teams Truck Service Manager Relationship Specialty Start Date End Date Nicolás Jeffries MD PCP - General Internal Medicine 05/16/21
--- OUTSIDE RECORDS SUMMARY | 2024-08-06 15:09 | XMS_ITS ---
Author Organization [facility] [address] [place] [address] [address] [place] [address] Phone Care Team Providers Care Polisher Dial Name Role Phone Nicolás Jeffries MD Primary Care Provider [phone] Chronic Care Management Status:Ongoing (Active) Start date:07/26/2024 Enrollment date:07/29/2024 Enrollment reason:Referred by Care Team Case Team Name Relationship Phone Haritha Kline RN Care Manager(Responsible S taff) Continued Care and Services Coordination
== END 2024-08-06 15:16 | disposition home or self-care (01) ==
LOC: HO.HNS 15:03
PROVIDERS: PCP Internal Medicine; Visit Provider Neurological Surgery
DX: M48.062 Spinal stenosis, lumbar region with neurogenic claudication (principal)
CPT/HCPCS: 99024

== ENCOUNTER → 2024-08-06 15:03 | Outpatient (BNVA) | payer MEDICARE, SELFPAY | PROVIDERS: PCP Internal Medicine; Visit Provider Neurological Surgery | DX: Z48.811 Encounter for surgical aftercare following surgery on the nervous system (principal); Z98.890 Other specified postprocedural states | CPT/HCPCS: 99212 ==

== ENCOUNTER 2024-08-24 15:33 | Outpatient (REF) | payer MEDICARE, SELFPAY ==
--- OUTSIDE RECORDS SUMMARY | 2024-08-24 15:35 | XMS_ITS ---
Author Organization [facility] Address [address] [address] Care Team Providers Care Assistance Coordinator Name Role Phone Sugey Stratton Primary Care Provider Dahlia KARI Dick Unavailable [phone] REASON FOR VISIT reschedule appointment Encounters Encounter Location Date Provider Diagnosis [facility] [address] [address] 08/02/2024 KARI RYAN Plan Of Treatment Next Appt Details Provider Name:KARI RYAN, 10/11/2024 01:30:00 PM, [address] [address], [place], [address], Progress Notes * Richard WONGDOB:1940 (84 yo M)Acc No.[id number]:08/02/2024 Patient:?Richard WONG :1940???Age:84 Y???Sex:Male Address:[address] [place] [address] * true * Date:? Generated for Printi paolo/Davian/eTransmitting on:?08/24/2024 03:35 PM EDT
--- NOTE | 2024-08-24 15:56 | PFT_ITS ---
Indication: ILD Spirometry [FEV1 to FVC 79%; FEV1 1.41 L; FVC 1.78 L. No significant response to bronchodilators noted.] Lung Volumes [Total lung capacity 98% predicted; residual volume 168% predicted] Diffusion Capacity [DLCO 45% predicted; DLCO VA 92% predicted] Flow Volume Loops [restrictive pattern] Comparisons [none] Interpretation [No definitive restrictive nor obstructive ventilatory defects identified. No significant response to bronchodilators noted. The flow loop is narrowed consistent with restrictive pattern although the lung volumes do not demonstrate that. Lung volumes demonstrate significant air trapping. There is also decrease in the expiratory reserve volume which may be related to an elevated BMI. The patient does have a moderate diffusion impairment but it does correct to normal when corrected for the alveolar volume. Clinical correlation warranted.] MTDD
[2024-08-24 16:37] VITALS: PULSE 68; O2SAT 96
== END 2024-08-24 15:34 | disposition home or self-care (01) ==
LOC: HO.RESP 15:33
PROVIDERS: PCP Internal Medicine; Visit Provider Hospitalist
DX: J84.9 Interstitial pulmonary disease, unspecified (principal)
CPT/HCPCS: 94010; 94640; 94727; 94729

== ENCOUNTER → 2024-08-24 15:56 | Outpatient (BNV) | payer MEDICARE, SELFPAY | PROVIDERS: PCP Internal Medicine; Visit Provider Hospitalist | DX: J84.9 Interstitial pulmonary disease, unspecified (principal) | CPT/HCPCS: 94060; 94727; 94729 ==

== ENCOUNTER 2024-09-10 14:21 | Outpatient (AMB) | payer MEDICARE, SELFPAY ==
--- OUTSIDE RECORDS SUMMARY | 2024-09-10 14:23 | XMS_ITS ---
Author Organization [facility] Care Team Providers Care Data Architect Name Role Phone Berna Jorge Unavailable Unavailable Vita Rodríguez Unavailable Unavailable Carrie Du Unavailable Unavailable Josef Jones Unavailable Unavailable Allergies and adverse reactions Code CodeSystem Substance Reaction Severity StartDate Concern Status 790328006 SNOMED CT Shell Fish Unknown Unknown active 7804 RXNORM oxyCODONE Unknown Unknown active 53703 RXNORM Lisinopril Unknown Unknown active adhesive Unknown 08/28/2023 active Care Team Name Role Address Phone Organization Dates Josef Jones PCP [address] [place] [address], [address], [facility] (Office): : [facility] 08/28/2023 - 09/11/2023 Berna Jorge [address] [place] [address], [address], [facility] (Office): : [facility] 08/28/2023 - 09/11/2023 Vita Rodríguez [address] [place] [address] [address], [place], [address], [facility] (Office): : [facility] 08/28/2023 - 09/11/2023 Carrie Du [address], [place], [address], [place] (Office): : [facility] 08/28/2023 - 09/11/2023 Immunizations Immunization Status Vaccine Details Vaccine Code CodeSystem Date Notes Influenza completed Influenza, split virus, trivalent, injectable, contains preservative 141 CVX created date: 09/03/2023 administere d date: 02/23/2023 (Shingles) Vaccine completed zoster vaccin e recombinant 187 CVX created date: 09/03/2023 administere d date: 11/06/2011 (Respiratory Syncytial Virus) Arexvy Adjuvant Vaccine completed Respiratory syncytial virus (RSV), vaccine, recombinant, protein subunit RSV prefusion F, adjuvant reconstituted, 0.5 mL, preservative free 303 CVX created date: 09/03/2023 administere d date: 02/10/2023 (COVID-19) [facility] Original Primary Dose Vaccine 2 of 2 completed SARS-COV-2 (COVID-19) vaccine, mRNA, spike protein, LNP, preservative free, 30 mcg/0.3mL dose 208 CVX created date: 09/03/2023 administere d date: 05/20/2020 (COVID-19) [facility] Original Primary Dose Vaccine 1 of 2 completed SARS-COV-2 (COVID-19) vaccine, mRNA, spike protein, LNP, preservative free, 30 mcg/0.3mL dose 208 CVX created date: 09/03/2023 administere d date: 04/29/2020 (COVID-19) [facility] Original Booster Vaccine completed SARS-COV-2 (COVID-19) vaccine, mRNA, spike protein, LNP, preservative free, 30 mcg/0.3mL dose 208 CVX created date: 09/03/2023 administere d date: 07/27/2021 (COVID-19) [facility] Original Booster Vaccine completed SARS-COV-2 (COVID-19) vaccine, mRNA, spike protein, LNP, preservative free, 30 mcg/0.3mL dose 208 CVX created date: 09/03/2023 administere d date: 12/22/2020 (COVID-19) Pfizer Bivalent Vaccine completed SARS-COV-2 (COVID-19) vaccine, mRNA, spike protein, LNP, bivalent, preservative free, 30 mcg/0.3 mL dose, ginger-sucrose formulation 300 CVX created date: 09/03/2023 administere d date: 12/31/2021 (Tetanus, Diphtheria, and Acellular Pertussis) Tdap completed tetanus toxoid, reduced diphtheria toxoid, and acellular pertussis vaccine, adsorbed 115 CVX created date: 09/03/2023 administere d date: 05/15/2021 (Pneumococcal) PCV20- Conjugate 20-valent Vaccine completed Pneumococcal conjugate vaccine 20-valent (PCV20), polysaccharide [id number] conjugate, adjuvant, preservative free 216 CVX created date: 09/03/2023 administere d date: 04/02/2016 (Pneumococcal) PPSV23- Polysaccharide 23-valent Vaccine completed pneumococcal polysaccharide vaccine, 23 valent 33 CVX created date: 09/03/2023 administere d date: 03/03/2009 Td, adsorbed, preservative free, adult use, Lf unspecified completed tetanus and diphtheria toxoids, adsorbed, preservative free, for adult use, Lf unspecified 196 CVX created date: 09/03/2023 administere d date: 12/11/2009 Mental Status Section Date Assessment Total Score Description 09/11/2023 BIMS 12 moderate cognit abdi impairment CAM 0 No delirium ind icated PHQ-9 00 09/03/2023 BIMS 12 moderate cognit abdi impairment CAM 0 No delirium ind icated PHQ-9 00 Problems Problem # Description Date of onset Resolved Date Code CodeSystem Concern Status 1 ACUTE AND CHRONIC RESPIRATORY FAILURE WITH HYPOXIA 08/28/[id number] active 2 ACUTE KIDNEY FAILURE, UNSPECIFIED 08/28/[address] active 3 ACUTE PULMONARY EDEMA 08/28/[address] active 4 ATHEROSCLEROTIC HEART DISEASE OF [place] CORONARY ARTERY WITHOUT ANGINA PECTORIS 08/28/[address] active 5 CANDIDAL STOMATITIS 08/28/[address] active 6 CHRONIC OBSTRUCTIVE PULMONARY DISEASE, UNSPECIFIED 08/28/[address] active 7 ESSENTIAL (PRIMARY) HYPERTENSION 08/28/[address] active 8 HISTORY OF FALLING 08/28/[address] active 9 ISCHEMIC CARDIOMYOPATHY 08/28/[address] active 10 MORBID (SEVERE) OBESITY DUE TO EXCESS CALORIES 08/28/[address] active 11 MUSCLE WASTING AND ATROPHY, NOT ELSEWHERE CLASSIFIED, MULTIPLE SITES 08/28/[address] active 12 OBSTRUCTIVE SLEEP APNEA (ADULT) (PEDIATRIC) 08/28/[address] active 13 PNEUMONIA, UNSPECIFIED ORGANISM 08/28/[address] active 14 SEPSIS, UNSPECIFIED ORGANISM 08/28/[address] active 15 TYPE 2 DIABETES MELLITUS WITH DIABETIC NEUROPATHY, UNSPECIFIED 08/28/[address] active 16 UNSPECIFIED PROTEIN-CALORIE MALNUTRITION 08/28/[address] active Reason for Referral No Reasons for Referral Entered Social History Social History Observation Description Start Date End Date Code Code System Current Smoking Status Tobacco smoking consumption unknown 152931861 SNOMED CT Sex Assigned At Male 1940 [address]695-8 [facility] Gender Identity Vital Signs Code Code System Vitals Name Values and Units Timing Information 2339-0 [facility] Blood Sugar Glbpz=551.0 Units=mg/dL 09/11/2023 8462-4 [facility] Blood Pressure-Diastolic Value=72 Un its=mmHg 09/11/2023 8480-6 [facility] Blood Pressure-Systolic Fmero=052 Un its=mmHg 09/11/2023 8867-4 [facility] Heart rate Value=72.0 Units=/min 33000-3 INC Weight Noijw=368.4 Units=Lbs 86754-6 [facility] Pain Level Value=4.0 09/10/2023 9279-1 [facility] Respiratory Rate Value=18.0 Units=/m in 09/10/2023 8310-5 [facility] Body Temperature Value=98.1 Units=?? F 09/10/2023 39344-1 [facility] O2 % BldC Oximetry Value=99.0 Units= % 09/10/2023 8302-2 LOINC Height Value=68.0 Units=Inches 08/28/2023 3151-8 LOINC Inhaled oxygen flow rate Value=3.0 U nits=L/Min 09/10/2023
[2024-09-10 14:27] VITALS: BP 122/74; PULSE 76; O2SAT 95; BMI 39.3
--- NOTE | 2024-09-10 14:27 | MHC.OFFVIS ---
Vital Signs 09/10/24 14:27 Height 5 ft 5 in Weight 235 lb 14.314 oz BMI 39.3 BP 122/74 Blood Pressure Location Lt brachial Position Sitting Pulse 76 Pulse Source Pulse Oximeter Pulse Oximetry (%) 95 Oxygen Delivery Method Room Air Intake Visit Reasons: Pulmonary Fibrosis Investigator Claims Required: No Allergies adhesive tape Allergy (Intermediate, Verified 09/10/24 14:29) blisters lisinopril Allergy (Intermediate, Verified 09/10/24 14:29) Angioedema oxycodone Allergy (Intermediate, Verified 09/10/24 14:29) syncope shellfish derived Allergy (Intermediate, Verified 09/10/24 14:29) Swelling HPI Comments Details: The patient is an 84-year-old gentleman presenting with evaluation of pulmonary fibrosis. The patient has multiple comorbidities including heart disease, chronic kidney disease and chronic respiratory failure on oxygen. [facility] He has been requiring 3 L of oxygen. All he has had a hard time with his portable oxygen tank since he is not able to carry. The patient does have difficulties ambulating. He does rely on a cane and a walker and is hard for him to carry the oxygen tanks specially even with the Trelegy in view of his unsteady gait. Back in July he had worsening respiratory symptoms and he did go to [facility] was admitted briefly to the hospital there, the patient had a CT scan of the chest which was personally by me demonstrating some interstitial changes primarily in the periphery of bilateral lungs. In addition to that also had a nodular density measuring 2 cm in size in the right lower lobe suspicious for an infectious process but can not rule out a malignant process. The patient had been positive for human metapneumovirus at that time. Also to note the patient has been on amiodarone for some time. The does report that because of the interstitial lung disease he was weaned off the amiodarone completely but then developed the serious cardiac arrhythmia and decision was to place him back on a small dose of 200 mg daily. Also, during the office visit we were able to remove the oxygen and we did do a 6 minute walk test. We were able to work on his breathing technique to make sure that he is breathing through the nose and during the ambulation the patient was placed on a portable oxygen concentrator where he tolerated 3 L pulse maintaining a pulse ox of 94%. Therefore, I do believe that he will do well on a portable oxygen concentrator specially with his multiple comorbidities and difficulty ambulating and this will improve his portability outside of the home. In addition to that he is going to continue his respiratory therapy. He will get a repeat CT scan of the chest to follow-up with the nodular density to rule out a malignant process. 12/09/2023 the patient is here for a pulmonary follow-up visit. The patient overall has been doing well. Continues use the oxygen with good effect. He did get a portable oxygen concentrator to the [employer] however, the battery life is too short. Therefore it is hard for him to use it. He is looking to getting his own device that could have a better battery life. We did have him briefly walk in the office. Although he does well on the pulse he does better on continuous flow. Therefore I did recommend he can use 2 L continuous with activity in 2-3 L pulse at rest. We did look at a CT scan of the chest. It is reassuring that he does have some peripheral based reticular changes consistent with scarring although I do not appreciate any evidence of pneumonitis. His amiodarone was also decreased to 100 mg which is reassuring. At this time the patient will benefit from pulmonary rehabilitation. Will go ahead and request pulmonary function studies and plan to have him involved in pulmonary rehabilitation to improve his respiratory capacity. He is still dealing with some back issues and he may need surgery. From a pulmonary standpoint the patient is high risk for perioperative pulmonary complications. Although he is medically optimized and be able to proceed with anesthesia and surgery if warranted. Although I did emphasize to him that exploding alternative of nonsurgical approaches is to his benefit. 03/11/2024 the patient is here for pulmonary follow-up visit. Overall the patient is doing well. He is having issues with the his back at now looking to have a minimally invasive back surgery. He did meet with the iron surgeon and also get clearance from Cardiology. From a pulmonary standpoint the patient is doing very well. He continues to participate in pulmonary rehabilitation. He has been exercising regularly. The last session he exercise were total of 24 minutes which is very reassuring. In addition to that we did turn off the oxygen and his oxygen pulse ox on room air sitting was about 96%. Therefore, already demonstrating significant improvement of his overall respiratory capacity. Unfortunately, his amiodarone had to be increased to 200 mg because of cardiac stability issues. Seems to be doing well on that dose. Will continue to monitoring closely. From a pulmonary aspect the patient does have some increased risk for perioperative pulmonary complications which include atelectasis, hypoxia, pneumonia and prolonged mechanical ventilation. Although from a respiratory studies he is medically optimized and he is actually doing better and also made great strides in pulmonary rehabilitation. Therefore he may able to proceed with surgery at this time. The patient will return in 6 months and will plan to do PFTs and a chest x-ray done. If he has any issues prior to that he will call for an earlier assessment. 09/10/2024 the patient is here for a pulmonary follow-up visit. Overall he is doing okay. He is upset that his back surgery did help his back pain. He does feel significantly debilitated. I did recommend pain management to see if they can provide any relief including a question of a stimulator. He was agreeable to wanting to find out if he was a candidate because he would love to have some other alternatives for the pain control. In the meantime he continues to have shortness of breath. The oxygen has been affecting beneficial. He did have pulmonary function studies which we did review. He appears to have some degree of air trapping therefore I did provide him Anoro as an inhaler. I did teach him how to use it. He will try for a month to see if this provides his shortness of breath. We also did review his last imaging study demonstrating some interstitial changes. Pulmonary nodules do not appear to be suspicious has they are granulomas. Plan to do an x-ray within 6 months and have a follow-up after that. If he has any issues prior to his next appointment he will call for an earlier evaluation. [facility] Medical History Arthritis Type 2 diabetes mellitus CARON (obstructive sleep apnea) Elevated cholesterol HTN (hypertension) Ventricular tachycardia Ischemic cardiomyopathy Ischemic heart disease Chronic hypoxemic respiratory failure On amiodarone therapy Pulmonary nodule 1 cm or greater in diameter ILD (interstitial lung disease) Essential (primary) hypertension Cyst of kidney, acquired Chronic kidney disease, stage 3b Surgical History Hx of cardiac catheterization H/O colonoscopy History of automatic internal cardiac defibrillator (AICD) Hx of aortic valve replacement S/P CABG x 4 S/P cholecystectomy History of appendectomy Social History Are you a primary career resource technician to a significant other at home: No Do you presently have visiting nurse or other home services: No Alcohol intake: never Patient Tobacco Use Status: Never used Tobacco Review of Systems Const Denies fever(s) and Reports weight loss Eyes Reports no additional complaints ENT Reports nasal congestion Card Denies chest pain and Reports dyspnea on exertion Resp Reports cough, Reports dyspnea on exertion and Denies wheezing GI Denies abdominal pain Musc Reports abnormal gait and Reports myalgias Skin/Breast Denies rash Neuro Reports abnormal gait Aller/Immun Denies wheezing Physical Exam Vital Signs: Last Vital Signs Pulse 76 09/10/24 14:27 BP 122/74 09/10/24 14:27 Pulse Ox 95 09/10/24 14:27 Oxygen Delivery Method Room Air 09/10/24 14:27 BMI result Body Mass Index 39.3 Const General: comfortable HEENT Head: Yes normocephalic Neck Neck: Yes supple Chest Chest palpation & inspection: normal inspection of the chest Resp Effort & Inspection: normal respiratory effort Auscultation: diminished lung sounds Cardio Heart sounds: S1 normal heart sound present and S2 normal heart sound present GI Palpation (GI): Soft to palpation Skin General skin exam: no rashes or lesions noted Extrem General: No cyanosis Assessment & Plan Assessment & Plan (1) ILD (interstitial lung disease): Comment: areas or reticular changes and GGO. No honeycombing. Code(s): J84.9 - Interstitial pulmonary disease, unspecified Category: Medical (2) Pulmonary fibrosis: Code(s): J84.10 - Pulmonary fibrosis, unspecified Category: Medical (3) Chronic kidney disease, stage 3b: Code(s): N18.32 - Chronic kidney disease, stage 3b Category: Medical (4) On amiodarone therapy: Code(s): Z79.899 - Other intermediate (current) drug therapy Category: Medical (5) Chronic hypoxemic respiratory failure: Comment: using O2 Code(s): J96.11 - Chronic respiratory failure with hypoxia Category: Medical (6) Back pain: Code(s): M54.9 - Dorsalgia, unspecified Category: Medical Qualifiers: Back pain location: low back pain Chronicity: chronic Back pain laterality: unspecified Sciatica presence: unspecified whether sciatica present Qualified Code(s): M54.50 - Low back pain, unspecified; G89.29 - Other chronic pain Plan continue oxygen ([facility]) POC 2-3L/pulse with activity and 2L/min with sleep. RA while resting. diuresis as tolerated referral to pain management for ?stimulator or alternative CXR F/U 6 months Orders: Orders XR chest 2V 09/10/24 J84.10 - Pulmonary fibrosis, unspecified Referrals Pain Management Referral M54.9 - Dorsalgia, unspecified Medications: New fluticasone furoate 100 mcg/actuation (Arnuity Ellipta) 1 inh inhalation DAILY 30 days 30 ea 11RF Coding Level of Care Code Est Pt Level 4 (51665) Complex EM visit Add On G2211 Diagnoses ILD (interstitial lung disease) J84.9 Pulmonary fibrosis J84.10 Chronic kidney disease, stage 3b N18.32 On amiodarone therapy Z79.899 Chronic hypoxemic respiratory failure J96.11 Chronic low back pain, unspecified back pain laterality, unspecified whether sciatica present M54.50; G89.29 Back pain location: low back pain Chronicity: chronic Back pain laterality: unspecified Sciatica presence: unspecified whether sciatica present Time Spent (min) 17
== END 2024-09-10 14:46 | disposition home or self-care (01) ==
LOC: HO.HPS 14:21
PROVIDERS: PCP Internal Medicine; Visit Provider Hospitalist
DX: J84.9 Interstitial pulmonary disease, unspecified (principal); J84.10 Pulmonary fibrosis, unspecified; N18.32 Chronic kidney disease, stage 3b; Z79.899 Other long term (current) drug therapy; J96.11 Chronic respiratory failure with hypoxia; M54.50 Low back pain, unspecified; G89.29 Other chronic pain
CPT/HCPCS: 99214; G2211

== ENCOUNTER 2024-09-10 14:21 | Outpatient (REF) | payer MEDICARE, SELFPAY ==
--- NOTE | ~2024-09-10 | XR_ITS ---
EXAMINATION: XR CHEST CLINICAL INFORMATION: J84.10 - Pulmonary fibrosis, unspecified COMPARISON: CT November 14, 2023 TECHNIQUE: 2 views of the chest were obtained. FINDINGS: Pacemaker is in place overlying the left chest wall. There are 2 cardiac leads that are unchanged in position. Mediastinal wires are again noted. Lung volumes are similar to the prior. Coarse reticular markings are diffusely noted. XR/XR chest 2V IMPRESSION: Persistent coarse reticular lung markings. Unchanged pacemaker. Electronically signed by: Elia Webster MD 09/10/2024 05:37 PM EDT
[2024-09-10 15:40] LABS: MANUAL DIFF FLAG NO
[2024-09-10 16:56] LABS: Basophils Percent Auto 0.4 % (0-2); Eosinophils Absolute Auto 0.4 X10*3/uL (0.0-0.4); Eosinophils Percent Auto 3.7 % (0-4); Hematocrit 42.6 % (42.0-52.0); Hemoglobin 13.9 g/dl (14.0-18.0); Imm Gran Abs Auto 0.04 X10*3/uL (0.00-0.03); Imm Gran Pct Auto 0.4 % (0.0-0.4); Lymphocytes Absolute Auto 1.8 X10*3/uL (1.2-4.9); Lymphocytes Percent Auto 16.7 % (20-40); Mean Corpuscular HGB Conc 32.6 g/dl (31.0-36.0); Mean Corpuscular Hemoglobin 27.7 pg (27.0-33.0); Mean Corpuscular Volume 84.9 fL (80.0-98.0); Mean Platelet Volume 11.4 fL (9.4-12.4); Monocytes Absolute Auto 1.1 X10*3/uL (0.1-1.2); Monocytes Percent Auto 9.8 % (2-11); Neutrophils Absolute Auto 7.6 x10*3/uL (2.0-8.3); Platelet Count 212 X10*3/uL (160-400); Red Blood Count 5.02 X10*6/uL (4.60-5.80); Red Cell Distribution Width 15.6 % (11.0-16.0)
[2024-09-10 17:21] LABS: Parathyroid Hormone Intact 360.3 pg/mL (8.7-77.1)
[2024-09-10 17:31] LABS: Anion Gap 17 (12-20); Blood Urea Nitrogen 57 mg/dL (9-16); Carbon Dioxide 29 mmol/L (22-29); Chloride 98 mmol/L (96-108); Estimated Glomerular Filt Rate 23; Iron 51 mcg/dL (45-160); Percent Iron Saturation 16 % (15-50); Potassium 4.1 mmol/L (3.3-5.1); Sodium 140 mmol/L (135-145); Total Iron Binding Capacity 319 mcg/dL (228-428); Unsaturated Iron Binding 268 ug/dL; Uric Acid 7.6 mg/dL (3.4-7.0)
[2024-09-10 17:41] LABS: Ferritin 93 ng/mL (20-250); Vitamin D 25-OH Total 47.5 ng/mL (>30)
== END 2024-09-10 14:22 | disposition home or self-care (01) ==
LOC: HO.XRAY 14:21
PROVIDERS: Absent Provider Internal Medicine Nephrology; PCP Internal Medicine; Visit Provider Hospitalist
DX: I10 Essential (primary) hypertension (principal); E79.0 Hyperuricemia without signs of inflammatory arthritis and tophaceous disease; N18.32 Chronic kidney disease, stage 3b; J84.10 Pulmonary fibrosis, unspecified
CPT/HCPCS: 36415; 71046; 80051; 82306; 82565; 82728; 83540; 83970; 84520; 84550; 85025; 99212

== ENCOUNTER → 2024-09-10 15:43 | Outpatient (BNV) | payer MEDICARE, SELFPAY | PROVIDERS: Absent Provider Internal Medicine Nephrology; PCP Internal Medicine; Visit Provider Radiology Diagnostic Radiology | DX: J84.10 Pulmonary fibrosis, unspecified (principal) | CPT/HCPCS: 71046 ==

== ENCOUNTER 2024-09-16 14:52 | Outpatient (AMB) | payer MEDICARE, SELFPAY ==
--- OUTSIDE RECORDS SUMMARY | 2024-06-09 10:45 | XMS_ITS ---
Author Organization [facility] Address [address] [address] Care Team Providers Care Respiratory Therapy Manager Name Role Phone Sugey Stratton Primary Care Provider Dahlia KARI Dick Unavailable [phone] REASON FOR VISIT 3 month f/u Encounters Encounter Location Date Provider Diagnosis [facility] [address] [address] 06/09/2024 KARI RYAN Plan Of Treatment Next Appt Details Provider Name:KARI RYAN, 10/11/2024 01:30:00 PM, [address] [address], [place], [address], Progress Notes * Richard WONGDOB:1940 (84 yo M)Acc No.[id number]:06/09/2024 Progress Note Patient: Richard MATT Provider: Ammy Ryan DPM :1940 A ge:84 Y S ex:Male Date:06/09/2024 Address:[address] [place], [place] [id number] Pcp:Sugey Stratton Subjective: * Chief Complaints: * 1 . 3 month f/u. * Medical History: Objective: * Vitals: Assessment: Plan: * Treatment: * Billing Information: * Visit Code: * Procedure Codes: * Electronic signature of ILIA RYAN D.P.M on 09/16/2024 at 04:10 PM EDT Sign off status: Pending * Provider: Ammy Ryan DPM Date: 0 06/09/2024 Generated for Osvaldo boone/Davian/Mireille on: 0 09/16/2024 04:10 PM EDT
--- NOTE | 2024-09-16 15:39 | HO.NEPHOV ---
Vital Signs 09/16/24 15:44 Height 5 ft 5 in Weight 234 lb 6 oz BMI 39.0 BP 122/70 Blood Pressure Location Lt brachial Position Sitting Pulse 57 Pulse Source Pulse Oximeter Pulse Oximetry (%) 96 Oxygen Delivery Method Room Air Intake Visit Reasons: 3 mnts f/u-Conf Accompanied by: Self / Same As Patient Allergies adhesive tape Allergy (Intermediate, Verified 09/16/24 15:43) blisters lisinopril Allergy (Intermediate, Verified 09/16/24 15:43) Angioedema oxycodone Allergy (Intermediate, Verified 09/16/24 15:43) syncope shellfish derived Allergy (Intermediate, Verified 09/16/24 15:43) Swelling HPI Comments Details: I had the privilege of seeing Mr Wong in follow-up of his chronic kidney disease. He is known to have cardiomyopathy. He has been put on home O2 . He has seen a pulmonary team who told him and his that he has pulmonary fibrosis. He tries to be compliant with a low-sodium diet. He takes his medications regularly. He denies any worsen shortness of breath on exertion, proximal nocturnal dyspnea or orthopnea. He denies any urinary complaints. His blood sugar control is reasonable. He follows up closely with Dr Shukla, his records officer. [facility] Medical History Arthritis Type 2 diabetes mellitus CARON (obstructive sleep apnea) Elevated cholesterol HTN (hypertension) Ventricular tachycardia Ischemic cardiomyopathy Ischemic heart disease Chronic hypoxemic respiratory failure On amiodarone therapy Pulmonary nodule 1 cm or greater in diameter ILD (interstitial lung disease) Essential (primary) hypertension Cyst of kidney, acquired Chronic kidney disease, stage 3b Surgical History Hx of cardiac catheterization H/O colonoscopy History of automatic internal cardiac defibrillator (AICD) Hx of aortic valve replacement S/P CABG x 4 S/P cholecystectomy History of appendectomy Social History Are you a primary healthcare network pricing consultant to a significant other at home: No Do you presently have visiting nurse or other home services: No Alcohol intake: never Patient Tobacco Use Status: Never used Tobacco Review of Systems Const All systems reviewed & are unremarkable except as noted in HPI and below Physical Exam Vital Signs: Last Vital Signs Pulse 57 09/16/24 15:44 BP 122/70 09/16/24 15:44 Pulse Ox 96 09/16/24 15:44 Oxygen Delivery Method Room Air 09/16/24 15:44 BMI result Body Mass Index 39.0 Const General: comfortable and no acute distress Orientation/consciousness: patient oriented x3 HEENT Head: Yes normocephalic Mouth: Normal oral and palatal mucosa present Eyes EOM: EOMs intact bilaterally Neck Neck: Yes supple Resp Auscultation: clear to auscultation bilaterally Cardio Jugular venous distension: no JVD Rate: regular rate GI Palpation (GI): Soft to palpation Auscultation: normal bowel sounds General: Yes no CVA tenderness Back/Spine/Pelvis Back: no CVA tenderness Skin General skin exam: no rashes or lesions noted Neuro General: patient oriented x3 and moves all extremities Extrem General: Yes no pedal edema Results Reviewed Nephrology Results: Hgb, (14.0-18.0) 13.9 g/dl L 09/10/24 WBC, (4.8-10.8) 11.0 X10*3/uL H 09/10/24 Plt Count, (160-400) 212 X10*3/uL 09/10/24 Sodium, (135-145) 140 mmol/L 09/10/24 Potassium, (3.3-5.1) 4.1 mmol/L 09/10/24 Chloride, (96-108) 98 mmol/L 09/10/24 Carbon Dioxide, (22-29) 29 mmol/L 09/10/24 BUN, (9-16) 57 mg/dL H 09/10/24 Creatinine, (0.5-1.4) 2.70 mg/dL H 09/10/24 PTH Intact, (8.7-77.1) 360.3 pg/mL H 09/10/24 Assessment & Plan Assessment & Plan (1) Chronic kidney disease, stage 3b: Code(s): N18.32 - Chronic kidney disease, stage 3b Category: Medical (2) Essential (primary) hypertension: Code(s): I10 - Essential (primary) hypertension Category: Medical Plan Justin 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 He has history of cardiomyopathy. His diuretics can be continued at the current dose for now. His serum creatinine had been close to baseline. He should maintain very low sodium diet . He should maintain good blood sugar control. He had not been tolerating WANG inhibitor or ARB . He is on Farxiga . He can continue Allopurinol 100 mg daily. I did not make any other medication changes today . He should avoid nonsteroidal anti-inflammatory medications . All questions were answered. Follow-up given Orders: Orders Creatinine 3 Months I10 - Essential (primary) hypertension, N18.32 - Chronic kidney disease, stage 3b Blood Urea Nitrogen 3 Months I10 - Essential (primary) hypertension, N18.32 - Chronic kidney disease, stage 3b Electrolytes 3 Months I10 - Essential (primary) hypertension, N18.32 - Chronic kidney disease, stage 3b Medications: Resumed aspirin 81 mg PO QAM clopidogrel 75 mg PO QAM Coding Level of Care Code Est Pt Level 4 (45005) Diagnoses Chronic kidney disease, stage 3b N18.32 Essential (primary) hypertension I10
[2024-09-16 15:44] VITALS: BP 122/70; PULSE 57; O2SAT 96; BMI 39.0
== END 2024-09-16 16:12 | disposition home or self-care (01) ==
PROVIDERS: PCP Internal Medicine; Visit Provider Internal Medicine Nephrology
DX: N18.32 Chronic kidney disease, stage 3b (principal); I10 Essential (primary) hypertension
CPT/HCPCS: 99214

== ENCOUNTER → 2024-09-16 14:52 | Outpatient (BNVA) | payer MEDICARE, SELFPAY | PROVIDERS: PCP Internal Medicine; Visit Provider Internal Medicine Nephrology | DX: I12.9 Hypertensive chronic kidney disease with stage 1 through stage 4 chronic kidney disease, or unspecified chronic kidney disease (principal); N18.32 Chronic kidney disease, stage 3b | CPT/HCPCS: 99212 ==

== ENCOUNTER 2024-10-04 10:53 | Outpatient (AMB) | payer MEDICARE, SELFPAY ==
--- OUTSIDE RECORDS SUMMARY | 2024-06-09 10:45 | XMS_ITS ---
Author Organization [facility] Address [address] [address] Care Team Providers Care [employer] Sales And Lending Team Member Name Role Phone Sugey Stratton Primary Care Provider Dahlia KARI Dick Unavailable [phone] REASON FOR VISIT 3 month f/u Encounters Encounter Location Date Provider Diagnosis [facility] [address] [address] 06/09/2024 KARI RYAN Plan Of Treatment Next Appt Details Provider Name:KARI RYAN, 10/11/2024 01:30:00 PM, [address] [address], [place], [address], Progress Notes * Richard WONGDOB:1940 (84 yo M)Acc No.[id number]:06/09/2024 Progress Note Patient: Richard MATT Provider: Ammy Ryan DPM :1940 A ge:84 Y S ex:Male Date:06/09/2024 Address:[address] [place], [place] [id number] Pcp:Sugey Stratton Subjective: * Chief Complaints: * 1 . 3 month f/u. * Medical History: Objective: * Vitals: Assessment: Plan: * Treatment: * Billing Information: * Visit Code: * Procedure Codes: * Electronic signature of ILIA RYAN D.P.M on 10/04/2024 at 11:51 AM EDT Sign off status: Pending * Provider: Ammy Ryan DPM Date: 0 06/09/2024 Generated for Osvaldo boone/Davian/Mireille on: 0 10/04/2024 11:51 AM EDT
--- NOTE | 2024-10-04 11:03 | MHC.OFFVIS ---
Vital Signs 10/04/24 11:05 Height 5 ft 5 in BP 116/57 L Blood Pressure Location Rt brachial Position Sitting Respiration 16 Pulse 64 Pulse Source Pulse Oximeter Pulse Oximetry (%) 90 L Oxygen Delivery Method Nasal Cannula Oxygen Flow Rate 2 Intake Visit Reasons: Dorsalgia Team Leader Surgery Required: No Allergies adhesive tape Allergy (Intermediate, Verified 10/04/24 11:07) blisters lisinopril Allergy (Intermediate, Verified 10/04/24 11:07) Angioedema oxycodone Allergy (Intermediate, Verified 10/04/24 11:07) syncope shellfish derived Allergy (Intermediate, Verified 10/04/24 11:07) Swelling Medication List - Last Reconciled 10/04/24 by Ryann Nur LPN acetaminophen 1,000 mg PO Q6H PRN allopurinol 100 mg PO QAM amiodarone 200 mg PO QAM aspirin 81 mg PO QAM atorvastatin 20 mg PO BEDTIME carvedilol 6.25 mg PO BID cholecalciferol (vitamin D3) 50 mcg PO DAILY clopidogrel 75 mg PO QAM dapagliflozin propanediol (Farxiga) 10 mg PO QAM fluticasone furoate 100 mcg/actuation (Arnuity Ellipta) 1 inh inhalation DAILY 30 days glipizide 10 mg PO BID guaifenesin ER (Mucus Relief ER) 600 mg PO Q12H insulin aspart U-100 (Novolog FlexPen U-100 Insulin aspart) 2.5 units subcut TID insulin glargine (Lantus Solostar U-100 Insulin) 80 units subcut BEDTIME isosorbide mononitrate ER 30 mg PO QAM levothyroxine 100 mcg PO QAM nitroglycerin 0.4 mg sublingual Q5M PRN Oxygen Home Use As directed pantoprazole 40 mg PO QAM polyethylene glycol 3350(bulk) (Base B, Polyethylene Glycol 3350 granules) ea miscellaneous prednisone 50 mg PO DAILY pregabalin 100 mg PO BID sennosides (senna) 8.6 mg PO QAM tamsulosin 0.4 mg PO BEDTIME torsemide 100 mg (5 x 20 mg) PO DAILY tramadol 50 mg PO Q8H PRN Held on 05/27/24. Instructions: Resume on 06/03/24. When postoperative Rx is finished HPI HPI Dorsalgia: Details: History of Present Illness The patient is an 84-year-old male presenting with chronic low back pain following spinal surgery. He underwent spinal surgery for stenosis, which did not alleviate his pain. The pain originates in his back and radiates to his leg, causing weakness rather than pain in the leg. Injections have provided minimal relief. He is on Plavix for cardiac stents and has previously held the medication for surgical procedures. There are no psychological conditions impacting his pain management. Pain Description - Onset and Timing: Chronic pain following spinal surgery. - Quality and Character: Pain originates in the back and radiates to the leg, causing weakness. - Primary Location: Low back. - Areas of Radiation: Radiates to the leg. - Exacerbating Factors: Not explicitly discussed. - Relieving Factors: Injections provided minimal relief. - Interference with Activities: Causes leg weakness, impacting mobility. Physical Exam - Appears afebrile. - Alert and oriented. - Mood and affect appropriate. - Follows and participates in conversation appropriately. - Respiratory effort is mildly labored. - Able to transition from sit to stand unassisted. - Ambulates with bilaterally normal heel strike and toe off with a cane. - Able to stand and walk on toes and heels. Results - Multilevel degenerative disease of the spine as noted on prior CT scan. Pain Management - Affect: No psychological conditions impacting pain management. - Analgesia: Injections provided minimal relief; considering spinal cord stimulation. - Adverse Effects: Not discussed. - Activities of Daily Living: Pain causes leg weakness, impacting mobility. - Aberrant Drug Related Behaviors: None reported. [facility] Medical History Arthritis Type 2 diabetes mellitus CARON (obstructive sleep apnea) Elevated cholesterol HTN (hypertension) Ventricular tachycardia Ischemic cardiomyopathy Ischemic heart disease Chronic hypoxemic respiratory failure On amiodarone therapy Pulmonary nodule 1 cm or greater in diameter ILD (interstitial lung disease) Essential (primary) hypertension Cyst of kidney, acquired Chronic kidney disease, stage 3b Surgical History Hx of cardiac catheterization H/O colonoscopy History of automatic internal cardiac defibrillator (AICD) Hx of aortic valve replacement S/P CABG x 4 S/P cholecystectomy History of appendectomy Social History Are you a primary daycare director to a significant other at home: No Do you presently have visiting nurse or other home services: No Alcohol intake: never Patient Tobacco Use Status: Never used Tobacco Physical Exam Vital Signs: Last Vital Signs Pulse 64 10/04/24 11:05 Resp 16 10/04/24 11:05 BP 116/57 L 10/04/24 11:05 Pulse Ox 90 L 10/04/24 11:05 Oxygen Delivery Method Nasal Cannula 10/04/24 11:05 Oxygen Flow Rate 2 10/04/24 11:05 Assessment & Plan Assessment & Plan (1) Postlaminectomy syndrome: Code(s): M96.1 - Postlaminectomy syndrome, not elsewhere classified Category: Medical Plan Plan - Proceed with psychological clearance for spinal cord stimulation trial. - Will plan on SE Holding DTM for axial LBP. - Hold Plavix for 10-12 days (5 days prior to the trial; 5-7 days after), coordinating with selenium plant operator for safety. - If trial is successful, plan for permanent implantation of the device. Patient was informed and verbally consented to the use of an ambient scribe for clinic note documentation during this visit. Discussion Notes I discussed with the patient the management of postlaminectomy pain syndrome, including the option of spinal cord stimulation. We reviewed the process, starting with psychological clearance, followed by a trial period with the device. I explained the need to hold Plavix for 10 days prior to the trial and the importance of coordinating with his selenium plant operator. The patient was informed that if the trial is successful, a permanent device could be implanted, which is typically covered by insurance. Patient Instructions - Expect a call for psychological clearance assessment. - Coordinate with your selenium plant operator regarding holding Plavix for the trial. - Follow up after the trial to discuss results and next steps. Coding Level of Care Code New Pt Level 4 (24527) Diagnoses Postlaminectomy syndrome M96.1
[2024-10-04 11:05] VITALS: BP 116/57; PULSE 64; RESP 16; O2SAT 90
--- OUTSIDE RECORDS SUMMARY | 2024-10-04 11:52 | XMS_ITS | Clinical Summary ---
Author Organization [facility] Address [address] [place] [address] Phone Care Team Providers Care Solid Waste Landfill Technician Name Role Phone Nicolás Jeffries MD Primary Care Provider [phone] Allergies Active Allergy Reactions Criticality Noted Date [...] Diabetes: Hemoglobin A1C 07/25/2024 04/26/2024 Influenza Vaccine (#1) 2024 2, 01/06/2021, 12/28/2020, Additional history exists Pneumococcal Vaccine: 50+ Years Completed 04/02/2016, 05/01/2012, 03/03/2009 Pneumococcal Vaccine: Peds (0 to 5 Years) and At-Risk Patients (6 to 49 Years) Discontinued 04/02/2016, 05/01/2012, 03/03/2009 Hepatitis B Vaccine Aged Out No longe r eligible based on patient's age to complete this topic Insurance [facility] Medicare Medicare [facility] Care Teams Solid Waste Landfill Technician Relationship Specialty Start Date End Date Nicolás Jeffries MD PCP - General Internal Medicine 05/16/21
--- OUTSIDE RECORDS SUMMARY | 2024-10-04 11:52 | XMS_ITS | Data Portability ---
Author Organization [place] [facility] Address [address] [place] [address] Care Team Providers Care Molecular Modeler Name Role Phone CATY GARCIA Primary Care Provider [phone] LAUREN PADILLA OTHER ALMA CUEVA Quality Assurance Engineer [phone] Assessment Encounter Date Assessment Date Assessment LastModified [...] diogr am No observ ation record ed. [email or web address] Not Available 07/01 21:52:16 Result Notes None recorded. Procedures Surgical History Date Name Laterality Status Provider Name and Address Organization Details Recorded Time 022 ECG Interpretation - DH completed Ciara Ward NP [address] [place], [address], [place] [facility] 07/01/2021 21:21:29 coronary artery bypass grafts x 4 completed Ciara Ward NP [address] [place], [address], [place] [facility] 07/01/2021 20:07:31 Cholecystectomy completed Ciara Ward NP [address] [place], [address], [place] [facility] 07/01/2021 20:09:21 Appendectomy completed Ciara Ward NP [address] [place], [address], [place] [facility] 07/01/2021 20:09:34 implantation of internal cardiac defibrillator completed Ciara Ward NP [address] [place], [address], [place] [facility] 07/01/2021 20:16:48 Imaging Results None recorded. Procedure Notes None recorded. Medical Equipment None Reported. Allergies Allergen ID Allergen Name Allergen Category Reaction Reaction Severity Criticality Documentation Date Start Date Code Code System Note Provider Name and Address Organization Details Recorded Time 279258 acetamino phen / oxycodone medicatio n Not available Not available Not available 07/01/2021 54095 3 RxNorm Ciara Ward NP [address] [place], [address], [place] [facility] 2 19:56:39 [id number] lisinopri l medicatio n Not available Not available Not available 07/01/2021 86083 RxNorm Ciara Ward , KAYLA [address], [place], [address], [place] [facility] 19:56:49 [id number] shellfish derived food,medi cation Not available Not available Not available 07/01/2021 73291 UNK Ciara Ward , KAYLA [address], [place], [address], [place] [facility] 19:56:58 [...] Heart rate Respiratory rate Body temperature Systolic And Diastolic Provider Name and Address Organization Details Last Updated DateTime 96 % 96 % 110 /min 22 /min 98.3 [degF] 140/70 mm[Hg] Not Available [facility] 20:01:45 Social History Question Answer Notes LastModified by [email or web address] Details LastModified Time Tobacco Smoking Status Never Smoker Ciara Ward NP [address] [facility] [place], [address], [place] [facility] 07/01/2021 20:06:11 Do You Have An Advance Directive? Yes [employer] Information not available 07/01/2021 What Is Your Code Status? Full Code [employer] Information not available 07/01/2021 Within The Past 12 Months, Has It Happened That The Food You Bought Just Didn't Last And You Didn't Have Money To Get More. No [employer] Information not available 07/01/2021 Within The Past 12 Months, Have You Worried That Your Food Would Run Out Before You Got Money To Buy More. No [employer] Information not available 07/01/2021 Fall Risk: Do You Feel Unsteady When Standing Or Walking? No [employer] Information not available 07/01/2021 Excessive Alcohol Or Drug Use No [employer] Information not available 07/01/2021 Does This Patient Have A PCP? Yes [employer] Information not available 07/01/2021 Has The Patient Seen Their PCP In The Past 6 Months? Yes [employer] Information not available 07/01/2021 We Know From Many Of Our Patients That Covering All Of Their Costs Can Be Difficult At Times. This Can Cause Stress And Impact Health. In The Past Year, Have You Been Unable To Get Any Of The Following When It Was Really Needed? No [employer] Information not available 07/01/2021 What Is Your Housing Situation Today? I Have Housing [employer] Information not available 07/01/2021 Sex: Unknown Functional Status Question Answer Note LastModified by Organizat ion Details LastModified Time Do you use any illicit or recreational drugs? No critical access hospital Information not available 07/01/2021 Do you or have you ever used any other forms of tobacco or nicotine? No critical access hospital Information not available 07/01/2021 What is your level of alcohol consumption? None critical [facility] hospital Information not available 07/01/2021 Mental Status None recorded. Family History Relationship Description Onset Age of this Age Resolved Age Notes LastModified by Organization Details LastModified Time Father No current problems or disability [email or web address] Not available 05/2021 20:05:29 Mother No current problems or disability [email or web address] Not available 05/2021 20:05:30 Medical History Condition Response Diabetes Y Coronary Artery Disease Y CHF Y Parkinson's Disease N Cancer N Dementia N Stroke N Hypothyroidism Y Depression N COPD N Asthma N High Cholesterol Y Rheumatoid Arthritis N Pulmonary Embolism N Hypertension Y A-fib N Osteoporosis N Kidney Disease Y Past Encounters Encounter ID Performer Location Encounter Start Date Encounter Closed Date Diagnosis/Indication Diagnosis SNOMED-CT Code Diagnosis ICD10 Code Diagnosis Note [id number] Ciara Ward NP [facility] [address] [place] [address] 07/01/2021 19:54:42 08/01/2021 14:31:47 Health Concerns Section Related Observation LastModified by Organization Detai ls LastModified Time None Recorded Concern Status LastModified by Organization Details LastModified Time None Recorded Advance Directives Directive Y: Payers Insurance Date Sequence Insurance Name Policy Number Policy Reid Covered Member ID Reid Member ID Guarantor Name 07/01/2021 1 [place] [employer] Justin Wong [id number] Justin Wong 08/01/2021 2 [place] [id number] Justin Wong [id number] Justin Wong 07/01/2021 1 *SELF PAY* Justin Wong [id number] Justin Wong Notes Date Note Type Note [...] Dr Cueva s/p hospitalization. Ciara Ward NP [address] [place] [address], [address], [place] [facility] 07/01/2021 21:56:35
== END 2024-10-04 11:45 | disposition home or self-care (01) ==
LOC: HO.PMC 10:54
PROVIDERS: PCP Internal Medicine; Referring Provider Hospitalist; Visit Provider Internal Medicine
DX: M96.1 Postlaminectomy syndrome, not elsewhere classified (principal)
CPT/HCPCS: 99204

== ENCOUNTER → 2024-10-04 10:53 | Outpatient (BNVA) | payer MEDICARE, SELFPAY | PROVIDERS: PCP Internal Medicine; Referring Provider Hospitalist; Visit Provider Internal Medicine | DX: M96.1 Postlaminectomy syndrome, not elsewhere classified (principal); Z79.82 Long term (current) use of aspirin; Z79.4 Long term (current) use of insulin; Z79.52 Long term (current) use of systemic steroids; Z79.891 Long term (current) use of opiate analgesic; Z79.899 Other long term (current) drug therapy | CPT/HCPCS: 99202 ==

== ENCOUNTER 2024-12-09 13:05 | Outpatient (REF) | payer MEDICARE, SELFPAY ==
--- OUTSIDE RECORDS SUMMARY | 2024-06-09 10:45 | XMS_ITS ---
Author Organization [facility] Address [address] [address] Care Team Providers Care Watermelon Harvesting Supervisor Name Role Phone Sugey Stratton Primary Care Provider Dahlia KARI Dick Unavailable [phone] REASON FOR VISIT 3 month f/u Encounters Encounter Location Date Provider Diagnosis [facility] [address] [address] 06/09/2024 KARI RYAN Plan Of Treatment Next Appt Details Provider Name:KARI RYAN, 01/12/2025 02:00:00 PM, [address] [address], [place], [address], Progress Notes * Richard WONGDOB:1940 (84 yo M)Acc No.[id number]:06/09/2024 Progress Note Patient: Richard MATT Provider: Ammy Ryan DPM :1940 A ge:84 Y S ex:Male Date:06/09/2024 Address:[address] [place], [place] [id number] Pcp:Sugey Stratton Subjective: * Chief Complaints: * 1 . 3 month f/u. * Medical History: Objective: * Vitals: Assessment: Plan: * Treatment: * Billing Information: * Visit Code: * Procedure Codes: * Electronic signature of ILIA RYAN D.P.M on 12/09/2024 at 05:08 PM EDT Sign off status: Pending * Provider: Ammy Ryan DPM Date: 0 06/09/2024 Generated for Osvaldo boone/Davian/Mireille on: 0 12/09/2024 05:08 PM EDT
--- OUTSIDE RECORDS SUMMARY | 2024-09-22 09:30 | XMS_ITS ---
Author Organization [facility] Address [address] [address] Care Team Providers Care Bulb Weeder Name Role Phone Sugey Stratton Primary Care Provider Dahlia KARI Dick Unavailable [phone] REASON FOR VISIT 3 month f/u Encounters Encounter Location Date Provider Diagnosis [facility] [address] [address] 09/22/2024 KARI RYAN Plan Of Treatment Next Appt Details Provider Name:KARI RYAN, 01/12/2025 02:00:00 PM, [address] [address], [place], [address], Progress Notes * Richard WONGDOB:1940 (84 yo M)Acc No.[id number]:09/22/2024 Progress Note Patient: Richard MATT Provider: Ammy Ryan DPM :1940 A ge:84 Y S ex:Male Date:09/22/2024 Address:[address] [place], [place] [id number] Pcp:Sugey Stratton Subjective: * Chief Complaints: * 1 . 3 month f/u. * Medical History: Objective: * Vitals: Assessment: Plan: * Treatment: * Billing Information: * Visit Code: * Procedure Codes: * Electronic signature of ILIA RYAN D.P.M on 12/09/2024 at 05:08 PM EDT Sign off status: Pending * Provider: Ammy Ryan DPM Date: 0 09/22/2024 Generated for Osvaldo boone/Davian/Mireille on: 0 12/09/2024 05:08 PM EDT
[2024-12-09 14:12] LABS: Anion Gap 16 (12-20); Blood Urea Nitrogen 50 mg/dL (9-16); Carbon Dioxide 31 mmol/L (22-29); Chloride 97 mmol/L (96-108); Estimated Glomerular Filt Rate 25; Potassium 4.0 mmol/L (3.3-5.1); Sodium 140 mmol/L (135-145)
--- OUTSIDE RECORDS SUMMARY | 2024-12-09 17:09 | XMS_ITS | Clinical Summary ---
Author Organization [facility] Address [address] [place] [address] Phone Care Team Providers Care Ob Tech Name Role Phone Nicolás Jeffries MD Primary Care Provider [phone] Allergies Active Allergy Reactions Criticality Noted Date [...] patient's age to complete this topic Insurance [facility] Medicare Medicare [facility] Care Teams Ob Tech Relationship Specialty Start Date End Date Nicolás Jeffries MD PCP - General Internal Medicine 05/16/21
--- OUTSIDE RECORDS SUMMARY | 2024-12-09 17:09 | XMS_ITS | Patient Health Record ---
Author Organization [facility] Address [address] [facility] [address] [place] [address] Care Team Providers Care Youth Care Professional Name Role Phone Sugey Stratton Primary Care Provider KARI Merino Unavailable [phone] Allergies Allergen (clinical drug ingredient) Drug/Non Drug Allergy documented on EMR Reaction Allergy Type Onset Date Status metoprolol Lopressor Unknown Drug Allergy Active acetaminophen / oxycodone Percocet Unknown Drug Allergy Active Reason For Referral No Information Medications Medication SIG (Take, Route, Frequency, Duration) Notes Start Date End Date Status Aspirin 81 MG 1 tablet Orally Once a day Active Lidocaine-Prilocaine 2.5-2.5 % as directed Externally apply 2 grams to each foot once daily at night prn pain; Duration: 90 days Active Lipitor 20 MG 1 tablet Orally Once a day Active Senna 8.6 MG 1 capsule Orally Once a day Active Levothyroxine Sodium 100 MCG 1 tablet in the morning on an empty stomach Orally Once a day Active Ciclopirox Olamine 0.77 % 1 application (1 gm to each foot) Externally Twice a day; Duration: 90 days Active Lantus SoloStar 100 UNIT/ML as directed Subcutaneous 80 units daily Active Ferrous Sulfate 325 (65 Fe) MG 1 tablet Orally Once a day Not-Taking Silver sulfADIAZINE 1 % 1 application Externally Once a day Active GlycoLax 17 GM/SCOOP as directed Orally Not-Taking Colace 100 MG 1 capsule as needed Orally twice a day Not-Taking hydrALAZINE HCl 50 MG 1 tablet with food Orally Three times a day Not-Taking predniSONE 50 MG 1 tablet with food or milk Orally Once a day Active Nitroglycerin 0.4 MG as directed Sublingual Not-Taking glipiZIDE 10 MG 1 tablet 30 minutes before breakfast Orally twice a day Not-Taking Albuterol Sulfate HFA 108 (90 Base) MCG/ACT 1 puff as needed Inhalation every 4 hrs Not-Taking Nystatin 441943 UNIT/GM 1 application Externally Twice a day Not-Taking Ipratropium Cromwell 0.03 % 2 sprays in each nostril Nasally Twice a day Not-Taking MiraLax 17 GM/SCOOP 1 scoop mixed with 8 ounces of fluid Orally Once a day Active Isosorbide Mononitrate ER 30 MG 1 tablet in the morning Orally Once a day Active Mucinex 600 MG 1 tablet as needed Orally every 12 hrs Active Diclofenac Sodium 1 % as directed Externally Active Insulin Aspart 100 UNIT/ML as directed Subcutaneous Active Hydrocortisone 2.5 % 1 application Externally Once a day Active Tamsulosin HCl 0.4 MG 1 capsule Orally Once a day Active Ciclopirox 0.77 % 1 application Externally apply topically 2 grams to each foot bid as directed Not-Taking Mupirocin 2 % 1 application Externally Twice a day Active Metoprolol Succinate ER 50 MG 1 tablet Orally Once a day Not-Taking Clotrimazole 1 % 1 application Externally Twice a day Active Allopurinol 100 MG 1 tablet Orally Once a day Active Flonase Allergy Relief 50 MCG/ACT 2 sprays in each nostril Nasally Once a day prn Not-Taking Clotrimazole-Betameth asone 1-0.05 % 1 application Externally Twice a day Not-Taking Fluorouracil 5 % 1 application Externally Twice a day Not-Taking Metoprolol Succinate ER 100 MG 1 tablet Orally Once a day Not-Taking Lisinopril 2.5 MG 1 tablet Orally Once a day Not-Taking ZyrTEC Allergy 10 MG 1 tablet Orally Once a day Not-Taking Furosemide 40 MG 1 tablet Orally prn take 1.5 tablets by mouth daily. total of 60mg Not-Taking NIFEdipine ER 90 MG 1 tablet on an empty stomach Orally Once a day Not-Taking Ketoconazole 2 % 1 application Externally Once a day Not-Taking Farxiga 10 MG 1 tablet Orally Once a day Active Vitamin D 50 MCG (2000 UT) 1 tablet Orally Once a day Active Amiodarone HCl 200 MG 1 tablet Orally Once a day Active traMADol HCl 50 MG 1 tablet as needed Orally Once a day PRN Active Lyrica 100 MG 1 capsule Orally Twice a day Active Tylenol 1,000MG PRN Active Torsemide 20 MG as directed Orally 40MG in the A M and 20MG PM Active Coreg 6.25 MG 1 tablet with food Orally Twice a day Active Lidocaine-Prilocaine 2.5-2.5 % 1 gm to each foot Externally once a day nightly PRN pain; Duration: 90 days 12/21/2020 Not-Taking Protonix 40 MG 1 tablet Orally Once a day Active Calcium Carbonate-Vitamin D 500-400 MG-UNIT 1 tablet Orally daily Not-Taking Plavix 75 MG 1 tablet Orally Once a day Active Loratadine 10 MG 1 tablet Orally Once a day Not-Taking Xanax 0.25 MG 1 tablet Orally Twice a day prn for anxiety Not-Taking Simethicone 180 MG 1 capsule after meals and at bedtime as needed Orally 3 times daily Not-Taking Magnesium Oxide 400 MG 1 tablet as needed Orally bid Not-Taking Problems Problem Type SNOMED Code ICD Code Onset Dates Problem Status W/U Status Risk Notes Problem Polyneuropathy due to type 2 diabetes mellitus (383236464) Type 2 diabetes mellitus with diabetic polyneuropathy (E11.42) Active confirmed Problem Peripheral circulatory disorder associated with diabetes mellitus (527744390) Type 2 diabetes mellitus with other circulatory complications (E11.59) Active confirmed Problem Long-term current use of insulin (713188954) supervisor intermediates (current) use of insulin (Z79.4) Active confirmed Problem 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) Active confirmed Vital Signs Heart Rate 73 /min 10/11/2024 Temperature 97.5 degrees Fahrenheit 10/11/2024 Respiratory Rate 20 /min 10/11/2024 Height 5ft 6in in 10/11/2024 Weight 234.1 lbs 10/11/2024 BMI 37.78 kg/m2 10/11/2024 Procedures Procedure Date Ordered Date Performed Result Body Sit e DRAIN/INJECT, INTERMEDIATE JOINT/BURSA 12/31/2023 N/A Encounters Encounter Location Date Provider Diagnosis [facility] [address] [address] 12/31/2023 KARI RYAN Type 2 diabetes mellitus with other circulatory complications E11.59 ; 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 M10.372 and Left foot pain M79.672 [facility] [address] [address] 03/10/2024 KARI RYAN Type 2 diabetes mellitus with other circulatory complications E11.59 ; Type 2 diabetes mellitus with diabetic polyneuropathy E11.42 ; Pain in left toe(s) M79.675 ; Onychomycosis B35.1 ; Xerosis of skin L85.3 and Pain in right toe(s) M79.674 [facility] [address] [address] 06/16/2024 KARI RYAN Type 2 diabetes mellitus with other circulatory complications E11.59 ; Type 2 diabetes mellitus with diabetic polyneuropathy E11.42 ; Pain in left toe(s) M79.675 ; Onychomycosis B35.1 ; Xerosis of skin L85.3 and Pain in right toe(s) M79.674 [facility] [address] [address] 10/11/2024 KARI RYAN Type 2 diabetes mellitus with other circulatory complications E11.59 ; Type 2 diabetes mellitus with diabetic polyneuropathy E11.42 ; Pain in left toe(s) M79.675 ; Onychomycosis B35.1 ; Xerosis of skin L85.3 and Pain in right toe(s) M79.674 [facility] [address] [address] 12/31/2023 KARI RYAN [facility] [address] [address] 08/02/2024 KARI RYAN Assessments Encounter Date Diagnosis (ICD Code) Assessment Notes Treatment Notes Treatment Clinical Notes Section Notes 12/31/2023 Type 2 diabetes mellitus with other circulatory complications (ICD-10 - E11.59) 03/10/2024 Type 2 diabetes mellitus with other circulatory complications (ICD-10 - E11.59) 06/16/2024 Type 2 diabetes mellitus with other circulatory complications (ICD-10 - E11.59) 10/11/2024 Type 2 diabetes mellitus with other circulatory complications (ICD-10 - E11.59) 10/11/2024 Type 2 diabetes mellitus with diabetic polyneuropathy [...] neuropathy with the patient. I explained the sensation of rocks under the feet and stiffness of the toes is due to neuropathy. We discussed the posterior heel pain may also be nerve related. Continue EMLA cream to apply 1 gm to each foot nightly PRN pain x 90 days. 06/16/2024 Type 2 diabetes mellitus with diabetic [...] attack, and does not require a terminal system operator medication yet. We discussed if the [...] acute gout attack since his last visit. 10/11/2024 Pain in left toe(s) (ICD-10 - M79.675) [...] Aseptic debridement of toenails x 10 with cutter brake lining, pt tolerated well. All bleeding controlled with pressure and silver nitrate. Bacitracin and a band-aid applied to the right hallux. He can remove tomorrow. Discussed with the patient that routine nail care services are only covered by insurance every 60 days. Pt understands that if they would like to return prior to this time frame, they may have to pay out of pocket. 10/11/2024 Onychomycosis (ICD-10 - B35.1) I reviewed with the patient various treatment methods for toenail fungus including topical, oral, laser, and removal of the infected toenails. Continue Ciclopirox to apply to each affected toenail daily. Aseptic debridement of toenails x 10 with cutter brake lining, pt tolerated well. He can remove tomorrow. Discussed with the [...] Aseptic trimming of toenails x 10 with cutter brake lining, pt tolerated well. All bleeding controlled with [...] applies cream to his feet every day. 10/11/2024 Xerosis of skin (ICD-10 - L85.3) He applies cream to his feet every day. 06/16/2024 Xerosis of skin (ICD-10 - L85.3) He applies cream to his feet every day. 10/11/2024 Pain in right toe(s) (ICD-10 - M79.674) 03/10/2024 Pain in right toe(s) (ICD-10 - M79.674) 06/16/2024 Pain in right toe(s) (ICD-10 - M79.674) Plan Of Treatment Pending Test Test Name Order Date X ray : Foot, left 3v 04/20/2021 DRAIN/INJECT, SMALL JOINT/BURSA 04/20/19 22 DRAIN/INJECT, INTERMEDIATE JOINT/BURSA 1 Trim dystrophic toenails any number 05/2020 Next Appt Details Provider Name:KARI RYAN, 01/12/2025 02:00:00 PM, [address], [address], Insurance Providers Payer Name Payer Address Payer Phone Subscriber Number Group Number Insured Name Patient Relationship to Insured Coverage Start Date Coverage End Date Medicare of [place] [address] [place]I [place]Z [phone] [id number] Richard Wong Self - patient is the insured [employer] [address] [place] [address] [phone] [id number] 1 Richard Wong Self - patient is [...] hypertension ischemic cardiomyopathy non-sustained ventricular tachycardia old [place] PVD diabetes mellitus 2 with peripheral neur [...]
== END 2024-12-09 13:06 | disposition home or self-care (01) ==
LOC: HO.LAB 13:05
PROVIDERS: PCP Internal Medicine; Visit Provider Internal Medicine Nephrology
DX: I12.9 Hypertensive chronic kidney disease with stage 1 through stage 4 chronic kidney disease, or unspecified chronic kidney disease (principal); N18.32 Chronic kidney disease, stage 3b
CPT/HCPCS: 36415; 80051; 82565; 84520

== ENCOUNTER 2024-12-16 15:53 | Outpatient (AMB) | payer MEDICARE, SELFPAY ==
--- NOTE | 2024-12-16 16:08 | HO.NEPHOV_ITS ---
Vital Signs 12/16/24 16:10 Height 5 ft 5 in Weight 227 lb 4 oz BMI 37.8 BP 146/80 H Blood Pressure Location Lt brachial Position Sitting Pulse 66 Pulse Source Pulse Oximeter Pulse Oximetry (%) 96 Oxygen Delivery Method Room Air Intake Visit Reasons: 3mon follow-up w/labs-Conf Experimental Worker Required: No Accompanied by: Self / Same As Patient Allergies adhesive tape Allergy (Intermediate, Verified 12/16/24 16:10) blisters lisinopril Allergy (Intermediate, Verified 12/16/24 16:10) Angioedema oxycodone Allergy (Intermediate, Verified 12/16/24 16:10) syncope shellfish derived Allergy (Intermediate, Verified 12/16/24 16:10) Swelling HPI Comments Details: Mr Wong was in follow-up of his chronic kidney disease. He is known to have cardiomyopathy. He has been on home O2 . He has pulmonary fibrosis. He tries to be compliant with a low-sodium diet. He takes his medications regularly. Recently he had hypervolemia and was in hospital needing IV diuresis. He also had urinary symptoms and was thought to have UTI and was treated with antibiotics. He currently has some dysuria. ( He is on Farxiga). He is due to have back surgery next week. He denies any worsen shortness of breath on exertion, proximal nocturnal dyspnea or orthopnea now. His blood sugar control is reasonable. He follows up closely with Dr Shukla, his floor sweeper. [facility] Medical History Arthritis Type 2 diabetes mellitus CARON (obstructive sleep apnea) Elevated cholesterol HTN (hypertension) Ventricular tachycardia Ischemic cardiomyopathy Ischemic heart disease Chronic hypoxemic respiratory failure On amiodarone therapy Pulmonary nodule 1 cm or greater in diameter ILD (interstitial lung disease) Essential (primary) hypertension Cyst of kidney, acquired Chronic kidney disease, stage 3b Surgical History Hx of cardiac catheterization H/O colonoscopy History of automatic internal cardiac defibrillator (AICD) Hx of aortic valve replacement S/P CABG x 4 S/P cholecystectomy History of appendectomy Social History Are you a primary healthcare facility administrator to a significant other at home: No Do you presently have visiting nurse or other home services: No Alcohol intake: never Patient Tobacco Use Status: Never used Tobacco Review of Systems Const All systems reviewed & are unremarkable except as noted in HPI and below Physical Exam Vital Signs: Last Vital Signs Pulse 66 12/16/24 16:10 BP 146/80 H 12/16/24 16:10 Pulse Ox 96 12/16/24 16:10 Oxygen Delivery Method Room Air 12/16/24 16:10 BMI result Body Mass Index 37.8 Const General: comfortable and no acute distress Orientation/consciousness: patient oriented x3 HEENT Head: Yes normocephalic Mouth: Normal oral and palatal mucosa present Eyes EOM: EOMs intact bilaterally Neck Neck: Yes supple Resp Auscultation: clear to auscultation bilaterally Cardio Jugular venous distension: no JVD Rate: regular rate GI Palpation (GI): Soft to palpation Auscultation: normal bowel sounds General: Yes no CVA tenderness Back/Spine/Pelvis Back: no CVA tenderness Skin General skin exam: no rashes or lesions noted Neuro General: patient oriented x3 and moves all extremities Extrem General: Yes no pedal edema Results Reviewed Nephrology Results: Hgb, (14.0-18.0) 13.9 g/dl L 09/10/24 WBC, (4.8-10.8) 11.0 X10*3/uL H 09/10/24 Plt Count, (160-400) 212 X10*3/uL 09/10/24 Sodium, (135-145) 140 mmol/L 12/09/24 Potassium, (3.3-5.1) 4.0 mmol/L 12/09/24 Chloride, (96-108) 97 mmol/L 12/09/24 Carbon Dioxide, (22-29) 31 mmol/L H 12/09/24 BUN, (9-16) 50 mg/dL H 12/09/24 Creatinine, (0.5-1.4) 2.51 mg/dL H 12/09/24 PTH Intact, (8.7-77.1) 360.3 pg/mL H 09/10/24 Assessment & Plan Assessment & Plan (1) Chronic kidney disease, stage 3b: Code(s): N18.32 - Chronic kidney disease, stage 3b Category: Medical (2) Dysuria: Code(s): R30.0 - Dysuria Category: Medical (3) Essential (primary) hypertension: Code(s): I10 - Essential (primary) hypertension Category: Medical (4) Hyperuricemia: Code(s): E79.0 - Hyperuricemia without signs of inflammatory arthritis and tophaceous disease Category: Medical Plan Justin 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 He has history of cardiomyopathy. His diuretics can be continued at the current dose for now. His serum creatinine had been close to baseline. He should maintain very low sodium diet . He should maintain good blood sugar control. I have ordered urine culture( is on Farxiga). He had not been tolerating WANG inhibitor or ARB .He can continue Allopurinol 100 mg daily. I did not make any other medication changes today but will need antibiotics if his urine culture is positive . He should avoid nonsteroidal anti-inflammatory medications . All questions were answered. Follow-up given Orders: Orders Urine Culture 12/16/24 R30.0 - Dysuria Vitamin D 25-OH Total 3 Months N18.32 - Chronic kidney disease, stage 3b Parathyroid Hormone Intact 3 Months N18.32 - Chronic kidney disease, stage 3b Electrolytes 3 Months N18.32 - Chronic kidney disease, stage 3b Complete Blood Count Auto Diff 3 Months N18.32 - Chronic kidney disease, stage 3b Phosphorus 3 Months N18.32 - Chronic kidney disease, stage 3b Creatinine 3 Months N18.32 - Chronic kidney disease, stage 3b Blood Urea Nitrogen 3 Months N18.32 - Chronic kidney disease, stage 3b Calcium 3 Months N18.32 - Chronic kidney disease, stage 3b Coding Level of Care Code Est Pt Level 4 (43425) Diagnoses Chronic kidney disease, stage 3b N18.32 Dysuria R30.0 Essential (primary) hypertension I10 Hyperuricemia E79.0
[2024-12-16 16:10] VITALS: BP 146/80; PULSE 66; O2SAT 96; BMI 37.8
--- OUTSIDE RECORDS SUMMARY | 2024-12-16 17:04 | XMS_ITS ---
Author Organization [address] Address [address] [place] [address] Phone Care Team Providers Care Joist Setter Name Role Phone Nicolás Jeffries MD Primary Care Provider [phone] Chronic Care Management Status:Ongoing (Active) Start date:07/26/2024 Enrollment date:07/29/2024 Enrollment reason:Referred by Care Team Case Team Name Relationship Phone Haritha Kline RN Care Manager(Responsible S taff) Continued Care and Services Coordination
--- OUTSIDE RECORDS SUMMARY | 2024-12-16 17:04 | XMS_ITS | Clinical Summary ---
Author Organization [facility] Address [address] [place] [address] Phone Care Team Providers Care Pediatric Dental Assistant Name Role Phone Nicolás Jeffries MD Primary Care Provider Allergies Active Allergy Reactions Criticality Noted Date [...] patient's age to complete this topic Insurance [facility] Medicare Medicare [facility] Care Teams Pediatric Dental Assistant Relationship Specialty Start Date End Date Nicolás Jeffries MD PCP - General Internal Medicine 05/16/21
--- OUTSIDE RECORDS SUMMARY | 2024-12-16 17:04 | XMS_ITS | Clinical Summary ---
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 08/19/2024 5:22 PM EDT [facility] LDL Calculated 58 0 - 100 mg/dL LAB CHEMISTRY METHOD 08/19/2024 5:22 PM EDT [facility] VLDL Cholesterol Gucci 37 mg/dL LAB CHEMISTRY METHOD 08/19/2024 5:22 PM EDT [facility] Non HDL Chol. (LDL+VLDL) 95 <145 mg/dL LAB CHEMISTRY METHOD 08/19/2024 5:22 PM EDT [facility] Chol/HDL Ratio 2.9 0.0 - 4.4 LAB CHEMISTRY METHOD 08/19/2024 5:22 PM EDT [facility] Blood Venous blood specimen / Unknown Venipuncture / Unknown 08/19/2024 1:59 PM EDT 08/19/2024 1:59 PM EDT us Nicolás Jeffries MD LAB BLOOD ORDERABLES Final Resu lt Performing Organization Address City/[facility]/ZIP Co de Phone Number [facility] [address] [place] [address], [place] [phone] * (ABNORMAL) Microalbumin creatinine urine ratio (08/19/2024 1:59 PM EDT) Creatinine, Urine 73.0 mg/dL LAB CHEMISTRY METHOD 08/20/2024 4:44 AM EDT [facility] Microalb, Ur 83.8(H) 0.0 - 29.0 mg/L LAB CHEMISTRY METHOD 08/20/2024 4:44 AM EDT [facility] Microalb/Crea t Ratio 115(H) <30 mg/g creat LAB CHEMISTRY METHOD 08/20/2024 4:44 AM EDT [facility] Urine Urine specimen obtained by clean catch procedure / Unknown Non-blood Collection / Unknown 08/19/2024 1:59 PM EDT 08/19/2024 1:59 PM EDT us Nicolás Jeffries MD LAB URINE ORDERABLES Final Resu lt Performing Organization Address [facility]/ZIP Co de Phone Number [facility] [address] [place] [address], [place] [phone] * (ABNORMAL) Hemoglobin A1c (08/19/2024 1:59 PM EDT) [facility] Hemoglobin A1C 7.4(H) <6.5 % LAB CHEMISTRY METHOD 08/22/2024 11:20 AM T [facility] Mean Bld Glu Estim. 166 mg/dL LAB CHEMISTRY METHOD 08/22/2024 11:20 AM [facility] Blood Venous blood specimen / Unknown Venipuncture / Unknown 08/19/2024 1:59 PM EDT 08/19/2024 1:59 PM EDT us Nicolás Jeffries MD LAB BLOOD ORDERABLES Final Resu lt [facility] [address] [place] [address], [place] [phone] * (ABNORMAL) Comprehensive metabolic panel (08/19/2024 1:59 PM EDT) [facility] Sodium 142 133 - 145 mmol/L LAB CHEMISTRY METHOD 08/19/2024 5:22 PM [facility] Potassium 4.0 3.5 - 5.5 mmol/L LAB CHEMISTRY METHOD 08/19/2024 5:22 PM [facility] Chloride 101 96 - 110 mmol/L LAB CHEMISTRY METHOD 08/19/2024 5:22 PM [facility] CO2 34(H) 21 - 32 mmol/L LAB CHEMISTRY METHOD 08/19/2024 5:22 PM [facility] Anion Gap 7 3 - 11 LAB CHEMISTRY METHOD 08/19/2024 5:22 PM [facility] Glucose 64(L) 70 - 100 mg/dL LAB CHEMISTRY METHOD 08/19/2024 5:22 PM [facility] BUN 58(H) 5 - 25 mg/dL LAB CHEMISTRY METHOD 08/19/2024 5:22 PM [facility] Creatinine 2.72(H) 0.70 - 1.30 mg/dL LAB CHEMISTRY METHOD 08/19/2024 5:22 PM [facility] eGFR 23(L) >=60 mL/min/1. 73m2 LAB CHEMISTRY METHOD 08/19/2024 5:22 PM [facility] Comment:Calculation based on the Chronic Kidney Disease Epidemiology Collaboration (CKD-EPI) equation refit without adjustment for race. BUN/Creatinine Ratio 21.3 LAB CHEMISTRY METHOD 08/19/2024 5:22 PM [facility] Calcium 9.3 8.5 - 10.5 mg/dL LAB CHEMISTRY METHOD 08/19/2024 5:22 PM [facility] AST (SGOT) 38 10 - 42 unit/L LAB CHEMISTRY METHOD 08/19/2024 5:22 PM [facility] ALT (SGPT) 37 10 - 60 unit/L LAB CHEMISTRY METHOD 08/19/2024 5:22 PM [facility] Alkaline Phosphatase 114 42 - 121 unit/L LAB CHEMISTRY METHOD 08/19/2024 5:22 PM [facility] Total Protein 7.5 6.0 - 8.0 g/dL LAB CHEMISTRY METHOD 08/19/2024 5:22 PM [facility] Albumin 4.2 3.2 - 5.0 g/dL LAB CHEMISTRY METHOD 08/19/2024 5:22 PM [facility] Total Bilirubin 1.2 0.0 - 1.4 mg/dL LAB CHEMISTRY METHOD 08/19/2024 5:22 PM [facility] Blood Venous blood specimen / Unknown Venipuncture / Unknown 08/19/2024 1:59 PM EDT 08/19/2024 1:59 PM EDT us Nicolás Jeffries MD LAB BLOOD ORDERABLES Final Resu lt [facility] [address] [place] [address], [place] [phone] * Depression Screening (12/12/2023) Depression Screening abstracted Historical Provider HEALTH MAINTENANCE Final Result * Diabetes Foot Exam (11/05/2023) Diabetes: Annual Foot Exam abstracted Historical Provider HEALTH MAINTENANCE Final Result * Diabetes Eye Exam (10/31/2023) Diabetes: Annual Retina Eye Exam abstracted Historical Provider HEALTH MAINTENANCE Final Result * Falls Risk Assessment (10/21/2023) Pathologist [facility] Falls Risk Assessment abstracted Historical Provider HEALTH MAINTENANCE Final Result from Last 3 Months or Most Recently Relevant to Health Maintenance Insurance MEDICARE [facility] Care Teams Salon Shampoo Assistant Relationship Specialty Start Date End Date Nicolás Jeffries MD [address] [place] [address] PCP - General Internal Medicine 02/11/24
== END 2024-12-16 16:38 | disposition home or self-care (01) ==
LOC: HO.HKAS 15:53
PROVIDERS: PCP Internal Medicine; Visit Provider Internal Medicine Nephrology
DX: N18.32 Chronic kidney disease, stage 3b (principal); R30.0 Dysuria; I10 Essential (primary) hypertension; E79.0 Hyperuricemia without signs of inflammatory arthritis and tophaceous disease
CPT/HCPCS: 99214

== ENCOUNTER → 2024-12-16 15:53 | Outpatient (BNVA) | payer MEDICARE, SELFPAY | PROVIDERS: PCP Internal Medicine; Visit Provider Internal Medicine Nephrology | DX: I12.9 Hypertensive chronic kidney disease with stage 1 through stage 4 chronic kidney disease, or unspecified chronic kidney disease (principal); N18.32 Chronic kidney disease, stage 3b; R30.0 Dysuria; E79.0 Hyperuricemia without signs of inflammatory arthritis and tophaceous disease | CPT/HCPCS: 99212 ==

== ENCOUNTER 2024-12-17 13:30 | Outpatient (REF) | payer MEDICARE, SELFPAY ==
--- OUTSIDE RECORDS SUMMARY | 2024-12-17 13:45 | XMS_ITS | Encounter Summary ---
Author Organization [facility] Address [address] [place] [address] Care Team Providers Care Precision Dyer Name Role Phone Nicolás Jeffries MD Primary Care Provider [phone] Reason for Visit * Reason Onset Date Comments medication refill request 12/17/2024 Encounter Details Date Type Department Care Team ([facility] st Contact Info) Description 12/17/2024 Telephone Gastroenterology - [address] [facility] [address] [place] [address] Janneth Enciso, KAYLA [address] [facility] [address] [place] [address] Social History Tobacco Use Types Packs/Day Years [...] as of this encounter Progress Notes * Josselyn Solis - 12/17/2024 7:58 AM EDT Received a refill request from patient's pharmacy for: Silver Sulfa 1% cream Qty: 50 Rx #: [id number] Apply cream to the perianal skin as thin film twice daily Not sure if on current med list [place] DELIA: 10/30/22 - Betsy NOV: 05/13/25 - Janneth documented in this encounter Plan of Treatment Upcoming Encounters Date Type Department Care Team (Late st Contact Info) Description 12/20/2024 2:00 PM EDT Office Visit Adult Medicine [address] [phone] Ann Marie García, WASHING MACHINE ASSEMBLER [address] [place], [place] 01/10/2025 2:15 PM EDT Office Visit [address] [phone] Aung Pinto MD [address] [place] [address] 01/17/2025 2:00 PM EDT Office Visit Orthopedic Surgery - [place] [address] [facility] [address] [place] [phone] Ines Orozco PA [address] [place] [phone] 01/26/2025 2:45 PM EDT Consult [facility] [place] [address] [place] [phone] Tala New MD [address] [place] [phone] 03/03/2025 3:00 PM EST Office Visit Adult Medicine [facility] [address] [place] [address] Nicolás Jeffries MD [address] [place] [address] 05/13/2025 2:00 PM EST Office Visit Gastroenterology - [place] [address] [facility] 175 [facility] [address] [place] [phone] Janneth Enciso NP 175 [facility] [address] [place] [address] 10/12/2025 3:00 PM EDT Ancillary Procedure [facility] [address] [facility] [address] [place] [phone] documented as of this encounter Visit Diagnoses Not on filedocumented in this encounter Additional Health Concerns Assessment Noted Time PHQ-9 Depression Total Score: 0 09/24/19 25 11:46 AM EDT documented as of this encounter Care Teams Precision Dyer Relationship Specialty Start Date End Date Nicolás Jeffries MD [address] [place] [address] PCP - General Internal Medicine 02/11/24 documented as of this encounter
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
--- OUTSIDE RECORDS SUMMARY | 2024-12-17 13:46 | XMS_ITS ---
Author Organization [address] Address [address] [place] [address] Phone Care Team Providers Care Validation Leader Name Role Phone Nicolás Jeffries MD Primary Care Provider Chronic Care Management Status:Closed (Closed) Start date:07/26/2024 Enrollment date:07/29/2024 Enrollment reason:Referred by Care Team End date:12/17/2024 Close reason:Completed program Case Team Name Relationship Phone Haritha Kline plasterer stucco(Responsible S taff) Continued Care and Services Coordination
--- OUTSIDE RECORDS SUMMARY | 2024-12-17 13:46 | XMS_ITS | Clinical Summary ---
Author Organization [facility] Address [address] [place] [address] Phone Care Team Providers Care Cafeteria Cashier Name Role Phone Nicolás Jeffries MD Primary Care Provider [phone] Allergies Active Allergy Reactions Criticality Noted Date [...] HOSPITAL Medicare Medicare [facility] Care Teams Cafeteria Cashier Relationship Specialty Start Date End Date Nicolás Jeffries MD PCP - General Internal Medicine 05/16/21
== END 2024-12-17 13:31 | disposition home or self-care (01) ==
LOC: HO.HKASLDS 13:30
PROVIDERS: Visit Provider Internal Medicine Nephrology
DX: R30.0 Dysuria (principal)
CPT/HCPCS: 87086

== ENCOUNTER 2024-12-30 12:46 | Outpatient (REF) | payer MEDICARE, SELFPAY ==
--- OUTSIDE RECORDS SUMMARY | 2024-06-09 10:45 | XMS_ITS ---
Author Organization [facility] Address [address] [address] Care Team Providers Care Ferry Operator Name Role Phone Sugey Stratton Primary Care Provider Dahlia KARI Dick Unavailable [phone] REASON FOR VISIT 3 month f/u Encounters Encounter Location Date Provider Diagnosis [facility] [address] [address] 06/09/2024 KARI RYAN Plan Of Treatment Next Appt Details Provider Name:KARI RYAN, 01/12/2025 02:00:00 PM, [address] [address], [place], [address], Progress Notes * Richard WONGDOB:1940 (84 yo M)Acc No.[id number]:06/09/2024 Progress Note Patient: Richard MATT Provider: Ammy Ryan DPM :1940 A ge:84 Y S ex:Male Date:06/09/2024 Address:[address] [place], [place] [id number] Pcp:Sugey Stratton Subjective: * Chief Complaints: * 1 . 3 month f/u. * Medical History: Objective: * Vitals: Assessment: Plan: * Treatment: * Billing Information: * Visit Code: * Procedure Codes: * Electronic signature of ILIA RYAN D.P.M on 12/30/2024 at 02:14 PM EDT Sign off status: Pending * Provider: Ammy Ryan DPM Date: 0 06/09/2024 Generated for Osvaldo boone/Davian/Mireille on: 1 02:14 PM EDT
--- OUTSIDE RECORDS SUMMARY | 2024-09-22 09:30 | XMS_ITS ---
Author Organization [facility] Address [address] [address] Care Team Providers Care Senior Net Web Developer Name Role Phone Sugey Stratton Primary Care Provider Dahlia KARI Dick Unavailable [phone] REASON FOR VISIT 3 month f/u Encounters Encounter Location Date Provider Diagnosis [facility] [address] [address] 09/22/2024 KARI RYAN Plan Of Treatment Next Appt Details Provider Name:KARI RYAN, 01/12/2025 02:00:00 PM, [address] [address], [place], [address], Progress Notes * Richard WONGDOB:1940 (84 yo M)Acc No.[id number]:09/22/2024 Progress Note Patient: Richard MATT Provider: Ammy Ryan DPM :1940 A ge:84 Y S ex:Male Date:09/22/2024 Address:[address] [place], [place] [id number] Pcp:Sugey Stratton Subjective: * Chief Complaints: * 1 . 3 month f/u. * Medical History: Objective: * Vitals: Assessment: Plan: * Treatment: * Billing Information: * Visit Code: * Procedure Codes: * Electronic signature of ILIA RYAN D.P.M on 12/30/2024 at 02:15 PM EDT Sign off status: Pending * Provider: Ammy Ryan DPM Date: 0 09/22/2024 Generated for Ovsaldo boone/Davian/Mireille on: 1 02:15 PM EDT
--- OUTSIDE RECORDS SUMMARY | 2024-12-28 19:30 | XMS_ITS | Encounter Summary ---
Author Organization [facility] Address [address] [place] [address] Care Team Providers Care Software Engineer Name Role Phone Nicolás Jeffries MD Primary Care Provider [phone] Encounter Details Date Type Department Care Team ([facility] st Contact Info) Description 12/28/2024 7:30 PM EDT Ancillary Procedure [facility] - [facility] [address] [facility] [address] [place] [phone] Arrived Social History Tobacco Use Types Packs/Day [...] 01/10/2025 2:15 PM EDT Office Visit Endocrinology [address] [phone] Aung Pnito MD [address] [place] [address] 01/17/2025 2:00 PM EDT Office Visit Orthopedic Surgery - [place] 175 [facility] 140 [place] [phone] Ines Orozco PA [address] [place] [phone] 01/26/2025 2:45 PM EDT Consult Breast Care Center [facility] [address] [place] [phone] Tala New MD [address] [place] [phone] 03/03/2025 3:00 PM EST Office Visit Adult Medicine [address] [phone] Nicolás Jeffries MD [address] [place] [phone] 05/13/2025 2:00 PM EST Office Visit Gastroenterology - [place] 175 [facility] [address] [facility] [address] [place] [phone] Janneth Enciso, DIRECTOR OF PLANNING 175 [facility] 200 [place] [address] 10/12/2025 3:00 PM EDT Ancillary Procedure [facility] - [address] [place] [phone] documented as of this encounter Procedures Procedure Name Priority Date/Time Associated Diagnosis Comments CARDIAC DEVICE CHECK- REMOTE- MURJ Routine 12/28/2024 7:27 PM EDT documented in this encounter Results * Cardiac device check - Remote- MURJ (12/28/2024 7:27 PM EDT) Date Time Interrogation Session [id number] CV DEVICE CHECK Type Interrogation Session Remote Scheduled CV DEVICE CHECK Implantable Pulse Generator Motion Picture Cameraman [employer] CV DEVICE CHECK Implantable Pulse Generator Type ICD CV DEVICE CHECK Implantable Pulse Generator Model [id number] John(TM) CV DEVICE CHECK Implantable Pulse Generator Serial Number [id number] CV DEVICE CHECK Implantable Pulse Generator Implant Date 20210720 CV DEVICE CHECK Battery Remaining Percentage 63.00 CV DEVICE CHECK Battery Remaining Longevity 68.0 CV DEVICE CHECK Battery Voltage 2.980 CV D EVICE CHECK Battery DATA WAREHOUSING ARCHITECT Trigger 2.620 CV DEVICE CHECK Battery Status Middle of Service CV DEVICE CHECK Capacitor Charge Time 8.800 CV DEVICE CHECK Sanket Statistic RA Percent Paced 9.50 CV DEVICE CHECK Sanket Statistic RV Percent Paced 91.00 CV DEVICE CHECK Atrial Tachy Statistic AT/AF [place] Percent 0.00 CV DEVICE CHECK Lead Channel [...] documented as of this encounter Care Teams Software Engineer Relationship Specialty Start Date End Date Nicolás Jeffries MD [address] [place] [address] PCP - General Internal Medicine 02/11/24 documented as of this encounter
--- NOTE | 2024-12-30 | EMG_ITS ---
Chief complaint:Numbness and tingling of the bilateral upper extremity Reason for referral: Evaluate for carpal tunnel syndrome, lesion of ulnar nerve and radiculopathy Referred by: GAL Rosales Procedure done: Bilateral upper extremity NCS and EMG Bilateral median and ulnar motor and sensory studies were performed bilateral radial sensory and median and lateral antecubital brachial sensory studies were performed an EMG needle examination was performed. Bilateral median mixed distal latencies were slightly prolonged with slightly slow conduction velocities. Otherwise no significant abnormality was noted. Impression: Mild bilateral median neuropathy across carpal tunnel MTDD
--- OUTSIDE RECORDS SUMMARY | 2024-12-30 14:15 | XMS_ITS | Patient Health Record ---
Author Organization [facility] Address [address] [facility] [address] [place] [address] Care Team Providers Care Insurance Risk Surveyor Name Role Phone Sugey Stratton Primary Care Provider KARI Merino Unavailable [phone] Allergies Allergen (clinical drug ingredient) Drug/Non Drug [...] needed Inhalation every 4 hrs Not-Taking Nystatin 891620 UNIT/GM 1 application Externally Twice a day Not-Taking Ipratropium [place] 0.03 % 2 sprays in each nostril [...] Polyneuropathy due to type 2 diabetes mellitus (532228486) Type 2 diabetes mellitus with diabetic polyneuropathy (E11.42) Active confirmed Problem Peripheral circulatory disorder associated with diabetes mellitus (900955059) Type 2 diabetes mellitus with other circulatory complications (E11.59) Active confirmed Problem Long-term current use of insulin (074096842) correction (current) use of insulin (Z79.4) Active confirmed 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 Vital Signs Heart Rate 73 /min 10/11/2024 Temperature 97.5 degrees Fahrenheit 10/11/2024 Respiratory Rate 20 /min 10/11/2024 Height 5ft 6in in 10/11/2024 Weight 234.1 lbs 10/11/2024 BMI 37.78 kg/m2 10/11/2024 Procedures Procedure Date Ordered Date Performed Result Body Sit e DRAIN/INJECT, INTERMEDIATE JOINT/BURSA 12/31/2023 N/A Encounters Encounter Location Date Provider Diagnosis [facility] [address] [address] 12/31/2023 KARI RYAN Type 2 diabetes mellitus with other circulatory complications E11.59 ; 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 M10.372 and Left foot pain M79.672 [facility] [address] [address] 03/10/2024 KARI RYAN Type 2 diabetes mellitus with other circulatory complications E11.59 ; Type 2 diabetes mellitus with diabetic polyneuropathy E11.42 ; Pain in left toe(s) M79.675 ; Onychomycosis B35.1 ; Xerosis of skin L85.3 and Pain in right toe(s) M79.674 [facility] [address] [address] 06/16/2024 KARI RYAN Type 2 diabetes mellitus with other circulatory complications E11.59 ; Type 2 diabetes mellitus with diabetic polyneuropathy E11.42 ; Pain in left toe(s) M79.675 ; Onychomycosis B35.1 ; Xerosis of skin L85.3 and Pain in right toe(s) M79.674 [facility] [address] [address] 10/11/2024 KARI RYAN Type 2 diabetes mellitus with other circulatory complications E11.59 ; Type 2 diabetes mellitus with diabetic polyneuropathy E11.42 ; Pain in left toe(s) M79.675 ; Onychomycosis B35.1 ; Xerosis of skin L85.3 and Pain in right toe(s) M79.674 [facility] [address] [address] 12/31/2023 KARI RYAN [facility] [address] [address] 08/02/2024 KARI RYAN Assessments Encounter Date Diagnosis [...] gout attack, and does not require a intermediate teacher medication yet. We discussed if the flare ups continue to happen, he may need to be placed on intermediate teacher medication. We discussed that due to his [...] Aseptic debridement of toenails x 10 with outside cutter, pt tolerated well. All bleeding controlled [...] Aseptic debridement of toenails x 10 with outside cutter, pt tolerated well. He can remove tomorrow. [...] Aseptic trimming of toenails x 10 with outside cutter, pt tolerated well. All bleeding controlled [...] Name:KARI RYAN, 01/12/2025 02:00:00 PM, [address], [address], Insurance Providers Payer Name Payer Address Payer Phone Subscriber Number Group Number Insured Name Patient Relationship to Insured Coverage Start Date Coverage End Date Medicare of [place] [address] [place]Z [phone] [id number] Richard Wong Self - patient is the insured [employer] [address] [place] [phone] [id number] Richard Wong Self - patient is [...] hypertension ischemic cardiomyopathy non-sustained ventricular tachycardia old [place] PVD diabetes mellitus 2 with peripheral neur [...]
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
--- OUTSIDE RECORDS SUMMARY | 2024-12-30 14:16 | XMS_ITS | Clinical Summary ---
Author Organization [facility] Address [address] [place] [address] Phone Care Team Providers Care Key Punch Operator Name Role Phone Nicolás Jeffries MD Primary Care Provider [phone] Allergies Active Allergy Reactions Criticality Noted Date [...] to complete this topic Insurance [facility] Medicare Medicare [facility] Care Teams Key Punch Operator Relationship Specialty Start Date End Date Nicolás Jeffries MD PCP - General Internal Medicine 05/16/21
== END 2024-12-30 12:47 | disposition home or self-care (01) ==
LOC: HO.NEURO 12:46
PROVIDERS: PCP Internal Medicine; Visit Provider Physician Assistant
DX: G56.22 Lesion of ulnar nerve, left upper limb (principal); G56.03 Carpal tunnel syndrome, bilateral upper limbs
CPT/HCPCS: 95886; 95913

== ENCOUNTER → 2024-12-30 13:05 | Outpatient (BNV) | payer MEDICARE, SELFPAY | PROVIDERS: PCP Internal Medicine; Visit Provider Psychiatry & Neurology Neurology | DX: G56.03 Carpal tunnel syndrome, bilateral upper limbs (principal) | CPT/HCPCS: 95886; 95913 ==

== ENCOUNTER 2024-12-31 12:23 | Outpatient (AMB) | payer MEDICARE, SELFPAY ==
--- OUTSIDE RECORDS SUMMARY | 2024-06-09 10:45 | XMS_ITS ---
Author Organization [facility] Address [address] [address] Care Team Providers Care Wind Turbine Machinist Name Role Phone Sugey Stratton Primary Care Provider Dahlia KARI Dick Unavailable [phone] REASON FOR VISIT 3 month f/u Encounters Encounter Location Date Provider Diagnosis [facility] [address] [address] 06/09/2024 KARI RYAN Plan Of Treatment Next Appt Details Provider Name:KARI RYAN, 01/12/2025 02:00:00 PM, [address] [address], [place], [address], Progress Notes * Richard WONGDOB:1940 (84 yo M)Acc No.[id number]:06/09/2024 Progress Note Patient: Richard MATT Provider: Ammy Ryan DPM :1940 A ge:84 Y S ex:Male Date:06/09/2024 Address:[address] [place], [place] [id number] Pcp:Sugey Stratton Subjective: * Chief Complaints: * 1 . 3 month f/u. * Medical History: Objective: * Vitals: Assessment: Plan: * Treatment: * Billing Information: * Visit Code: * Procedure Codes: * Electronic signature of ILIA RYAN D.P.M on 12/31/2024 at 01:06 PM EDT Sign off status: Pending * Provider: Ammy Ryan DPM Date: 0 06/09/2024 Generated for Osvaldo boone/Davian/Mireille on: 1 01:06 PM EDT
--- OUTSIDE RECORDS SUMMARY | 2024-09-22 09:30 | XMS_ITS ---
Author Organization [facility] Address [address] [address] Care Team Providers Care Fur Mixer Operator Name Role Phone Sugey Stratton Primary Care Provider Dahlia KARI Dick Unavailable [phone] REASON FOR VISIT 3 month f/u Encounters Encounter Location Date Provider Diagnosis [facility] [address] [address] 09/22/2024 KARI RYAN Plan Of Treatment Next Appt Details Provider Name:KARI RYAN, 01/12/2025 02:00:00 PM, [address] [address], [place], [address], Progress Notes * Richard WONGDOB:1940 (84 yo M)Acc No.[id number]:09/22/2024 Progress Note Patient: Richard MATT Provider: Ammy Ryan DPM :1940 A ge:84 Y S ex:Male Date:09/22/2024 Address:[address] [place], [place] [id number] Pcp:Sugey Stratton Subjective: * Chief Complaints: * 1 . 3 month f/u. * Medical History: Objective: * Vitals: Assessment: Plan: * Treatment: * Billing Information: * Visit Code: * Procedure Codes: * Electronic signature of ILIA RYAN D.P.M on 12/31/2024 at 01:07 PM EDT Sign off status: Pending * Provider: Ammy Ryan DPM Date: 0 09/22/2024 Generated for Osvaldo bonoe/Davian/Mireille on: 1 01:07 PM EDT
--- OUTSIDE RECORDS SUMMARY | 2024-12-28 19:30 | XMS_ITS | Encounter Summary ---
Author Organization [facility] Address [address] [place] [address] Care Team Providers Care Tomato Grader Name Role Phone Nicolás Jeffries MD Primary Care Provider [phone] Encounter Details Date Type Department Care Team ([facility] st Contact Info) Description 12/28/2024 7:30 PM EDT Ancillary Procedure [facility] [address] [facility] [address] [place] [phone] Arrived Social History Tobacco Use Types Packs/Day [...] Date Recorded What is your living situation? Unrecognized valu e 07/26/2024 Sex and Gender Information Value Date Recorded Sex Assigned at Not on file Legal Sex Male 3:35 AM EST Gender Identity Not on file Sexual Orientation Not on file documented as of this encounter Plan of Treatment Upcoming Encounters Date Type Department Care Team (Late st Contact Info) Description 01/10/2025 2:15 PM EDT Office Visit Endocrinology [address] [phone] Aung Pinto MD [address] [place] [address] 01/17/2025 2:00 PM EDT Office Visit Orthopedic Surgery - [place] [facility] [address] [place] [phone] Ines Orozco PA [address] [place] [phone] 01/26/2025 2:45 PM EDT Consult Breast Care Center [facility] [address] [place] [phone] Tala New MD [address] [place] [phone] 03/03/2025 3:00 PM EST Office Visit Adult Medicine [address] [phone] Nicolás Jeffries MD [address] [place] [phone] 05/13/2025 2:00 PM EST Office Visit Gastroenterology - [place] [facility] [address] [facility] [address] [place] [phone] Janneth Enciso, ROLL PANNER 175 [facility] 200 [place] [address] 10/12/2025 3:00 PM EDT Ancillary Procedure [facility] - [address] [place] [phone] documented as of this encounter Procedures Procedure Name Priority Date/Time Associated Diagnosis Comments CARDIAC DEVICE CHECK- REMOTE- MURJ Routine 12/28/2024 7:27 PM EDT documented in this encounter Results * Cardiac device check - Remote- MURJ (12/28/2024 7:27 PM EDT) Date Time Interrogation Session [id number] CV DEVICE CHECK Type Interrogation Session Remote Scheduled CV DEVICE CHECK Implantable Pulse Generator Firmware Manager [employer] CV DEVICE CHECK Implantable Pulse Generator Type ICD CV DEVICE CHECK Implantable Pulse Generator Model [id number] John(TM) CV DEVICE CHECK Implantable Pulse Generator Serial Number [id number] CV DEVICE CHECK Implantable Pulse Generator Implant Date 20210720 CV DEVICE CHECK Battery Remaining Percentage 63.00 CV DEVICE CHECK Battery Remaining Longevity 68.0 CV DEVICE CHECK Battery Voltage 2.980 CV D EVICE CHECK Battery PRODUCT SAFETY OFFICER Trigger 2.620 CV DEVICE CHECK Battery Status Middle of Service CV DEVICE CHECK Capacitor Charge Time 8.800 CV DEVICE CHECK Sanket Statistic RA Percent Paced 9.50 CV DEVICE CHECK Sanket Statistic RV Percent Paced 91.00 CV DEVICE CHECK Atrial Tachy Statistic AT/AF [place] Percent 0.00 CV DEVICE CHECK Lead Channel Sensing Intrinsic Amplitude 3.200 CV DEVICE CHECK Lead Channel Setting Sensing Sensitivity 0.30 CV DEVICE CHECK Lead Channel Impedance Value 360 CV DEVICE CHECK Lead Channel Pacing Threshold Amplitude 1.000 CV DEVICE CHECK Lead Channel Pacing Threshold Pulse Width 0.5 CV DEVICE CHECK Lead Channel RA Pacing Threshold Date 2024-12-07 CV DEVICE CHECK Lead Channel Setting Pacing Amplitude 2.500 CV DEVICE CHECK Lead Channel Setting Pacing Pulse Width 0.5 CV DEVICE CHECK Lead Channel Sensing Intrinsic Amplitude 5.100 CV DEVICE CHECK Lead Channel Setting Sensing Sensitivity 0.50 CV DEVICE CHECK Lead Channel Impedance Value 490 CV DEVICE CHECK Lead Channel Pacing Threshold Amplitude 0.500 CV DEVICE CHECK Lead Channel Pacing Threshold Pulse Width 0.5 CV DEVICE CHECK Lead Channel RV Pacing Threshold Date 2024-12-07 CV DEVICE CHECK Lead Channel Setting Pacing [...] Anatomical Region Laterality Modality Device Interroga tion 12/07/2024 2:00 AM EDT Impressions 12/28/2024 12:25 PM EDT Heart Failure Diagnostic: Stable * Heart failure diagnostics assessed through the device * Status: Stable * No overt HF present Narrative Procedure Note Rikki Ley MD - 12/28/2024 IMPRESSION: Heart Failure Diagnostic: Stable * Heart failure diagnostics assessed through the device * Status: Stable * No overt HF present Rikki Ley MD CV IMPLANTABLE CARDIAC DEVICE PROCEDURES Final Result documented in this encounter Visit Diagnoses Not on filedocumented in this encounter Additional Health Concerns Assessment Noted Time PHQ-9 Depression Total Score: 0 09/24/19 25 11:46 AM EDT documented as of this encounter Care Teams Tomato Grader Relationship Specialty Start Date End Date Nicolás Jeffries MD [address] [place] [address] PCP - General Internal Medicine 02/11/24 documented as of this encounter
--- NOTE | 2024-12-31 12:36 | A.OFFVIS_ITS ---
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 Accompanied by: Spouse Allergies adhesive tape Allergy (Intermediate, Verified 12/31/24 12:39) blisters lisinopril Allergy (Intermediate, Verified 12/31/24 12:39) Angioedema oxycodone Allergy (Intermediate, Verified 12/31/24 12:39) syncope shellfish derived Allergy (Intermediate, Verified 12/31/24 12:39) Swelling Medication List - Last Reconciled 12/31/24 by Ryann Nur LPN acetaminophen 1,000 mg PO Q6H PRN allopurinol 100 mg PO DAILY amiodarone 200 mg PO QAM aspirin 81 mg PO QAM atorvastatin 20 mg PO BEDTIME carvedilol 6.25 mg PO BID cholecalciferol (vitamin D3) 50 mcg PO DAILY clopidogrel 75 mg PO QAM dapagliflozin propanediol (Farxiga) 10 mg PO QAM insulin aspart U-100 (Novolog FlexPen U-100 Insulin aspart) 2.5 units subcut TID insulin glargine (Lantus Solostar U-100 Insulin) 80 units subcut BEDTIME isosorbide mononitrate ER 30 mg PO QAM levothyroxine 100 mcg PO QAM nitroglycerin 0.4 mg sublingual Q5M PRN Oxygen Home Use As directed pantoprazole 40 mg PO QAM pregabalin 100 mg PO BID sennosides (senna) 8.6 mg PO QAM tamsulosin 0.4 mg PO BEDTIME torsemide 100 mg (5 x 20 mg) PO DAILY HPI HPI Alternate Procedure Discussion: Details: History of Present Illness The patient is an 84-year-old male presenting with chronic low back pain and cardiac comorbidity affecting procedural options. The patient was scheduled for a spinal cord stimulation trial, which was declined by anesthesia due to cardiac comorbidity. His heart function has declined significantly, with an ejection fraction dropping from 40-50% to 30% over the past few months. This decline in cardiac function raised concerns about undergoing procedures that require anesthesia. The patient has a history of spine surgery earlier this year, which was performed without complications at that time. He experiences chronic low back pain, which is currently managed with conservative measures. Pain Description - Pain is located in the lower back and radiates to both legs. - Pain is associated with leg weakness. - Pain is chronic and persistent. Physical Exam - Appears afebrile. - Alert and oriented. - Mood and affect appropriate. - Follows and participates in conversation appropriately. Pain Management - Affect: The patient's mood is not explicitly discussed in relation to pain. - Analgesia: Chronic low back pain managed with conservative measures; temporary medial branch nerve stimulation proposed. - Adverse Effects: No adverse effects from pain management discussed. - Activities of Daily Living: Pain affects mobility, particularly in the legs. - Aberrant Drug Related Behaviors: No aberrant behaviors discussed. [facility] Medical History (Updated 01/04/25 @ 10:58 by Vladimir Hodges MD) Arthritis Type 2 diabetes mellitus CARON (obstructive sleep apnea) Elevated cholesterol HTN (hypertension) Ventricular tachycardia Ischemic cardiomyopathy Ischemic heart disease Chronic hypoxemic respiratory failure On amiodarone therapy Pulmonary nodule 1 cm or greater in diameter ILD (interstitial lung disease) Essential (primary) hypertension Cyst of kidney, acquired Chronic kidney disease, stage 3b Surgical History Hx of cardiac catheterization H/O colonoscopy History of automatic internal cardiac defibrillator (AICD) Hx of aortic valve replacement S/P CABG x 4 S/P cholecystectomy History of appendectomy Social History Are you a primary zoo caretaker to a significant other at home: No Do you presently have visiting nurse or other home services: No Alcohol intake: never Patient Tobacco Use Status: Never used Tobacco Physical Exam Vital Signs: Last Vital Signs Pulse 67 12/31/24 12:38 Resp 16 12/31/24 12:38 BP 122/58 L 12/31/24 12:38 Pulse Ox 94 12/31/24 12:38 Oxygen Delivery Method Nasal Cannula 12/31/24 12:38 Oxygen Flow Rate 2 12/31/24 12:38 BMI result Body Mass Index 38.8 Assessment & Plan Assessment & Plan (1) Postlaminectomy syndrome: Code(s): M96.1 - Postlaminectomy syndrome, not elsewhere classified Category: Medical (2) Chronic pain: Code(s): G89.29 - Other chronic pain Category: Medical Plan Plan Patient was informed and verbally consented to the use of an ambient scribe for clinic note documentation during this visit. 1. Cardiac Comorbidity - The patient's cardiac function has declined. - Anesthesia for spinal cord stimulation trial was declined due to high risk. - Follow-up with cardiology is recommended to reassess cardiac status. 2. Chronic Low Back Pain - Proposed temporary medial branch nerve stimulation of the L3 medial branches. - Procedure involves minimal anesthesia and is considered safer given the patient's cardiac status. - Insurance coverage confirmed for the procedure. Discussion Notes I discussed with the patient the decline in cardiac function and the associated risks with anesthesia for the spinal cord stimulation trial. We explored alternative pain management options, including temporary medial branch nerve stimulation, which is less invasive and covered by insurance. I advised follow- up with cardiology to reassess cardiac status and ensure safe management of his conditions. Patient Instructions - Follow up with cardiology to reassess heart function. - Proceed with temporary medial branch nerve stimulation as planned. - Avoid activities that may exacerbate back pain. Coding Level of Care Code Est Pt Level 3 (20315) Diagnoses Postlaminectomy syndrome M96.1 Chronic pain G89.29
[2024-12-31 12:38] VITALS: BP 122/58; PULSE 67; RESP 16; O2SAT 94; BMI 38.8
--- OUTSIDE RECORDS SUMMARY | 2024-12-31 13:07 | XMS_ITS | Patient Health Record ---
Author Organization [facility] Address [address] [place] [address] Care Team Providers Care Protozoologist Name Role Phone Sugey Stratton Primary Care Provider KARI Merino Unavailable [phone] Allergies Allergen (clinical drug ingredient) Drug/Non Drug [...] needed Inhalation every 4 hrs Not-Taking Nystatin 081169 UNIT/GM 1 application Externally Twice a day Not-Taking Ipratropium [place] 0.03 % 2 sprays in each nostril [...] Polyneuropathy due to type 2 diabetes mellitus (338798928) Type 2 diabetes mellitus with diabetic polyneuropathy (E11.42) Active confirmed Problem Peripheral circulatory disorder associated with diabetes mellitus (468339635) Type 2 diabetes mellitus with other circulatory complications (E11.59) Active confirmed Problem Long-term current use of insulin (050185258) prison (current) use of insulin (Z79.4) Active confirmed Problem 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) Active confirmed Vital Signs Heart Rate 73 /min 10/11/2024 Temperature 97.5 degrees Fahrenheit 10/11/2024 Respiratory Rate 20 /min 10/11/2024 Height 5ft 6in in 10/11/2024 Weight 234.1 lbs 10/11/2024 BMI 37.78 kg/m2 10/11/2024 Encounters Encounter Location Date Provider Diagnosis [facility] [address] [facility] [address] [facility] [address] [place] [address] 03/10/2024 KARI RYAN Type 2 diabetes mellitus with other circulatory complications E11.59 ; Type 2 diabetes mellitus with diabetic polyneuropathy E11.42 ; Pain in left toe(s) M79.675 ; Onychomycosis B35.1 ; Xerosis of skin L85.3 and Pain in right toe(s) M79.674 [facility] [address] [address] 06/16/2024 KARI RYAN Type 2 diabetes mellitus with other circulatory complications E11.59 ; Type 2 diabetes mellitus with diabetic polyneuropathy E11.42 ; Pain in left toe(s) M79.675 ; Onychomycosis B35.1 ; Xerosis of skin L85.3 and Pain in right toe(s) M79.674 [facility] [address] [address] 10/11/2024 KARI RYAN Type 2 diabetes mellitus with other circulatory complications E11.59 ; Type 2 diabetes mellitus with diabetic polyneuropathy E11.42 ; Pain in left toe(s) M79.675 ; Onychomycosis B35.1 ; Xerosis of skin L85.3 and Pain in right toe(s) M79.674 [facility] [address] 08/02/2024 KARI RYAN Assessments Encounter Date [...] and inserts and states they are comfortable. 03/10/2024 Type 2 diabetes mellitus with diabetic [...] Aseptic debridement of toenails x 10 with rotary cutter, pt tolerated well. All bleeding controlled [...] Aseptic debridement of toenails x 10 with rotary cutter, pt tolerated well. He can remove [...] Aseptic trimming of toenails x 10 with rotary cutter, pt tolerated well. All bleeding controlled [...] JOINT/BURSA 1 Trim dystrophic toenails any number 03/0 05/2020 Next Appt Details Provider Name:KARI RYAN, 01/12/2025 02:00:00 PM, [address] [facility] [facility] [address], [place], [address], Insurance Providers Payer Name Payer Address Payer Phone Subscriber Number Group Number Insured Name Patient Relationship to Insured Coverage Start Date Coverage End Date Medicare of [place] [address] [place] [phone] [id number] Richard Wong Self - patient is the insured [employer] [address] [place] [address] [phone] [id number] Richard Wong Self - patient is [...] hypertension ischemic cardiomyopathy non-sustained ventricular tachycardia old [place] PVD diabetes mellitus 2 with peripheral neur [...]
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
--- OUTSIDE RECORDS SUMMARY | 2024-12-31 13:08 | XMS_ITS | Clinical Summary ---
Author Organization [facility] Address [address] [place] [address] Phone Care Team Providers Care Cloth Doffer Name Role Phone Nicolás Jeffries MD Primary Care Provider [phone] Allergies Active Allergy Reactions Criticality Noted Date [...] patient's age to complete this topic Insurance [facility] Medicare Medicare [facility] Care Teams Cloth Doffer Relationship Specialty Start Date End Date Nicolás Jeffries MD PCP - General Internal Medicine 05/16/21
== END 2024-12-31 13:24 | disposition home or self-care (01) ==
LOC: HO.PMC 12:23
PROVIDERS: PCP Internal Medicine; Visit Provider Internal Medicine
DX: G89.29 Other chronic pain (principal); M96.1 Postlaminectomy syndrome, not elsewhere classified
CPT/HCPCS: 99213

== ENCOUNTER → 2024-12-31 12:23 | Outpatient (BNVA) | payer MEDICARE, SELFPAY | PROVIDERS: PCP Internal Medicine; Visit Provider Internal Medicine | DX: M96.1 Postlaminectomy syndrome, not elsewhere classified (principal); G89.29 Other chronic pain | CPT/HCPCS: 99212 ==

== ENCOUNTER 2025-03-11 15:32 | Outpatient (REF) | payer MEDICARE, SELFPAY ==
--- OUTSIDE RECORDS SUMMARY | 2024-02-11 08:30 | XMS_ITS ---
Author Organization [facility] Address [address] [address] Care Team Providers Care Black Top Paver Operator Name Role Phone Sugey Stratton Primary Care Provider Dahlia KARI Dick Unavailable [phone] REASON FOR VISIT 3 month f/u Encounters Encounter Location Date Provider Diagnosis [facility] [address] [address] 02/11/2024 KAIR RYAN Plan Of Treatment Next Appt Details Provider Name:KARI RYAN, 03/14/2025 02:45:00 PM, [address] [address], [place], [address], Progress Notes * Richard WONGDOB:1940 (84 yo M)Acc No.[id number]:02/11/2024 Progress Note Patient: Richard MATT Provider: Ammy Ryan DPM :1940 A ge:83 Y S ex:Male Date:02/11/2024 Address:[address] [place], [place] [id number] Pcp:Sugey Stratton Subjective: * Chief Complaints: * 1 . 3 month f/u. * Medical History: Objective: * Vitals: Assessment: Plan: * Treatment: * Billing Information: * Visit Code: * Procedure Codes: * Electronic signature of ILIA RYAN D.P.M on 03/11/2025 at 08:21 PM EST Sign off status: Pending * Provider: Ammy Ryan DPM Date: 04/12/2023 Generated for Osvaldo boone/Davian/Mireille on: 05/12/2024 08:21 PM EST
--- OUTSIDE RECORDS SUMMARY | 2024-02-25 06:30 | XMS_ITS ---
Author Organization [facility] Address [address] [address] Care Team Providers Care Payroll Supervisor Name Role Phone Sugey Stratton Primary Care Provider Dahlia KARI Dick Unavailable [phone] REASON FOR VISIT 3 month f/u Encounters Encounter Location Date Provider Diagnosis [facility] [address] [address] 02/25/2024 KARI RYAN Plan Of Treatment Next Appt Details Provider Name:KARI RYAN, 03/14/2025 02:45:00 PM, [address] [address], [place], [address], Progress Notes * Richard WONGDOB:1940 (84 yo M)Acc No.[id number]:02/25/2024 Progress Note Patient: Richard MATT Provider: Ammy Ryan DPM :1940 A ge:83 Y S ex:Male Date:02/25/2024 Address:[address] [place], [place] [id number] Pcp:Sugey Stratton Subjective: * Chief Complaints: * 1 . 3 month f/u. * Medical History: Objective: * Vitals: Assessment: Plan: * Treatment: * Billing Information: * Visit Code: * Procedure Codes: * Electronic signature of ILIA RYAN D.P.M on 03/11/2025 at 08:22 PM EST Sign off status: Pending * Provider: Ammy Ryan DPM Date: 04/26/2023 Generated for Osvaldo boone/Davian/Mireille on: 05/12/2024 08:22 PM EST
--- OUTSIDE RECORDS SUMMARY | 2024-06-09 09:45 | XMS_ITS ---
Author Organization [facility] Address [address] [address] Care Team Providers Care Cylinder Inspector And Tester Name Role Phone Sugey Stratton Primary Care Provider Dahlia KARI Dick Unavailable [phone] REASON FOR VISIT 3 month f/u Encounters Encounter Location Date Provider Diagnosis [facility] [address] [address] 06/09/2024 KARI RYAN Plan Of Treatment Next Appt Details Provider Name:KARI RYAN, 03/14/2025 02:45:00 PM, [address] [address], [place], [address], Progress Notes * Richard WONGDOB:1940 (84 yo M)Acc No.[id number]:06/09/2024 Progress Note Patient: Richard MATT Provider: Ammy Ryan DPM :1940 A ge:84 Y S ex:Male Date:06/09/2024 Address:[address] [place], [place] [id number] Pcp:Sugey Stratton Subjective: * Chief Complaints: * 1 . 3 month f/u. * Medical History: Objective: * Vitals: Assessment: Plan: * Treatment: * Billing Information: * Visit Code: * Procedure Codes: * Electronic signature of ILIA RYAN D.P.M on 03/11/2025 at 08:20 PM EST Sign off status: Pending * Provider: Ammy Ryan DPM Date: 0 06/09/2024 Generated for Osvaldo boone/Davian/Mireille on: 1 05/12/2024 08:20 PM EST
--- OUTSIDE RECORDS SUMMARY | 2024-09-22 08:30 | XMS_ITS ---
Author Organization [facility] Address [address] [address] Care Team Providers Care Reeling Operator Name Role Phone Sugey Stratton Primary Care Provider Dahlia KARI Dick Unavailable [phone] REASON FOR VISIT 3 month f/u Encounters Encounter Location Date Provider Diagnosis [facility] [address] [address] 09/22/2024 KARI RYAN Plan Of Treatment Next Appt Details Provider Name:KARI RYAN, 03/14/2025 02:45:00 PM, [address] [address], [place], [address], Progress Notes * Richard WONGDOB:1940 (84 yo M)Acc No.[id number]:09/22/2024 Progress Note Patient: Richard MATT Provider: Ammy Ryan DPM :1940 A ge:84 Y S ex:Male Date:09/22/2024 Address:[address] [place], [place] [id number] Pcp:Sugey Stratton Subjective: * Chief Complaints: * 1 . 3 month f/u. * Medical History: Objective: * Vitals: Assessment: Plan: * Treatment: * Billing Information: * Visit Code: * Procedure Codes: * Electronic signature of ILIA RYAN D.P.M on 03/11/2025 at 08:21 PM EST Sign off status: Pending * Provider: Ammy Ryan DPM Date: 0 09/22/2024 Generated for Osvaldo boone/Davian/Mireille on: 1 05/12/2024 08:21 PM EST
--- OUTSIDE RECORDS SUMMARY | 2025-01-12 09:00 | XMS_ITS ---
Author Organization [facility] Address [address] [address] Care Team Providers Care Figure Skater Name Role Phone Sugey Stratton Primary Care Provider Dahlia KARI Dick Unavailable [phone] REASON FOR VISIT 3 month f/u Encounters Encounter Location Date Provider Diagnosis [facility] [address] [address] 01/12/2025 KARI RYAN Plan Of Treatment Next Appt Details Provider Name:KARI RYAN, 03/14/2025 02:45:00 PM, [address] [address], [place], [address], Progress Notes * Richard WONGDOB:1940 (84 yo M)Acc No.[id number]:01/12/2025 Progress Note Patient: Richard MATT Provider: Ammy Ryan DPM :1940 A ge:84 Y S ex:Male Date:01/12/2025 Address:[address] [place], [place] [address] Pcp:Sugey Stratton Subjective: * Chief Complaints: * 1 . 3 month f/u. * Medical History: Objective: * Vitals: Assessment: Plan: * Treatment: * Billing Information: * Visit Code: * Procedure Codes: * Electronic signature of ILIA RYAN D.P.M on 03/11/2025 at 08:21 PM EST Sign off status: Pending * Provider: Ammy Ryan DPM Date: 1 Generated for Osvaldo boone/Davian/Mireille on: 1 05/12/2024 08:21 PM EST
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
--- OUTSIDE RECORDS SUMMARY | 2025-03-11 14:00 | XMS_ITS | Encounter Summary ---
Author Organization [facility] Address [address] [place] [address] Care Team Providers Care Tumor Registrar Name Role Phone Nicolás Jeffries MD Primary Care Provider [phone] Reason for Visit * Reason Comments Consult Breast pain Encounter Details Date Type Department Care Team ([facility] st Contact Info) Description 03/11/2025 2:00 PM EST Consult [facility] [address] [phone] Rupa Cummings PA [address] [place] [phone] Arrived Social History Tobacco Use Types Packs/Day [...] Sign Reading Time Taken Comments Blood Pressure 127/66 03/11/2025 1:54 PM EST Pulse 63 03/11/2025 1:54 PM EST Temperature 36 C (96.8 F) 03/11/2025 1:54 PM EST Respiratory Rate - - Oxygen Saturation - - Inhaled Oxygen Concentration - - Weight 97.1 kg (214 lb) 03/11/2025 1:54 PM EST Height - - Body Mass Index 35.61 03/07/2025 2:15 PM EST documented in this encounter Ordered Prescriptions Prescription Sig Dispense Quantity Refills Last Filled Start Date End Date diclofenac (VOLTAREN) 1 % topical gel Apply 2 g topically 4 (four) times a day. 300 g 2 03/11/2025 documented in this encounter Progress Notes * GAL Travis - 03/11/2025 2:00 PM EST Use topical Voltaren cream up to 4 times daily. Keep nipple moisturized as much as possible with Vaseline or Aquaphor ointment or cream (jar of thick ointment or thick cream) Discuss options with eyelet cutter. Can use compression garment for comfort. documented in this encounter Plan of Treatment Upcoming Encounters Date Type Department Care Team (Late st Contact Info) Description 03/30/2025 1:00 PM EST Office Visit Endocrinology [address] [phone] Taryn Umana PA 444 [place], [place] 05/13/2025 2:00 PM EST Office Visit Gastroenterology - [address] [phone] Janneth Enciso NP [address] [address] 09/12/2025 3:00 PM EDT Office Visit Adult Medicine [facility] - [address] [phone] Nicolás Jeffries MD [address] [place] [address] 10/12/2025 3:00 PM EDT Ancillary Procedure [facility] - [facility] 154 300 [facility] 154 [place] [phone] documented as of this encounter Goals Goal Patient Goal Type Associated Problems Recent Progress Patient-Stated? Author Increase activity/remain active within limits permitted by pain General Haritha Floyd, RN Note: Pt has pain in back and buttocks due to fall with fx. He has appt coming up with ortho for a patch documented as of this encounter Visit Diagnoses Not on filedocumented in this encounter Discontinued Medications Medication Sig Discontinue Reason Start Date End Da te diclofenac (VOLTAREN) 1 % topical gel Apply 1 g topically 4 times daily as needed (pain). 10/27/2024 03/11/2025 documented as of this encounter Additional Health Concerns Assessment Noted Time PHQ-9 Depression Total Score: 0 03/03/20 25 3:16 PM EST documented as of this encounter Care Teams Tumor Registrar Relationship Specialty Start Date End Date Nicolás Jeffries MD [address] [place] [address] PCP - General Internal Medicine 02/11/24 documented as of this encounter
[2025-03-11 15:53] LABS: MANUAL DIFF FLAG NO
[2025-03-11 16:17] LABS: Hematocrit 43.3 % (42.0-52.0); Hemoglobin 13.7 g/dl (14.0-18.0); Imm Gran Abs Auto 0.08 X10*3/uL (0.00-0.03); Imm Gran Pct Auto 1.0 % (0.0-0.4); Lymphocytes Absolute Auto 1.5 X10*3/uL (1.2-4.9); Mean Corpuscular HGB Conc 31.6 g/dl (31.0-36.0); Mean Corpuscular Hemoglobin 27.7 pg (27.0-33.0); Mean Corpuscular Volume 87.7 fL (80.0-98.0); NRBC Abs Auto 0.000 X10*3/uL (0.0-0.012); NRBC Pct Auto 0.0 /100WBC (0.0-0.2); Platelet Count 220 X10*3/uL (160-400); Red Blood Count 4.94 X10*6/uL (4.60-5.80); White Blood Count 8.2 X10*3/uL (4.8-10.8)
[2025-03-11 17:07] LABS: Anion Gap 15 (12-20); Blood Urea Nitrogen 51 mg/dL (9-16); Calcium 9.5 mg/dL (8.4-10.2); Carbon Dioxide 35 mmol/L (22-29); Chloride 97 mmol/L (96-108); Estimated Glomerular Filt Rate 26; Parathyroid Hormone Intact 317.4 pg/mL (8.7-77.1); Potassium 4.5 mmol/L (3.3-5.1); Sodium 142 mmol/L (135-145)
--- OUTSIDE RECORDS SUMMARY | 2025-03-11 20:21 | XMS_ITS | Encounter Summary ---
Author Organization [facility] Address [address] [place] [address] Care Team Providers Care Investigation Division Lieutenant Name Role Phone Nicolás Jeffries MD Primary Care Provider [phone] Reason for Visit * Reason Onset Date Comments [id number] Encounter Details Date Type Department Care Team (Late st Contact Info) Description 03/01/2025 Telephone Adult Medicine [address] [phone] Nicolás Jeffries MD [address] [place] [address] Social History Tobacco Use Types Packs/Day Years [...] ed Within the last 3 months, yaquelin w many times did you visit the [...] as of this encounter Progress Notes * Arielle Bowman MA - 03/10/2025 2:31 PM EST Signed scanned and e-faxed * Trudy Kim - 03/01/2025 10:59 AM EST [facility] order [id number] received please sign and fax to [phone] documented in this encounter Plan of Treatment Upcoming Encounters Date Type Department Care Team (Late st Contact Info) Description 03/30/2025 1:00 PM EST Office Visit Endocrinology - [place] [address] [place] [address] Taryn Umana PA [address] [place] [address] 05/13/2025 2:00 PM EST Office Visit Gastroenterology - [address] [place] [address] Janneth Enciso, KAYLA 299 [facility] 419 [place] [address] 09/12/2025 3:00 PM EDT Office Visit Adult [address] [phone] Nicolás Jeffries MD [address] [place] [address] 10/12/2025 3:00 PM EDT Ancillary Procedure [facility] - [facility] 154 300 [facility] 154 [place] [phone] documented as of this encounter Goals Goal [...] documented as of this encounter Care Teams Investigation Division Lieutenant Relationship Specialty Start Date End Date Nicolás Jeffries MD [address] [place] [address] PCP - General Internal Medicine 02/11/24 documented as of this encounter
--- OUTSIDE RECORDS SUMMARY | 2025-03-11 20:21 | XMS_ITS | Encounter Summary ---
Author Organization [facility] Address [address] [place] [address] Care Team Providers Care Chief Substation Operator Name Role Phone Nicolás Jeffries MD Primary Care Provider [phone] Encounter Details Date Type Department Care Team (Late st Contact Info) Description 02/25/2025 Billing Patient Not Present Adult Medicine [facility] [place] [address] [place] [address] Nicolás Jeffries MD 444 [place], [place] Social History Tobacco Use Types Packs/Day Years [...] 1:00 PM EST Office Visit Endocrinology - [address] [phone] Taryn Umana PA [address] [place] [address] 05/13/2025 2:00 PM EST Office Visit Gastroenterology - [address] [phone] Janneth Enciso NP [address] [place] [address] 09/12/2025 3:00 PM EDT Office Visit Adult Medicine [place] - [address] [phone] Nicolás Jeffries MD [address] [place] [address] 10/12/2025 3:00 PM EDT Ancillary Procedure [facility] - [facility] 154 300 [facility] 154 [place] [address] documented as of this encounter Goals Goal [...] documented as of this encounter Care Teams Chief Substation Operator Relationship Specialty Start Date End Date Nicolás Jeffries MD [address] [place] [phone] PCP - General Internal Medicine 02/11/24 documented as of this encounter
--- OUTSIDE RECORDS SUMMARY | 2025-03-11 20:21 | XMS_ITS | Encounter Summary ---
Author Organization [facility] Address [address] [place] [address] Care Team Providers Care Production Supervisor Name Role Phone Nicolás Jeffries MD Primary Care Provider [phone] Reason for Visit * Reason Onset Date Comments triage pain 03/07/2025 See message from [facility] Encounter Details Date Type Department Care Team (Late st Contact Info) Description 03/07/2025 Telephone Adult Medicine [address] [phone] Nicolás Jeffries MD [address] [place], [place] Social History Tobacco Use Types Packs/Day [...] as of this encounter Progress Notes * Brandi Jett RN - 03/08/2025 12:13 PM EST Spoke with Danyell ,pt. seen 03/03 she states the pt. Was just seen with PCP , is only having back pain which is chronic for him , no other pain noted . Taking the Tramadol for this pain. Pt. Has PCP apt. In 6 months * Cintia Salguero RN - 03/07/2025 1:37 PM EST Pt was seen in the office on 03/03/25; Pt with fall last month required rehab stay pt suffered rib fractures pt notes pain improving but still present pt with chronic back pain. Patient pain has beencontrolled with tramadol refill sent #[phone], patient will likely need a csc in the future I left pt a message to call the office at . * Julio C Childs LPN - 03/07/2025 12:37 PM EST Please see message from [facility] * Yolette Marceline - 03/07/2025 12:14 PM EST [facility] CALL Which [facility] office is calling? [facility] / Full name of caller: MICHAEL The caller is A Physical Therapist Is the caller at the patients home?: yes Reason for call: REPORTING INCREASED PAIN IN KNEE, BACK ,HIP PAIN,AT REST PAIN IS 7/10 PAIN, WALKING 9/10. DENIES DOING OUT OF THE ORDINARY AND ANY FALLS. PATIENT WOULD LIKE AN APPT TO BE CHECKED. CALL PATIENT OR HIS TO SCHEDULE THIS APPT Does caller need an urgent call back? no Was CONTACT Telephone # obtained above?: yes Fax #: documented in this encounter Plan of Treatment Upcoming Encounters Date Type Department Care Team (Late st Contact Info) Description 03/30/2025 1:00 PM EST Office Visit Endocrinology [address] [phone] Taryn Umana PA [address] [place] [address] 05/13/2025 2:00 PM EST Office Visit Gastroenterology - [address] [phone] Janneth Enciso NP [address] [address] 09/12/2025 3:00 PM EDT Office Visit Adult Medicine [address] [phone] Nicolás Jeffries MD [address] [place] [address] 10/12/2025 3:00 PM EDT Ancillary Procedure [facility] - [facility] [address] 300 [facility] 154 [place] [address] documented as of this encounter [...] documented as of this encounter Care Teams Production Supervisor Relationship Specialty Start Date End Date Nicolás Jeffries MD 4 [place] [address] PCP - General Internal Medicine 02/11/24 documented as of this encounter
--- OUTSIDE RECORDS SUMMARY | 2025-03-11 20:21 | XMS_ITS | Encounter Summary ---
Author Organization [facility] Address [address] [place] [address] Care Team Providers Care Digital Solution Architect Name Role Phone Nicolás Jeffries MD Primary Care Provider [phone] Encounter Details Date Type Department Care Team (Late st Contact Info) Description 01/27/2025 Lab Requisition [facility] - Main Lab 299 [facility] [place] [address] Oracio Elizabeth MD [address] [place] [address] Urinary tract infection, site not specified Social History Tobacco Use Types Packs/Day Years [...] 1:00 PM EST Office Visit Endocrinology - [address] [phone] Taryn Umana PA [address] [place] [address] 05/13/2025 2:00 PM EST Office Visit Gastroenterology - [address] [place] [phone] Janneth Enciso NP [address] [address] 09/12/2025 3:00 PM EDT Office Visit Adult Medicine [place] - [address] [phone] Nicolás Jeffries MD [address] [place] [address] 10/12/2025 3:00 PM EDT Ancillary Procedure [facility] - [facility] 154 300 [facility] 154 [place] [address] documented as of this encounter Procedures Procedure Name Priority Date/Time Associated Diagnosis Comments URINALYSIS WITH REFLEX MICROSCOPIC AND CULTURE Routine 01/27/2025 12:00 AM EDT Urinary tract infection, site not specified PENNY URINE CULTURE TUBE Routine 01/27/2025 12:00 AM EDT Urinary tract infection, site not specified URINALYSIS WITH REFLEX MICROSCOPIC AND CULTURE Routine 01/27/2025 12:00 AM EDT Urinary tract infection, site not specified CULTURE URINE Routine 01/27/2025 12:00 AM EDT Urinary tract infection, site not specified documented in this encounter Results * Culture urine (01/27/2025 12:00 AM EDT) Pathologist [facility] Culture, Urine 50,000-99,000 CFU/mL Mixed bacterial morphotypes present suggestive of possible contamination during collection. Suggest appropriate recollection if clinically indicated. 01/28/2025 10:16 AM EDT [facility] Urine Urine specimen obtained by clean catch procedure / Unknown Non-blood Collection / Unknown 01/27/2025 01/27/2025 10:00 AM EDT Oracio Elizabeth MD LAB MICROBIOLOGY - GENERAL [facility]ERS Final Result [facility] [address] [place] [address], * (ABNORMAL) Urinalysis with reflex microscopic and culture (01/27/2025 12:00 AM EDT) Specific [place] Urine 1.014 1.003 - 1.030 LAB URINALYSIS - AUTOMATED METHOD 01/27/2025 10:00 AM EDT [facility] pH, Urine 6.0 5.0 - 8.0 pH LAB URINALYSIS - AUTOMATED METHOD 01/27/2025 10:00 AM [facility] Leukocytes, Urine Trace(A) Negative LAB URINALYSIS - AUTOMATED METHOD 01/27/2025 10:00 AM [facility] Nitrite, Urine Negative Negative LAB URINALYSIS - AUTOMATED METHOD 01/27/2025 10:00 AM [facility] Protein, Urine Negative <=Trace mg/dL LAB URINALYSIS - AUTOMATED METHOD 01/27/2025 10:00 AM [facility] Glucose, Urine >=1000(A) Negative mg/dL LAB URINALYSIS - AUTOMATED METHOD 01/27/2025 10:00 AM [facility] Ketones, Urine Negative Negative mg/dL LAB URINALYSIS - AUTOMATED METHOD 01/27/2025 10:00 AM [facility] Urobilinogen , Urine 0.2 0.2 - 1.0 mg/dL LAB URINALYSIS - AUTOMATED METHOD 01/27/2025 10:00 AM [facility] Bilirubin, Urine Negative Negative LAB URINALYSIS - AUTOMATED METHOD 01/27/2025 10:00 AM [facility] Blood, Urine Negative Negative LAB URINALYSIS - AUTOMATED METHOD 01/27/2025 10:00 AM [facility] RBC, Urine 2.7 0 - 4 /HPF LAB URINALYSIS - AUTOMATED METHOD 01/27/2025 10:00 AM [facility] WBC, Urine 12.2(H) 0 - 4 /HPF LAB URINALYSIS - AUTOMATED METHOD 01/27/2025 10:00 AM [facility] Squamous Epithelial, Urine 18 0 - 60 /LPF LAB URINALYSIS - AUTOMATED METHOD 01/27/2025 10:00 AM [facility] Bacteria, Urine Negative Negative /HPF LAB URINALYSIS - AUTOMATED METHOD 01/27/2025 10:00 AM EDT [facility] Hyaline Casts, Urine 5.6(H) 0 - 3 /LPF LAB URINALYSIS - AUTOMATED METHOD 01/27/2025 10:00 AM EDT [facility] Urine Urine specimen obtained by clean catch procedure / Unknown Non-blood Collection / Unknown 01/27/2025 01/27/2025 9:25 AM EDT Oracio Elizabeth MD LAB URINE ORDERABLES Final Resu lt Performing Organization Address City/[facility]/ZIP Co de Phone Number [facility] [address] [place] [address], [place] [phone] * Penny urine culture tube (01/27/2025 12:00 AM EDT) Extra Tube Hold for add-ons. 01/27/2025 11:01 AM EDT [facility] Comment:Auto resulted. Urine Urine specimen obtained by clean catch procedure / Unknown Non-blood Collection / Unknown 01/27/2025 01/27/2025 9:25 AM EDT Oracio Elizabeth MD LAB URINE ORDERABLES Final Resu lt Performing Organization Address City/[facility]/ZIP Co de Phone Number [facility] [address] [place] [address], [place] [phone] documented in this encounter Visit Diagnoses Diagnosis Urinary tract infection, site not specified Encounter for adjustment or management of cardiac device documented in this encounter Additional Health Concerns Assessment Noted Time PHQ-9 Depression Total Score: 0 09/24/19 25 11:46 AM EDT documented as of this encounter Care Teams Digital Solution Architect Relationship Specialty Start Date End Date Nicolás Jeffries MD [address] [place] [phone] PCP - General Internal Medicine 02/11/24 documented as of this encounter
--- OUTSIDE RECORDS SUMMARY | 2025-03-11 20:21 | XMS_ITS | Encounter Summary ---
Author Organization [facility] Address [address] [place] [address] Care Team Providers Care Clin Tech Name Role Phone Nicolás Jeffries MD Primary Care Provider [phone] Encounter Details Date Type Department Care Team (Late st Contact Info) Description 02/14/2025 Results Follow-Up Adult Medicine [facility] [place] [address] [place] [address] Ann Marie García, DRY PRESS OPERATOR HELPER [address] [place], [place] Social History Tobacco Use Types Packs/Day [...] 1:00 PM EST Office Visit Endocrinology - [address] [phone] Taryn Umana PA [address] [place] [address] 05/13/2025 2:00 PM EST Office Visit Gastroenterology - [address] [place] [phone] Janneth Enciso NP [address] [address] 09/12/2025 3:00 PM EDT Office Visit Adult Medicine South - [address] [phone] Nicolás Jeffries MD [address] [place] [address] 10/12/2025 3:00 PM EDT Ancillary Procedure [facility] - [facility] 154 300 [facility] 154 [place] [address] documented as of this encounter Visit Diagnoses Not on filedocumented in this encounter Additional Health Concerns Assessment Noted Time PHQ-9 Depression Total Score: 0 09/24/19 25 11:46 AM EDT documented as of this encounter Care Teams Clin Tech Relationship Specialty Start Date End Date Nicolás Jeffries MD 4 [place] [address] PCP - General Internal Medicine 02/11/24 documented as of this encounter
--- OUTSIDE RECORDS SUMMARY | 2025-03-11 20:21 | XMS_ITS | Encounter Summary ---
Author Organization [facility] Address [address] [place] [address] Care Team Providers Care Field Support Technician Name Role Phone Nicolás Jeffries MD Primary Care Provider [phone] Reason for Visit * Reason Onset Date Comments faxed [facility] [id number] Encounter Details Date Type Department Care Team (Late st Contact Info) Description 03/11/2025 Telephone Adult Medicine [address] [phone] Nicolás Jeffries MD [address] [place] [address] Social History Tobacco Use Types Packs/Day Years [...] as of this encounter Progress Notes * Trudy Kim - 03/11/2025 3:35 PM EST [facility] order [id number] received please sign and fax to [phone] documented in this encounter Plan of Treatment Upcoming Encounters Date Type Department Care Team (Late st Contact Info) Description 03/30/2025 1:00 PM EST Office Visit Endocrinology - [place] [address] [place] [address] Taryn Umana PA [address] [place] [address] 05/13/2025 2:00 PM EST Office Visit Gastroenterology - [address] [phone] Janneth Enciso NP [address] [address] 09/12/2025 3:00 PM EDT Office Visit Adult Medicine [facility] [address] [place] [address] Nicolás Jeffries MD [address] [place] [address] 10/12/2025 3:00 PM EDT Ancillary Procedure [facility] - [facility] 154 300 [facility] 154 [place] [phone] documented as of this encounter Goals Goal [...] documented as of this encounter Care Teams Field Support Technician Relationship Specialty Start Date End Date Nicolás Jeffries MD [address] [place] [address] PCP - General Internal Medicine 02/11/24 documented as of this encounter
--- OUTSIDE RECORDS SUMMARY | 2025-03-11 20:21 | XMS_ITS | Encounter Summary ---
Author Organization 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, CMS/HCC V28); Hypothyroidism, unspecified Social History Tobacco Use Types Packs/Day Years [...] 03/30/2025 1:00 PM EST Office Visit Endocrinology [address] [phone] Taryn Umana PA [address] [place] [address] 05/13/2025 2:00 PM EST Office Visit Gastroenterology - [address] [address] Janneth Enciso NP [address] [address] 09/12/2025 3:00 PM EDT Office Visit Adult Medicine [address] [phone] Nicolás Jeffries MD [address] [place] [address] 10/12/2025 3:00 PM EDT Ancillary Procedure [facility] [address] 300 [facility] [address] [place] [phone] documented as of this encounter Procedures Procedure Name Priority Date/Time Associated Diagnosis Comments COMPLETE BLOOD COUNT Routine 01/26/2025 4:47 AM EDT Essential (primary) hypertension Metabolic encephalopathy 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, CMS/HCC V28) Hypothyroidism, unspecified THYROID STIMULATING HORMONE Routine 01/26/2025 4:47 AM EDT Essential (primary) hypertension Metabolic encephalopathy 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, CMS/HCC V28) Hypothyroidism, unspecified HEMOGLOBIN A1C Routine 01/26/2025 4:47 AM EDT Essential (primary) hypertension Metabolic encephalopathy 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, CMS/HCC V28) Hypothyroidism, unspecified BASIC METABOLIC PANEL Routine 01/26/2025 4:47 AM EDT Essential (primary) hypertension Metabolic encephalopathy 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, CMS/HCC V28) Hypothyroidism, unspecified documented in this encounter Results * (ABNORMAL) Thyroid stimulating hormone (01/26/2025 4:47 AM EDT) TSH 14.00(H) 0.40 - 4.00 mcIU/mL LAB CHEMISTRY METHOD 01/26/2025 2:40 PM EDT [facility] Blood Venous blood specimen / Unknown Venipuncture / Unknown 01/26/2025 4:47 AM EDT 01/26/2025 9:49 AM EDT us Oracio Elizabeth MD LAB BLOOD ORDERABLES Final Resu lt [facility] [address] [place] [address], [place] [phone] * (ABNORMAL) Hemoglobin A1c (01/26/2025 4:47 AM EDT) Pathologist [facility] Hemoglobin A1C 9.0(H) <6.5 % LAB CHEMISTRY METHOD 01/26/2025 12:22 PM EDT [facility] Mean Bld Glu Estim. 212 mg/dL LAB CHEMISTRY METHOD 01/26/2025 12:22 PM EDT [facility] Blood Venous blood specimen / Unknown Venipuncture / Unknown 01/26/2025 4:47 AM EDT 01/26/2025 9:49 AM EDT us Oracio Elizabeth MD LAB BLOOD ORDERABLES Final Resu lt [facility] [address] [place] [address], * (ABNORMAL) Basic metabolic panel (01/26/2025 4:47 AM EDT) [facility] Sodium 141 133 - 145 mmol/L LAB CHEMISTRY METHOD 01/26/2025 2:04 PM [facility] Potassium 4.6 3.5 - 5.5 mmol/L LAB CHEMISTRY METHOD 01/26/2025 2:04 PM [facility] Chloride 103 96 - 110 mmol/L LAB CHEMISTRY METHOD 01/26/2025 2:04 PM [facility] CO2 31 21 - 32 mmol/L LAB CHEMISTRY METHOD 01/26/2025 2:04 PM [facility] Anion Gap 7 3 - 11 LAB CHEMISTRY METHOD 01/26/2025 2:04 PM [facility] Glucose 142(H) 70 - 100 mg/dL LAB CHEMISTRY METHOD 01/26/2025 2:04 PM [facility] BUN 44(H) 5 - 25 mg/dL LAB CHEMISTRY METHOD 01/26/2025 2:04 PM EDT [facility] Creatinine 2.39(H) 0.70 - 1.30 mg/dL LAB CHEMISTRY METHOD 01/26/2025 2:04 PM EDT [facility] eGFR 26(L) >=60 mL/min/1. 73m2 LAB CHEMISTRY METHOD 01/26/2025 2:04 PM EDT [facility] Comment:Calculation based on the Chronic Kidney Disease Epidemiology Collaboration (CKD-EPI) equation refit without adjustment for race. BUN/Creatinine Ratio 18.4 LAB CHEMISTRY METHOD 01/26/2025 2:04 PM EDT [facility] Calcium 9.0 8.5 - 10.5 mg/dL LAB CHEMISTRY METHOD 01/26/2025 2:04 PM T [facility] Blood Venous blood specimen / Unknown Venipuncture / Unknown 01/26/2025 4:47 AM EDT 01/26/2025 9:49 AM EDT us Oracio Elizabeth MD LAB BLOOD ORDERABLES Final Resu lt [facility] [address] [place] [address], * (ABNORMAL) Complete blood count (01/26/2025 4:47 AM EDT) WBC 9.0 4.8 - 10.8 K/mcL LAB HEMETOLOGY METHOD 01/26/2025 11:01 AM EDT [facility] RBC 4.90 4.50 - 5.50 M/mcL LAB HEMETOLOGY METHOD 01/26/2025 11:01 AM EDT [facility] Hemoglobin 13.2(L) 13.5 - 17.5 g/dL LAB HEMETOLOGY METHOD 01/26/2025 11:01 AM EDT [facility] Hematocrit 43.2 42.0 - 54.0 % LAB HEMETOLOGY METHOD 01/26/2025 11:01 AM [facility] MCV 87.6 79.0 - 98.0 FL LAB HEMETOLOGY METHOD 01/26/2025 11:01 AM [facility] MCH 26.8(L) 27.0 - 32.0 pcg LAB HEMETOLOGY METHOD 01/26/2025 11:01 AM [facility] MCHC 30.6(L) 32.0 - 37.0 g/dL LAB HEMETOLOGY METHOD 01/26/2025 11:01 AM [facility] RDW 17.9(H) 11.0 - 15.0 % LAB HEMETOLOGY METHOD 01/26/2025 11:01 AM [facility] Platelets 263 130 - 400 K/mcL LAB HEMETOLOGY METHOD 01/26/2025 11:01 AM [facility] MPV 10.1 7.0 - 11.0 FL LAB HEMETOLOGY METHOD 01/26/2025 11:01 AM [facility] NRBC 0.0 <1.0 % LAB HEMETOLOGY METHOD 01/26/2025 11:01 AM [facility] NRBC Absolute 0.00 <0.10 K/mcL LAB HEMETOLOGY METHOD 01/26/2025 11:01 AM [facility] Blood Venous blood specimen / Unknown Venipuncture / Unknown 01/26/2025 4:47 AM EDT 01/26/2025 9:49 AM EDT us Oracio Elizabeth MD LAB BLOOD ORDERABLES Final Resu lt [facility] [address] [place] [address], documented in this encounter Visit Diagnoses Diagnosis Essential (primary) hypertension Unspecified essential hypertension Metabolic encephalopathy Type 2 diabetes mellitus with diabetic chronic kidney disease (CMS/[facility] V24, [facility] V28) Hypothyroidism, unspecified Encounter for adjustment or management of cardiac device documented in this encounter Additional Health Concerns Assessment Noted Time PHQ-9 Depression Total Score: 0 09/24/19 25 11:46 AM EDT documented as of this encounter Care Teams Doubler Operator Relationship Specialty Start Date End Date Nicolás Jeffries MD [address] [place] [address] PCP - General Internal Medicine 02/11/24 documented as of this encounter
--- OUTSIDE RECORDS SUMMARY | 2025-03-11 20:21 | XMS_ITS | Encounter Summary ---
Author Organization [facility] Address [address] [place] [address] Care Team Providers Care Muffler Installer Name Role Phone Nicolás Jeffries MD Primary Care Provider [phone] Reason for Visit * Reason Onset Date Comments VNA 03/07/2025 Encounter Details Date Type Department Care Team (Late st Contact Info) Description 03/07/2025 Telephone Adult Medicine [place] [address] [place], [place] [phone] Nicolás Jeffries MD [address] [place], [place] Social History Tobacco Use Types Packs/Day [...] as of this encounter Progress Notes * Julio C Childs LPN - 03/08/2025 10:01 AM EST Vo given to Samra * Nicolás Jeffries MD - 03/07/2025 6:00 PM EST Please give the vo * Julio C Childs LPN - 03/07/2025 5:01 PM EST VO for 2 more OT visits Please send response to nurse triage [facility] * Joan Cloud - 03/07/2025 4:40 PM EST VNA CALL Which VNA office is calling? [employer] / Full name of caller: Samra Crow - [phone] The caller is An Occupational Therapist Is the caller at the patients home?: no Reason for call: verbal order for OT, need two more visits Does caller need an urgent call back? yes Was CONTACT Telephone # obtained above?: yes Fax #: N/A documented in this encounter Plan of Treatment Upcoming Encounters Date Type Department Care Team ([facility] st Contact Info) Description 03/30/2025 1:00 PM EST Office Visit Endocrinology - [address] [phone] Taryn Umana PA [address] [place] [address] 05/13/2025 2:00 PM EST Office Visit Gastroenterology - [address] [place] [phone] Janneth Enciso NP [address] [address] 09/12/2025 3:00 PM EDT Office Visit Adult Medicine [address] [phone] Nicolás Jeffries MD [address] [place] [address] 10/12/2025 3:00 PM EDT Ancillary Procedure [facility] [address] [phone] documented as of this encounter Goals Goal [...] documented as of this encounter Care Teams Muffler Installer Relationship Specialty Start Date End Date Nicolás Jeffries MD [address] [place] [phone] PCP - General Internal Medicine 02/11/24 documented as of this encounter
--- OUTSIDE RECORDS SUMMARY | 2025-03-11 20:21 | XMS_ITS | Encounter Summary ---
Author Organization [facility] Address [address] [place] [address] Care Team Providers Care Top Precipitator Operator Name Role Phone Nicolás Jeffries MD Primary Care Provider [phone] Encounter Details Date Type Department Care Team (Late st Contact Info) Description 02/02/2025 Lab Requisition [facility] - Main Lab 299 [facility] [place] [address] Oracio Elizabeth MD [address] [place] [address] Hypothyroidism, unspecified Social History Tobacco Use Types [...] 1:00 PM EST Office Visit Endocrinology - [address] [phone] Taryn Umana PA [address] [place] [address] 05/13/2025 2:00 PM EST Office Visit Gastroenterology - [address] [phone] Janneth Enciso NP [address] [place] [address] 09/12/2025 3:00 PM EDT Office Visit Adult Medicine South - [address] [phone] Nicolás Jeffries MD [address] [place] [address] 10/12/2025 3:00 PM EDT Ancillary Procedure [facility] 154 300 [facility] [address] [place] [address] documented as of this encounter Procedures Procedure Name Priority Date/Time Associated Diagnosis Comments THYROID STIMULATING HORMONE Routine 02/03/2025 4:40 AM EST Hypothyroidism, unspecified documented in this encounter Results * (ABNORMAL) Thyroid stimulating hormone (02/03/2025 4:40 AM EST) TSH 6.88(H) 0.40 - 4.00 mcIU/mL LAB CHEMISTRY METHOD 02/03/2025 9:20 AM EST [facility] Blood Venous blood specimen / Unknown Venipuncture / Unknown 02/03/2025 4:40 AM EST 02/03/2025 8:25 AM EST us Oracio Elizabeth MD LAB BLOOD ORDERABLES Final Resu lt [facility] [address] [place] [address], documented in this encounter Visit Diagnoses Diagnosis Hypothyroidism, unspecified Encounter for adjustment or management of cardiac device documented in this encounter Additional Health Concerns Assessment Noted Time PHQ-9 Depression Total Score: 0 09/24/19 25 11:46 AM EDT documented as of this encounter Care Teams Top Precipitator Operator Relationship Specialty Start Date End Date Nicolás Jeffries MD [address] [place] [address] PCP - General Internal Medicine 02/11/24 documented as of this encounter
--- OUTSIDE RECORDS SUMMARY | 2025-03-11 20:22 | XMS_ITS | Data Portability ---
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 Procedure Notes None recorded. Medical Equipment None Reported. Allergies Allergen ID Allergen Name Allergen Category Reaction Reaction Severity Criticality Documentation Date Start Date Code Code System Note Provider Name and Address Organization Details Recorded Time 348487 acetamino phen / oxycodone medicatio n Not available Not available Not available 07/01/2021 74147 3 RxNorm Ciara Ward NP [address] [place], [address], [place] [facility] 19:56:39 [id number] lisinopri l medicatio n Not available Not available Not available 07/01/2021 01269 RxNorm Ciara Ward NP [address], [place], [address], [place] [facility] 2 19:56:49 082178 shellfish derived food,medi cation Not available Not available Not available 07/01/2021 Ciara Ward NP [address], [place], [address], [place] [facility] 2 19:56:58 [...] t Available Vitals Date Recorded Oxygen saturation Heart rate Respiratory rate Body temperature Systolic And Diastolic Provider Name and Address Organization Details Last Updated DateTime 96 % 110 /min 22 /min 98.3 [degF] 140/70 mm[Hg] Not Available [facility] 20:01:45 Social History Question Answer Notes LastModified by [employer] Details LastModified Time Tobacco Smoking Status Never Smoker Ciara Ward, KAYLA [address] [facility], [place], [address], [place] [facility] 07/01/2021 20:06:11 Do You Have An Advance Directive? Yes [facility] Information not available 07/01/2021 What Is Your Code Status? Full Code [email or web address] Information not available 07/01/2021 Within The Past 12 Months, Has It Happened That The Food You Bought Just Didn't Last And You Didn't Have Money To Get More. No [facility] Information not available 07/01/2021 Within The Past 12 Months, Have You Worried That Your Food Would Run Out Before You Got Money To Buy More. No [facility] Information not available 07/01/2021 Fall Risk: Do You Feel Unsteady When Standing Or Walking? No [facility] Information not available 07/01/2021 Excessive Alcohol Or Drug Use No [facility] Information not available 07/01/2021 Does This Patient Have A PCP? Yes [facility] Information not available 07/01/2021 Has The Patient Seen Their PCP In The Past 6 Months? Yes [facility] Information not available 07/01/2021 We Know From Many Of Our Patients That Covering All Of Their Costs Can Be Difficult At Times. This Can Cause Stress And Impact Health. In The Past Year, Have You Been Unable To Get Any Of The Following When It Was Really Needed? No [facility] Information not available 07/01/2021 What Is Your Housing Situation Today? I Have Housing [facility] Information not available 07/01/2021 Sex: Unknown Functional Status Question Answer Note LastModified by [employer] Details LastModified Time Do you use any illicit or recreational drugs? No jhelliwell Information not available 07/01/2021 Do you or have you ever used any other forms of tobacco or nicotine? No [facility] Information not available 07/01/2021 What is your level of alcohol consumption? None [facility] Information not available 07/01/2021 Mental Status None recorded. Family History Relationship Description Onset Age of this Age Resolved Age Notes LastModified by Organization Details LastModified Time Father No current problems or disability [facility] Not available 05/2021 20:05:29 Mother No current problems or disability elliwell Not available 05/2021 20:05:30 Medical History Condition Response Coronary Artery Disease Y Parkinson's Disease N Depression N COPD N Hypothyroidism Y A-fib N Diabetes Y CHF Y Cancer N Dementia N Stroke N Asthma N High Cholesterol Y Rheumatoid Arthritis N Pulmonary Embolism N Hypertension Y Osteoporosis N Kidney Disease Y Past Encounters Encounter ID Performer Location Encounter Start Date Encounter Closed Date Diagnosis/Indication Diagnosis SNOMED-CT Code Diagnosis ICD10 Code Diagnosis IMO Codes Diagnosis Note [id number] Ciara Ward NP [facility] [address] [place] [address] 07/01/2021 19:54:42 08/01/2021 14:31:47 Health Concerns Section Related Observation LastModified by Organization Detai ls LastModified Time None Recorded Concern Status LastModified by Organization Details LastModified Time None Recorded Advance Directives Directive Y: Payers Insurance Date Sequence Insurance Name Policy Number Policy Reid Covered Member ID Reid Member ID Guarantor Name 07/01/2021 1 [place] [employer] [employer] Justin Wong [id number] Justin Wong 08/01/2021 2 [facility] ([place] [id number] Justin Wong [id number] Justin Wong 07/01/2021 1 *SELF PAY* Justin Wong [id number] Justin Wong Notes Date Note Type Note [...] Dr Cueva s/p hospitalization. Ciara Ward NP [address] [place], [address], [place] [facility] 07/01/2021 21:56:35
--- OUTSIDE RECORDS SUMMARY | 2025-03-11 20:22 | XMS_ITS | Clinical Summary ---
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 [facility] [address] [place] [address], [place] [phone] * LA ARTHROCENTESIS/ASPIRATION/INJECTION MAJOR JOINT/BURSA W/O U/S GUIDANCE (02/14/2025 3:00 PM EST) Narrative Alke Armijo PA - 02/14/2025 3:00 PM GAL Cornejo 02/14/2025 3:57 PM L Inj/Asp: bilateral knee Indications: pain Details: 22 G needle, anterolateral approach Medications (Right): 40 mg methylPREDNISolone acetate 40 mg/mL; 4 mL lidocaine 1 % Medications (Left): 40 mg methylPREDNISolone acetate 40 mg/mL; 4 mL lidocaine 1 % Outcome: tolerated well, no immediate complications Informed Consent: Site: Knee Laterality: Bilateral Relevant images/test results available and reviewed: yes Health status cleared: Yes Procedure/treatment, purpose, treatment alternatives, risks/potential complications and benefits explained: yes Risk/complications/benefits details: Risks include but are not limited to: The treatment may not accomplish the desired results. Additionally bleeding, infection, damage to tendon, nerve, cartilage, muscle; thinning or lightening of the skin in the area of injection; flushing or redness of the face, elevated blood pressure or blood sugar, allergic reaction, rash, increased pain Benefits include relief of inflammation and pain Patient questions answered: yes Patient agrees, verbalizes understanding, and wants to proceed: yes Consent given by: Patient Informed consent discussion completed by Physician/KENNA with patient: Verbal Pre-procedure timeout performed: yes Alek SANTO IN CLINIC/BEDSIDE ORDERABLES Fin al Result * (ABNORMAL) Urinalysis with reflex microscopic (02/11/2025 12:01 PM EST) Specific [place] Urine 1.013 1.003 - 1.030 LAB URINALYSIS - AUTOMATED METHOD 02/11/2025 3:33 PM [facility] pH, Urine 5.0 5.0 - 8.0 pH LAB URINALYSIS - AUTOMATED METHOD 02/11/2025 3:33 PM [facility] Leukocytes, Urine Trace(A) Negative LAB URINALYSIS - AUTOMATED METHOD 02/11/2025 3:33 PM [facility] Nitrite, Urine Negative Negative LAB URINALYSIS - AUTOMATED METHOD 02/11/2025 3:33 PM [facility] Protein, Urine Negative <=Trace mg/dL LAB URINALYSIS - AUTOMATED METHOD 02/11/2025 3:33 PM [facility] Glucose, Urine 500(A) Negative mg/dL LAB URINALYSIS - AUTOMATED METHOD 02/11/2025 3:33 PM [facility] Ketones, Urine Negative Negative mg/dL LAB URINALYSIS - AUTOMATED METHOD 02/11/2025 3:33 PM [facility] Urobilinogen, Urine 0.2 0.2 - 1.0 mg/dL LAB URINALYSIS - AUTOMATED METHOD 02/11/2025 3:33 PM [facility] Bilirubin, Urine Negative Negative LAB URINALYSIS - AUTOMATED METHOD 02/11/2025 3:33 PM [facility] Blood, Urine Negative Negative LAB URINALYSIS - AUTOMATED METHOD 02/11/2025 3:33 PM [facility] RBC, Urine 0 0 - 4 /HPF LAB URINALYSIS - AUTOMATED METHOD 02/11/2025 3:33 PM [facility] WBC, Urine 8(H) 0 - 4 /HPF LAB URINALYSIS - AUTOMATED METHOD 02/11/2025 3:33 PM [facility] Squamous Epithelial, Urine 10 0 - 60 /LPF LAB URINALYSIS - AUTOMATED METHOD 02/11/2025 3:33 PM [facility] Bacteria, Urine Negative Negative /HPF LAB URINALYSIS - AUTOMATED METHOD 02/11/2025 3:33 PM [facility] Hyaline Casts, Urine 10(H) 0 - 3 /LPF LAB URINALYSIS - AUTOMATED METHOD 02/11/2025 3:33 PM [facility] Urine Urine specimen obtained by clean catch procedure / Unknown Non-blood Collection / Unknown 02/11/2025 12:01 PM EST 02/11/2025 12:01 PM EST us Nicolás Jeffries MD LAB URINE ORDERABLES Final Resu lt [facility] [address] [place] [address], [place] [phone] * Culture urine (02/11/2025 12:01 PM EST) Only the most recent of2 resultswithin the time period is included. [facility] Culture, Urine <10,000 cfu/mL Mixed bacterial fernanda 02/12/2025 11:37 AM EST [facility] Urine Urine specimen obtained by clean catch procedure / Unknown Non-blood Collection / Unknown 02/11/2025 12:01 PM EST 02/11/2025 12:01 PM EST Nicolás Jeffries MD LAB MICROBIOLOGY - GENERAL WILLARD SANDERS Final Result Performing Organization Address [facility]/ZIP Co de Phone Number [facility] [address] [place] [address], * (ABNORMAL) Hemoglobin A1c (02/11/2025 12:01 PM EST) Only the most recent of2 resultswithin the time period is included. [facility] Hemoglobin A1C 9.2(H) <6.5 % LAB CHEMISTRY METHOD 02/11/2025 8:31 PM EST [facility] Mean Bld Glu Estim. 217 mg/dL LAB CHEMISTRY METHOD 02/11/2025 8:31 PM EST [facility] Blood Venous blood specimen / Unknown Venipuncture / Unknown 02/11/2025 12:01 PM EST 02/11/2025 12:01 PM EST Ann Marie García NP LAB BLOOD ORDERABLES Final Re sult [facility] [address] [place] [address], * (ABNORMAL) Thyroid stimulating hormone (02/03/2025 4:40 AM EST) Only the most recent of2 resultswithin the time period is included. [facility] TSH 6.88(H) 0.40 - 4.00 mcIU/mL LAB CHEMISTRY METHOD 02/03/2025 9:20 AM EST [facility] Blood Venous blood specimen / Unknown Venipuncture / Unknown 02/03/2025 4:40 AM EST 02/03/2025 8:25 AM EST us Oracio Elizabeth MD LAB BLOOD ORDERABLES Final Resu lt [facility] [address] [place] [address], [place] [phone] * (ABNORMAL) Urinalysis with reflex microscopic and culture (01/27/2025 12:00 AM EDT) Specific [place] Urine 1.014 1.003 - 1.030 LAB URINALYSIS - AUTOMATED METHOD 01/27/2025 10:00 AM [facility] pH, Urine 6.0 5.0 - 8.0 pH LAB URINALYSIS - AUTOMATED METHOD 01/27/2025 10:00 AM [facility] Leukocytes, Urine Trace(A) Negative LAB URINALYSIS - AUTOMATED METHOD 01/27/2025 10:00 AM [facility] Nitrite, Urine Negative Negative LAB URINALYSIS - AUTOMATED METHOD 01/27/2025 10:00 AM [facility] Protein, Urine Negative <=Trace mg/dL LAB URINALYSIS - AUTOMATED METHOD 01/27/2025 10:00 AM [facility] Glucose, Urine >=1000(A) Negative mg/dL LAB URINALYSIS - AUTOMATED METHOD 01/27/2025 10:00 AM [facility] Ketones, Urine Negative Negative mg/dL LAB URINALYSIS - AUTOMATED METHOD 01/27/2025 10:00 AM [facility] Urobilinogen , Urine 0.2 0.2 - 1.0 mg/dL LAB URINALYSIS - AUTOMATED METHOD 01/27/2025 10:00 AM [facility] Bilirubin, Urine Negative Negative LAB URINALYSIS - AUTOMATED METHOD 01/27/2025 10:00 AM [facility] Blood, Urine Negative Negative LAB URINALYSIS - AUTOMATED METHOD 01/27/2025 10:00 AM [facility] RBC, Urine 2.7 0 - 4 /HPF LAB URINALYSIS - AUTOMATED METHOD 01/27/2025 10:00 AM [facility] WBC, Urine 12.2(H) 0 - 4 /HPF LAB URINALYSIS - AUTOMATED METHOD 01/27/2025 10:00 AM [facility] Squamous Epithelial, Urine 18 0 - 60 /LPF LAB URINALYSIS - AUTOMATED METHOD 01/27/2025 10:00 AM [facility] Bacteria, Urine Negative Negative /HPF LAB URINALYSIS - AUTOMATED METHOD 01/27/2025 10:00 AM [facility] Hyaline Casts, Urine 5.6(H) 0 - 3 /LPF LAB URINALYSIS - AUTOMATED METHOD 01/27/2025 10:00 AM [facility] Urine Urine specimen obtained by clean catch procedure / Unknown Non-blood Collection / Unknown 01/27/2025 01/27/2025 9:25 AM EDT us Oracio Elizabeth MD LAB URINE ORDERABLES Final Resu lt [facility] [address] [place] [address], * Penny urine culture tube (01/27/2025 12:00 AM EDT) Extra Tube Hold for add-ons. 01/27/2025 11:01 AM [facility] Comment:Auto resulted. Urine Urine specimen obtained by clean catch procedure / Unknown Non-blood Collection / Unknown 01/27/2025 01/27/2025 9:25 AM EDT us Oracio Elizabeth MD LAB URINE ORDERABLES Final Resu lt [facility] [address] [place] [address], [place] [phone] * (ABNORMAL) Complete blood count (01/26/2025 4:47 AM EDT) WBC 9.0 4.8 - 10.8 K/mcL LAB HEMETOLOGY METHOD 01/26/2025 11:01 AM EDT [facility] RBC 4.90 4.50 - 5.50 M/mcL LAB HEMETOLOGY METHOD 01/26/2025 11:01 AM [facility] Hemoglobin 13.2(L) 13.5 - 17.5 g/dL LAB HEMETOLOGY METHOD 01/26/2025 11:01 AM [facility] Hematocrit 43.2 42.0 - 54.0 % LAB HEMETOLOGY METHOD 01/26/2025 11:01 AM [facility] MCV 87.6 79.0 - 98.0 FL LAB HEMETOLOGY METHOD 01/26/2025 11:01 AM [facility] MCH 26.8(L) 27.0 - 32.0 pcg LAB HEMETOLOGY METHOD 01/26/2025 11:01 AM [facility] MCHC 30.6(L) 32.0 - 37.0 g/dL LAB HEMETOLOGY METHOD 01/26/2025 11:01 AM [facility] RDW 17.9(H) 11.0 - 15.0 % LAB HEMETOLOGY METHOD 01/26/2025 11:01 AM [facility] Platelets 263 130 - 400 K/mcL LAB HEMETOLOGY METHOD 01/26/2025 11:01 AM EDT [facility] MPV 10.1 7.0 - 11.0 FL LAB HEMETOLOGY METHOD 01/26/2025 11:01 AM EDT [facility] NRBC 0.0 <1.0 % LAB HEMETOLOGY METHOD 01/26/2025 11:01 AM EDT [facility] NRBC Absolute 0.00 <0.10 K/mcL LAB HEMETOLOGY METHOD 01/26/2025 11:01 AM EDT [facility] Blood Venous blood specimen / Unknown Venipuncture / Unknown 01/26/2025 4:47 AM EDT 01/26/2025 9:49 AM EDT us Oracio Elizabeth MD LAB BLOOD ORDERABLES Final Resu lt [facility] [address] [place] [address], * (ABNORMAL) Basic metabolic panel (01/26/2025 4:47 AM EDT) Sodium 141 133 - 145 mmol/L LAB CHEMISTRY METHOD 01/26/2025 2:04 PM [facility] Potassium 4.6 3.5 - 5.5 mmol/L LAB CHEMISTRY METHOD 01/26/2025 2:04 PM [facility] Chloride 103 96 - 110 mmol/L LAB CHEMISTRY METHOD 01/26/2025 2:04 PM [facility] CO2 31 21 - 32 mmol/L LAB CHEMISTRY METHOD 01/26/2025 2:04 PM [facility] Anion Gap 7 3 - 11 LAB CHEMISTRY METHOD 01/26/2025 2:04 PM [facility] Glucose 142(H) 70 - 100 mg/dL LAB CHEMISTRY METHOD 01/26/2025 2:04 PM [facility] BUN 44(H) 5 - 25 mg/dL LAB CHEMISTRY METHOD 01/26/2025 2:04 PM EDT [facility] Creatinine 2.39(H) 0.70 - 1.30 mg/dL LAB CHEMISTRY METHOD 01/26/2025 2:04 PM EDT [facility] eGFR 26(L) >=60 mL/min/1. 73m2 LAB CHEMISTRY METHOD 01/26/2025 2:04 PM EDT [facility] Comment:Calculation based on the Chronic Kidney Disease Epidemiology Collaboration (CKD-EPI) equation refit without adjustment for race. BUN/Creatinine Ratio 18.4 LAB CHEMISTRY METHOD 01/26/2025 2:04 PM EDT [facility] Calcium 9.0 8.5 - 10.5 mg/dL LAB CHEMISTRY METHOD 01/26/2025 2:04 PM EDT [facility] Blood Venous blood specimen / Unknown Venipuncture / Unknown 01/26/2025 4:47 AM EDT 01/26/2025 9:49 AM EDT us Oracio Elizabeth MD LAB BLOOD ORDERABLES Final Resu lt [facility] [address] [place] [address], * Cardiac device check - Remote- MURJ (01/20/2025 9:21 AM EDT) Only the most recent of2 resultswithin the time period is included. Date Time Interrogation Session [id number] CV DEVICE CHECK Type Interrogation Session Remote Scheduled CV DEVICE CHECK Implantable Pulse Generator Sr. Media Manager [place] CV DEVICE CHECK Implantable Pulse Generator Type ICD CV DEVICE CHECK Implantable Pulse Generator Model [id number] John BELL (TM) CV DEVICE CHECK Implantable Pulse Generator Serial Number [id number] CV DEVICE CHECK Implantable Pulse Generator Implant Date [id number] CV DEVICE CHECK Battery Remaining Percentage 63.00 CV DEVICE CHECK Battery Remaining Longevity 68.0 CV DEVICE CHECK Battery Voltage 2.980 CV D EVICE CHECK Battery SCRUB TECHNICIAN Trigger 2.620 CV DEVICE CHECK Battery Status Middle of Service CV DEVICE CHECK Capacitor Charge Time 8.800 CV DEVICE CHECK Sanket Statistic RA Percent Paced 9.00 CV DEVICE CHECK Sanket Statistic RV Percent Paced 90.00 CV DEVICE CHECK Atrial Tachy Statistic AT/AF [place] Percent 0.00 CV DEVICE CHECK Lead Channel Sensing Intrinsic Amplitude 2.700 CV DEVICE CHECK Lead Channel Setting Sensing Sensitivity 0.30 CV DEVICE CHECK Lead Channel Impedance Value 350 CV DEVICE CHECK Lead Channel Pacing Threshold Amplitude 1.125 CV DEVICE CHECK Lead Channel Pacing Threshold Pulse Width 0.5 CV DEVICE CHECK Lead Channel RA Pacing Threshold Date 2025-01-07 CV DEVICE CHECK Lead Channel Setting Pacing Amplitude 2.500 CV DEVICE CHECK Lead Channel Setting Pacing Pulse Width 0.5 CV DEVICE CHECK Lead Channel Sensing Intrinsic Amplitude 4.700 CV DEVICE CHECK Lead Channel Setting Sensing Sensitivity 0.50 CV DEVICE CHECK Lead Channel Impedance Value 490 CV DEVICE CHECK Lead Channel Pacing Threshold Amplitude 0.500 CV DEVICE CHECK Lead Channel Pacing Threshold Pulse Width 0.5 CV DEVICE CHECK Lead Channel RV Pacing Threshold Date 2025-01-07 CV DEVICE CHECK Lead Channel Setting Pacing [...] 0 CV DEVICE CHECK Shock Measured Impedance 68 CV DEVICE CHECK Zone Setting Type Category [...] Anatomical Region Laterality Modality Device Interroga tion 01/07/2025 2:01 AM EDT Impressions 01/20/2025 7:47 AM EDT Heart Failure Diagnostic: Stable * Heart failure diagnostics assessed through the device * Status: Resolving * No overt HF present Narrative Procedure Note Lauren Ley MD - 01/20/2025 IMPRESSION: Heart Failure Diagnostic: Stable * Heart failure diagnostics assessed through the device * Status: Resolving * No overt HF present Lauren Ley MD CV IMPLANTABLE CARDIAC DEVICE PROCEDURES Final Result * (ABNORMAL) Microalbumin creatinine urine ratio (08/19/2024 1:59 PM EDT) [facility] Creatinine, Urine 73.0 mg/dL LAB CHEMISTRY METHOD 08/20/2024 4:44 AM EDT [facility] Microalb, Ur 83.8(H) 0.0 - 29.0 mg/L LAB CHEMISTRY METHOD 08/20/2024 4:44 AM EDT [facility] Microalb/Crea t Ratio 115(H) <30 mg/g creat LAB CHEMISTRY METHOD 08/20/2024 4:44 AM EDT [facility] Urine Urine specimen obtained by clean catch procedure / Unknown Non-blood Collection / Unknown 08/19/2024 1:59 PM EDT 08/19/2024 1:59 PM EDT Nicolás Jeffries MD LAB URINE ORDERABLES Final Resu lt [facility] [address] [place] [address], [place] [phone] * Depression Screening (12/12/2023) Pathologist [facility] Depression Screening abstracted Mukesh Turcios MD HEALTH MAINTENANCE Final Result * Diabetes Foot Exam (11/05/2023) Pathologist [facility] Diabetes: Annual Foot Exam abstracted Historical Provider HEALTH MAINTENANCE Final Result * Diabetes Eye Exam (10/31/2023) Diabetes: Annual Retina Eye Exam abstracted Historical Provider HEALTH MAINTENANCE Final Result * Falls Risk Assessment (10/21/2023) Falls Risk Assessment abstracted Historical Provider HEALTH MAINTENANCE Final Result from Last 3 Months or Most Recently Relevant to Health Maintenance Insurance MEDICARE [facility] Care Teams Coremaker Apprentice Relationship Specialty Start Date End Date Nicolás Jeffries MD [address] [place] [address] PCP - General Internal Medicine 02/11/24
--- OUTSIDE RECORDS SUMMARY | 2025-03-11 20:22 | XMS_ITS | Patient Health Record ---
Author Organization [facility] Address [address] [facility] [address] [place] [address] Care Team Providers Care Ring Facer Name Role Phone Sugey Stratton Primary Care Provider KARI Merino Unavailable [phone] Allergies Allergen (clinical drug ingredient) Drug/Non Drug [...] needed Inhalation every 4 hrs Not-Taking Nystatin 536386 UNIT/GM 1 application Externally Twice a day Not-Taking Ipratropium [place] 0.03 % 2 sprays in each nostril [...] Polyneuropathy due to type 2 diabetes mellitus (062818831) Type 2 diabetes mellitus with diabetic polyneuropathy (E11.42) Active confirmed Problem Peripheral circulatory disorder associated with diabetes mellitus (089795425) Type 2 diabetes mellitus with other circulatory complications (E11.59) Active confirmed Problem Long-term current use of insulin (264743142) terminal operator (current) use of insulin (Z79.4) Active confirmed 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 Vital Signs Heart Rate 73 /min 10/11/2024 Temperature 97.5 degrees Fahrenheit 10/11/2024 Respiratory Rate 20 /min 10/11/2024 Height 5ft 6in in 10/11/2024 Weight 234.1 lbs 10/11/2024 BMI 37.78 kg/m2 10/11/2024 Encounters Encounter Location Date Provider Diagnosis [facility] [address] [facility] [address] [place] [address] 06/16/2024 KARI RYAN Type 2 diabetes mellitus with other circulatory complications E11.59 ; Type 2 diabetes mellitus with diabetic polyneuropathy E11.42 ; Pain in left toe(s) M79.675 ; Onychomycosis B35.1 ; Xerosis of skin L85.3 and Pain in right toe(s) M79.674 [facility] [address] 10/11/2024 KARI RYAN Type 2 diabetes mellitus with other circulatory complications E11.59 ; Type 2 diabetes mellitus with diabetic polyneuropathy E11.42 ; Pain in left toe(s) M79.675 ; Onychomycosis B35.1 ; Xerosis of skin L85.3 and Pain in right toe(s) M79.674 [facility] [address] 08/02/2024 KARI RYAN [facility] [address] 01/12/2025 KARI RYAN Assessments Encounter Date Diagnosis (ICD [...] and inserts and states they are comfortable. 10/11/2024 Pain in left toe(s) (ICD-10 - [...] Aseptic debridement of toenails x 10 with nail sticker, pt tolerated well. All bleeding controlled with [...] Aseptic debridement of toenails x 10 with nail sticker, pt tolerated well. He can remove tomorrow. Discussed with the patient that routine nail care services are only covered by insurance every 60 days. Pt understands that if they would like to return prior to this time frame, they may have to pay out of pocket. 10/11/2024 Xerosis of skin (ICD-10 - L85.3) [...] 05/2020 Next Appt Details Provider Name:KARI RYAN, 03/14/2025 02:45:00 PM, [address] [facility] [facility] [address], [place], [address], Insurance Providers Payer Name Payer Address Payer Phone Subscriber Number Group Number Insured Name Patient Relationship to Insured Coverage Start Date Coverage End Date Medicare of [place] [address] [place] [phone] [id number] Richard Wong Self - patient is the insured [employer] [address] [place] [address] [phone] [id number] 1 Richard Wong Self - patient is [...]
--- OUTSIDE RECORDS SUMMARY | 2025-03-11 20:22 | XMS_ITS | Encounter Summary ---
Author Organization [facility] Address [address] [place] [address] Care Team Providers Care Cargo Trimmer Name Role Phone Nicolás Jeffries MD Primary Care Provider [phone] Encounter Details Date Type Department Care Team (Late st Contact Info) Description 03/03/2025 Results Follow-Up Adult Medicine [facility] [address] [place], [place] [phone] Nicolás Jeffries MD [address] [place], [place] Social History Tobacco Use Types Packs/Day [...] 1:00 PM EST Office Visit Endocrinology - [address] [phone] Taryn Umana PA [address] [place] [address] 05/13/2025 2:00 PM EST Office Visit Gastroenterology - [address] [place] [phone] Janneth Enciso NP [address] [place] [address] 09/12/2025 3:00 PM EDT Office Visit Adult Medicine [facility] - [address] [phone] Nicolás Jeffries MD [address] [place] [address] 10/12/2025 3:00 PM EDT Ancillary Procedure [facility] [address] [facility] [address] [place] [address] documented as of this encounter Goals Goal [...] documented as of this encounter Care Teams Cargo Trimmer Relationship Specialty Start Date End Date Nicolás Jeffries MD [address] [place] [phone] PCP - General Internal Medicine 02/11/24 documented as of this encounter
--- OUTSIDE RECORDS SUMMARY | 2025-03-11 20:22 | XMS_ITS ---
Author Organization [address] Address [address] [place] [address] Phone Care Team Providers Care Gas Plant Repairer Name Role Phone Nicolás Jeffries MD Primary Care Provider [phone] Chronic Care Management Status:Ongoing (Active) Start date:02/09/2025 Enrollment date:02/25/2025 Enrollment reason:Referred by Care Team Case Team Name Relationship Phone Haritha Kline RN(Responsible Staff) Care [employer] Continued Care and Services Coordination
--- OUTSIDE RECORDS SUMMARY | 2025-03-11 20:22 | XMS_ITS ---
Author Organization [address] Address [address] [place] [address] Phone Care Team Providers Care [facility] Nurse Name Role Phone Nicolás Jeffries MD Primary Care Provider [phone] Transitional Care Management Status:Closed (Closed) Start date:02/08/2025 Enrollment date:02/08/2025 Enrollment reason:Identified using hospital discharge data End date:03/11/2025 Close reason:Completed program Case Team Name Relationship Phone Ju Florez LPN(Responsible Staff) Associate Producer Continued Care and Services Coordination
== END 2025-03-11 15:33 | disposition home or self-care (01) ==
LOC: HO.LAB 15:32
PROVIDERS: PCP Internal Medicine; Visit Provider Internal Medicine Nephrology
DX: N18.32 Chronic kidney disease, stage 3b (principal)
CPT/HCPCS: 36415; 80051; 82306; 82310; 82565; 83970; 84100; 84520; 85025

== ENCOUNTER 2025-03-17 14:43 | Outpatient (AMB) | payer MEDICARE, SELFPAY ==
--- OUTSIDE RECORDS SUMMARY | 2024-02-11 08:30 | XMS_ITS ---
Author Organization [facility] Address [address] [address] Care Team Providers Care Community Service Organization Director Name Role Phone Sugey Stratton Primary Care Provider Dahlia KARI Dick Unavailable [phone] REASON FOR VISIT 3 month f/u Encounters Encounter Location Date Provider Diagnosis [facility] [address] [address] 02/11/2024 KARI RYAN Plan Of Treatment Next Appt Details Provider Name:KARI RYAN, 06/15/2025 02:45:00 PM, [address] [address], [place], [address], Progress Notes * Richard WONGDOB:1940 (84 yo M)Acc No.[id number]:02/11/2024 Progress Note Patient: Richard MATT Provider: Ammy Ryan DPM :1940 A ge:83 Y S ex:Male Date:02/11/2024 Address:[address] [place], [place] [id number] Pcp:Sugey Stratton Subjective: * Chief Complaints: * 1 . 3 month f/u. * Medical History: Objective: * Vitals: Assessment: Plan: * Treatment: * Billing Information: * Visit Code: * Procedure Codes: * Electronic signature of ILIA RYAN D.P.M on 03/17/2025 at 06:50 PM EST Sign off status: Pending * Provider: Ammy Ryan DPM Date: 04/12/2023 Generated for Osvaldo boone/Davian/Mireille on: 05/18/2024 06:50 PM EST
--- OUTSIDE RECORDS SUMMARY | 2024-02-25 06:30 | XMS_ITS ---
Author Organization [facility] Address [address] [address] Care Team Providers Care Prescription Eyeglass Maker Name Role Phone Sugey Stratton Primary Care Provider Dahlia KARI Dick Unavailable [phone] REASON FOR VISIT 3 month f/u Encounters Encounter Location Date Provider Diagnosis [facility] [address] [address] 02/25/2024 KARI RYAN Plan Of Treatment Next Appt Details Provider Name:KARI RYAN, 06/15/2025 02:45:00 PM, [address] [address], [place], [address], Progress Notes * Richard WONGDOB:1940 (84 yo M)Acc No.[id number]:02/25/2024 Progress Note Patient: Richard MATT Provider: Ammy Ryan DPM :1940 A ge:83 Y S ex:Male Date:02/25/2024 Address:[address] [place], [place] [id number] Pcp:Sugey Stratton Subjective: * Chief Complaints: * 1 . 3 month f/u. * Medical History: Objective: * Vitals: Assessment: Plan: * Treatment: * Billing Information: * Visit Code: * Procedure Codes: * Electronic signature of ILIA RYAN D.P.M on 03/17/2025 at 06:51 PM EST Sign off status: Pending * Provider: Ammy Ryan DPM Date: 04/26/2023 Generated for Osvaldo boone/Davian/Mireille on: 05/18/2024 06:51 PM EST
--- OUTSIDE RECORDS SUMMARY | 2024-06-09 09:45 | XMS_ITS ---
Author Organization [facility] Address [address] [address] Care Team Providers Care Director Of Finance Name Role Phone Sugey Stratton Primary Care Provider Dahlia KARI Dick Unavailable [phone] REASON FOR VISIT 3 month f/u Encounters Encounter Location Date Provider Diagnosis [facility] [address] [address] 06/09/2024 KARI RYAN Plan Of Treatment Next Appt Details Provider Name:KARI RYAN, 06/15/2025 02:45:00 PM, [address] [address], [place], [address], Progress Notes * Richard WONGDOB:1940 (84 yo M)Acc No.[id number]:06/09/2024 Progress Note Patient: Richard MATT Provider: Ammy Ryan DPM :1940 A ge:84 Y S ex:Male Date:06/09/2024 Address:[address] [place], [place] [id number] Pcp:Sugey Stratton Subjective: * Chief Complaints: * 1 . 3 month f/u. * Medical History: Objective: * Vitals: Assessment: Plan: * Treatment: * Billing Information: * Visit Code: * Procedure Codes: * Electronic signature of ILIA RYAN D.P.M on 03/17/2025 at 06:49 PM EST Sign off status: Pending * Provider: Ammy Ryan DPM Date: 0 06/09/2024 Generated for Osvaldo boone/Davian/Mireille on: 1 05/18/2024 06:49 PM EST
--- OUTSIDE RECORDS SUMMARY | 2024-09-22 08:30 | XMS_ITS ---
Author Organization [facility] Address [address] [address] Care Team Providers Care Lining Feller Blindstitch Name Role Phone Sugey Stratton Primary Care Provider Dahlia KARI Dick Unavailable [phone] REASON FOR VISIT 3 month f/u Encounters Encounter Location Date Provider Diagnosis [facility] [address] [address] 09/22/2024 KARI RYAN Plan Of Treatment Next Appt Details Provider Name:KARI RYAN, 06/15/2025 02:45:00 PM, [address] [address], [place], [address], Progress Notes * Richard WONGDOB:1940 (84 yo M)Acc No.[id number]:09/22/2024 Progress Note Patient: Richard MATT Provider: Ammy Ryan DPM :1940 A ge:84 Y S ex:Male Date:09/22/2024 Address:[address] [place], [place] [id number] Pcp:Sugey Stratton Subjective: * Chief Complaints: * 1 . 3 month f/u. * Medical History: Objective: * Vitals: Assessment: Plan: * Treatment: * Billing Information: * Visit Code: * Procedure Codes: * Electronic signature of ILIA RYAN D.P.M on 03/17/2025 at 06:50 PM EST Sign off status: Pending * Provider: Ammy Ryan DPM Date: 0 09/22/2024 Generated for Osvaldo boone/Davian/Mireille on: 1 05/18/2024 06:50 PM EST
--- OUTSIDE RECORDS SUMMARY | 2025-01-12 09:00 | XMS_ITS ---
Author Organization [facility] Address [address] [address] Care Team Providers Care Automatic Lehr Operator Name Role Phone Sugey Stratton Primary Care Provider Dahlia KARI Dick Unavailable [phone] REASON FOR VISIT 3 month f/u Encounters Encounter Location Date Provider Diagnosis [facility] [address] [address] 01/12/2025 KARI RYAN Plan Of Treatment Next Appt Details Provider Name:KARI RYAN, 06/15/2025 02:45:00 PM, [address] [address], [place], [address], Progress Notes * Richard WONGDOB:1940 (84 yo M)Acc No.[id number]:01/12/2025 Progress Note Patient: Richard MATT Provider: Ammy Ryan DPM :1940 A ge:84 Y S ex:Male Date:01/12/2025 Address:[address] [place], [place] [address] Pcp:Sugey Stratton Subjective: * Chief Complaints: * 1 . 3 month f/u. * Medical History: Objective: * Vitals: Assessment: Plan: * Treatment: * Billing Information: * Visit Code: * Procedure Codes: * Electronic signature of ILIA RYAN D.P.M on 03/17/2025 at 06:50 PM EST Sign off status: Pending * Provider: Ammy Ryan DPM Date: 1 Generated for Osvaldo boone/Davian/Mireille on: 1 05/18/2024 06:50 PM EST
--- OUTSIDE RECORDS SUMMARY | 2025-03-14 09:45 | XMS_ITS ---
Author Organization [facility] Address [address] [facility] [address] [place] [address] Care Team Providers Care Learning Design Specialist Name Role Phone Sugey Stratton Primary Care Provider KARI Merino Unavailable [phone] Allergies Allergen (clinical drug ingredient) Drug/Non Drug Allergy documented on EMR Reaction Allergy Type Onset Date Status metoprolol Lopressor Unknown Drug Allergy Active acetaminophen / oxycodone Percocet Unknown Drug Allergy Active REASON FOR VISIT 3 month f/u Medications Medication SIG (Take, Route, Frequency, Duration) Notes Start Date End Date Status Lidocaine-Prilocaine 2.5-2.5 % 1 gm to each foot Externally once a day nightly PRN pain; Duration: 90 days 12/21/2020 Not-Taking Loratadine 10 MG 1 tablet Orally Once a day Not-Taking Calcium Carbonate-Vitamin D 500-400 MG-UNIT 1 tablet Orally daily Not-Taking Xanax 0.25 MG 1 tablet Orally Twice a day prn for anxiety Not-Taking Magnesium Oxide 400 MG 1 tablet as needed Orally bid Not-Taking Lidocaine-Prilocaine 2.5-2.5 % as directed Externally apply 2 grams to each foot once daily at night prn pain; Duration: 90 days Active Clotrimazole-Betameth asone 1-0.05 % 1 application Externally Twice a day Not-Taking Lisinopril 2.5 MG 1 tablet Orally Once a day Not-Taking Simethicone 180 MG 1 capsule after meals and at bedtime as needed Orally 3 times daily Not-Taking Fluorouracil 5 % 1 application Externally Twice a day Not-Taking Ciclopirox 0.77 % 1 application Externally apply topically 2 grams to each foot bid as directed Not-Taking Flonase Allergy Relief 50 MCG/ACT 2 sprays in each nostril Nasally Once a day prn Not-Taking Ciclopirox Olamine 0.77 % 1 application (1 gm to each foot) Externally Twice a day; Duration: 90 days Active Metoprolol Succinate ER 100 MG 1 tablet Orally Once a day Not-Taking Metoprolol Succinate ER 50 MG 1 tablet Orally Once a day Not-Taking Furosemide 40 MG 1 tablet Orally prn take 1.5 tablets by mouth daily. total of 60mg Not-Taking ZyrTEC Allergy 10 MG 1 tablet Orally Once a day Not-Taking hydrALAZINE HCl 50 MG 1 tablet with food Orally Three times a day Not-Taking Ketoconazole 2 % 1 application Externally Once a day Not-Taking NIFEdipine ER 90 MG 1 tablet on an empty stomach Orally Once a day Not-Taking Ferrous Sulfate 325 (65 Fe) MG 1 tablet Orally Once a day Not-Taking Colace 100 MG 1 capsule as needed Orally twice a day Not-Taking glipiZIDE 10 MG 1 tablet 30 minutes before breakfast Orally twice a day Not-Taking Nitroglycerin 0.4 MG as directed Sublingual Not-Taking GlycoLax 17 GM/SCOOP as directed Orally Not-Taking Ipratropium [place] 0.03 % 2 sprays in each nostril Nasally Twice a day Not-Taking Nystatin 886619 UNIT/GM 1 application Externally Twice a day Not-Taking Albuterol Sulfate HFA 108 (90 Base) MCG/ACT 1 puff as needed Inhalation every 4 hrs Not-Taking Lipitor 20 MG 1 tablet Orally Once a day Active Senna 8.6 MG 1 capsule Orally Once a day Active Coreg 6.25 MG 1 tablet with food Orally Twice a day Active Plavix 75 MG 1 tablet Orally Once a day Active Lantus SoloStar 100 UNIT/ML as directed Subcutaneous 80 units daily Active Levothyroxine Sodium 100 MCG 1 tablet in the morning on an empty stomach Orally Once a day Active Aspirin 81 MG 1 tablet Orally Once a day Active Protonix 40 MG 1 tablet Orally Once a day Active Lyrica 100 MG 1 capsule Orally Twice a day Active traMADol HCl 50 MG 1 tablet as needed Orally Once a day PRN Active Torsemide 20 MG as directed Orally 40MG in the A M and 20MG PM Active Tylenol 1,000MG PRN Active Farxiga 10 MG 1 tablet Orally Once a day Active Amiodarone HCl 200 MG 1 tablet Orally Once a day Active Mupirocin 2 % 1 application Externally Twice a day Active Tamsulosin HCl 0.4 MG 1 capsule Orally Once a day Active Vitamin D 50 MCG (1999 UT) 1 tablet Orally Once a day Active Diclofenac Sodium 1 % as directed Externally Active Allopurinol 100 MG 1 tablet Orally Once a day Active Clotrimazole 1 % 1 application Externally Twice a day Active Mucinex 600 MG 1 tablet as needed Orally every 12 hrs Active Hydrocortisone 2.5 % 1 application Externally Once a day Active MiraLax 17 GM/SCOOP 1 scoop mixed with 8 ounces of fluid Orally Once a day Active predniSONE 50 MG 1 tablet with food or milk Orally Once a day Active Silver sulfADIAZINE 1 % 1 application Externally Once a day Active Insulin Aspart 100 UNIT/ML as directed Subcutaneous Active Isosorbide Mononitrate ER 30 MG 1 tablet in the morning Orally Once a day Active Vital Signs Temperature 97.0 degrees Fahrenheit 03/14/20 25 Heart Rate 76 /min 03/14/2025 Respiratory Rate 20 /min 03/14/2025 Height 5ft 6in in 03/14/2025 Weight 217 lbs 03/14/2025 BMI 35.02 kg/m2 03/14/2025 Encounters Encounter Location Date Provider Diagnosis [facility] [address] [facility] [address] [place] [address] 03/14/2025 KARI RYAN Type 2 diabetes mellitus with other circulatory complications E11.59 ; Type 2 diabetes mellitus with diabetic polyneuropathy E11.42 ; Pain in left toe(s) M79.675 ; Onychomycosis B35.1 ; Xerosis of skin L85.3 and Pain in right toe(s) M79.674 Assessments Encounter Date Diagnosis (ICD Code) Assessment Notes Treatment Notes Treatment Clinical Notes Section Notes 03/14/2025 Type 2 diabetes mellitus with other circulatory complications (ICD-10 - E11.59) 03/14/2025 Type 2 diabetes mellitus with diabetic polyneuropathy [...] the toes is due to neuropathy. We also discussed that the beginning of neuropathy could either be from his diabetes or from his spine. We discussed his balance issues are related to his spine, and I would defer further management to them. He is in agreement with this plan. Continue EMLA cream to apply 1 gm to each foot nightly PRN pain x 90 days. 03/14/2025 Pain in left toe(s) (ICD-10 - M79.675) No new acute gout attack since his last visit. 03/14/2025 Onychomycosis (ICD-10 - B35.1) I reviewed with the patient various treatment methods for toenail fungus including topical, oral, laser, and removal of the infected toenails. Continue Ciclopirox to apply to each affected toenail daily. Aseptic debridement of toenails x 10 with bog cutter, pt tolerated well. Discussed with the patient that routine nail care services are only covered by insurance every 60 days. Pt understands that if they would like to return prior to this time frame, they may have to pay out of pocket. 03/14/2025 Xerosis of skin (ICD-10 - L85.3) He applies cream to his feet every day. 03/14/2025 Pain in right toe(s) (ICD-10 - M79.674) Plan Of Treatment Medication Medication Name Sig Start Date Stop Date Notes Lidocaine-Prilocaine 2.5-2.5 % as directed Externally apply 2 grams to each foot once daily at night prn pain; Duration: 90 days Ciclopirox Olamine 0.77 % 1 application (1 gm to each foot) Externally Twice a day; Duration: 90 days Next Appt Details Follow Up: 3 Months, Reason: Provider Name:KARI RYAN, 06/15/2025 02:45:00 PM, [address] [address], [place], [address], Progress Notes * Richard WONGDOB:1940 (84 yo M)Acc No.[id number]:03/14/2025 Progress Note Patient: Richard MATT Provider: Ammy Ryan DPM :1940 A ge:84 Y S ex:Male Date:03/14/2025 [address] [id number] Pcp:Sugey Stratton Subjective: * Chief Complaints: * 3 month f/u * HPI: C onstitutional: This 84 y/o male returns to my office for a follow-up to toenail fungus, dry skin, and for a diabetic foot evaluation. Since his last visit, he suffered a fall and broke his ribs. He went to rehab and states it has been a long recovery. He is scheduled for the neurotransmitter ofr his back in the new year. He notes stiffness in his toes. He denies any gout attacks since his last visit. He does complain of thick, long, painful toenails this visit. He has no other foot complaints. His last visit with his PCP Mervin for diabetes management was 11/17/2024. His last hgba1c was 7.9. Allergies and medical history reviewed. * ROS: G ENERAL: Pt denies nausea, fever, vomiting, chills, or [...] review of systems is noncontributory. * Medical History: * Surgical History: p acemaker EGD biopsy cardiac cath colonoscopy appendectomy umbilical hernia repair * Hospitalization/Major Diagno stic Procedure: o pen heart surgery 01/12/2021OB OVID pneumonia 05/2023fall (fracture ribs) 12/2024 * Family History: no positive family history reported. * Social History: T obacco: never smoker Alcohol: no. * Medications: T akingSilver sulfADIAZINE 1 % Cream 1 application Externally [...] Capsule 1 capsule Orally Once a day Ciclopirox Olamine 0.77 % Cream 1 application (1 gm to each foot) Externally Twice a day Lidocaine-Prilocaine 2.5-2.5 % Cream as directed Externally apply 2 grams to each foot once daily at night prn pain Taking Silver sulfADIAZINE 1 % Cream 1 [...] foot once daily at night prn pain Not-TakingAlbuterol Sulfate HFA 108 (90 Base) MCG/ACT Aerosol Solution 1 puff as needed Inhalation every 4 hrs Nystatin [id number] UNIT/GM Ointment 1 application Externally Twice a day Ipratropium [place] 0.03 % Solution 2 sprays in each [...] an empty stomach Orally Once a day Ketoconazole 2 % Cream 1 application Externally [...] needed Inhalation every 4 hrs Not-Taking Nystatin 417793 UNIT/GM Ointment 1 application Externally Twice a day Not-Taking Ipratropium [place] 0.03 % Solution 2 sprays in each [...] Once a day Not-Taking Ketoconazole 2 % Cream 1 application [...] reviewed and reconciled with the patient * Allergies: Sylvester Pathak[Allergies Verified] Objective: * Vitals: W t: 217 lbs, Ht: 5ft 6in, BMI: 35.02 Index, HR: 76 /min, Temp: 97.0 F, RR: 20 /min, Ht-cm: 167.64, Wt-k.43 kg. * Examination: G eneral Examination: G ENERAL: Patient appears well nourished, with NAD. VASCULAR: [...] bilaterally, protective sensation intact 10/10 with 5.07 [place]ree bilaterally, vibratory sensation with tuning fork diminished to the tibial tuberosity bilaterally, left worse than right, position sense diminished bilaterally to the tibial [...] noted. Normal skin temperature, normal skin turgor. Subungual hematoma under the left 5th and right 3rd toenails, dried and no tenderness on palpation. BIOMECHANICS: STJ ROM limited, MTJ ROM limited, 1st MPJ ROM limited. On weight-bearing, hallux limitus bilaterally, pes planus bilaterally. SHOES: diabetic shoes. Assessment: * Assessment: 1. T ype 2 diabetes mellitus with other circulatory complications - E11.59 (Primary) 2 . 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 O nychomycosis - B35.1 5 . Xerosis of skin - L85.3 6 . P ain in right toe(s) - M79.674 ? Plan: * Treatment: 2. T ype 2 diabetes mellitus with diabetic polyneuropathy Clinical Notes: Discussed with patient regarding proper [...] the toes is due to neuropathy. We also discussed that the beginning of neuropathy could either be from his diabetes or from his spine. We discussed his balance issues are related to his spine, and I would defer further management to them. He is in agreement with this plan. Continue EMLA cream to apply 1 gm to each foot nightly PRN pain x 90 days. 3. P ain in left toe(s) Clinical Notes: No new acute gout attack since his last visit. 4. O nychomycosis Refill Ciclopirox Olamine Cream, 0.77 %, 1 application (1 gm to each foot), Externally, Twice a day, 90 days, 360, Refills 7. Clinical Notes: I reviewed with the patient various treatment methods for toenail fungus including topical, oral, laser, and removal of the infected toenails. Continue Ciclopirox to apply to each affected toenail daily. Aseptic debridement of toenails x 10 with bog cutter, pt tolerated well. Discussed with the patient that routine nail care services are only covered by insurance every 60 days. Pt understands that if they would like to return prior to this time frame, they may have to pay out of pocket. 5. X erosis of skin Clinical Notes: He applies cream to his feet every day. * Procedure Codes: 1 1721 DEBRIDE NAIL, 6 OR MORE, Modifiers: q9 * Follow Up: 3 Months * Billing Information: * Visit Code: 26313 Office Visit, Est Pt., Level 4. Modifiers: 25 * Procedure Codes: 17714 DEBRIDE NAIL, 6 OR MORE. Modifiers: q9 * Sign off status: Completed true * Provider: Ammy Ryan DPM Date: 05/15/2024 Generated for Osvaldo boone/Davian/Constantinosmitting on: 1 05/18/2024 06:49 PM EST History and Physical Notes * HPI (History of Present Illness) Category Sub-Category Detail Notes Category Not es Constitutional This 84 y/o m rick returns to my office for a follow-up to toenail fungus, dry skin, and for a diabetic foot evaluation. Since his last visit, he suffered a fall and broke his ribs. He went to rehab and states it has been a long recovery. He is scheduled for the neurotransmitter ofr his back in the new year. He notes stiffness in his toes. He denies any gout attacks since his last visit. He does complain of thick, long, painful toenails this visit. He has no other foot complaints. His last visit with his PCP Mervin for diabetes management was 11/17/2024. His last hgba1c was 7.9. Allergies and [...] bilaterally, protective sensation intact 10/10 with 5.07 [place]ree bilaterally, vibratory sensation with tuning fork diminished to the tibial tuberosity bilaterally, left worse than right, position sense diminished bilaterally to the tibial [...] noted. Normal skin temperature, normal skin turgor. Subungual hematoma under the left 5th and right 3rd toenails, dried and no tenderness on palpation. BIOMECHANICS: STJ ROM limited, MTJ ROM limited, 1st MPJ ROM limited. On weight-bearing, hallux limitus bilaterally, pes planus bilaterally. SHOES: diabetic shoes
--- NOTE | 2025-03-17 15:03 | HO.NEPHOV_ITS ---
Vital Signs 03/17/25 15:07 Height 5 ft 5 in Weight 217 lb BMI 36.1 BP 124/60 Blood Pressure Location Lt brachial Position Sitting Pulse 67 Pulse Source Pulse Oximeter Pulse Oximetry (%) 100 Oxygen Delivery Method Room Air Intake Visit Reasons: 3 mo fu w/labs-Conf Urban Renewal Manager Required: No Accompanied by: Self / Same As Patient Allergies adhesive tape Allergy (Intermediate, Verified 03/17/25 15:06) blisters lisinopril Allergy (Intermediate, Verified 03/17/25 15:06) Angioedema oxycodone Allergy (Intermediate, Verified 03/17/25 15:06) syncope shellfish derived Allergy (Intermediate, Verified 03/17/25 15:06) Swelling HPI Comments Details: Mr Wong was in follow-up of his chronic kidney disease. He is known to have cardiomyopathy. He has been on home O2 . He has pulmonary fibrosis. He tries to be compliant with a low-sodium diet. He takes his medications regularly. Recently he had hypervolemia and was in hospital needing IV diuresis. He also had urinary symptoms and was thought to have UTI and was treated with antibiotics. He currently has some dysuria. ( He is on Farxiga). He is due to have back surgery next week. He denies any worsen shortness of breath on exertion, proximal nocturnal dyspnea or orthopnea now. His blood sugar control is reasonable. 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 [facility] Medical History (Updated 01/04/25 @ 10:58 by Vladimir Hodges MD) Arthritis Type 2 diabetes mellitus CARON (obstructive sleep apnea) Elevated cholesterol HTN (hypertension) Ventricular tachycardia Ischemic cardiomyopathy Ischemic heart disease Chronic hypoxemic respiratory failure On amiodarone therapy Pulmonary nodule 1 cm or greater in diameter ILD (interstitial lung disease) Essential (primary) hypertension Cyst of kidney, acquired Chronic kidney disease, stage 3b Surgical History Hx of cardiac catheterization H/O colonoscopy History of automatic internal cardiac defibrillator (AICD) Hx of aortic valve replacement S/P CABG x 4 S/P cholecystectomy History of appendectomy Social History Are you a primary manager respiratory care to a significant other at home: No Do you presently have visiting nurse or other home services: No Alcohol intake: never Patient Tobacco Use Status: Never used Tobacco Review of Systems Const All systems reviewed & are unremarkable except as noted in HPI and below Physical Exam Vital Signs: Last Vital Signs Pulse 67 03/17/25 15:07 BP 124/60 03/17/25 15:07 Pulse Ox 100 03/17/25 15:07 Oxygen Delivery Method Room Air 03/17/25 15:07 BMI result Body Mass Index 36.1 Const General: comfortable and no acute distress Orientation/consciousness: patient oriented x3 HEENT Head: Yes normocephalic Mouth: Normal oral and palatal mucosa present Eyes EOM: EOMs intact bilaterally Neck Neck: Yes supple Resp Auscultation: clear to auscultation bilaterally Cardio Jugular venous distension: no JVD Rate: regular rate GI Palpation (GI): Soft to palpation Auscultation: normal bowel sounds General: Yes no CVA tenderness Back/Spine/Pelvis Back: no CVA tenderness Skin General skin exam: no rashes or lesions noted Neuro General: patient oriented x3 and moves all extremities Extrem General: Yes no pedal edema Results Reviewed Nephrology Results: Hgb, (14.0-18.0) 13.7 g/dl L 03/11/25 WBC, (4.8-10.8) 8.2 X10*3/uL 03/11/25 Plt Count, (160-400) 220 X10*3/uL 03/11/25 Sodium, (135-145) 142 mmol/L 03/11/25 Potassium, (3.3-5.1) 4.5 mmol/L 03/11/25 Chloride, (96-108) 97 mmol/L 03/11/25 Carbon Dioxide, (22-29) 35 mmol/L H 03/11/25 BUN, (9-16) 51 mg/dL H 03/11/25 Creatinine, (0.5-1.4) 2.37 mg/dL H 03/11/25 Calcium, (8.4-10.2) 9.5 mg/dL 03/11/25 Phosphorus, (2.7-4.5) 3.6 mg/dL 03/11/25 PTH Intact, (8.7-77.1) 317.4 pg/mL H 03/11/25 Assessment & Plan Assessment & Plan (1) Essential (primary) hypertension: Code(s): I10 - Essential (primary) hypertension Category: Medical (2) Chronic kidney disease, stage 3b: Code(s): N18.32 - Chronic kidney disease, stage 3b Category: Medical (3) Hyperuricemia: Code(s): E79.0 - Hyperuricemia without signs of inflammatory arthritis and tophaceous disease Category: Medical Plan Justin 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 He has history of cardiomyopathy. His diuretics can be continued at the current dose for now. His serum creatinine had been close to baseline. He should maintain very low sodium diet . He should maintain good blood sugar control. I have ordered urine culture( is on Farxiga). He had not been tolerating WANG inhibitor or ARB .He can continue Allopurinol 100 mg daily. He should avoid nonsteroidal anti-inflammatory medications . All questions were answered. Follow-up given Orders: Orders Creatinine 3 Months E79.0 - Hyperuricemia without signs of inflammatory arthritis and tophaceous disease, I10 - Essential (primary) hypertension, N18.32 - Chronic kidney disease, stage 3b Vitamin D 25-OH Total 3 Months E79.0 - Hyperuricemia without signs of inflammatory arthritis and tophaceous disease, I10 - Essential (primary) hypertension, N18.32 - Chronic kidney disease, stage 3b Parathyroid Hormone Intact 3 Months E79.0 - Hyperuricemia without signs of inflammatory arthritis and tophaceous disease, I10 - Essential (primary) hypertension, N18.32 - Chronic kidney disease, stage 3b Complete Blood Count Auto Diff 3 Months E79.0 - Hyperuricemia without signs of inflammatory arthritis and tophaceous disease, I10 - Essential (primary) hypertension, N18.32 - Chronic kidney disease, stage 3b Blood Urea Nitrogen 3 Months E79.0 - Hyperuricemia without signs of inflammatory arthritis and tophaceous disease, I10 - Essential (primary) hypertension, N18.32 - Chronic kidney disease, stage 3b Electrolytes 3 Months E79.0 - Hyperuricemia without signs of inflammatory arthritis and tophaceous disease, I10 - Essential (primary) hypertension, N18.32 - Chronic kidney disease, stage 3b Calcium 3 Months E79.0 - Hyperuricemia without signs of inflammatory arthritis and tophaceous disease, I10 - Essential (primary) hypertension, N18.32 - Chronic kidney disease, stage 3b Phosphorus 3 Months E79.0 - Hyperuricemia without signs of inflammatory arthritis and tophaceous disease, I10 - Essential (primary) hypertension, N18.32 - Chronic kidney disease, stage 3b Coding Level of Care Code Est Pt Level 4 (46735) Diagnoses Essential (primary) hypertension I10 Chronic kidney disease, stage 3b N18.32 Hyperuricemia E79.0
[2025-03-17 15:07] VITALS: BP 124/60; PULSE 67; O2SAT 100; BMI 36.1
--- OUTSIDE RECORDS SUMMARY | 2025-03-17 18:50 | XMS_ITS | Encounter Summary ---
Author Organization [facility] Address [address] [place] [address] Care Team Providers Care Specialist Employee Labor Relations Name Role Phone Nicolás Jeffries MD Primary Care Provider [phone] Encounter Details Date Type Department Care Team (Late st Contact Info) Description 02/14/2025 Results Follow-Up Adult Medicine [facility] [address] [place] [address] Ann Marie García, [place] [address] [place], [place] Social History Tobacco Use Types Packs/Day [...] 1:00 PM EST Office Visit Endocrinology - [address] [phone] Taryn Umana PA [address] [place] [address] 05/13/2025 2:00 PM EST Office Visit Gastroenterology - [address] [place] [phone] Janneth Enciso NP [address] [address] 09/12/2025 3:00 PM EDT Office Visit Adult Medicine South - [address] [phone] Nicolás Jeffries MD [address] [place] [address] 10/12/2025 3:00 PM EDT Ancillary Procedure [facility] [address] [facility] [address] [place] [address] documented as of this encounter Visit Diagnoses Not on filedocumented in this encounter Additional Health Concerns Assessment Noted Time PHQ-9 Depression Total Score: 0 09/24/19 25 11:46 AM EDT documented as of this encounter Care Teams Specialist Employee Labor Relations Relationship Specialty Start Date End Date Nicolás Jeffries MD [address] [place] [address] PCP - General Internal Medicine 02/11/24 documented as of this encounter
--- OUTSIDE RECORDS SUMMARY | 2025-03-17 18:50 | XMS_ITS | Encounter Summary ---
Author Organization [facility] Address [address] [place] [address] Care Team Providers Care Tug Captain Name Role Phone Nicolás Jeffries MD Primary Care Provider [phone] Encounter Details Date Type Department Care Team (Late st Contact Info) Description 02/25/2025 Billing Patient Not Present Adult Medicine [facility] [address] [place] [address] Nicolás Jeffries MD [address] [place], [place] Social History Tobacco Use Types Packs/Day [...] 1:00 PM EST Office Visit Endocrinology - [address] [phone] Taryn Umana PA [address] [place] [address] 05/13/2025 2:00 PM EST Office Visit Gastroenterology - [address] [phone] Janneth Enciso NP [address] [place] [address] 09/12/2025 3:00 PM EDT Office Visit Adult Medicine [place] - [address] [phone] Nicolás Jeffries MD [address] [place] [address] 10/12/2025 3:00 PM EDT Ancillary Procedure [facility] [address] [facility] [address] [place] [address] documented as of this encounter Goals Goal [...] documented as of this encounter Care Teams Tug Captain Relationship Specialty Start Date End Date Nicolás Jeffries MD [address] [place] [phone] PCP - General Internal Medicine 02/11/24 documented as of this encounter
--- OUTSIDE RECORDS SUMMARY | 2025-03-17 18:50 | XMS_ITS | Encounter Summary ---
Author Organization [facility] Address [address] [place] [address] Care Team Providers Care Alarm Service Technician Name Role Phone Nicolás Jeffries MD Primary Care Provider [phone] Reason for Visit * Reason Onset Date Comments faxed order 03/15/2025 [facility] order [id number] Encounter Details Date Type Department Care Team (Late st Contact Info) Description 03/15/2025 Telephone Adult Medicine [address] [phone] Nicolás Jeffries MD [address] [place] [address] Social History Tobacco Use Types Packs/Day Years [...] encounter Progress Notes * Trudy Kim - 03/15/2025 4:31 PM EST [facility] order [id number] received please sign and fax to [phone] documented in this encounter Plan of Treatment Upcoming Encounters Date Type Department Care Team (Late st Contact Info) Description 03/30/2025 1:00 PM EST Office Visit Endocrinology - [place] [address] [place] [address] Taryn Umana PA [address] [place] [address] 05/13/2025 2:00 PM EST Office Visit Gastroenterology - [address] [phone] Janneth Enciso NP [address] [address] 09/12/2025 3:00 PM EDT Office Visit Adult Medicine [facility] [address] [place] [address] Nicolás Jeffries MD [address] [place] [address] 10/12/2025 3:00 PM EDT Ancillary Procedure [facility] - [facility] 154 300 [facility] 154 [place] [address] documented as of this encounter Goals Goal Patient Goal Type Associated Problems Recent Progress Patient-Stated? Author Increase activity/remain active within limits permitted by pain General aHritha Floyd, RN Note: Pt has pain in back and buttocks due to fall with fx. He has appt coming up with ortho for a patch documented as of this encounter Visit Diagnoses Not on filedocumented in this encounter Additional Health Concerns Assessment Noted Time PHQ-9 Depression Total Score: 0 03/03/20 25 3:16 PM EST documented as of this encounter Care Teams Alarm Service Technician Relationship Specialty Start Date End Date Nicolás Jeffries MD [address] [place] [address] PCP - General Internal Medicine 02/11/24 documented as of this encounter
--- OUTSIDE RECORDS SUMMARY | 2025-03-17 18:50 | XMS_ITS | Encounter Summary ---
Author Organization [facility] Address [address] [place] [address] Care Team Providers Care Menagerie Superintendent Name Role Phone Nicolás Jeffries MD Primary Care Provider [phone] Encounter Details Date Type Department Care Team (Late st Contact Info) Description 02/02/2025 Lab Requisition [facility] - Main Lab 299 [facility] [place] [address] Oracio Elizabeth MD [address] [place] [phone] Hypothyroidism, unspecified Social History Tobacco Use Types [...] 1:00 PM EST Office Visit Endocrinology - [address] [phone] Taryn Umana PA [address] [place] [address] 05/13/2025 2:00 PM EST Office Visit Gastroenterology - [address] [phone] Janneth Enciso NP [address] [place] [address] 09/12/2025 3:00 PM EDT Office Visit Adult Medicine South - [address] [phone] Nicolás Jeffries MD [address] [place] [address] 10/12/2025 3:00 PM EDT Ancillary Procedure [facility] - [facility] 154 300 [facility] 154 [place] [address] documented as of this encounter Procedures Procedure Name Priority Date/Time Associated Diagnosis Comments THYROID STIMULATING HORMONE Routine 02/03/2025 4:40 AM EST Hypothyroidism, unspecified documented in this encounter Results * (ABNORMAL) Thyroid stimulating hormone (02/03/2025 4:40 AM EST) TSH 6.88(H) 0.40 - 4.00 mcIU/mL LAB CHEMISTRY METHOD 02/03/2025 9:20 AM EST [facility] Blood Venous blood specimen / Unknown Venipuncture / Unknown 02/03/2025 4:40 AM EST 02/03/2025 8:25 AM EST us Oracio Elizabeth MD LAB BLOOD ORDERABLES Final Resu lt [facility] [address] [place] [address], documented in this encounter Visit Diagnoses Diagnosis Hypothyroidism, unspecified Encounter for adjustment or management of cardiac device documented in this encounter Additional Health Concerns Assessment Noted Time PHQ-9 Depression Total Score: 0 09/24/19 25 11:46 AM EDT documented as of this encounter Care Teams Menagerie Superintendent Relationship Specialty Start Date End Date Nicolás Jeffries MD [address] [place] [address] PCP - General Internal Medicine 02/11/24 documented as of this encounter
--- OUTSIDE RECORDS SUMMARY | 2025-03-17 18:50 | XMS_ITS | Encounter Summary ---
Author Organization [facility] Address [address] [place] [address] Care Team Providers Care Lens Finisher Name Role Phone Nicolás Jeffries MD Primary Care Provider [phone] Encounter Details Date Type Department Care Team (Late st Contact Info) Description 01/26/2025 Lab Requisition [facility] - Main Lab 299 [facility] [place] [address] Oracio Elizabeth MD [address] [place] [phone] Essential (primary) hypertension; Metabolic encephalopathy; Type 2 [...] 03/30/2025 1:00 PM EST Office Visit Endocrinology [address] [phone] Taryn Umana PA [address] [place] [address] 05/13/2025 2:00 PM EST Office Visit Gastroenterology - [address] [phone] Janneth Enciso NP [address] [address] 09/12/2025 3:00 PM EDT Office Visit Adult Medicine [address] [phone] Nicolás Jeffries MD [address] [place] [address] 10/12/2025 3:00 PM EDT Ancillary Procedure [facility] - [address] 300 [facility] [address] [place] [phone] documented as of this encounter Procedures Procedure [...] [facility] [address] [place] [address], [place] [phone] * (ABNORMAL) Hemoglobin A1c (01/26/2025 4:47 AM EDT) Pathologist [facility] Hemoglobin A1C 9.0(H) <6.5 % LAB CHEMISTRY [...] [facility] [address] [place] [address], * (ABNORMAL) Basic metabolic panel (01/26/2025 4:47 AM EDT) [facility] Sodium 141 133 - 145 mmol/L LAB CHEMISTRY METHOD 01/26/2025 2:04 PM [facility] Potassium 4.6 3.5 - 5.5 mmol/L LAB CHEMISTRY METHOD 01/26/2025 2:04 PM [facility] Chloride 103 96 - 110 mmol/L LAB CHEMISTRY METHOD 01/26/2025 2:04 PM [facility] CO2 31 21 - 32 mmol/L LAB CHEMISTRY METHOD 01/26/2025 2:04 PM [facility] Anion Gap 7 3 - 11 LAB CHEMISTRY METHOD 01/26/2025 2:04 PM [facility] Glucose 142(H) 70 - 100 mg/dL LAB CHEMISTRY METHOD 01/26/2025 2:04 PM [facility] BUN 44(H) 5 - 25 [...] [facility] [address] [place] [address], * (ABNORMAL) Complete blood count (01/26/2025 4:47 [...] % LAB HEMETOLOGY METHOD 01/26/2025 11:01 AM [facility] MCV 87.6 79.0 - 98.0 FL LAB HEMETOLOGY METHOD 01/26/2025 11:01 AM [facility] MCH 26.8(L) 27.0 - 32.0 pcg LAB HEMETOLOGY METHOD 01/26/2025 11:01 AM [facility] MCHC 30.6(L) 32.0 - 37.0 g/dL LAB HEMETOLOGY METHOD 01/26/2025 11:01 AM [facility] RDW 17.9(H) 11.0 - 15.0 % LAB HEMETOLOGY METHOD 01/26/2025 11:01 AM [facility] Platelets 263 130 - 400 K/mcL LAB HEMETOLOGY METHOD 01/26/2025 11:01 AM [facility] MPV 10.1 7.0 - 11.0 FL LAB HEMETOLOGY METHOD 01/26/2025 11:01 AM [facility] NRBC 0.0 <1.0 % LAB HEMETOLOGY METHOD 01/26/2025 11:01 AM [facility] NRBC Absolute 0.00 <0.10 K/mcL LAB HEMETOLOGY METHOD 01/26/2025 11:01 AM [facility] Blood Venous blood specimen / Unknown Venipuncture / Unknown 01/26/2025 4:47 AM EDT 01/26/2025 9:49 AM EDT us Oracio Elizabeth MD LAB BLOOD ORDERABLES Final Resu lt [facility] [address] [place] [address], documented in this encounter Visit Diagnoses Diagnosis Essential (primary) hypertension Unspecified essential hypertension Metabolic encephalopathy Type 2 diabetes mellitus with diabetic chronic kidney disease (CMS/[facility] V24, [facility] V28) Hypothyroidism, unspecified Encounter for adjustment or management of cardiac device documented in this encounter Additional Health Concerns Assessment Noted Time PHQ-9 Depression Total Score: 0 09/24/19 25 11:46 AM EDT documented as of this encounter Care Teams Lens Finisher Relationship Specialty Start Date End Date Nicolás Jeffries MD [address] [place] [address] PCP - General Internal Medicine 02/11/24 documented as of this encounter
--- OUTSIDE RECORDS SUMMARY | 2025-03-17 18:50 | XMS_ITS | Encounter Summary ---
Author Organization [facility] Address [address] [place] [address] Care Team Providers Care Premium Cancellation Clerk Name Role Phone Nicolás Jeffries MD Primary Care Provider [phone] Encounter Details Date Type Department Care Team (Late st Contact Info) Description 01/27/2025 Lab Requisition [facility] - Main Lab 299 [facility] [place] [address] Oracio Elizabeth MD [address] [place] [address] Urinary tract infection, site not specified Social [...] 1:00 PM EST Office Visit Endocrinology - [address] [phone] Taryn Umana PA [address] [place] [address] 05/13/2025 2:00 PM EST Office Visit Gastroenterology - [address] [place] [phone] Janneth Enciso NP [address] [address] 09/12/2025 3:00 PM EDT Office Visit Adult Medicine South - [address] [phone] Nicolás Jeffries MD [address] [place] [address] 10/12/2025 3:00 PM EDT Ancillary Procedure [facility] - [facility] 154 300 [facility] 154 [place] [address] documented as of this encounter Procedures Procedure [...] Culture urine (01/27/2025 12:00 AM EDT) Pathologist [facility] Culture, Urine 50,000-99,000 CFU/mL Mixed bacterial morphotypes [...] Result [facility] [address] [place] [address], * (ABNORMAL) Urinalysis with reflex microscopic and culture (01/27/2025 12:00 AM EDT) Specific [place] Urine 1.014 1.003 - 1.030 LAB URINALYSIS [...] AUTOMATED METHOD 01/27/2025 10:00 AM EDT [facility] Hyaline Casts, Urine 5.6(H) 0 - 3 /LPF LAB URINALYSIS - AUTOMATED METHOD 01/27/2025 10:00 AM EDT [facility] Urine Urine specimen obtained by clean catch procedure / Unknown Non-blood Collection / Unknown 01/27/2025 01/27/2025 9:25 AM EDT Oracio Elizabeth MD LAB URINE ORDERABLES Final Resu lt Performing Organization Address City/[facility]/ZIP Co de Phone Number [facility] [address] [place] [address], [place] [phone] * Penny urine culture tube (01/27/2025 12:00 AM EDT) Extra Tube Hold for add-ons. 01/27/2025 11:01 AM EDT [facility] Comment:Auto resulted. Urine Urine specimen obtained by clean catch procedure / Unknown Non-blood Collection / Unknown 01/27/2025 01/27/2025 9:25 AM EDT Oracio Elizabeth MD LAB URINE ORDERABLES Final Resu lt Performing Organization Address City/[facility]/ZIP Co de Phone Number [facility] [address] [place] [address], [place] [phone] documented in this encounter Visit Diagnoses Diagnosis Urinary tract infection, site not specified Encounter for adjustment or management of cardiac device documented in this encounter Additional Health Concerns Assessment Noted Time PHQ-9 Depression Total Score: 0 09/24/19 25 11:46 AM EDT documented as of this encounter Care Teams Premium Cancellation Clerk Relationship Specialty Start Date End Date Nicolás Jeffries MD [address] [place] [phone] PCP - General Internal Medicine 02/11/24 documented as of this encounter
--- OUTSIDE RECORDS SUMMARY | 2025-03-17 18:51 | XMS_ITS | Clinical Summary ---
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 2:04 PM [facility] Creatinine 2.39(H) 0.70 - 1.30 mg/dL LAB CHEMISTRY METHOD 01/26/2025 2:04 PM [facility] eGFR 26(L) >=60 mL/min/1. 73m2 LAB CHEMISTRY METHOD 01/26/2025 2:04 PM [facility] Comment:Calculation based on the Chronic Kidney Disease Epidemiology Collaboration (CKD-EPI) equation refit without adjustment for race. BUN/Creatinine Ratio 18.4 LAB CHEMISTRY METHOD 01/26/2025 2:04 PM EDT [facility] Calcium 9.0 8.5 - 10.5 mg/dL LAB CHEMISTRY METHOD 01/26/2025 2:04 PM EDT [facility] Blood Venous blood specimen / Unknown Venipuncture / Unknown 01/26/2025 4:47 AM EDT 01/26/2025 9:49 AM EDT us Oracio Elizabeth MD LAB BLOOD ORDERABLES Final Resu lt [facility]) [facility] [address] [place] [address], * Cardiac device check - Remote- MURJ (01/20/2025 9:21 AM EDT) Only the most recent of2 resultswithin the time period is included. Date Time Interrogation Session [id number] CV DEVICE CHECK Type Interrogation Session Remote Scheduled CV DEVICE CHECK Implantable Pulse Generator [employer] CV DEVICE CHECK Implantable Pulse Generator Type ICD CV DEVICE CHECK Implantable Pulse Generator Model [id number] John(JAILENE) CV DEVICE CHECK Implantable Pulse Generator Serial Number [id number] CV DEVICE CHECK Implantable Pulse Generator Implant Date 20210720 CV DEVICE CHECK Battery Remaining Percentage 63.00 CV DEVICE CHECK Battery Remaining Longevity 68.0 CV DEVICE CHECK Battery Voltage 2.980 CV D EVICE CHECK Battery TOLL OPERATOR Trigger 2.620 CV DEVICE CHECK Battery Status Middle of Service CV DEVICE CHECK Capacitor Charge Time 8.800 CV DEVICE CHECK Sanket Statistic RA Percent Paced 9.00 CV DEVICE CHECK Sanket Statistic RV Percent Paced 90.00 CV DEVICE CHECK Atrial Tachy Statistic AT/AF [employer] Percent 0.00 CV DEVICE CHECK Lead Channel [...] LAB CHEMISTRY METHOD 08/20/2024 4:44 AM EDT [facility] Microalb, Ur 83.8(H) 0.0 - 29.0 mg/L LAB CHEMISTRY METHOD 08/20/2024 4:44 AM EDT [facility] Microalb/Crea t Ratio 115(H) <30 mg/g creat LAB CHEMISTRY METHOD 08/20/2024 4:44 AM EDT [facility] Urine Urine specimen obtained by clean catch procedure / Unknown Non-blood Collection / Unknown 08/19/2024 1:59 PM EDT 08/19/2024 1:59 PM EDT Result [facility] Nicolás Jeffries MD LAB URINE ORDERABLES Final Resu lt [facility] [address] [place] [address], * Depression Screening (12/12/2023) [facility] Depression Screening abstracted Result [facility] Provider HEALTH MAINTENANCE Final Result * Diabetes Foot Exam (11/05/2023) [facility] Diabetes: Annual Foot Exam abstracted [facility] Provider HEALTH MAINTENANCE Final Result * Diabetes Eye Exam (10/31/2023) [facility] Diabetes: Annual Retina Eye Exam abstracted Result [facility] Historical Provider HEALTH MAINTENANCE Final Result * Falls Risk Assessment (10/21/2023) [facility] Falls Risk Assessment abstracted Result [facility] Provider HEALTH MAINTENANCE Final Result from Last 3 Months or Most Recently Relevant to Health Maintenance Insurance MEDICARE [facility] Care Teams Signal Wirer Relationship Specialty Start Date End Date Nicolás Jeffries MD [address] [place] [address] PCP - General Internal Medicine 02/11/24
--- OUTSIDE RECORDS SUMMARY | 2025-03-17 18:51 | XMS_ITS | Encounter Summary ---
Author Organization [facility] Address [address] [place] [address] Care Team Providers Care Fur Comber Name Role Phone Nicolás Jeffries MD Primary Care Provider [phone] Reason for Visit * Reason Onset Date Comments faxed order [facility] [id number] Encounter Details Date Type Department Care Team (Late st Contact Info) Description 03/11/2025 Telephone Adult Medicine [address] [phone] Nicolás Jeffries MD [address] [place] [address] Social History Tobacco Use Types Packs/Day Years [...] Trudy Kim - 03/11/2025 3:35 PM EST [facility] order [id number] received please sign and fax to [phone] documented in this encounter Plan of Treatment Upcoming Encounters Date Type Department Care Team (Late st Contact Info) Description 03/30/2025 1:00 PM EST Office Visit Endocrinology - [place] [address] [place] [address] Taryn Umana PA [address] [place] [address] 05/13/2025 2:00 PM EST Office Visit Gastroenterology - [address] [address] Janneth Enciso NP [address] [address] 09/12/2025 3:00 PM EDT Office Visit Adult Medicine [facility] [address] [place] [address] Nicolás Jeffries MD [address] [place] [address] 10/12/2025 3:00 PM EDT Ancillary Procedure [facility] [address] [facility] [address] [place] [id number] documented as of this encounter Goals Goal [...] documented as of this encounter Care Teams Fur Comber Relationship Specialty Start Date End Date Nicolás Jeffries MD [address] [place] [address] PCP - General Internal Medicine 02/11/24 documented as of this encounter
--- OUTSIDE RECORDS SUMMARY | 2025-03-17 18:51 | XMS_ITS ---
Author Organization [address] Address [address] [place] [address] Phone Care Team Providers Care Fishing Game Warden Name Role Phone Nicolás Jeffries MD Primary Care Provider [phone] Chronic Care Management Status:Ongoing (Active) Start date:02/09/2025 Enrollment date:02/25/2025 Enrollment reason:Referred by Care Team Case Team Name Relationship Phone Haritha Kline RN(Responsible Staff) Care Luc steel Continued Care and Services Coordination
--- OUTSIDE RECORDS SUMMARY | 2025-03-17 18:51 | XMS_ITS | Data Portability ---
Author Organization [place] [facility] Address [address] [place] [address] Care Team Providers Care Soft Metals Hand Engraver Name Role Phone CATY GARCIA Primary Care Provider LAUREN PADILLA OTHER [place] CUEVA Extract Wringer [phone] Assessment Encounter Date Assessment Date Assessment LastModified [...] DH completed Ciara Ward NP [address] [place], [address], [place] [facility] 07/01/2021 21:21:29 coronary artery bypass grafts x 4 completed Ciara Ward NP [address] [place], [address], [place] [facility] 07/01/2021 20:07:31 Cholecystectomy completed Ciara Ward NP [address] [place], [address], [place] [facility] 07/01/2021 20:09:21 Appendectomy completed Ciara Ward NP [address] [place], [address], [place] [facility] 07/01/2021 20:09:34 implantation of internal cardiac defibrillator completed Ciara Ward NP [address] [place], [address], [place] [facility] 07/01/2021 20:16:48 Imaging Results None recorded. Procedure Notes None recorded. Medical Equipment None Reported. Allergies Allergen ID Allergen Name Allergen Category Reaction Reaction Severity Criticality Documentation Date Start Date Code Code System Note Provider Name and Address Organization Details Recorded Time 724710 acetamino phen / oxycodone medicatio n Not available Not available Not available 07/01/2021 97377 3 RxNorm Ciara Ward NP [address] [place], [address], [place] [facility] 19:56:39 [id number] lisinopri l medicatio n Not available Not available Not available 07/01/2021 36058 RxNorm Ciara Ward NP [address], [place], [address], [place] [facility] 2 19:56:49 887630 shellfish derived food,medi cation Not available Not available Not available 07/01/2021 Ciara Ward NP [address], [place], [address], [place] [facility] 2 19:56:58 [...] /min 98.3 [degF] 140/70 mm[Hg] Not Available [facility] 20:01:45 Social History Question Answer Notes LastModified by [employer] Details LastModified Time Tobacco Smoking Status Never Smoker Ciara Ward, KAYLA [address] [facility], [place], [address], [place] [facility] 07/01/2021 20:06:11 Do You Have An Advance Directive? Yes [email or web address] Information not available 07/01/2021 What Is Your Code Status? Full Code [email or web address] Information not available 07/01/2021 Within The Past 12 Months, Has It Happened That The Food You Bought Just Didn't Last And You Didn't Have Money To Get More. No [email or web address] Information not available 07/01/2021 Within The Past 12 Months, Have You Worried That Your Food Would Run Out Before You Got Money To Buy More. No [email or web address] Information not available 07/01/2021 Fall Risk: Do You Feel Unsteady When Standing Or Walking? No [email or web address] Information not available 07/01/2021 Excessive Alcohol Or Drug Use No [email or web address] Information not available 07/01/2021 Does This Patient Have A PCP? Yes [email or web address] Information not available 07/01/2021 Has The Patient Seen Their PCP In The Past 6 Months? Yes [email or web address] Information not available 07/01/2021 We Know From Many Of Our Patients That Covering All Of Their Costs Can Be Difficult At Times. This Can Cause Stress And Impact Health. In The Past Year, Have You Been Unable To Get Any Of The Following When It Was Really Needed? No [email or web address] Information not available 07/01/2021 What Is Your Housing Situation Today? I Have Housing [email or web address] Information not available 07/01/2021 Sex: Unknown Functional Status Question Answer Note LastModified by [employer] Details LastModified Time Do you use any illicit or recreational drugs? No [email or web address] Information not available 07/01/2021 Do you or have you ever used any other forms of tobacco or nicotine? No [facility] Information not available 07/01/2021 What is your level of alcohol consumption? None [facility] Information not available 07/01/2021 Mental Status None recorded. Family History Relationship Description Onset Age of this Age Resolved Age Notes LastModified by Organization Details LastModified Time Father No current problems or disability [facility] Not available 05/2021 20:05:29 Mother No current problems or disability [email or web address] Not available 05/2021 20:05:30 Medical History Condition Response Diabetes Y Coronary Artery Disease Y CHF Y Parkinson's Disease N Cancer N Stroke N Dementia N Asthma N Hypothyroidism Y Depression N COPD N High Cholesterol Y Rheumatoid Arthritis N Pulmonary Embolism N Hypertension Y A-fib N Osteoporosis N Kidney Disease Y Past Encounters Encounter ID Performer Location Encounter Start Date Encounter Closed Date Diagnosis/Indication Diagnosis SNOMED-CT Code Diagnosis ICD10 Code Diagnosis IMO Codes Diagnosis Note [id number] Ciara Ward NP [facility] [address] [place] [address] 07/01/2021 19:54:42 08/01/2021 14:31:47 Health Concerns Section Related Observation LastModified by Organization Detai ls LastModified Time None Recorded Concern Status LastModified by Organization Details LastModified Time None Recorded Advance Directives Directive Y: Payers Insurance Date Sequence Insurance Name Policy Number Policy Reid Covered Member ID Reid Member ID Guarantor Name 07/01/2021 1 [place] [employer] Justin Wong [id number] Justin Wong 08/01/2021 2 [facility]: ([place]) [id number] Justin Wong [id number] Justin Wong 07/01/2021 1 *SELF PAY* Justin Wong [id number] Justin Wong Notes Date Note Type Note [...] Cueva s/p hospitalization. Ciara Ward NP [address] [place], [address], [place] [facility] 07/01/2021 21:56:35
--- OUTSIDE RECORDS SUMMARY | 2025-03-17 18:51 | XMS_ITS | Patient Health Record ---
Author Organization [facility] Address [address] [facility] [address] [place] [address] Care Team Providers Care Screen And Cyclone Repairer Name Role Phone Sugey Stratton Primary Care Provider KARI Merino Unavailable [phone] Allergies Allergen (clinical drug ingredient) Drug/Non Drug Allergy documented on EMR Reaction Allergy Type Onset Date Status metoprolol Lopressor Unknown Drug Allergy Active acetaminophen / oxycodone Percocet Unknown Drug Allergy Active Reason For Referral No Information Medications Medication SIG (Take, Route, Frequency, Duration) Notes Start Date End Date Status Senna 8.6 MG 1 capsule Orally Once a day Active Coreg 6.25 MG 1 tablet with food Orally Twice a day Active Plavix 75 MG 1 tablet Orally Once a day Active Protonix 40 MG 1 tablet Orally Once a day Active Lyrica 100 MG 1 capsule Orally Twice a day Active Lipitor 20 MG [...] Twice a day prn for anxiety Not-Taking Farxiga 10 MG 1 tablet Orally Once a day Active Amiodarone HCl 200 MG 1 tablet Orally Once a day Active Mupirocin 2 % 1 application Externally Twice a day Active Tamsulosin HCl 0.4 MG 1 capsule Orally Once a day Active traMADol HCl 50 MG 1 tablet as needed Orally Once a day PRN Active Magnesium Oxide 400 MG 1 tablet as needed Orally bid Not-Taking Torsemide 20 MG as directed Orally 40MG in the A M and 20MG PM Active Simethicone 180 MG 1 capsule after meals and at bedtime as needed Orally 3 times daily Not-Taking Tylenol 1,000MG PRN Active Fluorouracil 5 % 1 application Externally Twice a day Not-Taking Vitamin D 50 MCG (2000 UT) 1 tablet Orally Once a day Active Lidocaine-Prilocaine 2.5-2.5 % as directed Externally apply 2 grams to each foot once daily at night prn pain; Duration: 90 days Active Allopurinol 100 MG 1 tablet Orally Once a day Active Ciclopirox Olamine 0.77 % 1 application (1 gm to each foot) Externally Twice a day; Duration: 90 days Active Clotrimazole 1 % 1 application Externally Twice a day Active Ciclopirox 0.77 % 1 application Externally apply topically 2 grams to each foot bid as directed Not-Taking Flonase Allergy Relief 50 MCG/ACT 2 sprays in each nostril Nasally Once a day prn Not-Taking Furosemide 40 MG 1 tablet Orally [...] 1 application Externally Once a day Active Mucinex 600 MG 1 tablet as needed Orally every 12 hrs Active Ketoconazole 2 % 1 application Externally Once a day Not-Taking Hydrocortisone 2.5 % 1 application Externally Once a day Active NIFEdipine ER 90 MG 1 tablet on an empty stomach Orally Once a day Not-Taking Insulin Aspart 100 UNIT/ML as directed Subcutaneous Active Isosorbide Mononitrate ER 30 MG 1 tablet in the morning Orally Once a day Active hydrALAZINE HCl 50 MG 1 tablet with food Orally Three times a day Not-Taking Ferrous Sulfate 325 (65 Fe) MG 1 tablet Orally Once a day Not-Taking Ipratropium Chester 0.03 % 2 sprays in each nostril Nasally Twice a day Not-Taking Nystatin 199230 UNIT/GM 1 application Externally Twice a day Not-Taking Albuterol Sulfate HFA 108 (90 Base) MCG/ACT 1 puff as needed Inhalation every 4 hrs Not-Taking Colace 100 MG 1 capsule as needed Orally twice a day Not-Taking glipiZIDE 10 MG 1 tablet 30 minutes before breakfast Orally twice a day Not-Taking Nitroglycerin 0.4 MG as directed Sublingual Not-Taking GlycoLax 17 GM/SCOOP as directed Orally Not-Taking Problems Problem Type SNOMED Code ICD Code Onset Dates Problem Status W/U Status Risk Notes Problem Polyneuropathy due to type 2 diabetes mellitus (047961547) Type 2 diabetes mellitus with diabetic polyneuropathy (E11.42) Active confirmed Problem Peripheral circulatory disorder associated with diabetes mellitus (451386058) Type 2 diabetes mellitus with other circulatory complications (E11.59) Active confirmed Problem Long-term current use of insulin (961155609) watermaster (current) use of insulin (Z79.4) Active confirmed 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) Active confirmed Vital Signs Heart Rate 76 /min 03/14/2025 Temperature 97.0 degrees Fahrenheit 03/14/2025 Respiratory Rate 20 /min 03/14/2025 Height 5ft 6in in 03/14/2025 Weight 217 lbs 03/14/2025 BMI 35.02 kg/m2 03/14/2025 Encounters Encounter Location Date Provider Diagnosis [facility] [address] [facility] [address] [place] [address] 06/16/2024 KARI RYAN Type 2 diabetes mellitus with other circulatory complications E11.59 ; Type 2 diabetes mellitus with diabetic polyneuropathy E11.42 ; Pain in left toe(s) M79.675 ; Onychomycosis B35.1 ; Xerosis of skin L85.3 and Pain in right toe(s) M79.674 [facility] [address] [address] 10/11/2024 KARI RYAN Type 2 diabetes mellitus with other circulatory complications E11.59 ; Type 2 diabetes mellitus with diabetic polyneuropathy E11.42 ; Pain in left toe(s) M79.675 ; Onychomycosis B35.1 ; Xerosis of skin L85.3 and Pain in right toe(s) M79.674 [facility] [address] [address] 03/14/2025 KARI RYAN Type 2 diabetes mellitus with other circulatory complications E11.59 ; Type 2 diabetes mellitus with diabetic polyneuropathy E11.42 ; Pain in left toe(s) M79.675 ; Onychomycosis B35.1 ; Xerosis of skin L85.3 and Pain in right toe(s) M79.674 [facility] [address] [address] 08/02/2024 KARI RYAN [facility] [address] [address] 01/12/2025 KARI RYAN Assessments Encounter Date Diagnosis (ICD Code) Assessment Notes Treatment Notes Treatment Clinical Notes Section Notes 06/16/2024 Type 2 diabetes mellitus with other circulatory complications (ICD-10 - E11.59) 10/11/2024 Type 2 diabetes mellitus with other circulatory complications (ICD-10 - E11.59) 03/14/2025 Type 2 diabetes mellitus with other [...] nightly PRN pain x 90 days. 03/14/2025 Type 2 diabetes mellitus with diabetic [...] gout attack since his last visit. 03/14/2025 Pain in left toe(s) (ICD-10 - M79.675) No new acute gout attack since his last visit. 03/14/2025 Onychomycosis (ICD-10 - B35.1) I reviewed with the patient various treatment methods for toenail fungus including topical, oral, laser, and removal of the infected toenails. Continue Ciclopirox to apply to each affected toenail daily. Aseptic debridement of toenails x 10 with portable machine cutter, pt tolerated well. Discussed with the patient that routine nail care services are only covered by insurance every 60 days. Pt understands that if they would like to return prior to this time frame, they may have to pay out of pocket. 06/16/2024 Onychomycosis (ICD-10 - B35.1) I reviewed with the patient various treatment methods for toenail fungus including topical, oral, laser, and removal of the infected toenails. Continue Ciclopirox to apply to each affected toenail daily. Aseptic debridement of toenails x 10 with portable machine cutter, pt tolerated well. All bleeding controlled [...] Aseptic debridement of toenails x 10 with portable machine cutter, pt tolerated well. He can remove [...] cream to his feet every day. 03/14/2025 Xerosis of skin (ICD-10 - L85.3) He applies cream to his feet every day. 03/14/2025 Pain in right toe(s) (ICD-10 - M79.674) 10/11/2024 Pain in right toe(s) (ICD-10 - M79.674) 06/16/2024 Pain in right toe(s) (ICD-10 - M79.674) Plan Of Treatment Pending Test Test Name Order Date X ray : Foot, left 3v 04/20/2021 DRAIN/INJECT, SMALL JOINT/BURSA 04/20/19 22 DRAIN/INJECT, INTERMEDIATE JOINT/BURSA 1 Trim dystrophic toenails any number /0 05/2020 Next Appt Details Provider Name:KARI RYAN, 06/15/2025 02:45:00 PM, [address] [facility], [facility] [address], [place], [address], Insurance Providers Payer Name Payer Address Payer Phone Subscriber Number Group Number Insured Name Patient Relationship to Insured Coverage Start Date Coverage End Date Medicare of [place] [address] [place] [phone] [id number] Richard Wong Self - patient is the insured [employer] [address] [place] [address] [phone] [id number] 1 Richard Wong Self - patient is [...] hypertension ischemic cardiomyopathy non-sustained ventricular tachycardia old HI PVD diabetes mellitus 2 with peripheral neur opathy diabetes mellitus 2 with renal manifesta tions hypercholesterolemia hypothyroid obesity cholecystitis GERD CKD stage III BPH onychomycosis back pain vitiligo COVID vaccinated X 4 (Pfizer) + COVID 05/2023 Surgical History Surgery Date(Month/Year) pacemaker EGD biopsy cardiac cath colonoscopy appendectomy umbilical hernia repair Hospitalization History Reason Date(Month/Year) fall (fracture ribs) 12/2024 COVID pneumonia 05/2023 SOB 05/2023 open heart surgery 01/12/2021
--- OUTSIDE RECORDS SUMMARY | 2025-03-17 18:51 | XMS_ITS | Encounter Summary ---
Author Organization [facility] Address [address] [place] [address] Care Team Providers Care Rural Route Carrier Name Role Phone Nicolás Jeffries MD Primary Care Provider [phone] Encounter Details Date Type Department Care Team (Late st Contact Info) Description 03/03/2025 Results Follow-Up Adult Medicine [facility] [address] [place], [place] [phone] Nicolás Jeffries MD [address] [place], [place] Social History Tobacco Use Types Packs/Day [...] 1:00 PM EST Office Visit Endocrinology - [address] [phone] Taryn Umana PA [address] [place] [address] 05/13/2025 2:00 PM EST Office Visit Gastroenterology - [address] [place] [phone] Janneth Enciso NP [address] [place] [address] 09/12/2025 3:00 PM EDT Office Visit Adult Medicine [place] - [address] [phone] Nicolás Jeffries MD [address] [place] [address] 10/12/2025 3:00 PM EDT Ancillary Procedure [facility] [address] [facility] [address] [place] [address] documented as of this encounter Goals Goal [...] documented as of this encounter Care Teams Rural Route Carrier Relationship Specialty Start Date End Date Nicolás Jeffries MD [address] [place] [phone] PCP - General Internal Medicine 02/11/24 documented as of this encounter
--- OUTSIDE RECORDS SUMMARY | 2025-03-17 18:51 | XMS_ITS | Encounter Summary ---
Author Organization [facility] Address [address] [place] [address] Care Team Providers Care Plate Stacker Hand Name Role Phone Nicolás Jeffries MD Primary Care Provider [phone] Reason for Visit * Reason Onset Date Comments triage pain 03/07/2025 See message from [facility] Encounter Details Date Type Department Care Team (Late st Contact Info) Description 03/07/2025 Telephone Adult Medicine [address] [phone] Nicolás Jeffries MD [address] [place], [place] Social History Tobacco Use Types Packs/Day [...] Please see message from [facility] * Yolette Palestine - 03/07/2025 12:14 PM EST [facility] CALL Which [facility] office is calling? [facility] / Full name of caller: MICHAEL The [...] 03/30/2025 1:00 PM EST Office Visit Endocrinology [address] [phone] Taryn Umana PA [address] [place] [address] 05/13/2025 2:00 PM EST Office Visit Gastroenterology - [address] [address] Janneth Enciso NP [address] [address] 09/12/2025 3:00 PM EDT Office Visit Adult Medicine [address] [phone] Nicolás Jeffries MD [address] [place] [address] 10/12/2025 3:00 PM EDT Ancillary Procedure [facility] - [facility] [address] [facility] [address] [place] [address] documented as of this encounter [...] documented as of this encounter Care Teams Plate Stacker Hand Relationship Specialty Start Date End Date Nicolás Jeffries MD [address] [place] [address] PCP - General Internal Medicine 02/11/24 documented as of this encounter
== END 2025-03-17 15:30 | disposition home or self-care (01) ==
LOC: HO.HKAS 14:43
PROVIDERS: PCP Internal Medicine; Visit Provider Internal Medicine Nephrology
DX: I10 Essential (primary) hypertension (principal); N18.32 Chronic kidney disease, stage 3b; E79.0 Hyperuricemia without signs of inflammatory arthritis and tophaceous disease
CPT/HCPCS: 99214

== ENCOUNTER → 2025-03-17 14:43 | Outpatient (BNVA) | payer MEDICARE, SELFPAY | PROVIDERS: PCP Internal Medicine; Visit Provider Internal Medicine Nephrology | DX: I12.9 Hypertensive chronic kidney disease with stage 1 through stage 4 chronic kidney disease, or unspecified chronic kidney disease (principal); E11.22 Type 2 diabetes mellitus with diabetic chronic kidney disease; I43 Cardiomyopathy in diseases classified elsewhere; N18.32 Chronic kidney disease, stage 3b; Z79.4 Long term (current) use of insulin; E79.0 Hyperuricemia without signs of inflammatory arthritis and tophaceous disease; Z95.2 Presence of prosthetic heart valve; Z99.81 Dependence on supplemental oxygen; Z79.82 Long term (current) use of aspirin | CPT/HCPCS: 99212 ==